=== PATIENT | male | born 1960 | race Two or more races ===

== ENCOUNTER 2021-03-20 09:44 | Outpatient (REF) | payer OTHER, SELFPAY ==
--- NOTE | ~2021-03-20 | PE_ITS ---
EXAMINATION: Fluorine-18 FDG PET/CT Scan CLINICAL INDICATION: Subsequent treatment management. Follicular lymphoma, restaging status post chemotherapy [id number], radiation therapy 2019. PROCEDURE: 69 minutes following the intravenous administration of 15.8 mCi of fluorine 18 FDG, images from the base of the skull to the mid thighs were obtained using a combined PET/CT scanner with CT scan based attenuation correction. No oral contrast was administered. No intravenous contrast was administered. Transverse, coronal, sagittal, and volume reconstruction projections were obtained. The patient's blood glucose as determined by a finger stick, was 114 mg/dl immediately prior to injection. Total CT exam dose-length product 623.10 mGy-cm * These CT images were obtained using dose optimization techniques as appropriate, variously including the following: Automated exposure control * Adjustment of mA and/or kV according to patient size (this includes techniques or standardized protocols for targeted exams where dose is matched to indication/reason for exam; i.e. extremities or head) * Use of iterative reconstruction technique COMPARISON: Prior PET/CT scans dated 08/21/2016 and 04/24/2016 are available for comparison. CT scan of the abdomen and pelvis dated 08/11/2018 is also available for comparison. FINDINGS: (Slice numbers described in this report are numbered superiorly to inferiorly with slice #1 in the head) NECK AND VISUALIZED HEAD: No foci of abnormal FDG activity are noted. The distribution of FDG activity is physiological. There is no cervical lymphadenopathy. THORAX: There is an FDG avid enlarged periaortic lymph node that abuts the left lateral margin of the aortic arch, SUVmax 5.0, slice 67/267 and measuring approximately 2.4 x 1.2 [address] the corresponding CT images. This lymph node did not show abnormal FDG activity and was subcentimeter in size on the most recent 08/12/[address] scan, but a prominent FDG avid lymph node at this site was present on the baseline 04/24/[address] scan. No additional foci of abnormal FDG activity are present in the chest. No pulmonary nodules are visualized. There is no pleural or pericardial fluid, or pneumothorax. There is no additional mediastinal, supraclavicular, or axillary lymphadenopathy. ABDOMEN AND PELVIS: There is diffusely increased FDG activity that likely originates in the right adrenal gland and extends into the adjacent medial aspect of the right lobe of the liver and also inseparably abuts the upper pole of the right kidney. This shows SUVmax 6.5, slice 128/267. This corresponds to the mass that was biopsied under CT guidance on 08/06/2019. There is FDG activity of markedly varying intensity diffusely in the gastrointestinal tract, with the most intense focus in the left midabdomen within a loop of small bowel showing SUVmax 7.5, slice 152/267. No definite corresponding CT abnormality is present. In the right colon, the most intense activity is diffusely along the omental surface anteriorly and anterolaterally, also with no definite corresponding CT abnormality. There is diverticulosis without evidence of diverticulitis. The hollow viscera are otherwise unremarkable. There is a chronic hypodense medullary cyst in the mid right kidney, markedly FDG photopenic. Additional hypodense FDG photopenic cysts present medially in the mid to lower pole region of the left kidney, also unchanged from prior studies. The kidneys are otherwise unremarkable. The left adrenal gland and pancreas are unremarkable. There is some minimal mesenteric stranding possibly with some weak FDG activity associated, such as in slice 161/267 in the left midabdomen. Subtle aortocaval FDG avid lymphadenopathy is also present showing SUVmax 3.7, slice 148/267 at the L2 level. No additional retroperitoneal, mesenteric, pelvic or inguinal lymphadenopathy is present. Mild diffuse bladder wall thickening is present, similar to prior studies. The pelvic organs are otherwise unremarkable. MUSCULOSKELETAL: No foci of abnormal FDG activity are present in the osseous structures. There are minimal degenerative changes in the midthoracic spine. No suspicious sclerotic or lytic lesions are visualized. VASCULAR: Diffuse vascular calcifications including coronary are noted. PET/PET CT fusion skull to thigh IMPRESSION: 1. An FDG avid mediastinal lymph node abutting the left lateral margin of the aortic arch is developed since 08/12/2019 and is strongly suspicious for a malignant lesion and most consistent with recurrent lymphoma at this site. Although not present on the most recent 08/21/[address] scan, the baseline 04/24/[address] scan showed an FDG avid lymph node at this site. 2. A large FDG avid right adrenal mass is now inseparable from the liver and upper pole of the right kidney. This was biopsied on 08/06/2019 and shown to be involvement by the patient's known follicular lymphoma. 3. FDG avid aortocaval lymphadenopathy is also suspicious for recurrent lymphoma. 4. Prominent FDG activity in the gastrointestinal tract as described above could be physiological, but the intense focal appearance in the left midabdomen within a loop of small bowel as well as the activity associated with the right colon may also represent recurrent malignancy. These may be better characterized with MRI of the abdomen performed without and with intravenous contrast. The latter may also be helpful in better characterizing the right adrenal mass and its relationship to the adjacent liver and right kidney. Using the 5 point Deauville scale, this patient would be classified as a Deauville score of 5.
== END 2021-03-20 09:45 | disposition home or self-care (01) ==
LOC: HO.PET 09:44
PROVIDERS: PCP Family Medicine; Visit Provider Internal Medicine
DX: Z13.89 Encounter for screening for other disorder (principal)

== ENCOUNTER → 2021-05-08 11:08 | Outpatient (REF) | payer OTHER, SELFPAY ==
--- NOTE | 2021-05-08 11:13 | CA_ITS ---
Transthoracic Echocardiogram Patient (Last, First, Middle): Jorje Crow, Gender: Male Date of : 1960 Age: 61 Procedure Date: 05/08/2021 Procedure Type: Transthoracic Echocardiogram Location: OP Height: 167.64 cm Weight: 81.19 kg BSA: 1.91 m2 Heart Rate: bpm BP: 139 / 88 mmHg Woodyard Crane Operator: DSAudelia Referring MD: Asuncion Dumont MD Arch Cushion Press Operator: Caleb Bautista MD Symptoms: pre chemo eval Study Quality: Good ECG Rhythm: Sinus Conclusions: - 1. Normal LV systolic function with grade 1 diastolic dysfunction 2. Normal cardiac valvular Doppler 3. Normal RV systolic pressure 4. No pericardial effusion Findings Left Ventricle Normal left ventricular size, thickness, and systolic function. The visually estimated ejection fraction is between 65-70%. Spectral Doppler is indicative of an impaired relaxation filling pattern. E/E prime ratio is <8, consistent with normal filling pressures. Evidence suggests grade I (mild) diastolic dysfunction. global longitudinal strain was performed, however it appears that the moderate tracking is inadequate and therefore the results are not accurate Right Ventricle Normal right ventricular cavity size and systolic function. Atria Both atria are normal in size. There is no evidence of interatrial shunt. Aortic Valve The aortic valve structure and function is likely normal. There is no aortic valve stenosis. There is no aortic valve regurgitation. Mitral Valve Likely normal mitral valve structure and function. There is trace mitral valve regurgitation. There is no mitral valve stenosis. Pulmonic Valve The pulmonic valve was not well visualized. Tricuspid Valve Likely normal tricuspid valve structure and function. There is trace tricuspid valve regurgitation. The right ventricular systolic pressure is normal. Normal right atrial pressure. There is no evidence of pulmonary hypertension. Great Vessels All visible segments of the aorta are normal in size. The pulmonary artery was not well visualized. Venous The inferior vena cava is normal in size and collapses greater than 50% with inspiration. Pericardium/Pleural There is no evidence of pericardial effusion. Prior Study Comparison No significant change compared to prior study dated: 09/01/2019. Measurements 2D Linear Measurements IVSd: 0.86 0.6-0.9/0.6-1.0 cm LVIDd: 5.03 3.9-5.3/4.2-5.9 cm LVIDd Index: 2.63 2.4-3.2/2.2-3.1 cm/m2 LVIDs: 3.48 2.0-3.6 cm LVPWd: 1.25 0.7-1.1 cm Ao Root: 2.90 2.1-3.5 cm LA Diam: 3.50 2.7-3.8/3.0-4.0 cm LAIDs Index: 1.83 1.5-2.3 cm/m2 LV Mass: 245.72 67-162/88-224 g LV Mass Index: 128.65 43-95/49-115 g/m2 LVOT Diam: 2.00 3.0+(-)1.3 cm 2D Systolic Function EF 4C: 61.20 >55% EF 2C: 76.50 >55% EF BiP: 70.50 >55% Mitral Valve MV Pk E: 0.65 MV PK A: 0.78 MV Decel Time: 161.00 E/A: 0.80 E'Lateral: 7.83 E'Medial: 7.51 E/E' Med: 8.60 E/E' Lat: 8.30 PHT: 47.00 MVA PHT: 4.68 Decel [place]: 4.02 Aortic Valve AoV Pk Jarrett: 1.15 AoV Pk Grad: 5.00 LVOT LVOT Pk Jarrett: 0.92 LVOT Mn Jarrett: 0.57 LVOT VTI: 0.21 LVOT Pk Grad: 3.00 LVOT Mn Grad: 2.00 LVOT Diam: 2.00 LVOT Area: 3.14 Diastolic Function MV Pk E: 0.65 MV Pk A: 0.78 E/A: 0.80 E'Medial: 7.51 E/E' Med: 8.60 E' Laterial: 7.83 E/E' Lat: 8.30 Tricuspid Valve TR Pk Jarrett: 2.24 TR Pk Grad: 20.00 RA Press: 3.00 RVSP: 23.00 Great Vessels Aorta Ao Root-2D: 2.90 2.0-3.7 cm Ao Asc: 3.30 2.1-3.4 cm Updated in Other Vendor System with Status of Final Caleb Bautista MD electronically signed on 05/09/2021 9:08:53 AM with status of Final
== END ==
LOC: HO.CARD 11:08
PROVIDERS: Visit Provider Internal Medicine
DX: C82.90 Follicular lymphoma, unspecified, unspecified site (principal); Z95.5 Presence of coronary angioplasty implant and graft
CPT/HCPCS: 93306; 93356

== ENCOUNTER 2021-05-28 09:50 | Outpatient (REF) | payer OTHER, SELFPAY ==
[2021-05-28 10:26] LABS: Total Volume 24 Hour Urine 1100 mL
[2021-05-28 11:16] LABS: Creatinine, 24Hr Urine 0.5 G/Day (1.0-2.0); Creatinine, mg/dL 49.35
[2021-05-29 19:28] LABS: Calcium, 24 Hr Urine 13 mg/24 h; Calcium/Creatinine Ratio 23 mg/g creat (30-210); Creatinine 24Hr Urine 0.57 g/24 h (0.50-2.15)
[2021-05-30 09:37] LABS: Creatinine, 24Hr Urine 0.58 g/24 h (0.50-2.15); PEU-PROT/CRE Ratio mg/mg NOTE (< OR = 0.114); PEU24-Albumin Urine 0 %; PEU24-Alpha 1 Globulin 0 %; PEU24-Alpha 2 Globulin 0 %; PEU24-Beta Globulin 0 %; PEU24-Gamma Globulin 0 %; Total Protein 24Hr Urine NOTE mg/24 h (<150); Total Protein/Creat Ratio 24h NOTE mg/g creat (< OR = 114)
== END 2021-05-28 09:51 | disposition home or self-care (01) ==
LOC: HO.LNP 09:50
PROVIDERS: Visit Provider Internal Medicine Endocrinology, Diabetes & Metabolism
DX: M81.0 Age-related osteoporosis without current pathological fracture (principal)
CPT/HCPCS: 82340; 82570; 84156; 84166

== ENCOUNTER 2021-06-02 08:50 | Outpatient (REF) | payer OTHER, SELFPAY ==
[2021-06-02 09:38] LABS: MANUAL DIFF FLAG NO
[2021-06-02 09:44] LABS: Basophils Percent Auto 0.5 % (0-2); Eosinophils Absolute Auto 0.1 X10*3/uL (0.0-0.4); Hemoglobin 15.1 g/dl (14.0-18.0); Imm Gran Abs Auto 0.05 X10*3/uL (0.00-0.03); Imm Gran Pct Auto 0.8 % (0.0-0.4); Lymphocytes Absolute Auto 0.8 X10*3/uL (1.2-4.9); Lymphocytes Percent Auto 14.1 % (20-40); Mean Corpuscular Hemoglobin 30.8 pg (27.0-33.0); Mean Corpuscular Volume 85.5 fL (80-98); Mean Platelet Volume 9.4 fL (9.4-12.4); Monocytes Absolute Auto 0.7 X10*3/uL (0.1-1.2); Monocytes Percent Auto 11.6 % (2-11); Neutrophils Absolute Auto 4.3 X10*3/uL (2.0-8.3); Platelet Count 255 X10*3/uL (160-400); Red Blood Count 4.91 X10*6/uL (4.60-5.80); Red Cell Distribution Width 12.3 % (11.0-16.0)
[2021-06-02 09:51] LABS: Estimated Average Glucose 260 mg/dL; Hemoglobin A1c % 10.7 %
[2021-06-02 10:06] LABS: Alanine Aminotransferase 41 U/L (0-40); Alkaline Phosphatase 104 U/L (39-117); Anion Gap 17 (12-20); Aspartate Amino Transferase 25 U/L (5-37); Bilirubin Total 0.9 mg/dL (0.0-1.0); Blood Urea Nitrogen 22 mg/dL (9-16); Calcium 9.6 mg/dL (8.4-10.2); Carbon Dioxide 24 mmol/L (22-29); Chloride 101 mmol/L (96-108); Cholesterol 152 mg/dL; Estimated Glomerular Filt Rate 56; Glucose Random 293 mg/dL (60-115); HDL Cholesterol 40 mg/dL; LDL Cholesterol Calculated 90 mg/dl; Potassium 4.8 mmol/L (3.3-5.1); Sodium 137 mmol/L (135-145); Total Protein 6.7 g/dL (6.5-8.0); Triglycerides 111 mg/dL
[2021-06-02 10:29] LABS: TSH reflex Free T4 0.43 uIU/mL (0.32-4.0); Vitamin D 25-OH Total 36.7 ng/mL (>30)
[2021-06-04 08:18] LABS: Vitamin B12 929 pg/mL (200-900)
== END 2021-06-02 08:51 | disposition home or self-care (01) ==
LOC: HO.LAB 08:50
PROVIDERS: PCP Family Medicine; Visit Provider Family Medicine
DX: C82.08 Follicular lymphoma grade I, lymph nodes of multiple sites (principal); E11.9 Type 2 diabetes mellitus without complications
CPT/HCPCS: 36415; 80053; 80061; 82306; 82607; 83036; 84443; 85025

== ENCOUNTER 2021-07-16 09:12 | Outpatient (REF) | payer OTHER, SELFPAY ==
--- NOTE | ~2021-07-16 | US_ITS ---
EXAMINATION: US VENOUS WITH DOPPLER UPPER EXTREMITY, LEFT CLINICAL INFORMATION: Left arm pain. Evaluate for a deep vein thrombosis. COMPARISON: None TECHNIQUE: Ultrasound of the upper extremity is performed using compression sonography and color and pulse Doppler flow with assessment of augmentation of flow. There is also imaging and Doppler assessment of the jugular and subclavian veins. Spectral analysis with color-flow imaging is performed. FINDINGS: Respiratory variation, normal compression, and augmented flow are noted throughout the upper extremity including the axillary, brachial, cubital, and radial and ulnar veins. There is normal flow in the internal jugular and subclavian veins. Heterogeneous echogenicity within the median cubital vein with noncompressibility and no Doppler detectable vascular flow. Findings likely represent superficial thrombophlebitis. If the patient's symptoms progress, a follow-up ultrasound in 5-7 days might be of value to exclude proximal propagation from a nonvisualized distal arm vein. US/US venous duplex UE LT IMPRESSION: No left upper extremity deep vein thrombosis. Findings consistent with superficial thrombophlebitis in the median cubital vein.
== END 2021-07-16 09:13 | disposition home or self-care (01) ==
LOC: HO.US 09:12
PROVIDERS: PCP Family Medicine; Visit Provider Internal Medicine
DX: C82.90 Follicular lymphoma, unspecified, unspecified site (principal); R60.9 Edema, unspecified
CPT/HCPCS: 93971

== ENCOUNTER 2021-07-24 12:57 | Outpatient (REF) | payer OTHER, SELFPAY ==
--- NOTE | ~2021-07-24 | PE_ITS ---
EXAMINATION: PET/CT FUSION SKULL TO THIGH CLINICAL INFORMATION: Follicular lymphoma restaging. COMPARISON: PET/CT 03/20/2021 TECHNIQUE: Following intravenous administration of 16 mCi of F-18 FDG in the left hand, whole-body PET emission scan was obtained [address] 3.75 mm thin axial imaging was obtained without oral or IV contrast. Baseline serum glucose measured 133 mg/dL. Radiation dose measured 862 Gy-cm. FINDINGS: HEAD AND NECK: On PET imaging, there is no abnormal activity seen in the visualized brain parenchyma or the skull base. No abnormal metabolic activity is seen in the neck. Normal metabolic activity is seen in the thyroid lobes. On CT imaging, the visualized brain parenchyma is homogeneous. No lytic or sclerotic process is seen in the skull base. The bilateral maxillary sinuses are well aerated. The airway is widely patent. Visualized bilateral parotid, submandibular and thyroid glands are symmetrical. No abnormal neck mass or lymph nodes seen. CHEST: Previously visualized solitary lymph node in the left para-aortic region has resolved. No additional areas of abnormal metabolic activity are seen. On CT imaging, the lungs are expanded and clear. No pulmonary nodules, mass or consolidation seen. No abnormal mediastinal or hilar lymph nodes are seen. Previously visualized left para-aortic lymph node is not seen at this time. Central trachea and the bronchi are widely patent. There are coronary artery calcifications present. ABDOMEN AND PELVIS: There is mild metabolic activity seen in the colon but less in intensity compared to previous exam 03/20/2021. Previously visualized metabolic activity in the right adrenal gland extending cephalad to the upper pole right kidney and the pancreatic head shows no abnormal activity. Normal metabolic activity seen in both kidneys and bladder. On CT imaging, there is a solitary 2.5 cm cyst midpole left kidney. There is mild fullness of the right adrenal gland but decreased in size compared to previous study. There is no abnormal metabolic activity seen in the para-aortic lymph nodes or any abnormal sized para-aortic lymph nodes on CT. The bowel gas pattern is nonspecific with scattered stool in the right colon. There is no free fluid. There is diffuse urinary bladder wall thickening, slightly more progressive from the previous study. PET/PET CT fusion skull to thigh IMPRESSION: Interval complete resolution of left para-aortic lymph node activity in the chest as well as small retroperitoneal lymph nodes in the abdomen. On the present exam, there is no abnormal metabolic activity seen in the skull base, neck, chest, or the abdomen. Diffuse activity in the colon has significantly decreased in intensity without any mural thickening. There is mild urinary bladder wall thickening, slightly more pronounced than the previous 03/20/2021 exam.
== END 2021-07-24 12:58 | disposition home or self-care (01) ==
LOC: HO.PET 12:57
PROVIDERS: PCP Family Medicine; Visit Provider Internal Medicine
DX: Z13.89 Encounter for screening for other disorder (principal)

== ENCOUNTER 2022-06-14 18:44 | Inpatient (IN) | payer OTHER, SELFPAY ==
--- NOTE | ~2022-06-14 | XR_ITS ---
EXAMINATION: XR CHEST CLINICAL INFORMATION: Pneumonia. COMPARISON: Most recent CT chest dated 06/14/2022. TECHNIQUE: Frontal view of the chest was obtained. FINDINGS: There appears to be slight interval decrease in patchy bilateral airspace opacities when compared to the most recent chest CT. No new airspace consolidation. No pleural effusion or pneumothorax. Stable cardiomediastinal silhouette. XR/XR chest 1V IMPRESSION: Slight interval decrease in patchy bilateral airspace opacities when compared to the most recent chest CT.
--- NOTE | ~2022-06-14 | CT_ITS ---
EXAMINATION: CT CHEST WITHOUT CONTRAST CLINICAL INFORMATION: Question pneumonia COMPARISON: Previous chest x-ray from earlier the same day and PET/CT March 2020 TECHNIQUE: Multidetector volumetric CT imaging of the chest was done. Axial MIP volume rendering provided. Sagittal and coronal reformatted images were obtained. This CT examination was performed using dose optimization techniques as appropriate, variously including the following: *Automated exposure control *Adjustment of mA and/or kV according to patient size (this includes techniques or standardized protocols for targeted exams where dose is matched to indication/reason for exam; i.e. extremities or head) *Use of iterative reconstruction technique DLP: 296 mGy-cm FINDINGS: LUNGS: There are bilateral groundglass attenuation infiltrates suggestive of pneumonia, left greater than right. MEDIASTINUM: The heart is upper normal in size. There is coronary artery calcification. There is a prominent AP window lymph node measuring 1 cm in short axis. Evaluation for hilar adenopathy is limited without contrast. There is no pericardial effusion. PLEURA: There is no pleural effusion. No pleural mass or thickening. AXILLA: No lymphadenopathy. UPPER ABDOMEN: There is abnormal soft tissue seen in the right retroperitoneum. The right adrenal gland is not identified separate from this. The spleen may be enlarged. OSSEOUS STRUCTURES: Unremarkable. CT/CT chest wo con IMPRESSION: Bilateral multilobar groundglass attenuation infiltrates suggestive of pneumonia, left greater than right.. Fleischner guidelines were followed.
--- NOTE | ~2022-06-14 | XR_ITS ---
EXAMINATION: XR CHEST CLINICAL INFORMATION: Fever COMPARISON: Previous chest x-ray January 2018 and PET/CT March 2020 TECHNIQUE: Frontal view of the chest was obtained. FINDINGS: The cardiac silhouette does not appear enlarged. There is abnormal contour to the aortic arch. Hilar and mediastinal contours are otherwise unremarkable. The lung volumes are low. There is atelectasis versus small infiltrate at the left lung base. There is atelectasis at the right lung base. There is no pleural effusion. XR/XR chest 1V IMPRESSION: Abnormal contour to the aortic arch. This may be related to mass or lymphadenopathy. Low lung volumes. Atelectasis or small infiltrate at the left lung base and atelectasis at the right lung base.
--- NOTE | 2022-06-14 19:00 | ED.WEAKNESS ---
HPI - Weakness General Chief complaint: Fever Stated complaint: FEVER,FEELS UNWELL Time Seen by Provider: 06/14/22 18:56 Source: patient Mode of arrival: EMS Limitations: no limitations History of Present Illness HPI Narrative: This is a 62 years old with history of recurrent follicular lymphoma, presented to the emergency department via ambulance complaining of weakness, fever, nausea, chills. He was evaluated away the weekend at [facility], symptoms persisted today: Ambulance MD Complaint: generalized weakness and lack of energy Onset (ago): day(s) (4) Duration: constant Location: generalized Migration: none Severity: moderate Relieving factors: none Exacerbating factors: none Related Data Home Medications Medication Instructions Recorded Confirmed atorvastatin 80 mg tablet 80 mg PO DAILY 11/14/20 06/14/22 hydrochlorothiazide 25 mg tablet 25 mg PO DAILY 11/14/20 06/14/22 losartan 50 mg tablet 50 mg PO DAILY 11/14/20 06/14/22 metformin 500 mg tablet 500 mg PO BIDWM 11/14/20 06/14/22 metoprolol succinate 100 mg 100 mg PO DAILY 11/14/20 06/14/22 tablet,extended release 24 hr blood sugar diagnostic (FreeStyle 06/25/21 06/12/22 Lite Strips) blood-glucose meter (FreeStyle 06/25/21 06/12/22 [place] Lite) albuterol sulfate 90 mcg/actuation 2 puff PO Q4-6H PRN dyspnea 06/14/22 06/14/22 aerosol inhaler (Ventolin HFA) aspirin 81 mg tablet,delayed 2 tab PO QPM 06/14/22 06/14/22 release benzonatate 200 mg capsule 1 cap PO TID PRN cough 06/14/22 06/14/22 fluticasone propionate 50 1 - 2 spray intranasal DAILY PRN 06/14/22 06/14/22 mcg/actuation nasal Allergy Symptoms spray,suspension loratadine 10 mg tablet 1 tab PO DAILY 06/14/22 06/14/22 oxycodone 10 mg tablet 1 tab PO BID PRN Pain (Scale Score 06/14/22 06/14/22 7-10) pantoprazole 40 mg tablet,delayed 1 tab PO DAILY 06/14/22 06/14/22 release Allergies Allergy/AdvReac Type Severity Reaction Status Date / Time amlodipine [AMLODIPINE] Allergy Unknown EDEMA-PER Verified 12/25/21 09:15 H&P Review of Systems Constitutional: Constitutional: Reports no additional constitutional complaints Cardiovascular: Cardiovascular: Reports no additional cardiovascular complaints Musculoskeletal: Musculoskeletal: Reports no additional musculoskeletal complaints [facility] Past Medical History Medical History Abnormal urine cytology CAD (coronary artery disease) Diabetes GERD (gastroesophageal reflux disease) HTN (hypertension) Hyperlipemia Lymphoma Surgical History History of heart artery stent Hx of cataract surgery Family History Family History Father Pancreas cancer Hypertension Sister Breast cancer Social History Social History Household Members: Children Housing: House Are you a primary child care provider to a significant other at home: No Do you presently have visiting nurse or other home services: No Alcohol intake: former Patient Tobacco Use Status: Never used Tobacco Use of substances other than those prescribed or required for medical reasons: No Advance Directives: No Advance Directives Information Provided: Yes service: No Current occupational status: unemployed Physical Exam Vital Signs: Vital Signs: Last Vital Signs Temp 104.1 F H 06/14/22 19:21 Pulse 100 06/14/22 21:48 Resp 28 H 06/14/22 21:48 BP 109/62 06/14/22 21:48 Pulse Ox 95 06/14/22 21:48 O2 Del Method 06/14/22 21:48 BMI result Body Mass Index 26.8 Const: General: cooperative and alert Nutritional Appearance: well nourished HEENT: Head: Yes normal to inspection Face and sinus: Yes normal facial exam Mouth: Normal oral and palatal mucosa present Neck: Neck: Yes normal visual inspection Chest: Chest palpation & inspection: normal inspection of the chest Resp: Effort & Inspection: normal respiratory effort Auscultation: clear to auscultation bilaterally Cardio: Jugular venous distension: no JVD Rate: regular rate Rhythm: regular rhythm GI: Inspection: Yes normal to inspection Palpation (GI): Soft to palpation Skin: General skin exam: no rashes or lesions noted, elasticity normal and turgor normal Rashes: no rashes Course Reevaluation(s) Reevaluation #1: Pt improving remain normotensive,lactic acid normal AB given,CT chest showed bilateral infiltrates is hard to say if could be related to covid VS bacterial pneumonia,regardless pt should be on AB because immunocompromized 2th to the lymphoma MDM - Weakness Lab Data Result diagrams: 06/14/22 19:42 06/14/22 19:42 Labs: Lab Results 06/14/22 06/14/22 06/14/22 Range/Units 19:42 19:42 19:42 WBC 4.1 L (4.8-10.8) X10*3/uL RBC 3.71 L (4.60-5.80) X10*6/uL Hgb 11.1 L (14.0-18.0) g/dl Hct 32.0 L (42.0-52.0) % MCV 86.3 (80.0-98.0) fL MCH 29.9 (27.0-33.0) pg MCHC 34.7 (31.0-36.0) g/dl RDW 12.7 (11.0-16.0) % Plt Count 155 L (160-400) X10*3/uL MPV 9.1 L (9.4-12.4) fL Immature Gran % (Auto) 0.7 H (0.0-0.4) % Neut % (Auto) 73.1 H (45-73) % Lymph % (Auto) 14.6 L (20-40) % [place] % (Auto) 9.9 (2-11) % Eos % (Auto) 1.7 (0-4) % Baso % (Auto) 0.0 (0-2) % Lymph # (Auto) 0.6 L (1.2-4.9) X10*3/uL [place] # (Auto) 0.4 (0.1-1.2) X10*3/uL Eos # (Auto) 0.1 (0.0-0.4) X10*3/uL Baso # (Auto) 0.0 (0.0-0.2) X10*3/uL Abs Immat Gran (auto) 0.03 (0.00-0.03) X10*3/uL Absolute Neuts (auto) 3.0 (2.0-8.3) x10*3/uL Absolute Nucleated RBC 0.000 (0.0-0.012) X10*3/uL Nucleated RBC % (auto) 0.0 (0.0-0.2) /100WBC PT 14.0 H (10.0-13.1) SEC INR 1.2 H (0.9-1.1) Sodium 137 (135-145) mmol/L Potassium 4.1 (3.3-5.1) mmol/L Chloride 101 (96-108) mmol/L Carbon Dioxide 26 (22-29) mmol/L Anion Gap 14 (12-20) BUN 19 H (9-16) mg/dL Creatinine 1.26 (0.5-1.4) mg/dL Estim Creat Clear Calc 56.2 Estimated GFR 58 Random Glucose 146 H D (60-115) mg/dL Lactic Acid (0.5-2.0) mmol/L Calcium 7.7 L D (8.4-10.2) mg/dL Total Bilirubin 0.6 (0.0-1.0) mg/dL AST 63 H (5-37) U/L ALT 62 H (0-40) U/L Alkaline Phosphatase 106 (39-117) U/L Total Protein 6.0 L (6.5-8.0) g/dL Albumin 3.4 L (3.5-5.0) g/dL COVID-19 (SAHIL) (Negative) COVID-19 Clin Com 06/14/22 06/14/22 Range/Units 19:42 19:42 WBC (4.8-10.8) X10*3/uL RBC (4.60-5.80) X10*6/uL Hgb (14.0-18.0) g/dl Hct (42.0-52.0) % MCV (80.0-98.0) fL MCH (27.0-33.0) pg MCHC (31.0-36.0) g/dl RDW (11.0-16.0) % Plt Count (160-400) X10*3/uL MPV (9.4-12.4) fL Immature Gran % (Auto) (0.0-0.4) % Neut % (Auto) (45-73) % Lymph % (Auto) (20-40) % [place] % (Auto) (2-11) % Eos % (Auto) (0-4) % Baso % (Auto) (0-2) % Lymph # (Auto) (1.2-4.9) X10*3/uL [place] # (Auto) (0.1-1.2) X10*3/uL Eos # (Auto) (0.0-0.4) X10*3/uL Baso # (Auto) (0.0-0.2) X10*3/uL Abs Immat Gran (auto) (0.00-0.03) X10*3/uL Absolute Neuts (auto) (2.0-8.3) x10*3/uL Absolute Nucleated RBC (0.0-0.012) X10*3/uL Nucleated RBC % (auto) (0.0-0.2) /100WBC PT (10.0-13.1) SEC INR (0.9-1.1) Sodium (135-145) mmol/L Potassium (3.3-5.1) mmol/L Chloride (96-108) mmol/L Carbon Dioxide (22-29) mmol/L Anion Gap (12-20) BUN (9-16) mg/dL Creatinine (0.5-1.4) mg/dL Estim Creat Clear Calc Estimated GFR Random Glucose (60-115) mg/dL Lactic Acid 1.1 (0.5-2.0) mmol/L Calcium (8.4-10.2) mg/dL Total Bilirubin (0.0-1.0) mg/dL AST (5-37) U/L ALT (0-40) U/L Alkaline Phosphatase (39-117) U/L Total Protein (6.5-8.0) g/dL Albumin (3.5-5.0) g/dL COVID-19 ([facility]HIL) Positive A (Negative) COVID-19 Clin Com See Note Imaging Data CT scan - chest: Radiologist's impression: uation infiltrates suggestive of pneumonia, left greater than right. MEDIASTINUM: The heart is upper normal in size. There is coronary artery calcification. There is a prominent AP window lymph node measuring 1 cm in short axis. Evaluation for hilar adenopathy is limited without contrast. There is no pericardial effusion.? PLEURA: There is no pleural effusion. No pleural mass or thickening.? AXILLA: No lymphadenopathy.? UPPER ABDOMEN: There is abnormal soft tissue seen in the right retroperitoneum. The right adrenal gland is not identified separate from this. The spleen may be enlarged.? OSSEOUS STRUCTURES: Unremarkable.? CT/CT chest wo con IMPRESSION: Bilateral multilobar groundglass attenuation infiltrates suggestive of pneumonia, left greater than right..? ? Fleischner guidelines were followed. Dictated By: Ira Leyva MD Signed By: <Electronically signed by Ira Leyva MD in [place]> 06/14/22 5527 Discharge Plan Discharge Clinical Impression: Fever, Lymphoma Patient Disposition: Admitted As Inpatient
[2022-06-14 19:06] VITALS: BP 115/72; PULSE 118; O2SAT 97
[2022-06-14 19:21] VITALS: BP 118/68; PULSE 122; RESP 16; TEMP 40.1; O2SAT 94; BMI 26.8
[2022-06-14 19:58] LABS: COVID-19 Test Positive (Negative); IDNOW Serial# 55D5AD1C; MANUAL DIFF FLAG NO
[2022-06-14] MEDS: Piperacillin Sodium/Tazobactam 4.5 GM in 0.9 % Sodium Chloride 100 ML IV (19:58)
[2022-06-14] MEDS: Acetaminophen 325 MG TABLET 975 MG PO (19:58)
[2022-06-14 20:01] LABS: Lactic Acid 1.1 mmol/L (0.5-2.0)
[2022-06-14 20:02] LABS: Eosinophils Absolute Auto 0.1 X10*3/uL (0.0-0.4); Eosinophils Percent Auto 1.7 % (0-4); Hemoglobin 11.1 g/dl (14.0-18.0); Imm Gran Abs Auto 0.03 X10*3/uL (0.00-0.03); Imm Gran Pct Auto 0.7 % (0.0-0.4); Lymphocytes Absolute Auto 0.6 X10*3/uL (1.2-4.9); Lymphocytes Percent Auto 14.6 % (20-40); Mean Corpuscular HGB Conc 34.7 g/dl (31.0-36.0); Mean Corpuscular Hemoglobin 29.9 pg (27.0-33.0); Mean Corpuscular Volume 86.3 fL (80.0-98.0); Mean Platelet Volume 9.1 fL (9.4-12.4); Monocytes Absolute Auto 0.4 X10*3/uL (0.1-1.2); Monocytes Percent Auto 9.9 % (2-11); Neutrophils Percent Auto 73.1 % (45-73); Platelet Count 155 X10*3/uL (160-400); Red Blood Count 3.71 X10*6/uL (4.60-5.80); Red Cell Distribution Width 12.7 % (11.0-16.0); White Blood Count 4.1 X10*3/uL (4.8-10.8)
[2022-06-14 20:08] LABS: INTERNATIONAL NORM RATIO 1.2 (0.9-1.1)
[2022-06-14 20:32] LABS: Alanine Aminotransferase 62 U/L (0-40); Albumin Level 3.4 g/dL (3.5-5.0); Alkaline Phosphatase 106 U/L (39-117); Anion Gap 14 (12-20); Aspartate Amino Transferase 63 U/L (5-37); Bilirubin Total 0.6 mg/dL (0.0-1.0); Blood Urea Nitrogen 19 mg/dL (9-16); Calcium 7.7 mg/dL (8.4-10.2); Carbon Dioxide 26 mmol/L (22-29); Chloride 101 mmol/L (96-108); Creatinine Clr Calc Pharmacy 56.2; Estimated Glomerular Filt Rate 58; Glucose Random 146 mg/dL (60-115); Potassium 4.1 mmol/L (3.3-5.1); Sodium 137 mmol/L (135-145)
--- NOTE | 2022-06-14 21:36 | PHA.MEDREC ---
Pharmacy Consult ? Medication Reconciliation Pharmacy has completed the medication reconciliation.
[2022-06-14] MEDS: vancomycin HCL 1,000 MG in 0.9 % Sodium Chloride 250 ML 270 MG IV (21:39)
[2022-06-14 21:48] VITALS: BP 109/62; PULSE 100; RESP 28; O2SAT 95
--- NOTE | 2022-06-14 23:29 | PM.IMHP ---
History of Present Illness Date of Service: 06/14/22 Chief Complaint: SOB This is a 62-year-old male with a past medical history of diabetes, hypertension, who presents to the hospital with increased shortness of breath, fever, cough. Patient is Mauritian-speaking and history is obtained with the help of an operating room technician and from his daughter at bedside. According to the daughter patient was tested positive for COVID-19 on the 22 of May, and once again on May 06. She reports ever since he was diagnosed he has been having increased cough and shortness of breath not responding to anti cough medications. He was given breathing treatments with no improvement. Patient denies any headache, no change in vision, no chest pain, no abdominal pain nausea or vomiting, no diarrhea constipation, no urinary symptoms and no lower extremity edema. On arrival to the ED patient hemodynamically stable with a fever of 104.1, respiratory rate of 16, heart rate of 122, blood pressure stable Labs are significant for WBC count of 4.1, hemoglobin of 11.1, BUN of 19, creatinine of 1.26 which is around his baseline, calcium 7.7, AST of 63, ALT of 62, UA negative, COVID-[address] shows bilateral multilobar ground-glass attenuation infiltrates suggestive of pneumonia left greater than right Patient has a procalcitonin of 0.52. Review of Systems Review of Systems: Yes all other systems are reviewed and are negative [facility] Medical History (Updated 06/15/22 @ 01:09 by Amy Carranza MD) Abnormal urine cytology CAD (coronary artery disease) Diabetes Follicular lymphoma GERD (gastroesophageal reflux disease) HTN (hypertension) Hyperlipemia Lymphoma Family History Father Pancreas cancer Hypertension Sister Breast cancer Surgical History History of heart artery stent Hx of cataract surgery Social History Household Members: Children Housing: House Are you a primary school child care attendant to a significant other at home: No Do you presently have visiting nurse or other home services: No Alcohol intake: former Patient Tobacco Use Status: Never used Tobacco Use of substances other than those prescribed or required for medical reasons: No Advance Directives: No Advance Directives Information Provided: Yes service: No Current occupational status: unemployed Meds Allergies Allergy/AdvReac Type Severity Reaction Status Date / Time amlodipine [AMLODIPINE] Allergy Unknown EDEMA-PER Verified 12/25/21 09:15 H&P Home Medications Medication Instructions Recorded Confirmed Last Taken Type atorvastatin 80 mg tablet 80 mg PO DAILY 11/14/20 06/14/22 Unknown History hydrochlorothiazide 25 mg tablet 25 mg PO DAILY 11/14/20 06/14/22 Unknown History losartan 50 mg tablet 50 mg PO DAILY 11/14/20 06/14/22 Unknown History metformin 500 mg tablet 500 mg PO BIDWM 11/14/20 06/14/22 Unknown History metoprolol succinate 100 mg 100 mg PO DAILY 11/14/20 06/14/22 Unknown History tablet,extended release 24 hr [facility] 06/12/22 Unknown History Lite Strips) [facility] 06/12/22 Unknown History [place] Lite) albuterol sulfate 90 mcg/actuation 2 puff PO Q4-6H PRN dyspnea 06/14/22 06/14/22 Unknown History aerosol inhaler (Ventolin HFA) aspirin 81 mg tablet,delayed 2 tab PO QPM 06/14/22 06/14/22 Unknown History release benzonatate 200 mg capsule 1 cap PO TID PRN cough 06/14/22 06/14/22 Unknown History fluticasone propionate 50 1 - 2 spray intranasal DAILY PRN 06/14/22 06/14/22 Unknown History mcg/actuation nasal Allergy Symptoms spray,suspension loratadine 10 mg tablet 1 tab PO DAILY 06/14/22 06/14/22 Unknown History oxycodone 10 mg tablet 1 tab PO BID PRN Pain (Scale Score 06/14/22 06/14/22 Unknown History 7-10) pantoprazole 40 mg tablet,delayed 1 tab PO DAILY 06/14/22 06/14/22 Unknown History release Physical Exam Vital Signs and Narrative: Vital Signs: Last Vital Signs Temp 104.1 F H 06/14/22 19:21 Pulse 100 06/14/22 21:48 Resp 28 H 06/14/22 21:48 BP 109/62 06/14/22 21:48 Pulse Ox 95 06/14/22 21:48 O2 Del Method 06/14/22 21:48 BMI result Body Mass Index 26.8 Const: General: cooperative and no acute distress Orientation/consciousness: patient oriented x3 Eyes: General: appearance normal, both eyes and all related structures Pupils: Equal, round and reactive pupils present Resp: Other: Crackles bilaterally Effort & Inspection: normal respiratory effort Cardio: Rate: regular rate Rhythm: regular rhythm GI: Palpation (GI): Soft to palpation Auscultation: normal bowel sounds Skin: General skin exam: no rashes or lesions noted Neuro: General: patient oriented x3 Cranial nerves: Yes Equal, round and reactive pupils present Cognition (Neuro): normal cognition Extrem: General: Yes normal to inspection and Yes no pedal edema Results Labs CBC and Chem 7: 06/14/22 19:42 06/14/22 19:42 Labs: Laboratory Results - last 24 hr 06/14/22 06/14/22 06/14/22 19:42 19:42 19:42 MCV 86.3 MCH 29.9 MCHC 34.7 RDW 12.7 Plt Count 155 L MPV 9.1 L Immature Gran % (Auto) 0.7 H Neut % (Auto) 73.1 H Lymph % (Auto) 14.6 L [place] % (Auto) 9.9 Eos % (Auto) 1.7 Baso % (Auto) 0.0 Lymph # (Auto) 0.6 L [place] # (Auto) 0.4 Eos # (Auto) 0.1 Baso # (Auto) 0.0 Abs Immat Gran (auto) 0.03 Absolute Neuts (auto) 3.0 Absolute Nucleated RBC 0.000 Nucleated RBC % (auto) 0.0 PT 14.0 H INR 1.2 H Anion Gap 14 Estim Creat Clear Calc 56.2 Estimated GFR 58 Random Glucose 146 H D Lactic Acid Calcium 7.7 L D Total Bilirubin 0.6 AST 63 H ALT 62 H Alkaline Phosphatase 106 Total Protein 6.0 L Albumin 3.4 L COVID-19 (SAHIL) COVID-19 Clin Com 06/14/22 06/14/22 19:42 19:42 MCV MCH MCHC RDW Plt Count MPV Immature Gran % (Auto) Neut % (Auto) Lymph % (Auto) [place] % (Auto) Eos % (Auto) Baso % (Auto) Lymph # (Auto) [place] # (Auto) Eos # (Auto) Baso # (Auto) Abs Immat Gran (auto) Absolute Neuts (auto) Absolute Nucleated RBC Nucleated RBC % (auto) PT INR Anion Gap Estim Creat Clear Calc Estimated GFR Random Glucose Lactic Acid 1.1 Calcium Total Bilirubin AST ALT Alkaline Phosphatase Total Protein Albumin COVID-19 (SAHIL) Positive A COVID-19 Clin Com See Note Imaging Radiologist's Impressions: Impressions Chest X-Ray 06/14/22 19:10 IMPRESSION: Abnormal contour to the aortic arch. This may be related to mass or lymphadenopathy. Low lung volumes. Atelectasis or small infiltrate at the left lung base and atelectasis at the right lung base. Chest CT 06/14/22 21:34 IMPRESSION: Bilateral multilobar groundglass attenuation infiltrates suggestive of pneumonia, left greater than right.. Fleischner guidelines were followed. Assessment and Plan (1) Pneumonia of both lower lobes: Status: Acute (2) COVID-19 virus infection: Status: Acute (3) Sepsis: Status: Acute Plan This is a 62-year-old male with past medical history of diabetes and hypertension who presents to the hospital after COVID 19 infection with shortness of breath and cough found to have pneumonia # sepsis - present on arrival - tachycardia, tachypnea, as well as febrile with leukopenia - likely secondary to pneumonia - will treat with IV antibiotics - follow cultures # pneumonia - likely primarily secondary to COVID with superimposed bacterial infection given the time frame - procalcitonin of 0.5 - will treat with IV antibiotics - follow cultures # COVID-19 infection - positive since the - has no hypoxia - pneumonia likely superimposed bacterial - supportive care - monitor respiratory status # diabetes - will start low-dose sliding scale insulin - diabetic diet # hypertension - stable - continue home antihypertensives Quality Stroke Does the patient have a stroke diagnosis?: No VTE Prior VTE?: No VTE Risk Level:: Medical - moderate - high VTE Device Contraindication: Treatment Not Indicated VTE Drug Contraindication: N/A - Med Ordered
[2022-06-15] VITALS (11 sets, daily range): BP systolic 117–140; BP diastolic 56–84; PULSE 83–104; RESP 17–34; TEMP 37.1–39.1; O2SAT 92–98
[2022-06-15 00:36] LABS: Appearance Urine CLEAR; Color Urine YELLOW; Glucose Urine UA NEG (NEG); Leukocyte Esterase Urine NEG (NEG); Nitrite Urine NEG (NEG); PH 6.5 (5.0-8.0); Specific Gravity - Urine <= 1.005 (1.005-1.025); Urine Blood NEG (NEG); Urine Ketones NEG (NEG); Urine Protein NEG (NEG-TRACE)
[2022-06-15 00:37] LABS: Procalcitonin 0.52 ng/mL
[2022-06-15 00:38] LABS: RBC Urine 0 /HPF (0); Squamous Epithelial Cell Urine TRACE /LPF; WBC Urine 0 /HPF (0-4)
[2022-06-15] MEDS: cefTRIAXone sodium 1 GM in 0.9 % Sodium Chloride 50 ML IV ×2 (00:51→22:46)
[2022-06-15] MEDS: Azithromycin 500 MG in 0.9 % Sodium Chloride 250 ML 125 MG IV (00:57)
[2022-06-15] MEDS: Enoxaparin Sodium 40 MG/0.4 ML SYRINGE SUBCUT ×2 (00:57→22:48)
--- NOTE | 2022-06-15 01:06 | PC.NURSE ---
Pt asleep on stretcher in between care, wakes when this RN to bedside. Pt aaox4, calm and cooperative. Pt denies pain/discomfort. Pt medicated per MAR, VS updated. Pt offers complaints. Pt RR even and unlabored on RA. Pt awaiting bed assigment. Stretcher in low locked position, rails raised, call sosa within reach.
[2022-06-15 05:01] LABS: MANUAL DIFF FLAG NO
[2022-06-15 05:02] LABS: Basophils Percent Auto 0.2 % (0-2); Eosinophils Absolute Auto 0.1 X10*3/uL (0.0-0.4); Eosinophils Percent Auto 1.5 % (0-4); Hematocrit 30.7 % (42.0-52.0); Hemoglobin 10.4 g/dl (14.0-18.0); Imm Gran Abs Auto 0.03 X10*3/uL (0.00-0.03); Imm Gran Pct Auto 0.7 % (0.0-0.4); Lymphocytes Absolute Auto 0.7 X10*3/uL (1.2-4.9); Lymphocytes Percent Auto 15.1 % (20-40); Mean Corpuscular HGB Conc 33.9 g/dl (31.0-36.0); Mean Corpuscular Hemoglobin 29.9 pg (27.0-33.0); Mean Corpuscular Volume 88.2 fL (80.0-98.0); Mean Platelet Volume 9.1 fL (9.4-12.4); Monocytes Absolute Auto 0.5 X10*3/uL (0.1-1.2); Monocytes Percent Auto 10.3 % (2-11); Neutrophils Absolute Auto 3.3 x10*3/uL (2.0-8.3); Neutrophils Percent Auto 72.2 % (45-73); Platelet Count 144 X10*3/uL (160-400); Red Blood Count 3.48 X10*6/uL (4.60-5.80); Red Cell Distribution Width 12.7 % (11.0-16.0); White Blood Count 4.6 X10*3/uL (4.8-10.8)
[2022-06-15 05:23] LABS: Anion Gap 10 (12-20); Blood Urea Nitrogen 13 mg/dL (9-16); Carbon Dioxide 26 mmol/L (22-29); Chloride 107 mmol/L (96-108); Creatinine Clr Calc Pharmacy 72.3; Estimated Glomerular Filt Rate > 60; Glucose Random 109 mg/dL (60-115); Potassium 4.7 mmol/L (3.3-5.1); Sodium 138 mmol/L (135-145)
[2022-06-15] MEDS: 0.9 % Sodium Chloride Flush 3 ML SYRINGE IVFLUSH ×3 (08:15→22:49)
[2022-06-15] MEDS: Loratadine 10 MG TABLET PO (09:29)
[2022-06-15] MEDS: Atorvastatin Calcium 80 MG TABLET PO (09:29)
[2022-06-15] MEDS: Losartan Potassium 50 MG TABLET PO (09:30)
[2022-06-15] MEDS: Metoprolol Succinate ER 100 MG TAB.ER.24H PO (09:31)
--- NOTE | 2022-06-15 10:01 | P.PNIM_ITS ---
Subjective Subjective Date of Service: 06/15/22 Interval History: the patient was seen and evaluated this morning Laying in bed, feels better but still overall weak and fatigued reporting subjective fever, chills or shortness of breath No reported other overnight events. Systemic review: subjective fever, chills or weakness No chest pain, palpitation reports dyspnea and coughing No abdominal pain, nausea or vomiting No urinary symptoms No any rash or wounds Physical Exam Vital Signs: Vital Signs: Last Vital Signs Temp 99.7 F 06/15/22 08:11 Pulse 104 H 06/15/22 09:27 Resp 31 H 06/15/22 09:27 BP 134/84 06/15/22 09:27 Pulse Ox 94 06/15/22 09:27 O2 Del Method 06/15/22 09:27 BMI result Body Mass Index 26.8 Const: Other: Constitutional : Alert, oriented, in mild respiratory distress Neck : Normal inspection, Supple Cardiovascular : RRR, no JVP, no lower extremity edema, tachycardic Respiratory : fair bilateral air entry, basal bilateral crackles, mild distress Gastrointestinal: soft, lax, Normal bowel sounds, Non tender Skin : Warm, Dry Neurological : Alert & oriented x3, No focal deficit , CN 2-12 within normal Objective Data Active Medications Acetaminophen (Acetaminophen 325 Mg Tablet) 650 mg PO Q6H PRN PRN Reason: Pain, Mild (Pain Scale 1-3) Albuterol Sulfate (Albuterol Sulfate 90 Mcg 8 Gm Inhaler) 2 puff INHALE Q4H PRN PRN Reason: dyspnea Aspirin (Aspirin Enteric Coated 81 Mg Tablet.Dr) 162 mg PO DAILY@1700 [facility] Atorvastatin Calcium (Atorvastatin Calcium 80 Mg Tablet) 80 mg PO DAILY [facility] Last Admin: 06/15/22 09:29 Dose: 80 mg Documented By: WILLIE Benzonatate (Benzonatate 100 Mg Capsule) 200 mg PO TID PRN PRN Reason: cough Docusate Sodium (Docusate Sodium 100 Mg Capsule) 100 mg PO DAILY PRN PRN Reason: Constipation Enoxaparin Sodium (Enoxaparin Sodium 40 Mg/0.4 Ml Syringe) 40 mg SUBCUT Q24H [facility] Last Admin: 06/15/22 00:57 Dose: 40 mg Documented By: NAVEEN Ceftriaxone Sodium 1 gm/ (Sodium Chloride) 50 mls @ 100 mls/hr IV Q24H [facility] Last Infusion: 06/15/22 01:19 Dose: 0 mls/hr Documented By: NAVEEN Azithromycin 500 mg/ Sodium (Chloride) 250 mls @ 125 mls/hr IV Q24H [facility] Last Infusion: 06/15/22 03:00 Dose: 0 mls/hr Documented By: NAVEEN Insulin Human Lispro (Insulin Lispro 100 Unit/Ml 3 Ml Vial) 0 unit SUBCUT QIDACHS [facility]; Protocol Loratadine (Loratadine 10 Mg Tablet) 10 mg PO DAILY [facility] Last Admin: 06/15/22 09:29 Dose: 10 mg Documented By: WILLIE Losartan Potassium (Losartan Potassium 50 Mg Tablet) 50 mg PO DAILY [facility]; Protocol Last Admin: 06/15/22 09:30 Dose: 50 mg Documented By: WILLIE Metoprolol Succinate (Metoprolol Succinate Er 100 Mg Tab.Er.24h) 100 mg PO DAILY [facility]; Protocol Last Admin: 06/15/22 09:31 Dose: 100 mg Documented By: WILLIE Omeprazole (Omeprazole 40 Mg Capsule.Dr) 40 mg PO DAILY@0630 [facility] Ondansetron HCl (Ondansetron Hcl 4 Mg/2 Ml Vial) 4 mg IVPUSH Q8H PRN PRN Reason: Nausea and Vomiting Oxycodone HCl (Oxycodone Hcl Immed Release 5 Mg Tablet) 10 mg PO BID PRN PRN Reason: Pain (Scale Score 7-10) Sodium Chloride (0.9 % Sodium Chloride Flush 3 Ml Syringe) 3 ml IVFLUSH QSHIFT [facility] Last Admin: 06/15/22 08:15 Dose: 3 ml Documented By: WILLIE Labs CBC & Chem 7: 06/15/22 04:28 06/15/22 04:28 Labs: Laboratory Results - last 24 hr 06/14/22 06/14/22 06/14/22 19:42 19:42 19:42 MCV 86.3 MCH 29.9 MCHC 34.7 RDW 12.7 Plt Count 155 L MPV 9.1 L Immature Gran % (Auto) 0.7 H Neut % (Auto) 73.1 H Lymph % (Auto) 14.6 L [place] % (Auto) 9.9 Eos % (Auto) 1.7 Baso % (Auto) 0.0 Lymph # (Auto) 0.6 L [place] # (Auto) 0.4 Eos # (Auto) 0.1 Baso # (Auto) 0.0 Abs Immat Gran (auto) 0.03 Absolute Neuts (auto) 3.0 Absolute Nucleated RBC 0.000 Nucleated RBC % (auto) 0.0 PT 14.0 H INR 1.2 H Anion Gap 14 Estim Creat Clear Calc 56.2 Estimated GFR 58 Random Glucose 146 H D Lactic Acid Calcium 7.7 L D Total Bilirubin 0.6 AST 63 H ALT 62 H Alkaline Phosphatase 106 Total Protein 6.0 L Albumin 3.4 L Procalcitonin Urine Color Urine Appearance Urine pH Ur Specific [place] Urine Protein Urine Glucose (UA) Urine Ketones Urine Blood Urine Nitrite Ur Leukocyte Esterase Urine RBC Urine WBC Ur Squamous Epith Cells Urine Bacteria COVID-19 (SAHIL) COVID-19 WeDidIt 06/14/22 06/14/22 06/14/22 19:42 19:42 23:51 MCV MCH MCHC RDW Plt Count MPV Immature Gran % (Auto) Neut % (Auto) Lymph % (Auto) [place] % (Auto) Eos % (Auto) Baso % (Auto) Lymph # (Auto) [place] # (Auto) Eos # (Auto) Baso # (Auto) Abs Immat Gran (auto) Absolute Neuts (auto) Absolute Nucleated RBC Nucleated RBC % (auto) PT INR Anion Gap Estim Creat Clear Calc Estimated GFR Random Glucose Lactic Acid 1.1 Calcium Total Bilirubin AST ALT Alkaline Phosphatase Total Protein Albumin Procalcitonin 0.52 Urine Color Urine Appearance Urine pH Ur Specific [place] Urine Protein Urine Glucose (UA) Urine Ketones Urine Blood Urine Nitrite Ur Leukocyte Esterase Urine RBC Urine WBC Ur Squamous Epith Cells Urine Bacteria COVID-19 (SAHIL) Positive A COVID-19 [facility]DidIt See Note 06/15/22 06/15/22 06/15/22 00:30 04:28 04:28 MCV 88.2 MCH 29.9 MCHC 33.9 RDW 12.7 Plt Count 144 L MPV 9.1 L Immature Gran % (Auto) 0.7 H Neut % (Auto) 72.2 Lymph % (Auto) 15.1 L [place] % (Auto) 10.3 Eos % (Auto) 1.5 Baso % (Auto) 0.2 Lymph # (Auto) 0.7 L [place] # (Auto) 0.5 Eos # (Auto) 0.1 Baso # (Auto) 0.0 Abs Immat Gran (auto) 0.03 Absolute Neuts (auto) 3.3 Absolute Nucleated RBC 0.000 Nucleated RBC % (auto) 0.0 PT INR Anion Gap 10 L Estim Creat Clear Calc 72.3 Estimated GFR > 60 Random Glucose 109 Lactic Acid Calcium 7.0 L D Total Bilirubin AST ALT Alkaline Phosphatase Total Protein Albumin Procalcitonin Urine Color YELLOW Urine Appearance CLEAR Urine pH 6.5 Ur Specific [place] <= 1.005 Urine Protein NEG Urine Glucose (UA) NEG Urine Ketones NEG Urine Blood NEG Urine Nitrite NEG Ur Leukocyte Esterase NEG Urine RBC 0 Urine WBC 0 Ur Squamous Epith Cells TRACE Urine Bacteria NONE COVID-19 (SAHIL) COVID-19 Clin Com Assessment and Plan (1) Sepsis: Status: Acute (2) COVID-19 virus infection: Status: Acute (3) Pneumonia of both lower lobes: Status: Acute Plan This is a 62-year-old male with past medical history of diabetes and hypertension who presents to the hospital after COVID 19 infection with shortness of breath and cough found to have pneumonia # sepsis # 2/2 post Covid Pneumonia on room air pending final cultures continue IV antibiotics Mucenix # COVID-19 infection positive since the no hypoxia supportive care monitor respiratory status # diabetes low-dose sliding scale insulin diabetic diet DVT PPX Lovenox The patient will need overnight hospital stay pending final blood cultures to prevent possible decompensation into severe sepsis Quality Stroke Does the patient have a stroke diagnosis?: No VTE Prior VTE?: No VTE Risk Level:: Medical - moderate - high VTE Device Contraindication: Treatment Not Indicated VTE Drug Contraindication: N/A - Med Ordered
[2022-06-15] MEDS: guaiFENesin LA 600 MG TAB.ER.12H PO ×2 (10:52→22:30)
--- NOTE | 2022-06-15 11:56 | MHC.CM.PN ---
Patient is covid (+); CM spoke with Girlfriend/first Contact/Reema @ [phone]. Patient lives in a house with his Daughter/Amy and he required no DME [employer]. Amy is Patient's [employer] DIRECT[employer] and home/resume said services is the goal. CM has initiated and will follow for dc planning. Patient has not received any Covid vax and his PCP is DR. Jo-Ann Rayo.
[2022-06-15 12:17] LABS: Glucose, Whole Blood 105 mg/dL (60-115)
[2022-06-15] MEDS: Acetaminophen 325 MG TABLET 650 MG PO ×2 (15:16→22:30)
[2022-06-15 16:36] LABS: Glucose, Whole Blood 115 mg/dL (60-115)
[2022-06-15] MEDS: Aspirin Enteric Coated 81 MG TABLET.DR 162 MG PO (16:46)
--- NOTE | 2022-06-15 20:34 | PC.NURSE ---
report given to ANTONINO White
[2022-06-15 22:33] LABS: Glucose, Whole Blood 158 mg/dL (60-115)
[2022-06-15] MEDS: Azithromycin 500 MG in 0.9 % Sodium Chloride 250 ML 250 MG IV (23:26)
[2022-06-16] VITALS (7 sets, daily range): BP systolic 99–145; BP diastolic 64–91; PULSE 85–101; RESP 16–20; TEMP 36.7–39.6; O2SAT 92–97
[2022-06-16] MEDS: Acetaminophen 325 MG TABLET 650 MG PO ×2 (00:20→20:28)
[2022-06-16 00:39] LABS: Lactic Acid 0.8 mmol/L (0.5-2.0)
--- NOTE | 2022-06-16 04:25 | MHC.PIE ---
late entry p; on arrival from ed, temp 102.3. i; prn tylenol given p; one hour re assess - temp cont to be high at 102 i; dr orta notified - tylenol extra dose now e; temp now at 98.7 [place] cont to monitor
[2022-06-16] MEDS: Omeprazole 40 MG CAPSULE.DR PO (06:10)
[2022-06-16 07:51] LABS: Glucose, Whole Blood 98 mg/dL (60-115)
[2022-06-16] MEDS: 0.9 % Sodium Chloride Flush 3 ML SYRINGE IVFLUSH ×3 (08:16→23:08)
[2022-06-16] MEDS: oxyCODONE HCl Immed Release 5 MG TABLET 10 MG PO (08:19)
[2022-06-16] MEDS: Atorvastatin Calcium 80 MG TABLET PO (08:21)
[2022-06-16] MEDS: guaiFENesin LA 600 MG TAB.ER.12H PO ×2 (08:21→20:28)
[2022-06-16] MEDS: Losartan Potassium 50 MG TABLET PO (08:21)
[2022-06-16] MEDS: Metoprolol Succinate ER 100 MG TAB.ER.24H PO (08:21)
[2022-06-16] MEDS: Loratadine 10 MG TABLET PO (08:21)
--- NOTE | 2022-06-16 11:09 | HO.PM.IMPN ---
Subjective Subjective Date of Service: 06/16/22 Interval History: f/u on PNA c/o CRUZ, low grade fever 100.3 no sob, no hypoxia Review of Systems some headcahe fever, +cough Physical Exam Vital Signs: Vital Signs: Last Vital Signs Temp 100.3 F 06/16/22 08:00 Pulse 101 H 06/16/22 08:00 Resp 20 06/16/22 08:00 BP 145/78 H 06/16/22 08:00 Pulse Ox 95 06/16/22 08:00 O2 Del Method 06/16/22 08:00 BMI result Body Mass Index 26.8 Const: Other: Constitutional : Alert, oriented, in mild respiratory distress Neck : Normal inspection, Supple Cardiovascular : RRR, no JVP, no lower extremity edema, tachycardic Respiratory : fair bilateral air entry, basal bilateral crackles, mild distress Gastrointestinal: soft, lax, Normal bowel sounds, Non tender Skin : Warm, Dry Neurological : Alert & oriented x3, No focal deficit , CN 2-12 within normal Objective Data Active Medications Acetaminophen (Acetaminophen 325 Mg Tablet) 650 mg PO Q6H PRN PRN Reason: Pain, Mild (Pain Scale 1-3) Last Admin: 06/15/22 22:30 Dose: 650 mg Documented By: ROSENDO Albuterol Sulfate (Albuterol Sulfate 90 Mcg 8 Gm Inhaler) 2 puff INHALE Q4H PRN PRN Reason: dyspnea Aspirin (Aspirin Enteric Coated 81 Mg Tablet.) 162 mg PO DAILY@1700 [facility] Last Admin: 06/15/22 16:46 Dose: 162 mg Documented By: WILLIE Atorvastatin Calcium (Atorvastatin Calcium 80 Mg Tablet) 80 mg PO DAILY [facility] Last Admin: 06/16/22 08:21 Dose: 80 mg Documented By: BIBIANA Benzonatate (Benzonatate 100 Mg Capsule) 200 mg PO TID PRN PRN Reason: cough Docusate Sodium (Docusate Sodium 100 Mg Capsule) 100 mg PO DAILY PRN PRN Reason: Constipation Enoxaparin Sodium (Enoxaparin Sodium 40 Mg/0.4 Ml Syringe) 40 mg SUBCUT Q24H [facility] Last Admin: 06/15/22 22:48 Dose: 40 mg Documented By: ROSENDO Guaifenesin (Guaifenesin La 600 Mg Tab.Er.12h) 600 mg PO BID [facility] Last Admin: 06/16/22 08:21 Dose: 600 mg Documented By: BIBIANA Ceftriaxone Sodium 1 gm/ (Sodium Chloride) 50 mls @ 100 mls/hr IV Q24H [facility] Last Infusion: 06/15/22 23:27 Dose: 0 mls/hr Documented By: ROSENDO Azithromycin 500 mg/ Sodium (Chloride) 250 mls @ 125 mls/hr IV Q24H [facility] Last Infusion: 06/16/22 01:35 Dose: 0 mls/hr Documented By: ROSENDO Insulin Human Lispro (Insulin Lispro 100 Unit/Ml 3 Ml Vial) 0 unit SUBCUT QIDACHS [facility]; Protocol Last Admin: 06/16/22 07:48 Dose: Not Given Documented By: BIBIANA Non-Admin Reason: No Insulin Coverage Loratadine (Loratadine 10 Mg Tablet) 10 mg PO DAILY [facility] Last Admin: 06/16/22 08:21 Dose: 10 mg Documented By: BIBIANA Losartan Potassium (Losartan Potassium 50 Mg Tablet) 50 mg PO DAILY [facility]; Protocol Last Admin: 06/16/22 08:21 Dose: 50 mg Documented By: BIBIANA Metoprolol Succinate (Metoprolol Succinate Er 100 Mg Tab.Er.24h) 100 mg PO DAILY [facility]; Protocol Last Admin: 06/16/22 08:21 Dose: 100 mg Documented By: BIBIANA Omeprazole (Omeprazole 40 Mg Capsule.Dr) 40 mg PO DAILY@0630 [facility] Last Admin: 06/16/22 06:10 Dose: 40 mg Documented By: ROSENDO Ondansetron HCl (Ondansetron Hcl 4 Mg/2 Ml Vial) 4 mg IVPUSH Q8H PRN PRN Reason: Nausea and Vomiting Oxycodone HCl (Oxycodone Hcl Immed Release 5 Mg Tablet) 10 mg PO BID PRN PRN Reason: Pain (Scale Score 7-10) Last Admin: 06/16/22 08:19 Dose: 10 mg Documented By: BIBIANA Sodium Chloride (0.9 % Sodium Chloride Flush 3 Ml Syringe) 3 ml IVFLUSH QSHIFT [facility] Last Admin: 06/16/22 08:16 Dose: 3 ml Documented By: BIBIANA Labs CBC & Chem 7: 06/15/22 04:28 06/15/22 04:28 Labs: Laboratory Results - last 24 hr 06/15/22 06/15/22 06/15/22 12:13 16:27 22:28 POC Glucose 105 115 158 H Lactic Acid 06/16/22 06/16/22 00:05 07:45 POC Glucose 98 Lactic Acid 0.8 Microbiology Microbiology Results: Microbiology 06/14/22 19:42 Blood Culture - Preliminary Blood - Venous No growth after 24 hours. 06/14/22 19:43 Blood Culture - Preliminary Blood - Venous No growth after 24 hours. Assessment and Plan (1) Sepsis: Status: Acute (2) COVID-19 virus infection: Status: Acute (3) Pneumonia of both lower lobes: Status: Acute Plan This is a 62-year-old male with past medical history of diabetes and hypertension who presents to the hospital after COVID 19 infection with shortness of breath and cough found to have pneumonia # sepsis --covid is old since May 22 # 2/2 post Covid Pneumonia on room air pending final cultures continue IV antibiotics Mucenix # COVID-19 infection positive since the 22 May no hypoxia supportive care monitor respiratory status # diabetes low-dose sliding scale insulin diabetic diet DVT PPX Lovenox Need for hospitalization: PNA on IV Abx, persistent fever Quality Stroke Does the patient have a stroke diagnosis?: No VTE Prior VTE?: No VTE Risk Level:: Medical - moderate - high VTE Device Contraindication: Treatment Not Indicated VTE Drug Contraindication: N/A - Med Ordered
[2022-06-16 11:33] LABS: Glucose, Whole Blood 159 mg/dL (60-115)
[2022-06-16] MEDS: Insulin Lispro 100 UNIT/ML 3 ML VIAL SUBCUT (11:42)
[2022-06-16 16:23] LABS: Glucose, Whole Blood 147 mg/dL (60-115)
[2022-06-16] MEDS: Aspirin Enteric Coated 81 MG TABLET.DR 162 MG PO (17:18)
[2022-06-16 20:08] LABS: Glucose, Whole Blood 126 mg/dL (60-115)
[2022-06-16] MEDS: Enoxaparin Sodium 40 MG/0.4 ML SYRINGE SUBCUT (23:05)
[2022-06-16] MEDS: cefTRIAXone sodium 1 GM in 0.9 % Sodium Chloride 50 ML IV (23:05)
[2022-06-16] MEDS: Azithromycin 500 MG in 0.9 % Sodium Chloride 250 ML 125 MG IV (23:37)
[2022-06-17] VITALS (9 sets, daily range): BP systolic 126–139; BP diastolic 67–80; PULSE 16–104; RESP 16–20; TEMP 37.1–39.6; O2SAT 92–98
[2022-06-17 00:57] LABS: Lactic Acid 0.7 mmol/L (0.5-2.0)
[2022-06-17] MEDS: Acetaminophen 325 MG TABLET 650 MG PO ×2 (03:39→15:59)
[2022-06-17] MEDS: Omeprazole 40 MG CAPSULE.DR PO (05:52)
[2022-06-17 07:12] LABS: Glucose, Whole Blood 123 mg/dL (60-115)
[2022-06-17] MEDS: Atorvastatin Calcium 80 MG TABLET PO (09:54)
[2022-06-17] MEDS: Metoprolol Succinate ER 100 MG TAB.ER.24H PO (09:54)
[2022-06-17] MEDS: guaiFENesin LA 600 MG TAB.ER.12H PO ×2 (09:54→21:58)
[2022-06-17] MEDS: Loratadine 10 MG TABLET PO (09:54)
[2022-06-17] MEDS: Losartan Potassium 50 MG TABLET PO (09:54)
[2022-06-17] MEDS: 0.9 % Sodium Chloride Flush 3 ML SYRINGE IVFLUSH ×3 (09:54→21:58)
--- NOTE | 2022-06-17 10:38 | P.PNIM_ITS ---
Subjective Subjective Date of Service: 06/17/22 Interval History: f/u on PNA c/o CRUZ, low grade fever 103 this morning, no sob, no hypoxia Review of Systems some headcahe +fever, +cough Physical Exam Vital Signs: Vital Signs: Last Vital Signs Temp 98.7 F 06/17/22 07:59 Pulse 88 06/17/22 07:59 Resp 16 06/17/22 07:59 BP 132/78 06/17/22 07:59 Pulse Ox 98 06/17/22 07:59 O2 Del Method 06/17/22 07:59 BMI result Body Mass Index 26.8 Const: Other: Constitutional : Alert, oriented, in no respiratory distress Neck : Normal inspection, Supple Cardiovascular : RRR, no JVP, no lower extremity edema, tachycardic Respiratory : fair bilateral air entry, basal bilateral crackles, mild distress Gastrointestinal: soft, lax, Normal bowel sounds, Non tender Skin : Warm, Dry Neurological : Alert & oriented x3, No focal deficit , CN 2-12 within normal Objective Data Active Medications Acetaminophen (Acetaminophen 325 Mg Tablet) 650 mg PO Q6H PRN PRN Reason: Pain, Mild (Pain Scale 1-3) Last Admin: 06/17/22 03:39 Dose: 650 mg Documented By: DOUG Albuterol Sulfate (Albuterol Sulfate 90 Mcg 8 Gm Inhaler) 2 puff INHALE Q4H PRN PRN Reason: dyspnea Aspirin (Aspirin Enteric Coated 81 Mg Tablet.) 162 mg PO DAILY@1700 [facility] Last Admin: 06/16/22 17:18 Dose: 162 mg Documented By: BIBIANA Atorvastatin Calcium (Atorvastatin Calcium 80 Mg Tablet) 80 mg PO DAILY [facility] Last Admin: 06/17/22 09:54 Dose: 80 mg Documented By: TRENTON Benzonatate (Benzonatate 100 Mg Capsule) 200 mg PO TID PRN PRN Reason: cough Docusate Sodium (Docusate Sodium 100 Mg Capsule) 100 mg PO DAILY PRN PRN Reason: Constipation Enoxaparin Sodium (Enoxaparin Sodium 40 Mg/0.4 Ml Syringe) 40 mg SUBCUT Q24H [facility] Last Admin: 06/16/22 23:05 Dose: 40 mg Documented By: IAM Guaifenesin (Guaifenesin La 600 Mg Tab.Er.12h) 600 mg PO BID [facility] Last Admin: 06/17/22 09:54 Dose: 600 mg Documented By: TRENTON Ceftriaxone Sodium 1 gm/ (Sodium Chloride) 50 mls @ 100 mls/hr IV Q24H [facility] Last Infusion: 06/16/22 23:42 Dose: 0 mls/hr Documented By: IAM Azithromycin 500 mg/ Sodium (Chloride) 250 mls @ 125 mls/hr IV Q24H [facility] Last Infusion: 06/17/22 01:58 Dose: 250 mls/hr Documented By: IAM Insulin Human Lispro (Insulin Lispro 100 Unit/Ml 3 Ml Vial) 0 unit SUBCUT QIDA [facility]; Protocol Last Admin: 06/17/22 08:03 Dose: Not Given Documented By: TRENTON Non-Admin Reason: No Insulin Coverage Loratadine (Loratadine 10 Mg Tablet) 10 mg PO DAILY [facility] Last Admin: 06/17/22 09:54 Dose: 10 mg Documented By: TRENTON Losartan Potassium (Losartan Potassium 50 Mg Tablet) 50 mg PO DAILY [facility]; Protocol Last Admin: 06/17/22 09:54 Dose: 50 mg Documented By: TRENTON Metoprolol Succinate (Metoprolol Succinate Er 100 Mg Tab.Er.24h) 100 mg PO DAILY [facility]; Protocol Last Admin: 06/17/22 09:54 Dose: 100 mg Documented By: TRENTON Omeprazole (Omeprazole 40 Mg Capsule.Dr) 40 mg PO DAILY@0630 [facility] Last Admin: 06/17/22 05:52 Dose: 40 mg Documented By: IAM Ondansetron HCl (Ondansetron Hcl 4 Mg/2 Ml Vial) 4 mg IVPUSH Q8H PRN PRN Reason: Nausea and Vomiting Oxycodone HCl (Oxycodone Hcl Immed Release 5 Mg Tablet) 10 mg PO BID PRN PRN Reason: Pain (Scale Score 7-10) Last Admin: 06/16/22 08:19 Dose: 10 mg Documented By: BIBIANA Sodium Chloride (0.9 % Sodium Chloride Flush 3 Ml Syringe) 3 ml IVFLUSH QSHIFT ON [facility] Last Admin: 06/17/22 09:54 Dose: 3 ml Documented By: HO.SHTYBAI Labs CBC & Chem 7: 06/15/22 04:28 06/15/22 04:28 Labs: Laboratory Results - last 24 hr 06/16/22 06/16/22 06/16/22 11:30 16:03 20:04 POC Glucose 159 H 147 H 126 H Lactic Acid 06/17/22 06/17/22 00:36 07:07 POC Glucose 123 H Lactic Acid 0.7 Microbiology Microbiology Results: Microbiology 06/16/22 00:05 Blood Culture - Preliminary Blood - Venous No growth after 24 hours. 06/16/22 00:05 Blood Culture - Preliminary Blood - Venous No growth after 24 hours. 06/14/22 19:42 Blood Culture - Preliminary Blood - Venous No growth after 48 hours. 06/14/22 19:43 Blood Culture - Preliminary Blood - Venous No growth after 48 hours. Assessment and Plan (1) Sepsis: Status: Acute (2) COVID-19 virus infection: Status: Acute (3) Pneumonia of both lower lobes: Status: Acute Plan This is a 62-year-old male with past medical history of diabetes and hypertensio n who presents to the hospital after COVID 19 infection with shortness of breath and cough found to have pneumonia # sepsis --covid is old since May 22 # 2/2 post Covid Pneumonia -no hypoxia culture negative at 24 continue IV antibiotics (Ceftriaxone and Azithr0 -ID consult d/t persistent fever 103 this moring [place]ucenix # COVID-19 infection positive since the 22 May no hypoxia supportive care monitor respiratory status # diabetes low-dose sliding scale insulin diabetic diet DVT PPX Lovenox Need for hospitalization: PNA on IV Abx, persistent high grade fever Quality Stroke Does the patient have a stroke diagnosis?: No VTE Prior VTE?: No VTE Risk Level:: Medical - moderate - high VTE Device Contraindication: Treatment Not Indicated VTE Drug Contraindication: N/A - Med Ordered
[2022-06-17 11:37] LABS: Glucose, Whole Blood 260 mg/dL (60-115)
[2022-06-17] MEDS: Insulin Lispro 100 UNIT/ML 3 ML VIAL SUBCUT (12:34)
--- NOTE | 2022-06-17 13:20 | MHC.CLN ---
RE: CONSULT CURRENT WT 75KG PREVIOUS WT HX REVEALS 80KG (05/2021) PT DOES NOT TRIGGER FOR SIGNIFICANT WT LOSS AT THIS TIME CONTINUE CURRENT CARE PLAN
--- NOTE | 2022-06-17 13:21 | W.PM.IDCN ---
History of Present Illness Data of Consult Service Date: 06/17/22 Requesting physician: Joao Toth Primary Care Provider: MD COLEEN Kennedy Reason for consult: shortness of breath He presents with shortness of breath ,fever and chills for four days. He comes to ER and has multifocal infiltrates on CXR. He has saturation in 90s on RA. Review of Systems Review of Systems: Yes Unobtainable due to mental condition PMFSH Past Medical History Medical History (Updated 06/15/22 @ 01:09 by Amy Carranza MD) Abnormal urine cytology CAD (coronary artery disease) Diabetes Follicular lymphoma GERD (gastroesophageal reflux disease) HTN (hypertension) Hyperlipemia Lymphoma Family History Family History Father Pancreas cancer Hypertension Sister Breast cancer Surgical History Surgical History History of heart artery stent Hx of cataract surgery Social History Social History Household Members: Family Housing: Apartment Are you a primary manager critical care to a significant other at home: No Do you presently have visiting nurse or other home services: No Alcohol intake: former Patient Tobacco Use Status: Never used Tobacco service: No Current occupational status: disabled Meds Allergies Allergy/AdvReac Type Severity Reaction Status Date / Time amlodipine [AMLODIPINE] Allergy Unknown EDEMA-PER Verified 12/25/21 09:15 H&P Active Medications: Current Medications Acetaminophen (Acetaminophen 325 Mg Tablet) 650 mg PO Q6H PRN PRN Reason: Pain, Mild (Pain Scale 1-3) Last Admin: 06/17/22 03:39 Dose: 650 mg Albuterol Sulfate (Albuterol Sulfate 90 Mcg 8 Gm Inhaler) 2 puff INHALE Q4H PRN PRN Reason: dyspnea Aspirin (Aspirin Enteric Coated 81 Mg Tablet.) 162 mg PO DAILY@1700 [facility] Last Admin: 06/16/22 17:18 Dose: 162 mg Atorvastatin Calcium (Atorvastatin Calcium 80 Mg Tablet) 80 mg PO DAILY [facility] Last Admin: 06/17/22 09:54 Dose: 80 mg Benzonatate (Benzonatate 100 Mg Capsule) 200 mg PO TID PRN PRN Reason: cough Docusate Sodium (Docusate Sodium 100 Mg Capsule) 100 mg PO DAILY PRN PRN Reason: Constipation Enoxaparin Sodium (Enoxaparin Sodium 40 Mg/0.4 Ml Syringe) 40 mg SUBCUT Q24H [facility] Last Admin: 06/16/22 23:05 Dose: 40 mg Guaifenesin (Guaifenesin La 600 Mg Tab.Er.12h) 600 mg PO BID [facility] Last Admin: 06/17/22 09:54 Dose: 600 mg Ceftriaxone Sodium 1 gm/ (Sodium Chloride) 50 mls @ 100 mls/hr IV Q24H [facility] Last Infusion: 06/16/22 23:42 Dose: Infused Azithromycin 500 mg/ Sodium (Chloride) 250 mls @ 125 mls/hr IV Q24H [facility] Last Infusion: 06/17/22 01:58 Dose: Infused Insulin Human Lispro (Insulin Lispro 100 Unit/Ml 3 Ml Vial) 0 unit SUBCUT QIDACHS [facility]; Protocol Last Admin: 06/17/22 12:34 Dose: 6 unit Loratadine (Loratadine 10 Mg Tablet) 10 mg PO DAILY [facility] Last Admin: 06/17/22 09:54 Dose: 10 mg Losartan Potassium (Losartan Potassium 50 Mg Tablet) 50 mg PO DAILY [facility]; Protocol Last Admin: 06/17/22 09:54 Dose: 50 mg Metoprolol Succinate (Metoprolol Succinate Er 100 Mg Tab.Er.24h) 100 mg PO DAILY [facility]; Protocol Last Admin: 06/17/22 09:54 Dose: 100 mg Omeprazole (Omeprazole 40 Mg Capsule.Dr) 40 mg PO DAILY@0630 [facility] Last Admin: 06/17/22 05:52 Dose: 40 mg Ondansetron HCl (Ondansetron Hcl 4 Mg/2 Ml Vial) 4 mg IVPUSH Q8H PRN PRN Reason: Nausea and Vomiting Oxycodone HCl (Oxycodone Hcl Immed Release 5 Mg Tablet) 10 mg PO BID PRN PRN Reason: Pain (Scale Score 7-10) Last Admin: 06/16/22 08:19 Dose: 10 mg Sodium Chloride (0.9 % Sodium Chloride Flush 3 Ml Syringe) 3 ml IVFLUSH QSHIFT [facility] Last Admin: 06/17/22 09:54 Dose: 3 ml Home Medications Medication Instructions Recorded Confirmed Last Taken Type atorvastatin 80 mg tablet 80 mg PO DAILY 11/14/20 06/14/22 Unknown History hydrochlorothiazide 25 mg tablet 25 mg PO DAILY 11/14/20 06/14/22 Unknown History losartan 50 mg tablet 50 mg PO DAILY 11/14/20 06/14/22 Unknown History metformin 500 mg tablet 500 mg PO BIDWM 11/14/20 06/14/22 Unknown History metoprolol succinate 100 mg 100 mg PO DAILY 11/14/20 06/14/22 Unknown History tablet,extended release 24 hr blood sugar diagnostic (FreeStyle 06/25/21 06/12/22 Unknown History Lite Strips) blood-glucose meter (FreeStyle 06/25/21 06/12/22 Unknown History [place] Lite) albuterol sulfate 90 mcg/actuation 2 puff PO Q4-6H PRN dyspnea 06/14/22 06/14/22 Unknown History aerosol inhaler (Ventolin HFA) aspirin 81 mg tablet,delayed 2 tab PO QPM 06/14/22 06/14/22 Unknown History release benzonatate 200 mg capsule 1 cap PO TID PRN cough 06/14/22 06/14/22 Unknown History fluticasone propionate 50 1 - 2 spray intranasal DAILY PRN 06/14/22 06/14/22 Unknown History mcg/actuation nasal Allergy Symptoms spray,suspension loratadine 10 mg tablet 1 tab PO DAILY 06/14/22 06/14/22 Unknown History oxycodone 10 mg tablet 1 tab PO BID PRN Pain (Scale Score 06/14/22 06/14/22 Unknown History 7-10) pantoprazole 40 mg tablet,delayed 1 tab PO DAILY 06/14/22 06/14/22 Unknown History release Physical Exam Vital Signs: Vital Signs: Last Vital Signs Temp 99.2 F 06/17/22 11:29 Pulse 92 06/17/22 11:29 Resp 16 06/17/22 11:29 BP 139/80 06/17/22 11:29 Pulse Ox 96 06/17/22 11:29 O2 Del Method 06/17/22 11:29 BMI result Body Mass Index 26.8 HEENT: Head: Yes normal to inspection Resp: Effort & Inspection: normal respiratory effort Cardio: Rate: regular rate Rhythm: regular rhythm GI: Palpation (GI): nontender Results Labs CBC & Chem 7: 06/15/22 04:28 06/15/22 04:28 Microbiology Microbiology Results: Microbiology 06/16/22 00:05 Blood - Venous Blood Culture - Preliminary No growth after 24 hours. 06/16/22 00:05 Blood - Venous Blood Culture - Preliminary No growth after 24 hours. 06/14/22 19:42 Blood - Venous Blood Culture - Preliminary No growth after 48 hours. 06/14/22 19:43 Blood - Venous Blood Culture - Preliminary No growth after 48 hours. Assessment and Plan (1) Pneumonia of both lower lobes: Status: Acute with lymphoma atypical such as mycoplasma also possible typical strep pneumonia Less likely all COVID with elevation procalcitonin slightly (2) Lymphoma: Status: Acute (3) Fever: Status: Acute (4) COVID-19 virus infection: Status: Acute (5) Sepsis: Status: Acute Plan Would continue Ceftriaxone and Zmax for total 5 days probably then po Ceftin and Zmax total 10d Check sputum sample or bronchoscopy if not improving check fungus. No Remdesivir or steroids since not on oxygen at this time. Would probably be eligible for Paxlovid as outpatient.
[2022-06-17 15:57] LABS: Glucose, Whole Blood 73 mg/dL (60-115)
[2022-06-17] MEDS: Aspirin Enteric Coated 81 MG TABLET.DR 162 MG PO (17:54)
[2022-06-17 21:13] LABS: Glucose, Whole Blood 100 mg/dL (60-115)
[2022-06-17] MEDS: cefTRIAXone sodium 1 GM in 0.9 % Sodium Chloride 50 ML IV (22:57)
[2022-06-17] MEDS: Azithromycin 500 MG in 0.9 % Sodium Chloride 250 ML 250 MG IV (23:40)
[2022-06-17] MEDS: Enoxaparin Sodium 40 MG/0.4 ML SYRINGE SUBCUT (23:40)
[2022-06-18] VITALS (10 sets, daily range): BP systolic 104–143; BP diastolic 62–73; PULSE 52–104; RESP 15–20; TEMP 36.4–39.5; O2SAT 92–99
[2022-06-18] MEDS: Acetaminophen 325 MG TABLET 650 MG PO ×2 (03:49→17:36)
[2022-06-18] MEDS: Omeprazole 40 MG CAPSULE.DR PO (05:08)
[2022-06-18 07:24] LABS: Glucose, Whole Blood 87 mg/dL (60-115)
[2022-06-18] MEDS: Loratadine 10 MG TABLET PO (09:15)
[2022-06-18] MEDS: Metoprolol Succinate ER 100 MG TAB.ER.24H PO (09:15)
[2022-06-18] MEDS: Losartan Potassium 50 MG TABLET PO (09:16)
[2022-06-18] MEDS: 0.9 % Sodium Chloride Flush 3 ML SYRINGE IVFLUSH ×3 (09:16→22:35)
[2022-06-18] MEDS: guaiFENesin LA 600 MG TAB.ER.12H PO ×2 (09:16→22:34)
[2022-06-18] MEDS: Atorvastatin Calcium 80 MG TABLET PO (09:16)
--- NOTE | 2022-06-18 10:25 | P.PNIM_ITS ---
Subjective Subjective Date of Service: 06/18/22 Interval History: f/u on PNA overall feels better, fever of 102 this morning Review of Systems some headcahe +fever, +cough Physical Exam Vital Signs: Vital Signs: Last Vital Signs Temp 97.6 F 06/18/22 07:33 Pulse 89 06/18/22 07:33 Resp 20 06/18/22 07:33 BP 118/70 06/18/22 07:33 Pulse Ox 94 06/18/22 07:33 O2 Del Method 06/18/22 07:33 BMI result Body Mass Index 26.8 Const: Other: Constitutional : Alert, oriented, in no respiratory distress Neck : Normal inspection, Supple Cardiovascular : RRR, no JVP, no lower extremity edema, tachycardic Respiratory : fair bilateral air entry, basal bilateral crackles, mild distress Gastrointestinal: soft, lax, Normal bowel sounds, Non tender Skin : Warm, Dry Neurological : Alert & oriented x3, No focal deficit , CN 2-12 within normal Objective Data Active Medications Acetaminophen (Acetaminophen 325 Mg Tablet) 650 mg PO Q6H PRN PRN Reason: Pain, Mild (Pain Scale 1-3) Last Admin: 06/18/22 03:49 Dose: 650 mg Documented By: DOUG Albuterol Sulfate (Albuterol Sulfate 90 Mcg 8 Gm Inhaler) 2 puff INHALE Q4H PRN PRN Reason: dyspnea Aspirin (Aspirin Enteric Coated 81 Mg Tablet.) 162 mg PO DAILY@1700 [facility] Last Admin: 06/17/22 17:54 Dose: 162 mg Documented By: TRENTON Atorvastatin Calcium (Atorvastatin Calcium 80 Mg Tablet) 80 mg PO DAILY [facility] Last Admin: 06/18/22 09:16 Dose: 80 mg Documented By: TRENTON Benzonatate (Benzonatate 100 Mg Capsule) 200 mg PO TID PRN PRN Reason: cough Docusate Sodium (Docusate Sodium 100 Mg Capsule) 100 mg PO DAILY PRN PRN Reason: Constipation Enoxaparin Sodium (Enoxaparin Sodium 40 Mg/0.4 Ml Syringe) 40 mg SUBCUT Q24H [facility] Last Admin: 06/17/22 23:40 Dose: 40 mg Documented By: DOUG Guaifenesin (Guaifenesin La 600 Mg Tab.Er.12h) 600 mg PO BID [facility] Last Admin: 06/18/22 09:16 Dose: 600 mg Documented By: TRENTON Ceftriaxone Sodium 1 gm/ (Sodium Chloride) 50 mls @ 100 mls/hr IV Q24H [facility] Last Infusion: 06/17/22 23:30 Dose: 0 mls/hr Documented By: DOUG Azithromycin 500 mg/ Sodium (Chloride) 250 mls @ 125 mls/hr IV Q24H [facility] Last Infusion: 06/18/22 02:03 Dose: 0 mls/hr Documented By: DOUG Insulin Human Lispro (Insulin Lispro 100 Unit/Ml 3 Ml Vial) 0 unit SUBCUT QIDACHS [facility]; Protocol Last Admin: 06/18/22 08:08 Dose: Not Given Documented By: TRENTON Non-Admin Reason: No Insulin Coverage Loratadine (Loratadine 10 Mg Tablet) 10 mg PO DAILY [facility] Last Admin: 06/18/22 09:15 Dose: 10 mg Documented By: TRENTON Losartan Potassium (Losartan Potassium 50 Mg Tablet) 50 mg PO DAILY [facility]; Protocol Last Admin: 06/18/22 09:16 Dose: 50 mg Documented By: TRENTON Metoprolol Succinate (Metoprolol Succinate Er 100 Mg Tab.Er.24h) 100 mg PO DAILY [facility]; Protocol Last Admin: 06/18/22 09:15 Dose: 100 mg Documented By: TRENTON Omeprazole (Omeprazole 40 Mg Capsule.Dr) 40 mg PO DAILY@0630 [facility] Last Admin: 06/18/22 05:08 Dose: 40 mg Documented By: DOUG Ondansetron HCl (Ondansetron Hcl 4 Mg/2 Ml Vial) 4 mg IVPUSH Q8H PRN PRN Reason: Nausea and Vomiting Oxycodone HCl (Oxycodone Hcl Immed Release 5 Mg Tablet) 10 mg PO BID PRN PRN Reason: Pain (Scale Score 7-10) Last Admin: 06/16/22 08:19 Dose: 10 mg Documented By: BIBIANA Sodium Chloride (0.9 % Sodium Chloride Flush 3 Ml Syringe) 3 ml IVFLUSH QSHIFT [facility] Last Admin: 06/18/22 09:16 Dose: 3 ml Documented By: TRENTON Labs CBC & Chem 7: 06/15/22 04:28 06/15/22 04:28 Labs: Laboratory Results - last 24 hr 06/17/22 06/17/22 06/17/22 11:28 15:52 21:09 POC Glucose 260 H 73 100 06/18/22 07:20 POC Glucose 87 Microbiology Microbiology Results: Microbiology 06/16/22 00:05 Blood Culture - Preliminary Blood - Venous No growth after 48 hours. 06/16/22 00:05 Blood Culture - Preliminary Blood - Venous No growth after 48 hours. Assessment and Plan (1) Sepsis: Status: Acute (2) COVID-19 virus infection: Status: Acute (3) Pneumonia of both lower lobes: Status: Acute Plan 62-year-old male with past medical history of diabetes and hypertension who presents to the hospital after COVID 19 infection with shortness of breath and cough found to have pneumonia # sepsis --covid is old since May 22 # 2/2 post Covid Pneumonia -no hypoxia culture negative at 48 continue IV antibiotics (Ceftriaxone and Azithr x 5 days per ID recommendation [place] # COVID-19 infection positive since the 22 May no hypoxia supportive care monitor respiratory status # diabetes low-dose sliding scale insulin diabetic diet DVT PPX Lovenox Need for hospitalization: PNA on IV Abx, persistent high grade fever Quality Stroke Does the patient have a stroke diagnosis?: No VTE Prior VTE?: No VTE Risk Level:: Medical - moderate - high VTE Device Contraindication: Treatment Not Indicated VTE Drug Contraindication: N/A - Med Ordered
[2022-06-18 11:16] LABS: Glucose, Whole Blood 126 mg/dL (60-115)
--- NOTE | 2022-06-18 13:55 | MHC.CM.PN ---
Addendum entered by Kennedi Huber RN 06/18/22 13:57: CLARIFICATION FEVER 102.9 Original Note: EMR REVIEWED, PT WITH HIGH GRADE FEVER 104.9 EARLY THIS MORNING, PER HOSPITALIST IF PT REMAINS AFEBRILE X24 HRS MAY BE ABLE TO D/C HOME TOMORROW 06/19, CM TO FOLLOW D/C NEEDS.
[2022-06-18] MEDS: Aspirin Enteric Coated 81 MG TABLET.DR 162 MG PO (17:36)
[2022-06-18 17:43] LABS: Glucose, Whole Blood 109 mg/dL (60-115)
[2022-06-18 20:56] LABS: Glucose, Whole Blood 133 mg/dL (60-115)
[2022-06-18] MEDS: cefTRIAXone sodium 1 GM in 0.9 % Sodium Chloride 50 ML IV (22:34)
[2022-06-18] MEDS: Enoxaparin Sodium 40 MG/0.4 ML SYRINGE SUBCUT (23:22)
[2022-06-18] MEDS: Azithromycin 500 MG in 0.9 % Sodium Chloride 250 ML 125 MG IV (23:22)
[2022-06-19 04:00] VITALS: BP 122/71; PULSE 95; RESP 20; TEMP 37.3; O2SAT 92
[2022-06-19] MEDS: Omeprazole 40 MG CAPSULE.DR PO (06:50)
[2022-06-19 07:22] LABS: Glucose, Whole Blood 95 mg/dL (60-115)
[2022-06-19 07:30] VITALS: BP 114/65; PULSE 97; RESP 20; TEMP 37.6; O2SAT 93
[2022-06-19] MEDS: Losartan Potassium 50 MG TABLET PO (10:03)
[2022-06-19] MEDS: Loratadine 10 MG TABLET PO (10:03)
[2022-06-19] MEDS: guaiFENesin LA 600 MG TAB.ER.12H PO ×2 (10:03→21:00)
[2022-06-19] MEDS: Atorvastatin Calcium 80 MG TABLET PO (10:04)
[2022-06-19] MEDS: 0.9 % Sodium Chloride Flush 3 ML SYRINGE IVFLUSH ×3 (10:06→23:29)
[2022-06-19] MEDS: Metoprolol Succinate ER 100 MG TAB.ER.24H PO (10:06)
--- NOTE | 2022-06-19 10:23 | HO.PM.IMPN ---
Subjective Subjective Date of Service: 06/19/22 Interval History: f/u on PNA overall feels better, last fever 103 @1700 06/18 Review of Systems some headcahe +fever, -cough Physical Exam Vital Signs: Vital Signs: Last Vital Signs Temp 99.6 F 06/19/22 07:30 Pulse 97 06/19/22 07:30 Resp 20 06/19/22 07:30 BP 114/65 06/19/22 07:30 Pulse Ox 93 06/19/22 07:30 O2 Del Method 06/19/22 07:30 BMI result Body Mass Index 26.8 Const: Other: Constitutional : Alert, oriented, in no respiratory distress Neck : Normal inspection, Supple Cardiovascular : RRR, no JVP, no lower extremity edema, tachycardic Respiratory : fair bilateral air entry, basal bilateral crackles, mild distress Gastrointestinal: soft, lax, Normal bowel sounds, Non tender Skin : Warm, Dry Neurological : Alert & oriented x3, No focal deficit , CN 2-12 within normal Objective Data Active Medications Acetaminophen (Acetaminophen 325 Mg Tablet) 650 mg PO Q6H PRN PRN Reason: Pain, Mild (Pain Scale 1-3) Last Admin: 06/18/22 17:36 Dose: 650 mg Documented By: TRENTON Albuterol Sulfate (Albuterol Sulfate 90 Mcg 8 Gm Inhaler) 2 puff INHALE Q4H PRN PRN Reason: dyspnea Aspirin (Aspirin Enteric Coated 81 Mg Tablet.) 162 mg PO DAILY@1700 [facility] Last Admin: 06/18/22 17:36 Dose: 162 mg Documented By: TRENTON Atorvastatin Calcium (Atorvastatin Calcium 80 Mg Tablet) 80 mg PO DAILY [facility] Last Admin: 06/19/22 10:04 Dose: 80 mg Documented By: MELIA Benzonatate (Benzonatate 100 Mg Capsule) 200 mg PO TID PRN PRN Reason: cough Docusate Sodium (Docusate Sodium 100 Mg Capsule) 100 mg PO DAILY PRN PRN Reason: Constipation Enoxaparin Sodium (Enoxaparin Sodium 40 Mg/0.4 Ml Syringe) 40 mg SUBCUT Q24H [facility] Last Admin: 06/18/22 23:22 Dose: 40 mg Documented By: DEEPAK Guaifenesin (Guaifenesin La 600 Mg Tab.Er.12h) 600 mg PO BID [facility] Last Admin: 06/19/22 10:03 Dose: 600 mg Documented By: MELIA Ceftriaxone Sodium 1 gm/ (Sodium Chloride) 50 mls @ 100 mls/hr IV Q24H [facility] Last Infusion: 06/18/22 23:14 Dose: 0 mls/hr Documented By: DEEPAK Azithromycin 500 mg/ Sodium (Chloride) 250 mls @ 125 mls/hr IV Q24H [facility] Last Infusion: 06/19/22 01:49 Dose: 0 mls/hr Documented By: DEEPAK Insulin Human Lispro (Insulin Lispro 100 Unit/Ml 3 Ml Vial) 0 unit SUBCUT QIDACHS [facility]; Protocol Last Admin: 06/19/22 10:05 Dose: Not Given Documented By: MELIA Non-Admin Reason: No Insulin Coverage Loratadine (Loratadine 10 Mg Tablet) 10 mg PO DAILY [facility] Last Admin: 06/19/22 10:03 Dose: 10 mg Documented By: MELIA Losartan Potassium (Losartan Potassium 50 Mg Tablet) 50 mg PO DAILY [facility]; Protocol Last Admin: 06/19/22 10:03 Dose: 50 mg Documented By: MELIA Metoprolol Succinate (Metoprolol Succinate Er 100 Mg Tab.Er.24h) 100 mg PO DAILY [facility]; Protocol Last Admin: 06/19/22 10:06 Dose: 100 mg Documented By: MELIA Omeprazole (Omeprazole 40 Mg Capsule.Dr) 40 mg PO DAILY@0630 [facility] Last Admin: 06/19/22 06:50 Dose: 40 mg Documented By: DEEPAK Ondansetron HCl (Ondansetron Hcl 4 Mg/2 Ml Vial) 4 mg IVPUSH Q8H PRN PRN Reason: Nausea and Vomiting Oxycodone HCl (Oxycodone Hcl Immed Release 5 Mg Tablet) 10 mg PO BID PRN PRN Reason: Pain (Scale Score 7-10) Last Admin: 06/16/22 08:19 Dose: 10 mg Documented By: BIBIANA Sodium Chloride (0.9 % Sodium Chloride Flush 3 Ml Syringe) 3 ml IVFLUSH QSHIFT [facility] Last Admin: 06/19/22 10:06 Dose: 3 ml Documented By: MELIA Labs CBC & Chem 7: 06/15/22 04:28 06/15/22 04:28 Labs: Laboratory Results - last 24 hr 06/18/22 06/18/22 06/18/22 11:09 17:35 20:06 POC Glucose 126 H 109 133 H 06/19/22 07:18 POC Glucose 95 Assessment and Plan (1) Fever: Status: Acute (2) COVID-19 virus infection: Status: Acute (3) Sepsis: Status: Acute Plan 62-year-old male with past medical history of diabetes and hypertension who presents to the hospital after COVID 19 infection with shortness of breath and cough found to have pneumonia # sepsis --covid is old since May 22 # 2/2 post Covid Pneumonia #High grade fevers presumed d/t PNA -last fever of 103 less 24 hrs ago culture negative at 48 continue IV antibiotics (Ceftriaxone and Azithr x 5 days per ID recommendation--then to oral Mucenix # COVID-19 infection positive since the 22 May no hypoxia supportive care monitor respiratory status # diabetes low-dose sliding scale insulin diabetic diet DVT PPX Lovenox Need for hospitalization: PNA on IV Abx, persistent high grade fever Quality Stroke Does the patient have a stroke diagnosis?: No VTE Prior VTE?: No VTE Risk Level:: Medical - moderate - high VTE Device Contraindication: Treatment Not Indicated VTE Drug Contraindication: N/A - Med Ordered
[2022-06-19 11:29] LABS: Glucose, Whole Blood 127 mg/dL (60-115)
[2022-06-19 12:00] VITALS: BP 117/59; PULSE 98; RESP 20; TEMP 37.2; O2SAT 92
[2022-06-19 15:31] VITALS: BP 124/73; PULSE 96; RESP 18; TEMP 38.8; O2SAT 93
[2022-06-19 16:01] LABS: Glucose, Whole Blood 121 mg/dL (60-115)
[2022-06-19] MEDS: Acetaminophen 325 MG TABLET 650 MG PO (17:15)
[2022-06-19] MEDS: Aspirin Enteric Coated 81 MG TABLET.DR 162 MG PO (17:15)
[2022-06-19 18:53] VITALS: BP 103/58; PULSE 90; RESP 18; TEMP 37.3; O2SAT 94
[2022-06-19 19:54] VITALS: TEMP 37.3
[2022-06-19 19:56] LABS: Glucose, Whole Blood 165 mg/dL (60-115)
[2022-06-19] MEDS: Insulin Lispro 100 UNIT/ML 3 ML VIAL SUBCUT (20:59)
[2022-06-19] MEDS: Enoxaparin Sodium 40 MG/0.4 ML SYRINGE SUBCUT (23:28)
[2022-06-19] MEDS: cefTRIAXone sodium 1 GM in 0.9 % Sodium Chloride 50 ML IV (23:29)
[2022-06-20] VITALS (7 sets, daily range): BP systolic 92–124; BP diastolic 66–70; PULSE 71–110; RESP 16–20; TEMP 36.3–39.4; O2SAT 93–98
[2022-06-20] MEDS: Azithromycin 500 MG in 0.9 % Sodium Chloride 250 ML 125 MG IV (00:15)
[2022-06-20] MEDS: Omeprazole 40 MG CAPSULE.DR PO (05:54)
[2022-06-20] MEDS: Acetaminophen 325 MG TABLET 650 MG PO ×2 (05:54→15:35)
[2022-06-20 07:20] LABS: Glucose, Whole Blood 103 mg/dL (60-115)
[2022-06-20] MEDS: Benzonatate 100 MG CAPSULE 200 MG PO (08:46)
[2022-06-20] MEDS: Metoprolol Succinate ER 100 MG TAB.ER.24H PO (08:46)
[2022-06-20] MEDS: guaiFENesin LA 600 MG TAB.ER.12H PO ×2 (08:47→21:32)
[2022-06-20] MEDS: 0.9 % Sodium Chloride Flush 3 ML SYRINGE IVFLUSH ×3 (08:47→23:54)
[2022-06-20] MEDS: Atorvastatin Calcium 80 MG TABLET PO (08:47)
[2022-06-20] MEDS: Loratadine 10 MG TABLET PO (08:47)
[2022-06-20] MEDS: Losartan Potassium 50 MG TABLET PO (08:47)
[2022-06-20 11:10] LABS: Glucose, Whole Blood 158 mg/dL (60-115)
[2022-06-20] MEDS: Insulin Lispro 100 UNIT/ML 3 ML VIAL SUBCUT ×2 (12:39→21:33)
--- NOTE | 2022-06-20 13:03 | HO.PM.IMPN ---
Subjective Subjective Date of Service: 06/20/22 Interval History: f/u on PNA feels good, but still with fever of 102 Review of Systems some headcahe +fever, -cough Physical Exam Vital Signs: Vital Signs: Last Vital Signs Temp 98.6 F 06/20/22 11:36 Pulse 93 06/20/22 11:36 Resp 20 06/20/22 11:36 BP 92/67 06/20/22 11:36 Pulse Ox 95 06/20/22 11:36 O2 Del Method 06/20/22 11:36 BMI result Body Mass Index 26.8 Const: Other: Constitutional : Alert, oriented, in no respiratory distress Neck : Normal inspection, Supple Cardiovascular : RRR, no JVP, no lower extremity edema, tachycardic Respiratory : fair bilateral air entry, basal bilateral crackles, mild distress Gastrointestinal: soft, lax, Normal bowel sounds, Non tender Skin : Warm, Dry Neurological : Alert & oriented x3, No focal deficit , CN 2-12 within normal Objective Data Active Medications Acetaminophen (Acetaminophen 325 Mg Tablet) 650 mg PO Q6H PRN PRN Reason: Pain, Mild (Pain Scale 1-3) Last Admin: 06/20/22 05:54 Dose: 650 mg Documented By: DEEPAK Albuterol Sulfate (Albuterol Sulfate 90 Mcg 8 Gm Inhaler) 2 puff INHALE Q4H PRN PRN Reason: dyspnea Aspirin (Aspirin Enteric Coated 81 Mg Tablet.) 162 mg PO DAILY@1700 [facility] Last Admin: 06/19/22 17:15 Dose: 162 mg Documented By: MELIA Atorvastatin Calcium (Atorvastatin Calcium 80 Mg Tablet) 80 mg PO DAILY [facility] Last Admin: 06/20/22 08:47 Dose: 80 mg Documented By: COTEMA Benzonatate (Benzonatate 100 Mg Capsule) 200 mg PO TID PRN PRN Reason: cough Last Admin: 06/20/22 08:46 Dose: 200 mg Documented By: NEHAEMA Docusate Sodium (Docusate Sodium 100 Mg Capsule) 100 mg PO DAILY PRN PRN Reason: Constipation Enoxaparin Sodium (Enoxaparin Sodium 40 Mg/0.4 Ml Syringe) 40 mg SUBCUT Q24H [facility] Last Admin: 06/19/22 23:28 Dose: 40 mg Documented By: DEEPAK Guaifenesin (Guaifenesin La 600 Mg Tab.Er.12h) 600 mg PO BID [facility] Last Admin: 06/20/22 08:47 Dose: 600 mg Documented By: GEOVANNY Ceftriaxone Sodium 1 gm/ (Sodium Chloride) 50 mls @ 100 mls/hr IV Q24H [facility] Last Infusion: 06/20/22 00:15 Dose: 0 mls/hr Documented By: DEEPAK Azithromycin 500 mg/ Sodium (Chloride) 250 mls @ 125 mls/hr IV Q24H [facility] Last Infusion: 06/20/22 02:21 Dose: 0 mls/hr Documented By: DEEPAK Insulin Human Lispro (Insulin Lispro 100 Unit/Ml 3 Ml Vial) 0 unit SUBCUT QIDACHS [facility]; Protocol Last Admin: 06/20/22 12:39 Dose: 2 unit Documented By: GEOVANNY Loratadine (Loratadine 10 Mg Tablet) 10 mg PO DAILY [facility] Last Admin: 06/20/22 08:47 Dose: 10 mg Documented By: GEOVANNY Losartan Potassium (Losartan Potassium 50 Mg Tablet) 50 mg PO DAILY [facility]; Protocol Last Admin: 06/20/22 08:47 Dose: 50 mg Documented By: GEOVANNY Metoprolol Succinate (Metoprolol Succinate Er 100 Mg Tab.Er.24h) 100 mg PO DAILY [facility]; Protocol Last Admin: 06/20/22 08:46 Dose: 100 mg Documented By: GEOVANNY Omeprazole (Omeprazole 40 Mg Capsule.Dr) 40 mg PO DAILY@0630 [facility] Last Admin: 06/20/22 05:54 Dose: 40 mg Documented By: DEEPAK Ondansetron HCl (Ondansetron Hcl 4 Mg/2 Ml Vial) 4 mg IVPUSH Q8H PRN PRN Reason: Nausea and Vomiting Sodium Chloride (0.9 % Sodium Chloride Flush 3 Ml Syringe) 3 ml IVFLUSH QSHIFT [facility] Last Admin: 06/20/22 08:47 Dose: 3 ml Documented By: GEOVANNY Labs CBC & Chem 7: 06/15/22 04:28 06/15/22 04:28 Labs: Laboratory Results - last 24 hr 06/19/22 06/19/22 06/20/22 15:57 19:52 07:12 POC Glucose 121 H 165 H 103 06/20/22 11:04 POC Glucose 158 H Microbiology Microbiology Results: Microbiology 06/14/22 19:42 Blood Culture - Final Blood - Venous No growth after 5 days. 06/14/22 19:43 Blood Culture - Final Blood - Venous No growth after 5 days. Assessment and Plan (1) Sepsis: Status: Acute Plan 62-year-old male with past medical history of diabetes and hypertension who presents to the hospital after COVID 19 infection with shortness of breath and cough found to have pneumonia # sepsis --covid is old since May 22 # 2/2 post Covid Pneumonia #High grade fevers presumed d/t PNA -last fever of 102 this morning culture negative at 48 continue IV antibiotics (Ceftriaxone and Azithr x 5 days per ID recommendation--then to oral Mucenix # COVID-19 infection positive since the 22 May no hypoxia supportive care monitor respiratory status # diabetes low-dose sliding scale insulin diabetic diet DVT PPX Lovenox Need for hospitalization: PNA on IV Abx, persistent high grade fever Quality Stroke Does the patient have a stroke diagnosis?: No VTE Prior VTE?: No VTE Risk Level:: Medical - moderate - high VTE Device Contraindication: Treatment Not Indicated VTE Drug Contraindication: N/A - Med Ordered
[2022-06-20] MEDS: Doxycycline Hyclate 100 MG in 0.9 % Sodium Chloride 250 ML 166.67 MG IV (15:36)
[2022-06-20] MEDS: dexAMETHasone sod phosphate 4 MG/ML VIAL 6 MG IVPUSH (15:36)
[2022-06-20 16:19] LABS: Glucose, Whole Blood 134 mg/dL (60-115)
[2022-06-20] MEDS: Aspirin Enteric Coated 81 MG TABLET.DR 162 MG PO (16:44)
--- NOTE | 2022-06-20 20:58 | PM.CNPUL ---
History of Present Illness History of Present Illness Consult date: 06/20/22 Chief complaint: PNA, COVID Narrative: This is an inpatient pulmonary consultation. This is a 62-year-old male with a past medical history of diabetes, hypertension, who presents to the hospital with increased shortness of breath, fever, cough.? The patient was tested positive for COVID-19 on the 22 of May, and once again on June 05.? She reports ever since he was diagnosed he has been having increased cough and shortness of breath not responding to anti cough medications.? He was given breathing treatments with no improvement.? Patient denies any headache, no change in vision, no chest pain, no abdominal pain nausea or vomiting, no diarrhea constipation, no urinary symptoms and no lower extremity edema. On arrival to the ED patient hemodynamically stable with a fever of 104.1, respiratory rate of 16, heart rate of 122, blood pressure stable. COVID-[address] Personally reviewed by me shows bilateral multilobar ground-glass attenuation infiltrates suggestive of pneumonia left greater than right. Review of Systems Constitutional: Constitutional: Reports fatigue and Reports fever(s) Eyes: Eyes: Denies change in vision ENT: Denies sore throat Cardiovascular: Cardiovascular: Denies chest pain and Reports dyspnea Respiratory: Respiratory: Reports as per HPI, Reports cough, Denies hemoptysis and Reports dyspnea Gastrointestinal: Gastrointestinal: Reports no additional gastrointestinal complaints Musculoskeletal: Musculoskeletal: Reports no additional musculoskeletal complaints Neurologic: Reports system reviewed and no additional complaints, except as documented Endocrine: Endocrine: Reports fatigue PMFSH Past Medical History Medical History (Updated 06/15/22 @ 01:09 by Amy Carranza MD) Abnormal urine cytology CAD (coronary artery disease) Diabetes Follicular lymphoma GERD (gastroesophageal reflux disease) HTN (hypertension) Hyperlipemia Lymphoma Family History Family History Father Pancreas cancer Hypertension Sister Breast cancer Surgical History Surgical History History of heart artery stent Hx of cataract surgery Social History Social History Household Members: Family Housing: Apartment Are you a primary manager career to a significant other at home: No Do you presently have visiting nurse or other home services: No Alcohol intake: former Patient Tobacco Use Status: Never used Tobacco service: No Current occupational status: disabled Meds Allergies Allergy/AdvReac Type Severity Reaction Status Date / Time amlodipine [AMLODIPINE] Allergy Unknown EDEMA-PER Verified 12/25/21 09:15 H&P Active Medications: Current Medications Acetaminophen (Acetaminophen 325 Mg Tablet) 650 mg PO Q6H PRN PRN Reason: Pain, Mild (Pain Scale 1-3) Last Admin: 06/20/22 15:35 Dose: 650 mg Albuterol Sulfate (Albuterol Sulfate 90 Mcg 8 Gm Inhaler) 2 puff INHALE Q4H PRN PRN Reason: dyspnea Aspirin (Aspirin Enteric Coated 81 Mg Tablet.Dr) 162 mg PO DAILY@1700 [facility] Last Admin: 06/20/22 16:44 Dose: 162 mg Atorvastatin Calcium (Atorvastatin Calcium 80 Mg Tablet) 80 mg PO DAILY [facility] Last Admin: 06/20/22 08:47 Dose: 80 mg Benzonatate (Benzonatate 100 Mg Capsule) 200 mg PO TID PRN PRN Reason: cough Last Admin: 06/20/22 08:46 Dose: 200 mg Dexamethasone Sodium Phosphate (Dexamethasone Sod Phosphate 4 Mg/Ml Vial) 6 mg IVPUSH DAILY [facility] Last Admin: 06/20/22 15:36 Dose: 6 mg Docusate Sodium (Docusate Sodium 100 Mg Capsule) 100 mg PO DAILY PRN PRN Reason: Constipation Enoxaparin Sodium (Enoxaparin Sodium 40 Mg/0.4 Ml Syringe) 40 mg SUBCUT Q24H [facility] Last Admin: 06/19/22 23:28 Dose: 40 mg Guaifenesin (Guaifenesin La 600 Mg Tab.Er.12h) 600 mg PO BID [facility] Last Admin: 06/20/22 08:47 Dose: 600 mg Ceftriaxone Sodium 1 gm/ (Sodium Chloride) 50 mls @ 100 mls/hr IV Q24H [facility] Last Infusion: 06/20/22 00:15 Dose: Infused Doxycycline Hyclate 100 mg/ (Sodium Chloride) 250 mls @ 166.67 mls/hr IV Q12H [facility] Last Infusion: 06/20/22 17:23 Dose: Infused Insulin Human Lispro (Insulin Lispro 100 Unit/Ml 3 Ml Vial) 0 unit SUBCUT QIDACHS [facility]; Protocol Last Admin: 06/20/22 16:24 Dose: Not Given Loratadine (Loratadine 10 Mg Tablet) 10 mg PO DAILY [facility] Last Admin: 06/20/22 08:47 Dose: 10 mg Losartan Potassium (Losartan Potassium 50 Mg Tablet) 50 mg PO DAILY [facility]; Protocol Last Admin: 06/20/22 08:47 Dose: 50 mg Metoprolol Succinate (Metoprolol Succinate Er 100 Mg Tab.Er.24h) 100 mg PO DAILY [facility]; Protocol Last Admin: 06/20/22 08:46 Dose: 100 mg Omeprazole (Omeprazole 40 Mg Capsule.Dr) 40 mg PO DAILY@0630 [facility] Last Admin: 06/20/22 05:54 Dose: 40 mg Ondansetron HCl (Ondansetron Hcl 4 Mg/2 Ml Vial) 4 mg IVPUSH Q8H PRN PRN Reason: Nausea and Vomiting Sodium Chloride (0.9 % Sodium Chloride Flush 3 Ml Syringe) 3 ml IVFLUSH QSHIFT [facility] Last Admin: 06/20/22 15:36 Dose: 3 ml Home Medications Medication Instructions Recorded Confirmed Last Taken Type atorvastatin 80 mg tablet 80 mg PO DAILY 11/14/20 06/14/22 Unknown History hydrochlorothiazide 25 mg tablet 25 mg PO DAILY 11/14/20 06/14/22 Unknown History losartan 50 mg tablet 50 mg PO DAILY 11/14/20 06/14/22 Unknown History metformin 500 mg tablet 500 mg PO BIDWM 11/14/20 06/14/22 Unknown History metoprolol succinate 100 mg 100 mg PO DAILY 11/14/20 06/14/22 Unknown History tablet,extended release 24 hr blood sugar diagnostic ([facility] 06/25/21 06/12/22 Unknown History Lite Strips) [facility] 06/12/22 Unknown History [place] Lite kit) albuterol sulfate 90 mcg/actuation 2 puff PO Q4-6H PRN dyspnea 06/14/22 06/14/22 Unknown History aerosol inhaler (Ventolin HFA) aspirin 81 mg tablet,delayed 2 tab PO QPM 06/14/22 06/14/22 Unknown History release benzonatate 200 mg capsule 1 cap PO TID PRN cough 06/14/22 06/14/22 Unknown History fluticasone propionate 50 1 - 2 spray intranasal DAILY PRN 06/14/22 06/14/22 Unknown History mcg/actuation nasal Allergy Symptoms spray,suspension loratadine 10 mg tablet 1 tab PO DAILY 06/14/22 06/14/22 Unknown History oxycodone 10 mg tablet 1 tab PO BID PRN Pain (Scale Score 06/14/22 06/14/22 Unknown History 7-10) pantoprazole 40 mg tablet,delayed 1 tab PO DAILY 06/14/22 06/14/22 Unknown History release Physical Exam Vital Signs: Vital Signs: Last Vital Signs Temp 101.5 F H 06/20/22 16:39 Pulse 101 H 06/20/22 16:00 Resp 16 06/20/22 16:00 BP 124/68 06/20/22 16:00 Pulse Ox 93 06/20/22 16:00 O2 Del Method 06/20/22 16:00 BMI result Body Mass Index 26.8 Const: General: comfortable and no acute distress HEENT: Head: Yes normal to inspection Eyes: General: appearance normal, both eyes and all related structures Neck: Neck: Yes normal visual inspection and Yes supple Chest: Chest palpation & inspection: normal inspection of the chest Resp: Auscultation: rhonchi and diminished lung sounds Cardio: Rate: regular rate Rhythm: regular rhythm Heart sounds: S1 normal heart sound present and S2 normal heart sound present GI: Inspection: Yes normal to inspection : General: Yes no CVA tenderness Back/Spine/Pelvis: Back: no CVA tenderness Results Laboratory Findings CBC and BMP: 06/15/22 04:28 06/15/22 04:28 ABG, PT/INR, D-dimer: PT/INR, D-dimer PT 14.0 SEC (10.0-13.1) H 06/14/22 19:42 INR 1.2 (0.9-1.1) H 06/14/22 19:42 Abnormal lab findings: Abnormal Labs 06/14/22 06/14/22 06/14/22 19:42 19:42 19:42 WBC 4.1 L RBC 3.71 L Hgb 11.1 L Hct 32.0 L Plt Count 155 L MPV 9.1 L Immature Gran % (Auto) 0.7 H Neut % (Auto) 73.1 H Lymph % (Auto) 14.6 L Lymph # (Auto) 0.6 L PT 14.0 H INR 1.2 H Anion Gap BUN 19 H POC Glucose Random Glucose 146 H D Calcium 7.7 L D AST 63 H ALT 62 H Total Protein 6.0 L Albumin 3.4 L COVID-19 (SAHIL) 06/14/22 06/15/22 06/15/22 19:42 04:28 04:28 WBC 4.6 L RBC 3.48 L Hgb 10.4 L Hct 30.7 L Plt Count 144 L MPV 9.1 L Immature Gran % (Auto) 0.7 H Neut % (Auto) Lymph % (Auto) 15.1 L Lymph # (Auto) 0.7 L PT INR Anion Gap 10 L BUN POC Glucose Random Glucose Calcium 7.0 L D AST ALT Total Protein Albumin COVID-19 (SAHIL) Positive A 06/15/22 06/16/22 06/16/22 22:28 11:30 16:03 WBC RBC Hgb Hct Plt Count MPV Immature Gran % (Auto) Neut % (Auto) Lymph % (Auto) Lymph # (Auto) PT INR Anion Gap BUN POC Glucose 158 H 159 H 147 H Random Glucose Calcium AST ALT Total Protein Albumin COVID-19 (SAHIL) 06/16/22 06/17/22 06/17/22 20:04 07:07 11:28 WBC RBC Hgb Hct Plt Count MPV Immature Gran % (Auto) Neut % (Auto) Lymph % (Auto) Lymph # (Auto) PT INR Anion Gap BUN POC Glucose 126 H 123 H 260 H Random Glucose Calcium AST ALT Total Protein Albumin COVID-19 (SAHIL) 06/18/22 06/18/22 06/19/22 11:09 20:06 11:24 WBC RBC Hgb Hct Plt Count MPV Immature Gran % (Auto) Neut % (Auto) Lymph % (Auto) Lymph # (Auto) PT INR Anion Gap BUN POC Glucose 126 H 133 H 127 H Random Glucose Calcium AST ALT Total Protein Albumin COVID-19 (SAHIL) 06/19/22 06/19/22 06/20/22 15:57 19:52 11:04 WBC RBC Hgb Hct Plt Count MPV Immature Gran % (Auto) Neut % (Auto) Lymph % (Auto) Lymph # (Auto) PT INR Anion Gap BUN POC Glucose 121 H 165 H 158 H Random Glucose Calcium AST ALT Total Protein Albumin COVID-19 (SAHIL) 06/20/22 16:14 WBC RBC Hgb Hct Plt Count MPV Immature Gran % (Auto) Neut % (Auto) Lymph % (Auto) Lymph # (Auto) PT INR Anion Gap BUN POC Glucose 134 H Random Glucose Calcium AST ALT Total Protein Albumin COVID-19 (SAHIL) Microbiology: Microbiology 06/14/22 19:42 Blood - Venous Blood Culture - Final No growth after 5 days. 06/14/22 19:43 Blood - Venous Blood Culture - Final No growth after 5 days. 06/16/22 00:05 Blood - Venous Blood Culture - Preliminary No growth after 48 hours. 06/16/22 00:05 Blood - Venous Blood Culture - Preliminary No growth after 48 hours. Assessment and Plan (1) Pneumonia of both lower lobes: Status: Acute (2) Sepsis: Status: Acute (3) COVID-19 virus infection: Status: Acute Plan Change azithromycin to Doxy to cover staph Continue ceftriaxone Start decadron IV due to his rhonchi and GGO repeat CXR check SARS Cov2 antibodies, may not be promting an immune response with the h/o Lymphoma Will follow Procedures Date of Service Date of Service: 06/20/22
[2022-06-20 21:26] LABS: Glucose, Whole Blood 236 mg/dL (60-115)
[2022-06-20] MEDS: cefTRIAXone sodium 1 GM in 0.9 % Sodium Chloride 50 ML IV (23:54)
[2022-06-20] MEDS: Enoxaparin Sodium 40 MG/0.4 ML SYRINGE SUBCUT (23:58)
[2022-06-21] VITALS: BP 124/78; PULSE 66; RESP 18; TEMP 35.6; O2SAT 95
[2022-06-21] MEDS: Doxycycline Hyclate 100 MG in 0.9 % Sodium Chloride 250 ML 166.67 MG IV ×2 (03:02→13:47)
[2022-06-21 03:04] VITALS: BP 129/80; PULSE 68; RESP 20; TEMP 36; O2SAT 96
[2022-06-21] MEDS: Omeprazole 40 MG CAPSULE.DR PO (05:38)
[2022-06-21 07:25] LABS: Glucose, Whole Blood 168 mg/dL (60-115)
[2022-06-21 07:35] VITALS: BP 113/78; PULSE 78; RESP 18; TEMP 36.3; O2SAT 94
[2022-06-21] MEDS: Losartan Potassium 50 MG TABLET PO (08:43)
[2022-06-21] MEDS: Atorvastatin Calcium 80 MG TABLET PO (08:43)
[2022-06-21] MEDS: 0.9 % Sodium Chloride Flush 3 ML SYRINGE IVFLUSH ×2 (08:43→16:29)
[2022-06-21] MEDS: Loratadine 10 MG TABLET PO (08:43)
[2022-06-21] MEDS: Metoprolol Succinate ER 100 MG TAB.ER.24H PO (08:43)
[2022-06-21] MEDS: dexAMETHasone sod phosphate 4 MG/ML VIAL 6 MG IVPUSH (08:43)
[2022-06-21] MEDS: guaiFENesin LA 600 MG TAB.ER.12H PO ×2 (08:43→21:13)
[2022-06-21] MEDS: Insulin Lispro 100 UNIT/ML 3 ML VIAL SUBCUT ×4 (08:43→21:13)
--- NOTE | 2022-06-21 11:16 | P.PNIM_ITS ---
Subjective Subjective Date of Service: 06/22/22 Interval History: f/u on PNA feels good, but still with fever of 102 within < 24 hrs ago Review of Systems some headcahe +fever, -cough Physical Exam Vital Signs: Vital Signs: Last Vital Signs Temp 97.3 F 06/21/22 07:35 Pulse 78 06/21/22 07:35 Resp 18 06/21/22 07:35 BP 113/78 06/21/22 07:35 Pulse Ox 94 06/21/22 07:35 O2 Del Method 06/21/22 07:35 BMI result Body Mass Index 26.8 Const: Other: Constitutional : Alert, oriented, in no respiratory distress Neck : Normal inspection, Supple Cardiovascular : RRR, no JVP, no lower extremity edema, tachycardic Respiratory : fair bilateral air entry, basal bilateral crackles, mild distress Gastrointestinal: soft, lax, Normal bowel sounds, Non tender Skin : Warm, Dry Neurological : Alert & oriented x3, No focal deficit , CN 2-12 within normal Objective Data Active Medications Acetaminophen (Acetaminophen 325 Mg Tablet) 650 mg PO Q6H PRN PRN Reason: Pain, Mild (Pain Scale 1-3) Last Admin: 06/20/22 15:35 Dose: 650 mg Documented By: COTEMA Albuterol Sulfate (Albuterol Sulfate 90 Mcg 8 Gm Inhaler) 2 puff INHALE Q4H PRN PRN Reason: dyspnea Aspirin (Aspirin Enteric Coated 81 Mg Tablet.) 162 mg PO DAILY@1700 [facility] Last Admin: 06/20/22 16:44 Dose: 162 mg Documented By: COTEMA Atorvastatin Calcium (Atorvastatin Calcium 80 Mg Tablet) 80 mg PO DAILY [facility] Last Admin: 06/21/22 08:43 Dose: 80 mg Documented By: JEANNIE Benzonatate (Benzonatate 100 Mg Capsule) 200 mg PO TID PRN PRN Reason: cough Last Admin: 06/20/22 08:46 Dose: 200 mg Documented By: COTEMA Dexamethasone Sodium Phosphate (Dexamethasone Sod Phosphate 4 Mg/Ml Vial) 6 mg IVPUSH DAILY [facility] Last Admin: 06/21/22 08:43 Dose: 6 mg Documented By: JEANNIE Docusate Sodium (Docusate Sodium 100 Mg Capsule) 100 mg PO DAILY PRN PRN Reason: Constipation Enoxaparin Sodium (Enoxaparin Sodium 40 Mg/0.4 Ml Syringe) 40 mg SUBCUT Q24H [facility] Last Admin: 06/20/22 23:58 Dose: 40 mg Documented By: NANETTE Guaifenesin (Guaifenesin La 600 Mg Tab.Er.12h) 600 mg PO BID [facility] Last Admin: 06/21/22 08:43 Dose: 600 mg Documented By: JEANNIE Ceftriaxone Sodium 1 gm/ (Sodium Chloride) 50 mls @ 100 mls/hr IV Q24H [facility] Last Infusion: 06/21/22 00:46 Dose: 0 mls/hr Documented By: NANETTE Doxycycline Hyclate 100 mg/ (Sodium Chloride) 250 mls @ 166.67 mls/hr IV Q12H [facility] Last Infusion: 06/21/22 05:08 Dose: 0 mls/hr Documented By: NANETTE Insulin Human Lispro (Insulin Lispro 100 Unit/Ml 3 Ml Vial) 0 unit SUBCUT QIDACHS [facility]; Protocol Last Admin: 06/21/22 08:43 Dose: 2 unit Documented By: JEANNIE Loratadine (Loratadine 10 Mg Tablet) 10 mg PO DAILY [facility] Last Admin: 06/21/22 08:43 Dose: 10 mg Documented By: JEANNIE Losartan Potassium (Losartan Potassium 50 Mg Tablet) 50 mg PO DAILY [facility]; Protocol Last Admin: 06/21/22 08:43 Dose: 50 mg Documented By: JEANNIE Metoprolol Succinate (Metoprolol Succinate Er 100 Mg Tab.Er.24h) 100 mg PO DAILY [facility]; Protocol Last Admin: 06/21/22 08:43 Dose: 100 mg Documented By: JEANNIE Omeprazole (Omeprazole 40 Mg Capsule.Dr) 40 mg PO DAILY@0630 [facility] Last Admin: 06/21/22 05:38 Dose: 40 mg Documented By: NANETTE Ondansetron HCl (Ondansetron Hcl 4 Mg/2 Ml Vial) 4 mg IVPUSH Q8H PRN PRN Reason: Nausea and Vomiting Sodium Chloride (0.9 % Sodium Chloride Flush 3 Ml Syringe) 3 ml IVFLUSH QSHIFT [facility] Last Admin: 06/21/22 08:43 Dose: 3 ml Documented By: HO.N-CHARG Labs CBC & Chem 7: 06/15/22 04:28 06/15/22 04:28 Labs: Laboratory Results - last 24 hr 06/20/22 06/20/22 06/21/22 16:14 21:22 07:16 POC Glucose 134 H 236 H 168 H Microbiology Microbiology Results: Microbiology 06/16/22 00:05 Blood Culture - Final Blood - Venous No growth after 5 days. 06/16/22 00:05 Blood Culture - Final Blood - Venous No growth after 5 days. Assessment and Plan (1) Sepsis: Status: Acute (2) COVID-19 virus infection: Status: Acute Plan 62-year-old male with past medical history of diabetes and hypertension who presents to the hospital after COVID 19 infection with shortness of breath and cough found to have pneumonia # sepsis --covid is old since May 22 # 2/2 post Covid Pneumonia #High grade fevers presumed d/t PNA -last fever of 102 this morning culture negative at 48 continue IV antibiotics (Ceftriaxone and Azithr x 5 days per ID recommendation--then to oral Ceftin) # COVID-19 infection positive since the 22 May no hypoxia supportive care monitor respiratory status # diabetes low-dose sliding scale insulin diabetic diet DVT PPX Lovenox #Fever--not sure if still related to PNA, seems cyclical, will check with ID what else to do, check LDH Need for hospitalization: PNA on IV Abx, persistent high grade fever Quality Stroke Does the patient have a stroke diagnosis?: No VTE Prior VTE?: No VTE Risk Level:: Medical - moderate - high VTE Device Contraindication: Treatment Not Indicated VTE Drug Contraindication: N/A - Med Ordered
[2022-06-21 11:27] LABS: Glucose, Whole Blood 281 mg/dL (60-115)
[2022-06-21 12:00] VITALS: BP 103/61; PULSE 93; RESP 20; TEMP 35.9; O2SAT 98
[2022-06-21 12:11] LABS: Lactate Dehydrogenase 434 U/L (118-273)
[2022-06-21 15:32] LABS: Glucose, Whole Blood 232 mg/dL (60-115)
--- NOTE | 2022-06-21 15:56 | MHC.CM.PN ---
EMR REVIEWED, PT W/SEPSIS AND PNA S/P COVID +, INITIALLY POSITIVE 05/22, PT CONT'S TO C/O SOB, PER HOSPITALIST PT MAY NEED BRONCHOSCOPY, NO PLAN FOR D/C TODAY, CM WILL CONT TO FOLLOW D/C NEEDS.
[2022-06-21 15:59] VITALS: BP 110/60; PULSE 90; RESP 18; TEMP 36.3; O2SAT 98
[2022-06-21] MEDS: Aspirin Enteric Coated 81 MG TABLET.DR 162 MG PO (16:27)
[2022-06-21 19:23] VITALS: BP 103/64; PULSE 83; RESP 18; TEMP 35.7; O2SAT 97
[2022-06-21 19:54] LABS: Glucose, Whole Blood 190 mg/dL (60-115)
[2022-06-21] MEDS: cefTRIAXone sodium 1 GM in 0.9 % Sodium Chloride 50 ML IV (22:59)
[2022-06-21] MEDS: Enoxaparin Sodium 40 MG/0.4 ML SYRINGE SUBCUT (22:59)
[2022-06-22] VITALS: BP 140/79; PULSE 63; RESP 18; TEMP 37; O2SAT 96
[2022-06-22] MEDS: 0.9 % Sodium Chloride Flush 3 ML SYRINGE IVFLUSH ×2 (00:05→08:51)
[2022-06-22] MEDS: Doxycycline Hyclate 100 MG in 0.9 % Sodium Chloride 250 ML 166.67 MG IV (02:36)
[2022-06-22 04:00] VITALS: BP 100/62; PULSE 81; RESP 20; TEMP 36.7; O2SAT 96
[2022-06-22] MEDS: Omeprazole 40 MG CAPSULE.DR PO (06:16)
[2022-06-22 07:23] LABS: Glucose, Whole Blood 159 mg/dL (60-115)
[2022-06-22 07:51] VITALS: BP 146/86; PULSE 72; RESP 18; TEMP 36.6; O2SAT 97
[2022-06-22] MEDS: Insulin Lispro 100 UNIT/ML 3 ML VIAL SUBCUT ×2 (08:50→12:48)
[2022-06-22] MEDS: Losartan Potassium 50 MG TABLET PO (08:50)
[2022-06-22] MEDS: Atorvastatin Calcium 80 MG TABLET PO (08:50)
[2022-06-22] MEDS: guaiFENesin LA 600 MG TAB.ER.12H PO (08:50)
[2022-06-22] MEDS: dexAMETHasone sod phosphate 4 MG/ML VIAL 6 MG IVPUSH (08:50)
[2022-06-22] MEDS: Metoprolol Succinate ER 100 MG TAB.ER.24H PO (08:50)
[2022-06-22] MEDS: Loratadine 10 MG TABLET PO (08:51)
--- NOTE | 2022-06-22 09:49 | MHC.CM.PN ---
PT EXPECTED TO DC HOME TODAY WITH RESUMPTION OF [employer] DAUGHTER, ELENI, TO TRANSPORT
--- NOTE | 2022-06-22 11:19 | P.DS_ITS ---
DS: Providers Provider Date of Service: 06/22/22 Date of admission: 06/14/22 23:27 Primary care physician: Jo-Ann Rayo MD Consults: 06/17/22 10:37 Consult to Infectious Diseases Routine Consulting Provider: Cindy Dimas Reason for consultation: fever, unknown source Has provider been notified: No 06/20/22 07:47 Consult to Pulmonology Routine Consulting Provider: Leon Billy Reason for consultation: pneumonia with persistent fevers Has provider been notified: No DS: Diagnosis Discharge Diagnosis (1) Sepsis: Status: Acute (2) COVID-19 virus infection: Status: Acute DS: Summary Hospital Course Hospital Course: Chief Complaint: SOB This is a 62-year-old male with a past medical history of diabetes, hypertension, who presents to the hospital with increased shortness of breath, fever, cough.? Patient is Argentine-speaking and history is obtained with the help of an japanese interpreter and from his daughter at bedside.? According to the daughter patient was tested positive for COVID-19 on the 22 of May, and once again on May 06.? She reports ever since he was diagnosed he has been having increased cough and shortness of breath not responding to anti cough medications.? He was given breathing treatments with no improvement.? Patient denies any headache, no change in vision, no chest pain, no abdominal pain nausea or vomiting, no diarrhea constipation, no urinary symptoms and no lower extremity edema. On arrival to the ED patient hemodynamically stable with a fever of 104.1, respiratory rate of 16, heart rate of 122, blood pressure stable Labs are significant for WBC count of 4.1, hemoglobin of 11.1,? BUN of 19, creatinine of 1.26 which is around his baseline, calcium 7.7, AST of 63, ALT of 62, UA negative, COVID-[address] shows bilateral multilobar ground-glass attenuation infiltrates suggestive of pneumonia left greater than right Patient has a procalcitonin of 0.52. Hospital course: He presented with fever long after fever and was found to have high grade fever, infiltrate on CXR and met criteria for sepsis. He tested positive again for covid, but he was not hypoxic, in the ED was treated with Vancomycin and Zosyn and was subsequently admitted for pneumonia, he did not meet criteria for treatment for covid with remdesevir or Paxlovid. He was treated for Pnuemonia with IV ceftriaxone and Azithromycin and clinically felt good. However, he continued to have fevers 101 to 103, so he was evaluated by Dr. Judie LENTZ and recommended 5 days of Ceftriaxone and Zithro and ceftin at ca for total of 10 days. Patient continued to have high grade fevers wo pulmonology consultation was obatined and he was evaluated by Dr. Billy who then Dexamethasone and he is now fever free over 24 hours and feels better. Antibiotics has also been swithced to Doxycyline after 7 days of Ceftriaxone and Azithro. Will discharge with Dexamethasone for few more days and he should follow up with your his oncologist for follow up on history of Lymphoma which can cause fever and espicially in light of LDH 434 which is up from 139 in December # COVID-19 infection--no respiratory distress or hypoxia. # diabetes--resume metformin. Time Spent with Patient Time attestation: Total time spent providing and/or coordinating discharge services: Discharge coordination time: Greater than 30 minutes Quality: Safe Use of Opioids Does Pt have an Active Cancer Diagnosis on the Problem List?: No Quality: Stroke Does the patient have a stroke diagnosis?: No Physical Exam Vital Signs: Vital Signs: Last Vital Signs Temp 97.8 F 06/22/22 07:51 Pulse 72 06/22/22 07:51 Resp 18 06/22/22 07:51 BP 146/86 H 06/22/22 07:51 Pulse Ox 97 06/22/22 07:51 O2 Del Method 06/22/22 07:51 BMI result Body Mass Index 26.8 DS: Data Data Completed and Pending Labs on day of discharge: Laboratory Results - last 24 hr 06/21/22 06/21/22 06/21/22 11:21 11:32 15:23 POC Glucose 281 H 232 H Lactate Dehydrogenase 434 H 06/21/22 06/22/22 19:51 07:16 POC Glucose 190 H 159 H Lactate Dehydrogenase Discharge Plan Discharge Anticipated Discharge Date/Time: 06/22/22 11:11 Patient Disposition: Home, Self-Care Discharge Diagnosis: Pneumonia, FEVVER Referrals: Jo-Ann Rayo MD [Primary Care Provider] - 1 Week Asuncion Dumont MD [Physician] - 1 Week (History of Lymphoma, admitted with Pneumonia and was having cyclical fevers, LDH is 434 up from 138 in December) Discharge Medications: New dexamethasone [Decadron] 4 mg tablet 4 mg PO DAILY Qty: 3 0RF doxycycline hyclate 100 mg tablet 100 mg PO BID 5 Days Qty: 10 0RF Continued losartan 50 mg Tablet 50 mg PO DAILY metformin 500 mg Tablet 500 mg PO BIDWM atorvastatin 80 mg Tablet 80 mg PO DAILY metoprolol succinate 100 mg Tablet Extended Release 24 Hr 100 mg PO DAILY hydrochlorothiazide 25 mg Tablet 25 mg PO DAILY (DME) FreeStyle Lite Strips Strip MISCELLANEOUS BID (DME) blood-glucose meter [FreeStyle [place] Lite] Kit MISCELLANEOUS BID benzonatate 200 mg capsule 1 cap PO TID PRN (Reason: cough) aspirin 81 mg tablet,delayed release (DR/EC) 2 tab PO QPM pantoprazole 40 mg tablet,delayed release (DR/EC) 1 tab PO DAILY albuterol sulfate [Ventolin HFA] 90 mcg/actuation HFA aerosol inhaler 2 puff PO Q4-6H PRN (Reason: dyspnea) fluticasone propionate 50 mcg/actuation spray,suspension 1 - 2 spray intranasal DAILY PRN (Reason: Allergy Symptoms) loratadine 10 mg tablet 1 tab PO DAILY oxycodone 10 mg tablet 1 tab PO BID PRN (Reason: Pain (Scale Score 7-10)) Discharge Orders: Discharge Order (Routine); Ordered 06/22/22 Ordered By: Joao Toth Diet: Diabetic diet Activity on Discharge: As tolerated Stand Alone Forms: Patient Portal Discharge page Care Plan Goals: Full recovery from pneumonia and fever Health Concerns: history of Lymphoma, fevers Plan of Treatment: Take Doxycyline as recommended and follow up with your Doctor in a week Take Decadron as recommended Follow up with Dr. Dumont for lymphoma Assessment: as above
[2022-06-22 11:57] LABS: Glucose, Whole Blood 219 mg/dL (60-115)
[2022-06-22 12:00] VITALS: BP 105/65; PULSE 90; RESP 19; TEMP 36.7; O2SAT 97
[2022-06-26 11:52] LABS: SARS COV2 IgG NEGATIVE
== END 2022-06-22 13:30 | disposition home or self-care (01) | DRG 871 ==
LOC: HO.ED 20:49 → HO.EDOVER 23:32 → HO.S3 06-15 17:32 → HO.IMC 06-15 18:46
PROVIDERS: Hospitalist; Student in an Organized Health Care Education/Training Program; Admitting Provider Internal Medicine; Emergency Provider Emergency Medicine; PCP Family Medicine; Visit Provider Internal Medicine
DX: A41.9 Sepsis, unspecified organism (principal); J12.82 Pneumonia due to coronavirus disease 2019; U07.1 COVID-19; J15.9 Unspecified bacterial pneumonia; C82.90 Follicular lymphoma, unspecified, unspecified site; E11.9 Type 2 diabetes mellitus without complications; I10 Essential (primary) hypertension; I25.10 Atherosclerotic heart disease of native coronary artery without angina pectoris; Z95.5 Presence of coronary angioplasty implant and graft; K21.9 Gastro-esophageal reflux disease without esophagitis; E78.5 Hyperlipidemia, unspecified; U09.9 Post COVID-19 condition, unspecified; Z88.8 Allergy status to other drugs, medicaments and biological substances; Z79.84 Long term (current) use of oral hypoglycemic drugs; Z79.51 Long term (current) use of inhaled steroids; Z79.899 Other long term (current) drug therapy
CPT/HCPCS: 36415; 71045; 71250; 80048; 80053; 81001; 82947; 83605; 83615; 84145; 85025; 85610; 86769; 87040; 87635; 96361; 96365; 96375; 99285; J0456; J0696; J1100; J1650; J2543; J3370

== ENCOUNTER 2022-10-30 12:33 | Outpatient (REF) | payer OTHER, SELFPAY ==
--- NOTE | ~2022-10-30 | XR_ITS ---
EXAMINATION: XR HIP, RIGHT CLINICAL INFORMATION: Right hip pain. COMPARISON: None TECHNIQUE: Two views of the right hip. FINDINGS: Bones and soft tissues appear unremarkable. No fracture appreciated. Alignment is anatomic. Hip joint space is maintained. XR/XR hip RT min 2V IMPRESSION: Normal plain film examination of the right hip.
== END 2022-10-30 12:34 | disposition home or self-care (01) ==
LOC: HO.XRAY 12:33
PROVIDERS: PCP Family Medicine; Visit Provider Family Medicine
DX: M25.551 Pain in right hip (principal); M53.3 Sacrococcygeal disorders, not elsewhere classified
CPT/HCPCS: 73502

== ENCOUNTER 2022-11-26 13:13 | Outpatient (REF) | payer OTHER, SELFPAY ==
--- NOTE | ~2022-11-26 | XR_ITS ---
EXAMINATION: XR CHEST CLINICAL INFORMATION: Cough COMPARISON: Previous chest x-ray May 2022 TECHNIQUE: 2 views of the chest were obtained. FINDINGS: No significant abnormality is noted involving the heart, lungs, mediastinum, bony thorax or soft tissues. XR/XR chest 2V IMPRESSION: Unremarkable examination.
== END 2022-11-26 13:14 | disposition home or self-care (01) ==
LOC: HO.XRAY 13:13
PROVIDERS: PCP Family Medicine; Visit Provider Emergency Medicine
DX: R05.9 Cough, unspecified (principal)
CPT/HCPCS: 71046

== ENCOUNTER 2022-11-29 10:57 | Emergency (ER) | payer OTHER, SELFPAY ==
--- NOTE | ~2022-11-29 | CT_ITS ---
EXAMINATION: CT ABDOMEN AND PELVIS WITH CONTRAST CLINICAL INFORMATION: Right greater than left flank pain and abdominal pain. History of lymphoma COMPARISON: PET/CT the 2019 TECHNIQUE: Multidetector volumetric images were obtained from the superior aspect of the liver through the pubic symphysis following administration 85 mL of Omnipaque 350 intravenous contrast. Sagittal and coronal reformatted images were obtained on the technologist's workstation. Oral contrast: No This CT examination was performed using dose optimization techniques as appropriate, variously including the following: *Automated exposure control *Adjustment of mA and/or kV according to patient size (this includes techniques or standardized protocols for targeted exams where dose is matched to indication/reason for exam; i.e. extremities or head) *Use of iterative reconstruction technique DLP: 491 mGy-cm FINDINGS: LUNG BASES: Mild hazy bibasilar atelectasis. LIVER, GALLBLADDER, AND BILIARY TREE: The liver is normal in size, shape, and attenuation. No focal hepatic lesion or biliary ductal dilatation is present. The gallbladder is unremarkable with no evidence of radiopaque gallstones, gallbladder wall thickening, or obvious pericholecystic inflammatory changes. PANCREAS: Unremarkable. SPLEEN: Borderline enlarged measuring 13.1 cm in craniocaudal length. No splenic lesion. ADRENAL GLANDS: Normal left adrenal gland. Right adrenal gland is not discretely visualized. Abnormal infiltrative soft tissue in the right suprarenal retroperitoneum. KIDNEYS AND URETERS: Abnormal infiltrative soft tissue mass in the right retroperitoneum involving/extending into the right kidney in the mid and upper pole as well as in the pararenal and perirenal space. This abnormal tissue surrounds and attenuates the upper abdominal IVC , right renal vein, distal left renal vein, and right renal artery. There is a 3.8 x 2.8 x 4.7 cm area of low attenuation just posterior and extending inferior to the third portion the duodenum, which may represent necrotic tissue. 3 x 1.4 cm low-density cyst in the posterior left midpole. No appreciable hydronephrosis. Normal left nephrogram. Small 3 mm nonobstructing left upper pole renal calculus and 2.7 cm simple cyst in the left kidney. BLADDER: Slightly diffusely thick-walled prominently distended. No bladder calculi. GASTROINTESTINAL TRACT: No dilated bowel loops. No bowel wall thickening. Normal appendix. Moderate amount of formed stool in the right colon. No free air. ABDOMINAL WALL: No significant hernia is appreciated. LYMPH NODES: Extensive confluent upper abdominal retroperitoneal lymphadenopathy particularly on the right side the pericaval and right periaortic regions extending into the portal caval, periceliac purvi chains as well as involving the right retrocrural purvi chain there is a 1.4 cm short axis dimension lymph node. Conchis appearance of the mesentery with small nonpathologically enlarged mesenteric lymph nodes. No pelvic or inguinal lymphadenopathy. VASCULAR: Normal caliber abdominal aorta. Mild vascular calcifications. PELVIC VISCERA: Unremarkable. OSSEOUS STRUCTURES: No acute fracture or suspicious osseous lesion. CT/CT abdomen pelvis w IV con IMPRESSION: 1. Abnormal infiltrative soft tissue mass in the right retroperitoneum involving/extending into the right kidney, pararenal, pericarinal, and suprarenal space, as well as encasing the upper abdominal IVC, right renal artery/vein, and distal left renal vein. Findings highly suspicious for recurrent lymphoma. 2. Extensive confluent upper abdominal retroperitoneal lymphadenopathy. 3. Borderline splenomegaly. 4. No other acute intra-abdominal process identified. 5. Conchis appearance of the mesentery with small nonpathologically enlarged mesenteric lymph nodes, nonspecific and possibly related to lymphoma. 6. Prominently distended urinary bladder with mild diffuse wall thickening. Correlate clinically with signs or symptoms of cystitis, chronic bladder outlet obstruction or chronic bladder dysfunction.
--- NOTE | ~2022-11-29 | XR_ITS ---
EXAMINATION: XR CHEST CLINICAL INFORMATION: Fever. COMPARISON: None TECHNIQUE: Frontal view of the chest was obtained. FINDINGS: The lungs are hypoexpanded but clear of acute process. Heart size and pulmonary vascularity is normal. No gross bony abnormality seen. XR/XR chest 1V IMPRESSION: Hypoexpanded lungs without acute process.
[2022-11-29 11:10] VITALS: BP 130/79; PULSE 129; RESP 16; TEMP 37.1; O2SAT 98; BMI 27.2
[2022-11-29 11:21] LABS: MANUAL DIFF FLAG NO
[2022-11-29 11:26] LABS: Basophils Percent Auto 0.2 % (0-2); Eosinophils Absolute Auto 0.1 X10*3/uL (0.0-0.4); Eosinophils Percent Auto 1.2 % (0-4); Hematocrit 34.9 % (42.0-52.0); Hemoglobin 11.5 g/dl (14.0-18.0); Imm Gran Abs Auto 0.06 X10*3/uL (0.00-0.03); Imm Gran Pct Auto 0.6 % (0.0-0.4); Lymphocytes Absolute Auto 1.7 X10*3/uL (1.2-4.9); Lymphocytes Percent Auto 15.6 % (20-40); Mean Corpuscular Hemoglobin 27.8 pg (27.0-33.0); Mean Corpuscular Volume 84.5 fL (80.0-98.0); Mean Platelet Volume 8.2 fL (9.4-12.4); Monocytes Percent Auto 9.2 % (2-11); Neutrophils Absolute Auto 7.8 x10*3/uL (2.0-8.3); Neutrophils Percent Auto 73.2 % (45-73); Platelet Count 248 X10*3/uL (160-400); Red Blood Count 4.13 X10*6/uL (4.60-5.80); Red Cell Distribution Width 14.3 % (11.0-16.0); White Blood Count 10.6 X10*3/uL (4.8-10.8)
[2022-11-29 12:01] LABS: Alanine Aminotransferase 19 U/L (0-40); Albumin Level 3.9 g/dL (3.5-5.0); Alkaline Phosphatase 116 U/L (39-117); Anion Gap 12 (12-20); Aspartate Amino Transferase 19 U/L (5-37); Bilirubin Direct 0.3 mg/dL (0.0-0.5); Bilirubin Total 0.9 mg/dL (0.0-1.0); Blood Urea Nitrogen 19 mg/dL (9-16); Calcium 9.2 mg/dL (8.4-10.2); Carbon Dioxide 28 mmol/L (22-29); Chloride 99 mmol/L (96-108); Creatinine Clr Calc Pharmacy 53.1; Estimated Glomerular Filt Rate 50; Glucose Random 230 mg/dL (60-115); Lipase 9 U/L (8-78); Potassium 4.9 mmol/L (3.3-5.1); Sodium 134 mmol/L (135-145); Total Protein 6.5 g/dL (6.5-8.0)
--- NOTE | 2022-11-29 13:53 | ED.ABDPAIN ---
HPI - Abdominal Pain General Chief Complaint: Abdominal Pain Stated Complaint: Stomach Pain Sent by Julia Time Seen by Provider: 11/29/22 13:53 Source: patient and old records reviewed Mode of arrival: ambulatory Limitations: no limitations History of Present Illness HPI narrative: 62 y/o history of recurrent follicular lymphoma s/p chemotherapy and radiation (last received chemo 7-8 months ago), DM, HTN, GERD, CAD s/p stent, HLD who is presenting to the ER c/o severe bilateral flank pain and abdominal pain that acutely worsened yesterday. He states he went to [facility] yesterday but ended up leaving without being seen. He states he ususally has some right flank, hip, groin pain but is not 8-9/10 and doubling him over in pain. He states he also has left flank/kidney pain and abdominal pain associated with nausea. He states his abdomen feels hard. He denies urinary symptoms including hematuria, decreased or increased UOP, frequency or urgency. No fevers. MD elicited complaint: abdominal pain and flank pain Pertinent past history: other (lymphoma) Pain Consistency: constant Location: L flank and R flank Severity: severe Pain scale (0-10): 9 Quality: stabbing and sharp Radiation: RLQ and other (right groin) Migration to: no migration Exacerbating factors: nothing Relieving factors: nothing Context: history of similar episodes Associated symptoms: denies other symptoms Related Data Home Medications Medication Instructions Recorded Confirmed atorvastatin 80 mg tablet 80 mg PO DAILY 11/14/20 11/05/22 hydrochlorothiazide 25 mg tablet 25 mg PO DAILY 11/14/20 11/05/22 losartan 50 mg tablet 50 mg PO DAILY 11/14/20 11/05/22 metformin 500 mg tablet 500 mg PO BIDWM 11/14/20 11/05/22 metoprolol succinate 100 mg 100 mg PO DAILY 11/14/20 11/05/22 tablet,extended release 24 hr blood sugar diagnostic (FreeStyle 06/25/21 11/05/22 Lite Strips) blood-glucose meter (FreeStyle 06/25/21 11/05/22 [place] Lite kit) albuterol sulfate 90 mcg/actuation 2 puff PO Q4-6H PRN dyspnea 06/14/22 11/05/22 aerosol inhaler (Ventolin HFA) aspirin 81 mg tablet,delayed 2 tab PO QPM 06/14/22 11/05/22 release benzonatate 200 mg capsule 1 cap PO TID PRN cough 06/14/22 11/05/22 fluticasone propionate 50 1 - 2 spray intranasal DAILY PRN 06/14/22 11/05/22 mcg/actuation nasal Allergy Symptoms spray,suspension loratadine 10 mg tablet 1 tab PO DAILY 06/14/22 11/05/22 oxycodone 10 mg tablet 1 tab PO BID PRN Pain (Scale Score 06/14/22 11/05/22 7-10) pantoprazole 40 mg tablet,delayed 1 tab PO DAILY 06/14/22 11/05/22 release Previous Rx's Medication Instructions Recorded dexamethasone 4 mg tablet 4 mg PO DAILY #3 tabs 06/22/22 (Decadron) doxycycline hyclate 100 mg tablet 100 mg PO BID 5 days #10 tabs 06/22/22 morphine 15 mg immediate release 15 mg PO Q4H PRN severe pain 11/29/22 tablet (scale score 7-10) #14 tabs Allergies Allergy/AdvReac Type Severity Reaction Status Date / Time amlodipine [AMLODIPINE] Allergy Unknown EDEMA-PER Verified 07/10/22 10:07 H&P Review of Systems Review of Systems Constitutional: No Fever, No Chills ENT/Mouth: No sore throat, No Rhinorrhea, No Swallowing Difficulty Cardiovascular: No Chest Pain, No SOB Respiratory: No Cough, No Sputum Gastrointestinal: + Nausea, No Vomiting, No Diarrhea, + abdominal Pain, No Hematochezia, No Melena Genitourinary: No Dysuria, No Urinary Frequency, No Hematuria Musculoskeletal: +joint pain, + Myalgias Skin: No Skin Lesions, No rash Neuro: No Weakness, No Numbness, No Dizziness, No Headache Psych: No Anxiety/Panic, No Depression Heme/Lymph: No Bruising, No Lymphadenopathy Endocrine: No Polyuria, No Polydipsia PMFSH Past Medical History Medical History (Updated 11/29/22 @ 17:01 by TERRANCE Gotti) Abnormal urine cytology CAD (coronary artery disease) COVID (~06/09/22) Diabetes Follicular lymphoma GERD (gastroesophageal reflux disease) HTN (hypertension) Hyperlipemia Lymphoma Lymphoma Surgical History History of heart artery stent Hx of cataract surgery Family History Family History Father Pancreas cancer Hypertension Sister Breast cancer Social History Social History (Updated 07/10/22 @ 10:07 by GWENDOLYN Coates) Household Members: None Housing: Apartment Are you a primary acute care nurse practitioner to a significant other at home: No Do you presently have visiting nurse or other home services: No Alcohol intake: former Patient Tobacco Use Status: Never used Tobacco Use of substances other than those prescribed or required for medical reasons: No Advance Directives: Yes Advance Directives on File: Yes Advance Directives Date on File: 06/19/22 service: No Current occupational status: disabled Physical Exam ED Vital Signs: Vital Signs - 24 hr 11/29/22 14:36 11/29/22 15:27 11/29/22 11:10 Temperature 100.6 F H 98.7 F 98.7 F Pulse Rate 106 H 108 H 129 H Respiratory Rate 18 16 16 Blood Pressure 127/65 109/69 130/79 Pulse Oximetry 97 97 98 Oxygen Delivery Method Room Air Room Air Room Air BMI result Body Mass Index 27.2 Appearance: Alert. Oriented X3. No acute distress. Eyes: Pupils equal, round and reactive to light. ENT: Pharynx normal. Neck: Normal inspection. Neck supple. CVS: Normal heart rate and rhythm. Pulses normal. Respiratory: No respiratory distress. Breath sounds normal. Abdomen: Somewhat firm, tender right RLQ. +CVA tenderness on the right. normal +BS x4 Skin: Skin warm and dry. Normal skin color. Normal skin turgor. No rashes. Extremities: No lower extremity edema. Neuro: Oriented X 3. No motor deficit. No sensory deficit. Course Course Course Narrative: Sixty 3 male with history of recurrence follicular lymphoma, initially diagnosed in March of 2016, completed chemotherapy and had a complete metabolic response. He had recurrence of disease in 2019 and underwent chemo and radiation. He had MRI showing a 7 m right adrenal mass with FNA biopsy confirming follicular lymphoma. He had multiple lymph nodes in area of disease on PET scans. He reportedly did have a PET scan on July 2021 with showed complete resolution of disease. Was last seen in the Oncology office by Dr. Dumont on November 05. He had chronic right hip pain at that time, worse at night when he laid down. He is advised to take Tylenol. Patient is here today with acutely worsening right flank pain that radiates down into the hip and groin. He also has left-sided flank pain and abdominal pain associated with nausea. Pain is 9/10 at this time. Will medicate, get CT scan for further evaluation. Reevaluation(s) Reevaluation #1: 1.? Abnormal infiltrative soft tissue mass in the right retroperitoneum involving/extending into the right kidney, pararenal, pericarinal, and suprarenal space, as well as encasing the upper abdominal IVC, right renal artery/vein, and distal left renal vein. Findings highly suspicious for recurrent lymphoma. 2.? Extensive confluent upper abdominal retroperitoneal lymphadenopathy. 3.? Borderline splenomegaly. 4.? No other acute intra-abdominal process identified. 5.? Conchis appearance of the mesentery with small nonpathologically enlarged mesenteric lymph nodes, nonspecific and possibly related to lymphoma. 6.? Prominently distended urinary bladder with mild diffuse wall thickening. Correlate clinically with signs or symptoms of cystitis, chronic bladder outlet obstruction or chronic bladder dysfunction. ? Results discussed with Dr. Dumont. Results discussed with the patient within staff development nurse. All questions were answered. Patient's pain is down to 0/10 after 1 mg of IV Dilaudid. He would like to go home and have a biopsy done as an outpatient. We discussed strict return precautions if anything were to get worse he will come back. Breakthrough pain control with oral morphine has been sent to his pharmacy. Comfortable discharge home with close outpatient follow-up. Medical Decision Making Lab Data Result Diagrams: 11/29/22 11:18 11/29/22 11:18 Labs: Lab Results 11/29/22 11/29/22 11/29/22 Range/Units 11:18 11:18 15:39 WBC 10.6 (4.8-10.8) X10*3/uL RBC 4.13 L (4.60-5.80) X10*6/uL Hgb 11.5 L (14.0-18.0) g/dl Hct 34.9 L (42.0-52.0) % MCV 84.5 (80.0-98.0) fL MCH 27.8 (27.0-33.0) pg MCHC 33.0 (31.0-36.0) g/dl RDW 14.3 (11.0-16.0) % Plt Count 248 (160-400) X10*3/uL MPV 8.2 L (9.4-12.4) fL Immature Gran % (Auto) 0.6 H (0.0-0.4) % Neut % (Auto) 73.2 H (45-73) % Lymph % (Auto) 15.6 L (20-40) % [place] % (Auto) 9.2 (2-11) % Eos % (Auto) 1.2 (0-4) % Baso % (Auto) 0.2 (0-2) % Lymph # (Auto) 1.7 (1.2-4.9) X10*3/uL [place] # (Auto) 1.0 (0.1-1.2) X10*3/uL Eos # (Auto) 0.1 (0.0-0.4) X10*3/uL Baso # (Auto) 0.0 (0.0-0.2) X10*3/uL Abs Immat Gran (auto) 0.06 H (0.00-0.03) X10*3/uL Absolute Neuts (auto) 7.8 (2.0-8.3) x10*3/uL Absolute Nucleated RBC 0.000 (0.0-0.012) X10*3/uL Nucleated RBC % (auto) 0.0 (0.0-0.2) /100WBC Sodium 134 L (135-145) mmol/L Potassium 4.9 (3.3-5.1) mmol/L Chloride 99 (96-108) mmol/L Carbon Dioxide 28 (22-29) mmol/L Anion Gap 12 (12-20) BUN 19 H (9-16) mg/dL Creatinine 1.44 H (0.5-1.4) mg/dL Estim Creat Clear Calc 53.1 Estimated GFR 50 Random Glucose 230 H (60-115) mg/dL Lactic Acid 0.9 (0.5-2.0) mmol/L Calcium 9.2 (8.4-10.2) mg/dL Total Bilirubin 0.9 (0.0-1.0) mg/dL Direct Bilirubin 0.3 (0.0-0.5) mg/dL AST 19 (5-37) U/L ALT 19 (0-40) U/L Alkaline Phosphatase 116 (39-117) U/L Total Protein 6.5 (6.5-8.0) g/dL Albumin 3.9 (3.5-5.0) g/dL Lipase 9 (8-78) U/L Urine Color Urine Appearance Urine pH (5.0-9.0) Ur Specific [place] (1.005-1.025) Urine Protein (Neg-Trace) mg/dL Urine Glucose (UA) (Negative) mg/dL Urine Ketones (Negative) mg/dL Urine Blood (Negative) Urine Nitrite (Negative) Ur Leukocyte Esterase (Negative) 11/29/22 Range/Units 16:23 WBC (4.8-10.8) X10*3/uL RBC (4.60-5.80) X10*6/uL Hgb (14.0-18.0) g/dl Hct (42.0-52.0) % MCV (80.0-98.0) fL MCH (27.0-33.0) pg MCHC (31.0-36.0) g/dl RDW (11.0-16.0) % Plt Count (160-400) X10*3/uL MPV (9.4-12.4) fL Immature Gran % (Auto) (0.0-0.4) % Neut % (Auto) (45-73) % Lymph % (Auto) (20-40) % [place] % (Auto) (2-11) % Eos % (Auto) (0-4) % Baso % (Auto) (0-2) % Lymph # (Auto) (1.2-4.9) X10*3/uL [place] # (Auto) (0.1-1.2) X10*3/uL Eos # (Auto) (0.0-0.4) X10*3/uL Baso # (Auto) (0.0-0.2) X10*3/uL Abs Immat Gran (auto) (0.00-0.03) X10*3/uL Absolute Neuts (auto) (2.0-8.3) x10*3/uL Absolute Nucleated RBC (0.0-0.012) X10*3/uL Nucleated RBC % (auto) (0.0-0.2) /100WBC Sodium (135-145) mmol/L Potassium (3.3-5.1) mmol/L Chloride (96-108) mmol/L Carbon Dioxide (22-29) mmol/L Anion Gap (12-20) BUN (9-16) mg/dL Creatinine (0.5-1.4) mg/dL Estim Creat Clear Calc Estimated GFR Random Glucose (60-115) mg/dL Lactic Acid (0.5-2.0) mmol/L Calcium (8.4-10.2) mg/dL Total Bilirubin (0.0-1.0) mg/dL Direct Bilirubin (0.0-0.5) mg/dL AST (5-37) U/L ALT (0-40) U/L Alkaline Phosphatase (39-117) U/L Total Protein (6.5-8.0) g/dL Albumin (3.5-5.0) g/dL Lipase (8-78) U/L Urine Color Yellow Urine Appearance Clear Urine pH 6.5 (5.0-9.0) Ur Specific [place] >= 1.030 H (1.005-1.025) Urine Protein Negative (Neg-Trace) mg/dL Urine Glucose (UA) Negative (Negative) mg/dL Urine Ketones Negative (Negative) mg/dL Urine Blood Negative (Negative) Urine Nitrite Negative (Negative) Ur Leukocyte Esterase Negative (Negative) Medications Administered Discontinued Medications Generic Name Dose Route Start Last Admin Trade Name Freq PRN Reason Stop Dose Admin Acetaminophen 975 mg 11/29/22 15:03 11/29/22 15:23 Acetaminophen 325 Mg Tablet PO 11/29/22 15:04 975 mg ONCE ONE Administration Hydromorphone HCl 1 mg 11/29/22 13:55 11/29/22 14:25 Hydromorphone Hcl 1 Mg/Ml Syringe IVPUSH 11/29/22 13:56 1 mg ONCE ONE Administration Protocol Sodium Chloride 1,000 mls @ 999 mls/hr 11/29/22 14:00 11/29/22 15:25 Ns IV 11/29/22 15:00 Infused .Q1H1M CARLOS Infusion Iohexol 100 ml 11/29/22 14:53 11/29/22 14:53 Iohexol 350 Mg/Ml 100 Ml Infus..Btl IV 11/29/22 14:54 85 ml ONCE ONE Administration Discharge Plan Discharge Clinical Impression: Recurrent lymphoma Patient Disposition: Home, Self-Care Instructions: Non-Hodgkin Lymphoma (ED) Additional Instructions: Follow up with Dr. Dumont for biopsy. Take the prescribed medication as needed for pain. Take Tylenol 650 mg every 6 hours around the clock. Recommend colace and senna to help prevent constipation while on narcotics. If you develop new or worsening symptoms call 911 or come back to the ER for further evaluation. Your CT scan showed: 1.? Abnormal infiltrative soft tissue mass in the right retroperitoneum involving/extending into the right kidney, pararenal, pericarinal, and suprarenal space, as well as encasing the upper abdominal IVC, right renal artery/vein, and distal left renal vein. Findings highly suspicious for recurrent lymphoma. 2.? Extensive confluent upper abdominal retroperitoneal lymphadenopathy. 3.? Borderline splenomegaly. 4.? No other acute intra-abdominal process identified. 5.? Conchis appearance of the mesentery with small nonpathologically enlarged mesenteric lymph nodes, nonspecific and possibly related to lymphoma. 6.? Prominently distended urinary bladder with mild diffuse wall thickening. Correlate clinically with signs or symptoms of cystitis, chronic bladder outlet obstruction or chronic bladder dysfunction. ? Prescriptions: New morphine 15 mg tablet 15 mg PO Q4H PRN (Reason: severe pain (scale score 7-10)) Qty: 14 0RF Rx Instructions: Partial Fill upon patient request. No Action losartan 50 mg Tablet 50 mg PO DAILY metformin 500 mg Tablet 500 mg PO BIDWM atorvastatin 80 mg Tablet 80 mg PO DAILY metoprolol succinate 100 mg Tablet Extended Release 24 Hr 100 mg PO DAILY hydrochlorothiazide 25 mg Tablet 25 mg PO DAILY (DME) FreeStyle Lite Strips Strip MISCELLANEOUS BID (DME) blood-glucose meter [FreeStyle [place] Lite] Kit MISCELLANEOUS BID benzonatate 200 mg capsule 1 cap PO TID PRN (Reason: cough) aspirin 81 mg tablet,delayed release (DR/EC) 2 tab PO QPM pantoprazole 40 mg tablet,delayed release (DR/EC) 1 tab PO DAILY albuterol sulfate [Ventolin HFA] 90 mcg/actuation HFA aerosol inhaler 2 puff PO Q4-6H PRN (Reason: dyspnea) fluticasone propionate 50 mcg/actuation spray,suspension 1 - 2 spray intranasal DAILY PRN (Reason: Allergy Symptoms) loratadine 10 mg tablet 1 tab PO DAILY oxycodone 10 mg tablet 1 tab PO BID PRN (Reason: Pain (Scale Score 7-10)) doxycycline hyclate 100 mg tablet 100 mg PO BID 5 Days Qty: 10 0RF dexamethasone [Decadron] 4 mg tablet 4 mg PO DAILY Qty: 3 0RF Print Language: Nauruan
--- NOTE | 2022-11-29 14:13 | PC.NURSE ---
Family at bedside patient primarily lebanese speaking family member interprets for patient. AOx 4 neuros intact no facial droop of deviation of tongue JOSHI with purpose no drift noted. ABD soft non tender some diffuse tenderness with auscultation palpation BS quad x 4 denies hematuria or blood in stool. Patient has history of lymphoma took oxycontin at home with little effect. Patient has has kidney stone in the past. IV access obtained. Patient denies chest pain or SOB no distress noted will CTM
[2022-11-29] MEDS: HYDROmorphone HCl 1 MG/ML SYRINGE IVPUSH (14:25)
[2022-11-29] MEDS: 0.9 % Sodium Chloride 1,000 ML 999 ML IV (14:26)
[2022-11-29 14:36] VITALS: BP 127/65; PULSE 106; RESP 18; TEMP 38.1; O2SAT 97
[2022-11-29] MEDS: iohexoL 350 MG/ML 100 ML INFUS..BTL IV (14:53)
[2022-11-29] MEDS: Acetaminophen 325 MG TABLET 975 MG PO (15:23)
[2022-11-29 15:27] VITALS: BP 109/69; PULSE 108; RESP 16; TEMP 37.1; O2SAT 97
[2022-11-29 15:57] LABS: Lactic Acid 0.9 mmol/L (0.5-2.0)
[2022-11-29 16:34] LABS: Appearance Urine Clear; Color Urine Yellow; Glucose Urine UA Negative (Negative); Leukocyte Esterase Urine Negative (Negative); Nitrite Urine Negative (Negative); PH 6.5 (5.0-9.0); Specific Gravity - Urine >= 1.030 (1.005-1.025); Urine Blood Negative (Negative); Urine Ketones Negative (Negative); Urine Protein Negative (Neg-Trace)
--- NOTE | 2022-11-29 16:57 | PC.NURSE ---
Verified with MD patient is going to go home will hold on covid swab
[2022-11-29 17:19] VITALS: BP 107/74; PULSE 95; RESP 18; TEMP 36.6; O2SAT 95
== END 2022-11-29 17:33 | disposition home or self-care (01) ==
PROVIDERS: Physician Assistant; Emergency Provider Student in an Organized Health Care Education/Training Program; PCP Family Medicine
DX: C85.90 Non-Hodgkin lymphoma, unspecified, unspecified site (principal); R06.02 Shortness of breath; R10.9 Unspecified abdominal pain; Z79.899 Other long term (current) drug therapy
CPT/HCPCS: 36415; 71045; 74177; 80048; 80076; 81003; 83605; 83690; 85025; 87040; 96361; 96374; 99284; 99285; J1170; Q9967

== ENCOUNTER 2022-12-09 09:36 | Outpatient (REF) | payer OTHER, SELFPAY ==
--- NOTE | ~2022-12-09 | XR_ITS ---
EXAMINATION: XR ABDOMEN COMPLETE CLINICAL INDICATION: Lymphoma; question bowel obstruction. COMPARISON: CT abdomen and pelvis dated 11/29/2022. TECHNIQUE: 2 AP views of the abdomen and pelvis are submitted. FINDINGS: The bowel gas pattern is normal, with no evidence of ileus or obstruction. No free intraperitoneal air is seen on these supine views. No unusual soft tissue calcifications are noted. There are multiple pelvic phleboliths. The bones are unremarkable. XR/XR abdomen min 2V IMPRESSION: Unremarkable examination.
== END 2022-12-09 09:37 | disposition home or self-care (01) ==
LOC: HO.XRAY 09:36
PROVIDERS: PCP Family Medicine; Visit Provider Internal Medicine
DX: R10.9 Unspecified abdominal pain (principal)
CPT/HCPCS: 74019

== ENCOUNTER 2022-12-11 11:34 | Day surgery (SDC) | payer OTHER, SELFPAY ==
--- NOTE | ~2022-12-11 | CT_ITS ---
PROCEDURE: CT-GUIDED BIOPSY, ABDOMINAL MASS CLINICAL INFORMATION: Previous history of follicular lymphoma treated. Now presents with enlarged left kidney and a suprarenal mass. COMPARISON: CT abdomen 11/29/2022 TECHNIQUE: Following explaining CT fluoroscopy-guided right suprarenal mass biopsy procedure, benefits and risk, a written consent was obtained. Patient was placed semi-prone on a fluoroscopy table with preliminary CT imaging obtained. Lead markers were placed along the right posterior abdomen and repeat CT imaging was obtained. An optimal lead marker was selected and marked on the skin. The marked area was cleaned and draped in the usual sterile manner. 1% lidocaine was administered at puncture site. Through a small skin incision, a 20-gauge guide needle was advanced from the skin along the paravertebral space adjacent to the right suprarenal mass. Coaxially, a 20-gauge gun was advanced and a 5 pass core biopsy was obtained. Post procedure, the guide needle and the guidewire was removed and complete hemostasis achieved. Repeat CT imaging was obtained. Simple dressing applied postprocedure. Patient tolerated procedure extremely well. Conscious sedation was administered during the exam and patient monitored by IR radiologist and IR nurse for [address] examination was performed using dose optimization techniques as appropriate, variously including the following: *Automated exposure control *Adjustment of mA and/or kV according to patient size (this includes techniques or standardized protocols for targeted exams where dose is matched to indication/reason for exam; i.e. extremities or head) *Use of iterative reconstruction technique DLP: 249 mGy-cm FINDING: On preliminary CT imaging, there is a significantly enlarged right kidney with a large mass in the suprarenal fossa. CT fluoroscopy-guided right suprarenal mass biopsy was performed and specimen collected was sent in formalin solution. CT/CT biopsy abdomen percutaneous IMPRESSION: Successful CT fluoroscopy-guided right suprarenal mass core biopsy performed.
[2022-12-11 13:05] VITALS: BMI 27.2
[2022-12-11 13:11] LABS: Glucose, Whole Blood 99 mg/dL (60-115)
[2022-12-11 15:00] VITALS: BP 106/73; PULSE 90; RESP 18; TEMP 36.9; O2SAT 97
[2022-12-11 15:15] VITALS: BP 116/77; PULSE 81; RESP 16; O2SAT 97
[2022-12-11 15:30] VITALS: BP 107/75; PULSE 78; RESP 16; O2SAT 99
[2022-12-11 15:52] VITALS: BP 109/68; PULSE 79; RESP 16; O2SAT 99
[2022-12-11 16:11] VITALS: BP 121/76; PULSE 83; RESP 16; TEMP 36.8; O2SAT 98
[2022-12-11 16:26] VITALS: BP 121/78; PULSE 82; RESP 16; TEMP 36.8; O2SAT 98
[2022-12-12 07:47] LABS: Glucose, Whole Blood 95 mg/dL (60-115)
== END 2022-12-11 16:45 | disposition home or self-care (01) ==
PROVIDERS: Radiology Diagnostic Radiology; PCP Family Medicine; Visit Provider Internal Medicine
DX: C85.90 Non-Hodgkin lymphoma, unspecified, unspecified site (principal); E11.9 Type 2 diabetes mellitus without complications; I10 Essential (primary) hypertension; I25.10 Atherosclerotic heart disease of native coronary artery without angina pectoris; Z79.84 Long term (current) use of oral hypoglycemic drugs; Z79.899 Other long term (current) drug therapy; Z79.82 Long term (current) use of aspirin
CPT/HCPCS: 49180; 77012; 82947; 88305; 88341; 88342; 88360; 99152; 99153; J2250; J3010

== ENCOUNTER 2022-12-19 11:20 | Day surgery (SDC) | payer OTHER, SELFPAY ==
--- NOTE | 2022-12-16 13:52 | HO.ANESPROP2 ---
Documented by User: Claudine Lester NP 12/18/22 13:56 HPI - Anesthesia Eval Consult details Narrative: 62yo M for Fine Needle Biopsy CT Guided of abdomen Recurrent lymphoma (dx'd 2015) s/p Right retroperitoneal bx 12/11/2022 with Conscious Sedation CAD with stent 2012, only prn f/u with Cardiology per 2019 note PMFSH Past Medical History Medical History Abnormal urine cytology CAD (coronary artery disease) COVID (~06/09/22) Diabetes Follicular lymphoma GERD (gastroesophageal reflux disease) HTN (hypertension) Hyperlipemia Lymphoma Lymphoma Family History Family History Father Pancreas cancer Hypertension Sister Breast cancer Surgical History Surgical History History of heart artery stent Hx of cataract surgery Social History Social History Household Members: None Housing: Apartment Are you a primary career orientation teacher to a significant other at home: No Do you presently have visiting nurse or other home services: No Alcohol intake: former Patient Tobacco Use Status: Never used Tobacco Are you DNR?: No Advance Directives: No Advance Directives Information Provided: Yes Advance Directives Date on File: 06/19/22 service: No Current occupational status: disabled Meds Allergies Allergy/AdvReac Type Severity Reaction Status Date / Time amlodipine [AMLODIPINE] Allergy Unknown EDEMA-PER Verified 12/19/22 12:54 H&P Home Medications Medication Instructions Recorded Confirmed Last Taken Type atorvastatin 80 mg tablet 80 mg PO DAILY 11/14/20 12/19/22 Unknown History hydrochlorothiazide 25 mg tablet 25 mg PO DAILY 11/14/20 12/19/22 Unknown History losartan 50 mg tablet 50 mg PO DAILY 11/14/20 12/19/22 12/19/22 History metformin 500 mg tablet 500 mg PO BIDWM 11/14/20 12/19/22 12/19/22 History metoprolol succinate 100 mg 100 mg PO DAILY 11/14/20 12/19/22 12/19/22 History tablet,extended release 24 hr blood sugar diagnostic ([facility] 06/25/21 12/09/22 Unknown History Lite Strips) blood-glucose meter ([facility] 06/25/21 12/09/22 Unknown History [place] Lite kit) albuterol sulfate 90 mcg/actuation 2 puff PO Q4-6H PRN dyspnea 06/14/22 12/19/22 Unknown History aerosol inhaler (Ventolin HFA) aspirin 81 mg tablet,delayed 2 tab PO QPM 06/14/22 12/19/22 12/15/22 History release benzonatate 200 mg capsule 1 cap PO TID PRN cough 06/14/22 12/19/22 Unknown History fluticasone propionate 50 1 - 2 spray intranasal DAILY PRN 06/14/22 12/19/22 Unknown History mcg/actuation nasal Allergy Symptoms spray,suspension loratadine 10 mg tablet 1 tab PO DAILY 06/14/22 12/19/22 Unknown History pantoprazole 40 mg tablet,delayed 1 tab PO DAILY 06/14/22 12/19/22 12/19/22 History release morphine 15 mg tablet,extended 1 tab PO BID 12/09/22 12/19/22 Unknown History release naloxone 4 mg/actuation nasal spray intranasal 12/19/22 Unknown History oxycodone 10 mg tablet 1 tab PO TID PRN severe pain 12/19/22 12/19/22 Unknown History Exam Exam Date and Time: December 16, 2022 1352 Pertinent Lab Results Pertinent Lab Results: Labs from outside facility 12/12/2022 Lytes WNL BUN/Creat elevated 24/1.5 WBC 9.6 Hgb 10.3 Hct 33.7 Plt 339 Documented by User: Kennedy Hurley MD 12/19/22 15:06 [facility] Past Medical History Medical History Abnormal urine cytology CAD (coronary artery disease) COVID (~06/09/22) Diabetes Follicular lymphoma GERD (gastroesophageal reflux disease) HTN (hypertension) Hyperlipemia Lymphoma Lymphoma Family History Family History Father Pancreas cancer Hypertension Sister Breast cancer Family history of problems with anesthesia: No Surgical History Surgical History History of heart artery stent Hx of cataract surgery History of Problems with Anesthesia: No Social History Social History Household Members: None Housing: Apartment Are you a primary career orientation teacher to a significant other at home: No Do you presently have visiting nurse or other home services: No Alcohol intake: former Patient Tobacco Use Status: Never used Tobacco Are you DNR?: No Advance Directives: No Advance Directives Information Provided: Yes Advance Directives Date on File: 06/19/22 service: No Current occupational status: disabled Meds Allergies Allergy/AdvReac Type Severity Reaction Status Date / Time amlodipine [AMLODIPINE] Allergy Unknown EDEMA-PER Verified 12/19/22 12:54 H&P Home Medications Medication Instructions Recorded Confirmed Last Taken Type atorvastatin 80 mg tablet 80 mg PO DAILY 11/14/20 12/19/22 Unknown History hydrochlorothiazide 25 mg tablet 25 mg PO DAILY 11/14/20 12/19/22 Unknown History losartan 50 mg tablet 50 mg PO DAILY 11/14/20 12/19/22 12/19/22 History metformin 500 mg tablet 500 mg PO BIDWM 11/14/20 12/19/22 12/19/22 History metoprolol succinate 100 mg 100 mg PO DAILY 11/14/20 12/19/22 12/19/22 History tablet,extended release 24 hr blood sugar diagnostic ([facility] 06/25/21 12/09/22 Unknown History Lite Strips) blood-glucose meter ([facility] 06/25/21 12/09/22 Unknown History [place] Lite kit) albuterol sulfate 90 mcg/actuation 2 puff PO Q4-6H PRN dyspnea 06/14/22 12/19/22 Unknown History aerosol inhaler (Ventolin HFA) aspirin 81 mg tablet,delayed 2 tab PO QPM 06/14/22 12/19/22 12/15/22 History release benzonatate 200 mg capsule 1 cap PO TID PRN cough 06/14/22 12/19/22 Unknown History fluticasone propionate 50 1 - 2 spray intranasal DAILY PRN 06/14/22 12/19/22 Unknown History mcg/actuation nasal Allergy Symptoms spray,suspension loratadine 10 mg tablet 1 tab PO DAILY 06/14/22 12/19/22 Unknown History pantoprazole 40 mg tablet,delayed 1 tab PO DAILY 06/14/22 12/19/22 12/19/22 History release morphine 15 mg tablet,extended 1 tab PO BID 12/09/22 12/19/22 Unknown History release naloxone 4 mg/actuation nasal spray intranasal 12/19/22 Unknown History oxycodone 10 mg tablet 1 tab PO TID PRN severe pain 12/19/22 12/19/22 Unknown History Exam Airway Mallampati Class: II TM Dist: >3cm Neck ROM: Full Loose/Missing/Broken Teeth: Yes Assessment and Plan Assessment Anesthesia Assessment: Anesthesia Plan Discussed and Chart Reviewed Final Anesthetic Review Family History of Problems with Anesthesia: No History of Problems with Anesthesia: No NPO: Yes ASA Class: III Final Preanesthetic Review: No Changes in Pt Med Stat, Meds/Allgs Chart Reviewed, Consent Obtained/Reviewed and Anes Risks/Benef Reviewed Patient Risk: Intermediate Procedure Risk: Low Anesthetic Plan Anesthetic Plan: MAC: Disposition: Standard PACU
[2022-12-19] VITALS (9 sets, daily range): BP systolic 101–134; BP diastolic 62–78; PULSE 74–92; RESP 10–18; TEMP 36.1–37.1; O2SAT 97–100; BMI 24.8
--- NOTE | ~2022-12-19 | CT_ITS ---
PROCEDURE: CT GUIDED BIOPSY, KIDNEY CLINICAL INFORMATION: Recurrent lymphoma right side. COMPARISON: None TECHNIQUE: Following explaining CT fluoroscopy-guided right suprarenal mass biopsy procedure, benefits and risk, a written consent was obtained. Patient was placed in the right semilateral decubitus position and imaging was obtained. Markers were placed along the right posterior back and repeat CT imaging was performed. An optimal marker was selected and marked on the skin. The area was then cleaned and draped in usual sterile manner with 2% chlorhexidine solution. 1% lidocaine was administered at the puncture site. [id number] long guide needle was advanced from the skin incision to the edge of the right suprarenal mass. Coaxially 18-gauge core biopsies were obtained and submitted in a flow cytometry, formalin solution and for instant review by the pathologist on slide evaluation. After confirming lymphoid tissue, the guide needle was withdrawn and complete hemostasis was achieved at the puncture site. Simple dressing applied post procedure. Patient tolerated the procedure extremely well. Aseptic precautions such as sterile mask, catheter, gown, gloves and boots were utilized during the exam. Patient was sedated by the anesthesia department. This CT examination was performed using dose optimization techniques as appropriate, variously including the following: *Automated exposure control *Adjustment of mA and/or kV according to patient size (this includes techniques or standardized protocols for targeted exams where dose is matched to indication/reason for exam; i.e. extremities or head) *Use of iterative reconstruction technique DLP: 315 mGy-cm FINDINGS: On preliminary CT imaging there is a large suprarenal mass. A core biopsy of the right suprarenal mass was performed. There was adequate tissue collected for instant slide evaluation, formalin solution and flow cytometry tube. Patient has known follicular lymphoma. Question conversion to aggressive form. CT/CT biopsy renal RT IMPRESSION: Successful CT fluoroscopy-guided right suprarenal mass biopsy performed.
[2022-12-19] MEDS: Lactated Ringers 1,000 ML 100 ML IVCONT (12:14)
[2022-12-19 12:18] LABS: MANUAL DIFF FLAG NO
[2022-12-19 12:22] LABS: Glucose, Whole Blood 117 mg/dL (60-115)
[2022-12-19 12:40] LABS: Basophils Absolute Auto 0.1 X10*3/uL (0.0-0.2); Basophils Percent Auto 0.7 % (0-2); Eosinophils Absolute Auto 0.2 X10*3/uL (0.0-0.4); Eosinophils Percent Auto 2.5 % (0-4); Hematocrit 33.7 % (42.0-52.0); Hemoglobin 10.9 g/dl (14.0-18.0); Imm Gran Abs Auto 0.02 X10*3/uL (0.00-0.03); Imm Gran Pct Auto 0.2 % (0.0-0.4); Lymphocytes Absolute Auto 1.7 X10*3/uL (1.2-4.9); Lymphocytes Percent Auto 19.4 % (20-40); Mean Corpuscular HGB Conc 32.3 g/dl (31.0-36.0); Mean Corpuscular Hemoglobin 27.1 pg (27.0-33.0); Mean Corpuscular Volume 83.8 fL (80.0-98.0); Mean Platelet Volume 8.7 fL (9.4-12.4); Monocytes Absolute Auto 0.9 X10*3/uL (0.1-1.2); Monocytes Percent Auto 10.4 % (2-11); Neutrophils Absolute Auto 5.8 x10*3/uL (2.0-8.3); Neutrophils Percent Auto 66.8 % (45-73); Platelet Count 289 X10*3/uL (160-400); Red Blood Count 4.02 X10*6/uL (4.60-5.80); Red Cell Distribution Width 15.7 % (11.0-16.0); White Blood Count 8.6 X10*3/uL (4.8-10.8)
[2022-12-19 12:51] LABS: INTERNATIONAL NORM RATIO 1.1 (0.9-1.1); Prothrombin Time 12.3 SEC (10.0-13.1)
[2022-12-19 13:34] LABS: Anion Gap 17 (12-20); Blood Urea Nitrogen 26 mg/dL (9-16); Carbon Dioxide 25 mmol/L (22-29); Chloride 100 mmol/L (96-108); Creatinine Clr Calc Pharmacy 49.5; Estimated Glomerular Filt Rate 50; Potassium 4.1 mmol/L (3.3-5.1); Sodium 138 mmol/L (135-145)
== END 2022-12-19 17:00 | disposition home or self-care (01) ==
PROVIDERS: Pathology Cytopathology; PCP Family Medicine; Visit Provider Radiology Diagnostic Radiology
DX: C85.90 Non-Hodgkin lymphoma, unspecified, unspecified site (principal); R82.89 Other abnormal findings on cytological and histological examination of urine; E11.9 Type 2 diabetes mellitus without complications; I25.10 Atherosclerotic heart disease of native coronary artery without angina pectoris; Z98.61 Coronary angioplasty status; I10 Essential (primary) hypertension; E78.5 Hyperlipidemia, unspecified; K21.9 Gastro-esophageal reflux disease without esophagitis; Z79.84 Long term (current) use of oral hypoglycemic drugs; Z79.899 Other long term (current) drug therapy; Z80.3 Family history of malignant neoplasm of breast; Z80.42 Family history of malignant neoplasm of prostate; Z86.16 Personal history of COVID-19
CPT/HCPCS: 36415; 50200; 77012; 80051; 82565; 82947; 84520; 85025; 85610; 85730; 88184; 88185; 88305; 88333; 88341; 88342; 88360; 88365; 88374; J2250; J2370; J3010

== ENCOUNTER 2022-12-24 13:03 | Outpatient (REF) | payer OTHER, SELFPAY ==
--- NOTE | ~2022-12-24 | PE_ITS ---
EXAMINATION: Fluorine-18 FDG PET/CT Scan CLINICAL INDICATION: Subsequent treatment management. Recurrent follicular lymphoma. PROCEDURE: 55 minutes following the intravenous administration of 17.2 mCi of fluorine 18 FDG, images from base of the skull to the mid thigh were obtained using a combined PET/CT scanner with CT scan based attenuation correction. No intravenous contrast was administered. Transverse, coronal, sagittal, and volume reconstruction projections were obtained. The patient's blood glucose as determined by a finger stick, was 65 mg/dl immediately prior to injection. The radiotracer was injected through the left antecubital superficial vein, without any complication. Total CT exam dose-length product 422.26 mGy-cm * These CT images were obtained using dose optimization techniques as appropriate, variously including the following: Automated exposure control * Adjustment of mA and/or kV according to patient size (this includes techniques or standardized protocols for targeted exams where dose is matched to indication/reason for exam; i.e. extremities or head) * Use of iterative reconstruction technique COMPARISON: Most recent prior PET CT study done on 07/24/2021 and baseline PET/CT study done on 04/24/2016. FINDINGS: HEAD AND NECK: Interval development of extensive FDG avid left supraclavicular lymph nodes is seen with SUV max of 8.1 (54/267). THORAX: Interval development of extensive FDG avid left posterior mediastinal, prevascular, right-sided paratracheal, and left-sided para-aortic/middle mediastinal lymph nodes are present. The dominant lymph node at the left superior mediastinum measures approximately 1.9 cm at its maximum short axis dimension with SUV max of 13.9 (60/267). The dominant prevascular lymph node measures 1.8 cm at its maximum short axis dimension with SUV max of 8.1 (69/267). Right paratracheal subcentimeter lymph node shows SUV max of 6.5 (74/267). The left para-aortic middle mediastinal lymph node measures 2 cm at its maximum short axis dimension with SUV max of 9.4 (81/267). Additional subcentimeter mildly FDG avid left axillary and few shotty right axillary lymph nodes are also present. In addition, FDG avid disease is present within the right anterior costophrenic angle associated with pleural-based soft tissue mass measuring approximately 0.8 cm at its maximum short axis dimension with SUV max of 9.6 (108/267). No evidence of any suspicious FDG avid lung disease or pleural or pericardial effusion. ABDOMEN AND PELVIS: Abnormal. Extensive FDG avid disease is noted starting from the level of the hemidiaphragm extending inferiorly to just above the level of the pelvic inlet. Specific note is made of intense FDG avid new soft tissue mass at the midline and extending to the right hemiabdomen, inseparable from the right kidney, shows heterogeneous FDG avidity, measures approximately 11.2 x 6.9 cm with SUV max of 16.4 (139/267). Given the history of lymphoma, this may represent lymphomatous involvement of the right kidney. Specific note is made of perinephric soft tissue thickening associated with FDG avidity, likely represent local disease extension. Intense FDG avid multiple nodular masses seen within the upper retroperitoneum extending superiorly to the level of the paracaval region and inferiorly around the aorta and cava to the level just below the left renal vessels along the para-aortic region with intense FDG avidity and SUV max of 16.7 (150/267), most consistent with extensive retroperitoneal lymphadenopathy. Although no definite intrahepatic focal liver disease is identified however, there are peridiaphragmatic increased FDG avidity present, possibility of subcapsular disease involvement is not excluded. Note is made of FDG avid disease around the splenic bed without evidence of splenomegaly or intrinsic splenic involvement. The left kidney appears unremarkable, except for subtle 5 mm hypodensity likely represent nonobstructing left renal calculus.. Physiologic radiotracer activity is present within the large bowel and the bladder. No evidence of any pelvic or inguinal lymphadenopathy. MUSCULOSKELETAL: No definite evidence of any osseous involvement, unchanged. VASCULAR: Atherosclerotic disease of the aorta and is branches including coronary artery calcifications. No evidence of aneurysm. Deauville Score: 5 SUV max of mediastinal blood pool: 1.9 SUV max of liver: 1.9 PET/PET CT fusion skull to thigh IMPRESSION: Extensive FDG avid disease involving the neck, chest, and abdomen, new since prior study dated 07/24/2021, consistent with disease recurrence. Specific note is made of heterogeneous FDG avid soft tissue mass involving the right kidney, new since prior study, most consistent with lymphomatous involvement. Deauville score of 5. Reference: Deauville Score: Score 1: No uptake above the background Score 2: Uptake ? mediastinum Score 3: Uptake > mediastinum but ? liver Score 4: Uptake moderately increased compared to the liver at any site Score 5: Uptake markedly increased compared to the liver at any site or any new lesion Score X: New areas of uptake unlikely to be related to lymphoma
== END 2022-12-24 13:04 | disposition home or self-care (01) ==
LOC: HO.PET 13:03
PROVIDERS: Visit Provider Internal Medicine
DX: Z13.89 Encounter for screening for other disorder (principal)

== ENCOUNTER 2023-01-14 15:18 | Emergency (ER) | payer OTHER, SELFPAY ==
--- NOTE | 2023-01-14 15:45 | ED.GENADULT ---
HPI - General Adult General Chief complaint: Abdominal Pain <Jackie Armendariz CNP - Last Filed: 01/14/23 15:51> Stated complaint: cancer /pain <Jackie Armendariz CNP - Last Filed: 01/14/23 15:51> Time Seen by Provider: 01/14/23 16:02 <Jackie Armendariz CNP - Last Filed: 01/14/23 15:51> Related Data Home medications: Home Medications Medication Instructions Recorded Confirmed atorvastatin 80 mg tablet 80 mg PO DAILY 11/14/20 12/19/22 hydrochlorothiazide 25 mg tablet 25 mg PO DAILY 11/14/20 12/19/22 losartan 50 mg tablet 50 mg PO DAILY 11/14/20 12/19/22 metformin 500 mg tablet 500 mg PO BIDWM 11/14/20 12/19/22 metoprolol succinate 100 mg 100 mg PO DAILY 11/14/20 12/19/22 tablet,extended release 24 hr blood sugar diagnostic (FreeStyle 06/25/21 12/09/22 Lite Strips) blood-glucose meter (FreeStyle 06/25/21 12/09/22 Chest[place]ridge Lite kit) albuterol sulfate 90 mcg/actuation 2 puff PO Q4-6H PRN dyspnea 06/14/22 12/19/22 aerosol inhaler (Ventolin HFA) aspirin 81 mg tablet,delayed 2 tab PO QPM 06/14/22 12/19/22 release benzonatate 200 mg capsule 1 cap PO TID PRN cough 06/14/22 12/19/22 fluticasone propionate 50 1 - 2 spray intranasal DAILY PRN 06/14/22 12/19/22 mcg/actuation nasal Allergy Symptoms spray,suspension loratadine 10 mg tablet 1 tab PO DAILY 06/14/22 12/19/22 pantoprazole 40 mg tablet,delayed 1 tab PO DAILY 06/14/22 12/19/22 release morphine 15 mg tablet,extended 1 tab PO BID 12/09/22 12/19/22 release naloxone 4 mg/actuation nasal spray intranasal 12/19/22 oxycodone 10 mg tablet 1 tab PO TID PRN severe pain 12/19/22 12/19/22 Previous Rx's Medication Instructions Recorded morphine 15 mg immediate release 15 mg PO Q4H PRN severe pain 11/29/22 tablet (scale score 7-10) #14 tabs polyethylene glycol 3350 17 gram 17 g PO BID #60 ea 12/09/22 oral powder packet (Miralax) sennosides 8.6 mg-docusate sodium 1 tab-cap PO BEDTIME #30 tabs 12/09/22 50 mg tablet (Senna with Docusate Sodium) hydromorphone 2 mg tablet 2 mg PO Q6H PRN pain #5 tabs 01/14/23 (Dilaudid) ondansetron 4 mg disintegrating 4 mg PO Q6H PRN nausea and 01/14/23 tablet vomiting #20 tabs polyethylene glycol 3350 17 17 g PO BID #510 grams 01/14/23 gram/dose oral powder (Miralax) <Jackie Armendariz CNP - Last Filed: 01/14/23 15:51> Allergies/adverse reactions: Allergies Allergy/AdvReac Type Severity Reaction Status Date / Time amlodipine [AMLODIPINE] Allergy Unknown EDEMA-PER Verified 01/14/23 15:49 H&P <Jackie Armendariz CNP - Last Filed: 01/14/23 15:51> [facility] Past Medical History Medical History: Medical History Abnormal urine cytology CAD (coronary artery disease) COVID (~06/09/22) Diabetes Follicular lymphoma GERD (gastroesophageal reflux disease) HTN (hypertension) Hyperlipemia Lymphoma Lymphoma <Jackie Armendariz CNP - Last Filed: 01/14/23 15:51> Surgical History: Surgical History History of heart artery stent Hx of cataract surgery <Jackie Armendariz CNP - Last Filed: 01/14/23 15:51> Family History Family History: Family History Father Pancreas cancer Hypertension Sister Breast cancer <Jackie Armendariz CNP - Last Filed: 01/14/23 15:51> Social History Social History: Social History Household Members: None Housing: Apartment Are you a primary critical care physician to a significant other at home: No Do you presently have visiting nurse or other home services: No Alcohol intake: former Patient Tobacco Use Status: Never used Tobacco Smoked in Last 30 Days: No Use of substances other than those prescribed or required for medical reasons: No Advance Directives: No Advance Directives Information Provided: No Advance Directives Date on File: 06/19/22 service: No Current occupational status: disabled <Jackie Armendariz CNP - Last Filed: 01/14/23 15:51> Physical Exam ED Vital Signs: Vital Signs - 24 hr 01/14/23 15:46 01/14/23 20:47 Temperature 97.9 F 98.2 F Pulse Rate 111 H 100 Respiratory Rate 20 17 Blood Pressure 126/77 114/68 Pulse Oximetry 95 95 Oxygen Delivery Method Room Air Room Air BMI result Body Mass Index 22.6 <Jackie Armendariz CNP - Last Filed: 01/14/23 15:51> Vital Signs - 24 hr 01/14/23 15:46 01/14/23 20:47 Temperature 97.9 F 98.2 F Pulse Rate 111 H 100 Respiratory Rate 20 17 Blood Pressure 126/77 114/68 Pulse Oximetry 95 95 Oxygen Delivery Method Room Air Room Air BMI result Body Mass Index 22.6 <Dina Obando MD - Last Filed: 01/14/23 22:49> Course Course Course Narrative: This is an RME: Additional HPI, ROS, PE not included below will be deferred to primary provider. Patient is a 62-year-old male with history of recurrent follicular Lymphoma since 2016, had radiation treatment today, first one, followed by Dr Dumont. Went home and patient expressing diffuse back/abdominal pain, that has been ongoing for a couple of months reportedly due to lymphoma, but was more severe today and associated nausea and vomiting which prompted him to want to come to the emergency department. Reports some constipation, no diarrhea. Denies fevers or chills. He is currently prescribed morphine and oxycodone by family reports, which has not been helping pain. PET scan 12/24/2022 Plan: Labs, urinalysis <Jackie Armendariz CNP - Last Filed: 01/14/23 15:51> Medications Administered Discontinued Medications Generic Name Dose Route Start Last Admin Trade Name Freq PRN Reason Stop Dose Admin Hydromorphone HCl 1 mg 01/14/23 16:16 01/14/23 16:35 Hydromorphone Hcl 1 Mg/Ml Syringe IVPUSH 01/14/23 16:17 1 mg ONCE ONE Administration Protocol Hydromorphone HCl 1 mg 01/14/23 18:20 01/14/23 18:25 Hydromorphone Hcl 1 Mg/Ml Syringe IVPUSH 01/14/23 18:21 1 mg ONCE ONE Administration Protocol Lactated Ringer's 1,000 mls @ 999 mls/hr 01/14/23 16:30 01/14/23 19:33 Lr IV 01/14/23 17:30 Infused .Q1H1M CARLOS Infusion Ondansetron HCl 4 mg 01/14/23 16:16 01/14/23 16:35 Ondansetron Hcl 4 Mg/2 Ml Vial IVPUSH 01/14/23 16:17 4 mg ONCE ONE Administration <Jackie Armendariz CNP - Last Filed: 01/14/23 15:51> Medications Administered Discontinued Medications Generic Name Dose Route Start Last Admin Trade Name Freq PRN Reason Stop Dose Admin Hydromorphone HCl 1 mg 01/14/23 16:16 01/14/23 16:35 Hydromorphone Hcl 1 Mg/Ml Syringe IVPUSH 01/14/23 16:17 1 mg ONCE ONE Administration Protocol Hydromorphone HCl 1 mg 01/14/23 18:20 01/14/23 18:25 Hydromorphone Hcl 1 Mg/Ml Syringe IVPUSH 01/14/23 18:21 1 mg ONCE ONE Administration Protocol Lactated Ringer's 1,000 mls @ 999 mls/hr 01/14/23 16:30 01/14/23 19:33 Lr IV 01/14/23 17:30 Infused .Q1H1M CARLOS Infusion Ondansetron HCl 4 mg 01/14/23 16:16 01/14/23 16:35 Ondansetron Hcl 4 Mg/2 Ml Vial IVPUSH 01/14/23 16:17 4 mg ONCE ONE Administration <Dina Obando MD - Last Filed: 01/14/23 22:49> Medical Decision Making Medical Decision Making MDM Narrative: -patient felt much better after 2 doses of Dilaudid. Patient was also given Zofran, patient had not had any vomiting or nausea in the ED. Patient states that he feels much better. Patient's family brought him food and he has been eating and tolerating p.o. well. -I discussed with the patient that his creatinine function is elevated. Patient was given IV fluids, repeat labs, however creatinine is still not back to baseline. -I discussed with the patient that I am considering admitting him to the hospital for pain control and for ZULEIKA. Patient respectfully declined, states that if we can give him the same medication p.o., he will be fine at home. Patient has an appointment tomorrow for radiation and does not want to miss it <Dina Obando MD - Last Filed: 01/14/23 22:49> Differential Diagnosis Differential Diagnoses: The differential diagnosis associated with the presentation includes (Viral syndrome, gastritis, radiation side effect) <Dina Obando MD - Last Filed: 01/14/23 22:49> Admission/Observation Consideration of admission/observation: Escalation of care including admission/observation considered <Dina Obando MD - Last Filed: 01/14/23 22:49> Lab Data [facility] Lab Attestation statement: I reviewed the patient's lab results. <Dina Obando MD - Last Filed: 01/14/23 22:49> Result Diagrams: 01/14/23 16:00 01/14/23 21:48 <Jackie Armendariz CNP - Last Filed: 01/14/23 15:51> Labs: Lab Results 01/14/23 01/14/23 01/14/23 Range/Units 15:59 15:59 16:00 WBC 12.5 H (4.8-10.8) X10*3/uL RBC 4.31 L (4.60-5.80) X10*6/uL Hgb 11.6 L (14.0-18.0) g/dl Hct 35.2 L (42.0-52.0) % MCV 81.7 (80.0-98.0) fL MCH 26.9 L (27.0-33.0) pg MCHC 33.0 (31.0-36.0) g/dl RDW 14.9 (11.0-16.0) % Plt Count 393 D (160-400) X10*3/uL MPV 8.6 L (9.4-12.4) fL Immature Gran % (Auto) 0.3 (0.0-0.4) % Neut % (Auto) 75.3 H (45-73) % Lymph % (Auto) 11.6 L (20-40) % Garza % (Auto) 10.3 (2-11) % Eos % (Auto) 2.1 (0-4) % Baso % (Auto) 0.4 (0-2) % Lymph # (Auto) 1.5 (1.2-4.9) X10*3/uL Garza # (Auto) 1.3 H (0.1-1.2) X10*3/uL Eos # (Auto) 0.3 (0.0-0.4) X10*3/uL Baso # (Auto) 0.1 (0.0-0.2) X10*3/uL Abs Immat Gran (auto) 0.04 H (0.00-0.03) X10*3/uL Absolute Neuts (auto) 9.4 H (2.0-8.3) x10*3/uL Absolute Nucleated RBC 0.000 (0.0-0.012) X10*3/uL Nucleated RBC % (auto) 0.0 (0.0-0.2) /100WBC Sodium (135-145) mmol/L Potassium (3.3-5.1) mmol/L Chloride (96-108) mmol/L Carbon Dioxide (22-29) mmol/L Anion Gap (12-20) BUN (9-16) mg/dL Creatinine (0.5-1.4) mg/dL Estim Creat Clear Calc Estimated GFR Random Glucose (60-115) mg/dL Calcium (8.4-10.2) mg/dL Total Bilirubin (0.0-1.0) mg/dL AST (5-37) U/L ALT (0-40) U/L Alkaline Phosphatase (39-117) U/L Total Protein (6.5-8.0) g/dL Albumin (3.5-5.0) g/dL Lipase (8-78) U/L Urine Color Urine Appearance Urine pH (5.0-9.0) Ur Specific [place] (1.005-1.025) Urine Protein (Neg-Trace) mg/dL Urine Glucose (UA) (Negative) mg/dL Urine Ketones (Negative) mg/dL Urine Blood (Negative) Urine Nitrite (Negative) Ur Leukocyte Esterase (Negative) Urine RBC (0-2) /HPF Urine WBC (0-5) /HPF Ur Squamous Epith Cells (0-2) /HPF Urine Bacteria (None Seen) Hyaline Casts (0-2) /LPF COVID-19 (SAHIL) Negative (Negative) COVID-19 Clin Com See Note Influenza Type A (BRAXTON) Negative (Negative) Influenza Type B (BRAXTON) Negative (Negative) Influenza A & B Note See Note 01/14/23 01/14/23 01/14/23 Range/Units 16:00 19:44 21:48 WBC (4.8-10.8) X10*3/uL RBC (4.60-5.80) X10*6/uL Hgb (14.0-18.0) g/dl Hct (42.0-52.0) % MCV (80.0-98.0) fL MCH (27.0-33.0) pg MCHC (31.0-36.0) g/dl RDW (11.0-16.0) % Plt Count (160-400) X10*3/uL MPV (9.4-12.4) fL Immature Gran % (Auto) (0.0-0.4) % Neut % (Auto) (45-73) % Lymph % (Auto) (20-40) % Garza % (Auto) (2-11) % Eos % (Auto) (0-4) % Baso % (Auto) (0-2) % Lymph # (Auto) (1.2-4.9) X10*3/uL Garza # (Auto) (0.1-1.2) X10*3/uL Eos # (Auto) (0.0-0.4) X10*3/uL Baso # (Auto) (0.0-0.2) X10*3/uL Abs Immat Gran (auto) (0.00-0.03) X10*3/uL Absolute Neuts (auto) (2.0-8.3) x10*3/uL Absolute Nucleated RBC (0.0-0.012) X10*3/uL Nucleated RBC % (auto) (0.0-0.2) /100WBC Sodium 141 140 (135-145) mmol/L Potassium 4.2 4.5 (3.3-5.1) mmol/L Chloride 100 102 (96-108) mmol/L Carbon Dioxide 25 23 (22-29) mmol/L Anion Gap 20 20 (12-20) BUN 40 H 36 H (9-16) mg/dL Creatinine 2.36 H 2.21 H (0.5-1.4) mg/dL Estim Creat Clear Calc 29.8 31.9 Estimated GFR 28 31 Random Glucose 147 H 104 (60-115) mg/dL Calcium 9.4 9.0 (8.4-10.2) mg/dL Total Bilirubin 0.5 (0.0-1.0) mg/dL AST 26 (5-37) U/L ALT 24 (0-40) U/L Alkaline Phosphatase 182 H (39-117) U/L Total Protein 6.1 L (6.5-8.0) g/dL Albumin 3.6 (3.5-5.0) g/dL Lipase 36 (8-78) U/L Urine Color Yellow Urine Appearance Clear Urine pH 5.5 (5.0-9.0) Ur Specific [place] 1.020 (1.005-1.025) Urine Protein 30 (1+) H (Neg-Trace) mg/dL Urine Glucose (UA) Negative (Negative) mg/dL Urine Ketones Trace (Negative) mg/dL Urine Blood Negative (Negative) Urine Nitrite Negative (Negative) Ur Leukocyte Esterase Negative (Negative) Urine RBC 0-2 (0-2) /HPF Urine WBC 0-5 (0-5) /HPF Ur Squamous Epith Cells 0-2 (0-2) /HPF Urine Bacteria None Seen (None Seen) Hyaline Casts 3-5 (0-2) /LPF COVID-19 (SAHIL) (Negative) COVID-19 Clin Com Influenza Type A (BRAXTON) (Negative) Influenza Type B (BRAXTON) (Negative) Influenza A & B Note <Jackie Armendariz CNP - Last Filed: 01/14/23 15:51> Lab Results 01/14/23 01/14/23 01/14/23 Range/Units 15:59 15:59 16:00 WBC 12.5 H (4.8-10.8) X10*3/uL RBC 4.31 L (4.60-5.80) X10*6/uL Hgb 11.6 L (14.0-18.0) g/dl Hct 35.2 L (42.0-52.0) % MCV 81.7 (80.0-98.0) fL MCH 26.9 L (27.0-33.0) pg MCHC 33.0 (31.0-36.0) g/dl RDW 14.9 (11.0-16.0) % Plt Count 393 D (160-400) X10*3/uL MPV 8.6 L (9.4-12.4) fL Immature Gran % (Auto) 0.3 (0.0-0.4) % Neut % (Auto) 75.3 H (45-73) % Lymph % (Auto) 11.6 L (20-40) % Garza % (Auto) 10.3 (2-11) % Eos % (Auto) 2.1 (0-4) % Baso % (Auto) 0.4 (0-2) % Lymph # (Auto) 1.5 (1.2-4.9) X10*3/uL Garza # (Auto) 1.3 H (0.1-1.2) X10*3/uL Eos # (Auto) 0.3 (0.0-0.4) X10*3/uL Baso # (Auto) 0.1 (0.0-0.2) X10*3/uL Abs Immat Gran (auto) 0.04 H (0.00-0.03) X10*3/uL Absolute Neuts (auto) 9.4 H (2.0-8.3) x10*3/uL Absolute Nucleated RBC 0.000 (0.0-0.012) X10*3/uL Nucleated RBC % (auto) 0.0 (0.0-0.2) /100WBC Sodium (135-145) mmol/L Potassium (3.3-5.1) mmol/L Chloride (96-108) mmol/L Carbon Dioxide (22-29) mmol/L Anion Gap (12-20) BUN (9-16) mg/dL Creatinine (0.5-1.4) mg/dL Estim Creat Clear Calc Estimated GFR Random Glucose (60-115) mg/dL Calcium (8.4-10.2) mg/dL Total Bilirubin (0.0-1.0) mg/dL AST (5-37) U/L ALT (0-40) U/L Alkaline Phosphatase (39-117) U/L Total Protein (6.5-8.0) g/dL Albumin (3.5-5.0) g/dL Lipase (8-78) U/L Urine Color Urine Appearance Urine pH (5.0-9.0) Ur Specific [place] (1.005-1.025) Urine Protein (Neg-Trace) mg/dL Urine Glucose (UA) (Negative) mg/dL Urine Ketones (Negative) mg/dL Urine Blood (Negative) Urine Nitrite (Negative) Ur Leukocyte Esterase (Negative) Urine RBC (0-2) /HPF Urine WBC (0-5) /HPF Ur Squamous Epith Cells (0-2) /HPF Urine Bacteria (None Seen) Hyaline Casts (0-2) /LPF COVID-19 (SAHIL) Negative (Negative) COVID-19 Clin Com See Note Influenza Type A (BRAXTON) Negative (Negative) Influenza Type B (BRAXTON) Negative (Negative) Influenza A & B Note See Note 01/14/23 01/14/23 01/14/23 Range/Units 16:00 19:44 21:48 WBC (4.8-10.8) X10*3/uL RBC (4.60-5.80) X10*6/uL Hgb (14.0-18.0) g/dl Hct (42.0-52.0) % MCV (80.0-98.0) fL MCH (27.0-33.0) pg MCHC (31.0-36.0) g/dl RDW (11.0-16.0) % Plt Count (160-400) X10*3/uL MPV (9.4-12.4) fL Immature Gran % (Auto) (0.0-0.4) % Neut % (Auto) (45-73) % Lymph % (Auto) (20-40) % Garza % (Auto) (2-11) % Eos % (Auto) (0-4) % Baso % (Auto) (0-2) % Lymph # (Auto) (1.2-4.9) X10*3/uL Garza # (Auto) (0.1-1.2) X10*3/uL Eos # (Auto) (0.0-0.4) X10*3/uL Baso # (Auto) (0.0-0.2) X10*3/uL Abs Immat Gran (auto) (0.00-0.03) X10*3/uL Absolute Neuts (auto) (2.0-8.3) x10*3/uL Absolute Nucleated RBC (0.0-0.012) X10*3/uL Nucleated RBC % (auto) (0.0-0.2) /100WBC Sodium 141 140 (135-145) mmol/L Potassium 4.2 4.5 (3.3-5.1) mmol/L Chloride 100 102 (96-108) mmol/L Carbon Dioxide 25 23 (22-29) mmol/L Anion Gap 20 20 (12-20) BUN 40 H 36 H (9-16) mg/dL Creatinine 2.36 H 2.21 H (0.5-1.4) mg/dL Estim Creat Clear Calc 29.8 31.9 Estimated GFR 28 31 Random Glucose 147 H 104 (60-115) mg/dL Calcium 9.4 9.0 (8.4-10.2) mg/dL Total Bilirubin 0.5 (0.0-1.0) mg/dL AST 26 (5-37) U/L ALT 24 (0-40) U/L Alkaline Phosphatase 182 H (39-117) U/L Total Protein 6.1 L (6.5-8.0) g/dL Albumin 3.6 (3.5-5.0) g/dL Lipase 36 (8-78) U/L Urine Color Yellow Urine Appearance Clear Urine pH 5.5 (5.0-9.0) Ur Specific [place] 1.020 (1.005-1.025) Urine Protein 30 (1+) H (Neg-Trace) mg/dL Urine Glucose (UA) Negative (Negative) mg/dL Urine Ketones Trace (Negative) mg/dL Urine Blood Negative (Negative) Urine Nitrite Negative (Negative) Ur Leukocyte Esterase Negative (Negative) Urine RBC 0-2 (0-2) /HPF Urine WBC 0-5 (0-5) /HPF Ur Squamous Epith Cells 0-2 (0-2) /HPF Urine Bacteria None Seen (None Seen) Hyaline Casts 3-5 (0-2) /LPF COVID-19 (SAHIL) (Negative) COVID-19 Clin Com Influenza Type A (BRAXTON) (Negative) Influenza Type B (BRAXTON) (Negative) Influenza A & B Note <Dina Obando MD - Last Filed: 01/14/23 22:49> Discharge Plan Discharge Clinical Impression: Radiation adverse effect <Jackie Armendariz CNP - Last Filed: 01/14/23 15:51> Patient Disposition: Home, Self-Care <Jackie Armendariz CNP - Last Filed: 01/14/23 15:51> Instructions: Acute Nausea and Vomiting (ED) <Jackie Armendariz CNP - Last Filed: 01/14/23 15:51> Additional Instructions: Please drink plenty of fluids with electrolytes such as Gatorade, Powerade or Pedialyte. Please follow-up with your primary care physician tomorrow. If you have any worsening or new symptoms, please return to the emergency room or call 911 <Jackie Armendariz CNP - Last Filed: 01/14/23 15:51> Prescriptions: New ondansetron 4 mg tablet,disintegrating 4 mg PO Q6H PRN (Reason: nausea and vomiting) Qty: 20 0RF polyethylene glycol 3350 [Miralax] 17 gram/dose powder 17 g PO BID Qty: 510 0RF hydromorphone [Dilaudid] 2 mg tablet 2 mg PO Q6H PRN (Reason: pain) Qty: 5 0RF Rx Instructions: P.r.n. severe pain. Partial Fill upon patient request. No Action losartan 50 mg Tablet 50 mg PO DAILY metformin 500 mg Tablet 500 mg PO BIDWM atorvastatin 80 mg Tablet 80 mg PO DAILY metoprolol succinate 100 mg Tablet Extended Release 24 Hr 100 mg PO DAILY hydrochlorothiazide 25 mg Tablet 25 mg PO DAILY (DME) FreeStyle Lite Strips Strip MISCELLANEOUS BID (DME) blood-glucose meter [FreeStyle [place] Lite] Kit MISCELLANEOUS BID morphine 15 mg tablet extended release 1 tab PO BID polyethylene glycol 3350 [Miralax] 17 gram Powder In Packet 17 g PO BID Qty: 60 1RF sennosides-docusate sodium [Senna with Docusate Sodium] 8.6-50 mg Tablet 1 tab-cap PO BEDTIME Qty: 30 3RF benzonatate 200 mg capsule 1 cap PO TID PRN (Reason: cough) aspirin 81 mg tablet,delayed release (DR/EC) 2 tab PO QPM pantoprazole 40 mg tablet,delayed release (DR/EC) 1 tab PO DAILY albuterol sulfate [Ventolin HFA] 90 mcg/actuation HFA aerosol inhaler 2 puff PO Q4-6H PRN (Reason: dyspnea) fluticasone propionate 50 mcg/actuation spray,suspension 1 - 2 spray intranasal DAILY PRN (Reason: Allergy Symptoms) loratadine 10 mg tablet 1 tab PO DAILY morphine 15 mg tablet 15 mg PO Q4H PRN (Reason: severe pain (scale score 7-10)) Qty: 14 0RF Rx Instructions: Partial Fill upon patient request. oxycodone 10 mg tablet 1 tab PO TID PRN (Reason: severe pain) naloxone 4 mg/actuation spray,non-aerosol intranasal <Jackie Armendariz CNP - Last Filed: 01/14/23 15:51>
[2023-01-14 15:46] VITALS: BP 126/77; PULSE 111; RESP 20; TEMP 36.6; O2SAT 95; BMI 22.6
[2023-01-14 16:08] LABS: MANUAL DIFF FLAG NO
[2023-01-14 16:10] LABS: Basophils Absolute Auto 0.1 X10*3/uL (0.0-0.2); Basophils Percent Auto 0.4 % (0-2); Eosinophils Absolute Auto 0.3 X10*3/uL (0.0-0.4); Eosinophils Percent Auto 2.1 % (0-4); Hematocrit 35.2 % (42.0-52.0); Hemoglobin 11.6 g/dl (14.0-18.0); Imm Gran Abs Auto 0.04 X10*3/uL (0.00-0.03); Imm Gran Pct Auto 0.3 % (0.0-0.4); Lymphocytes Absolute Auto 1.5 X10*3/uL (1.2-4.9); Lymphocytes Percent Auto 11.6 % (20-40); Mean Corpuscular Hemoglobin 26.9 pg (27.0-33.0); Mean Corpuscular Volume 81.7 fL (80.0-98.0); Mean Platelet Volume 8.6 fL (9.4-12.4); Monocytes Absolute Auto 1.3 X10*3/uL (0.1-1.2); Monocytes Percent Auto 10.3 % (2-11); Neutrophils Absolute Auto 9.4 x10*3/uL (2.0-8.3); Neutrophils Percent Auto 75.3 % (45-73); Platelet Count 393 X10*3/uL (160-400); Red Blood Count 4.31 X10*6/uL (4.60-5.80); Red Cell Distribution Width 14.9 % (11.0-16.0); White Blood Count 12.5 X10*3/uL (4.8-10.8)
--- NOTE | 2023-01-14 16:19 | ED_ITS ---
HPI - General Adult General Chief complaint: Abdominal Pain Stated complaint: cancer /pain Time Seen by Provider: 01/14/23 16:02 Source: patient Mode of arrival: ambulatory Limitations: no limitations Related Data Home Medications Medication Instructions Recorded Confirmed atorvastatin 80 mg tablet 80 mg PO DAILY 11/14/20 12/19/22 hydrochlorothiazide 25 mg tablet 25 mg PO DAILY 11/14/20 12/19/22 losartan 50 mg tablet 50 mg PO DAILY 11/14/20 12/19/22 metformin 500 mg tablet 500 mg PO BIDWM 11/14/20 12/19/22 metoprolol succinate 100 mg 100 mg PO DAILY 11/14/20 12/19/22 tablet,extended release 24 hr blood sugar diagnostic (FreeStyle 06/25/21 12/09/22 Lite Strips) blood-glucose meter (FreeStyle 06/25/21 12/09/22 [place]urn Lite kit) albuterol sulfate 90 mcg/actuation 2 puff PO Q4-6H PRN dyspnea 06/14/22 12/19/22 aerosol inhaler (Ventolin HFA) aspirin 81 mg tablet,delayed 2 tab PO QPM 06/14/22 12/19/22 release benzonatate 200 mg capsule 1 cap PO TID PRN cough 06/14/22 12/19/22 fluticasone propionate 50 1 - 2 spray intranasal DAILY PRN 06/14/22 12/19/22 mcg/actuation nasal Allergy Symptoms spray,suspension loratadine 10 mg tablet 1 tab PO DAILY 06/14/22 12/19/22 pantoprazole 40 mg tablet,delayed 1 tab PO DAILY 06/14/22 12/19/22 release morphine 15 mg tablet,extended 1 tab PO BID 12/09/22 12/19/22 release naloxone 4 mg/actuation nasal spray intranasal 12/19/22 oxycodone 10 mg tablet 1 tab PO TID PRN severe pain 12/19/22 12/19/22 Previous Rx's Medication Instructions Recorded morphine 15 mg immediate release 15 mg PO Q4H PRN severe pain 11/29/22 tablet (scale score 7-10) #14 tabs polyethylene glycol 3350 17 gram 17 g PO BID #60 ea 12/09/22 oral powder packet (Miralax) sennosides 8.6 mg-docusate sodium 1 tab-cap PO BEDTIME #30 tabs 12/09/22 50 mg tablet (Senna with Docusate Sodium) Allergies Allergy/AdvReac Type Severity Reaction Status Date / Time amlodipine [AMLODIPINE] Allergy Unknown EDEMA-PER Verified 01/14/23 15:49 H&P PMFSH Past Medical History Medical History Abnormal urine cytology CAD (coronary artery disease) COVID (~06/09/22) Diabetes Follicular lymphoma GERD (gastroesophageal reflux disease) HTN (hypertension) Hyperlipemia Lymphoma Lymphoma Surgical History History of heart artery stent Hx of cataract surgery Family History Family History Father Pancreas cancer Hypertension Sister Breast cancer Social History Social History Household Members: None Housing: Apartment Are you a primary home care coordinator to a significant other at home: No Do you presently have visiting nurse or other home services: No Alcohol intake: former Patient Tobacco Use Status: Never used Tobacco Advance Directives: No Advance Directives Information Provided: No Advance Directives Date on File: 06/19/22 service: No Current occupational status: disabled Physical Exam ED Vital Signs: Vital Signs - 24 hr 01/14/23 15:46 Temperature 97.9 F Pulse Rate 111 H Respiratory Rate 20 Blood Pressure 126/77 Pulse Oximetry 95 Oxygen Delivery Method Room Air BMI result Body Mass Index 22.6 Medical Decision Making Lab Data 01/14/23 16:00 01/14/23 16:00 Labs: Lab Results 01/14/23 Range/Units 16:00 WBC 12.5 H (4.8-10.8) X10*3/uL RBC 4.31 L (4.60-5.80) X10*6/uL Hgb 11.6 L (14.0-18.0) g/dl Hct 35.2 L (42.0-52.0) % MCV 81.7 (80.0-98.0) fL MCH 26.9 L (27.0-33.0) pg MCHC 33.0 (31.0-36.0) g/dl RDW 14.9 (11.0-16.0) % Plt Count 393 D (160-400) X10*3/uL MPV 8.6 L (9.4-12.4) fL Immature Gran % (Auto) 0.3 (0.0-0.4) % Neut % (Auto) 75.3 H (45-73) % Lymph % (Auto) 11.6 L (20-40) % [place] % (Auto) 10.3 (2-11) % Eos % (Auto) 2.1 (0-4) % Baso % (Auto) 0.4 (0-2) % Lymph # (Auto) 1.5 (1.2-4.9) X10*3/uL [place] # (Auto) 1.3 H (0.1-1.2) X10*3/uL Eos # (Auto) 0.3 (0.0-0.4) X10*3/uL Baso # (Auto) 0.1 (0.0-0.2) X10*3/uL Abs Immat Gran (auto) 0.04 H (0.00-0.03) X10*3/uL Absolute Neuts (auto) 9.4 H (2.0-8.3) x10*3/uL Absolute Nucleated RBC 0.000 (0.0-0.012) X10*3/uL Nucleated RBC % (auto) 0.0 (0.0-0.2) /100WBC Discharge Plan Discharge Prescriptions: No Action losartan 50 mg Tablet 50 mg PO DAILY metformin 500 mg Tablet 500 mg PO BIDWM atorvastatin 80 mg Tablet 80 mg PO DAILY metoprolol succinate 100 mg Tablet Extended Release 24 Hr 100 mg PO DAILY hydrochlorothiazide 25 mg Tablet 25 mg PO DAILY (DME) FreeStyle Lite Strips Strip MISCELLANEOUS BID (DME) blood-glucose meter [FreeStyle [place]urn Lite] Kit MISCELLANEOUS BID morphine 15 mg tablet extended release 1 tab PO BID polyethylene glycol 3350 [Miralax] 17 gram Powder In Packet 17 g PO BID Qty: 60 1RF sennosides-docusate sodium [Senna with Docusate Sodium] 8.6-50 mg Tablet 1 tab-cap PO BEDTIME Qty: 30 3RF benzonatate 200 mg capsule 1 cap PO TID PRN (Reason: cough) aspirin 81 mg tablet,delayed release (DR/EC) 2 tab PO QPM pantoprazole 40 mg tablet,delayed release (DR/EC) 1 tab PO DAILY albuterol sulfate [Ventolin HFA] 90 mcg/actuation HFA aerosol inhaler 2 puff PO Q4-6H PRN (Reason: dyspnea) fluticasone propionate 50 mcg/actuation spray,suspension 1 - 2 spray intranasal DAILY PRN (Reason: Allergy Symptoms) loratadine 10 mg tablet 1 tab PO DAILY morphine 15 mg tablet 15 mg PO Q4H PRN (Reason: severe pain (scale score 7-10)) Qty: 14 0RF Rx Instructions: Partial Fill upon patient request. oxycodone 10 mg tablet 1 tab PO TID PRN (Reason: severe pain) naloxone 4 mg/actuation spray,non-aerosol intranasal
[2023-01-14 16:23] LABS: COVID-19 Test Negative (Negative); IDNOW Serial# 16C4AD1C
[2023-01-14 16:25] LABS: IDNOW Serial# BCCEAD1C; Influenza A Negative (Negative); Influenza B2 Negative (Negative)
[2023-01-14 16:31] LABS: Alanine Aminotransferase 24 U/L (0-40); Albumin Level 3.6 g/dL (3.5-5.0); Alkaline Phosphatase 182 U/L (39-117); Anion Gap 20 (12-20); Aspartate Amino Transferase 26 U/L (5-37); Bilirubin Total 0.5 mg/dL (0.0-1.0); Blood Urea Nitrogen 40 mg/dL (9-16); Calcium 9.4 mg/dL (8.4-10.2); Carbon Dioxide 25 mmol/L (22-29); Chloride 100 mmol/L (96-108); Creatinine Clr Calc Pharmacy 29.8; Estimated Glomerular Filt Rate 28; Glucose Random 147 mg/dL (60-115); Lipase 36 U/L (8-78); Potassium 4.2 mmol/L (3.3-5.1); Sodium 141 mmol/L (135-145); Total Protein 6.1 g/dL (6.5-8.0)
[2023-01-14] MEDS: Lactated Ringers 1,000 ML 999 ML IV (16:35)
[2023-01-14] MEDS: HYDROmorphone HCl 1 MG/ML SYRINGE IVPUSH ×2 (16:35→18:25)
[2023-01-14] MEDS: ondansetron HCL 4 MG/2 ML VIAL IVPUSH (16:35)
--- NOTE | 2023-01-14 19:32 | PC.NURSE ---
late entry- pt medicated according to mar. pt daughter and present at bedside. pt states he will try t provide a urine sample at this time
[2023-01-14 20:00] LABS: Appearance Urine Clear; Color Urine Yellow; Glucose Urine UA Negative (Negative); Leukocyte Esterase Urine Negative (Negative); Nitrite Urine Negative (Negative); PH 5.5 (5.0-9.0); UMIC TRIGGER UACC YES; Urine Blood Negative (Negative); Urine Ketones Trace mg/dL (Negative); Urine Protein 30 (1+) mg/dL (Neg-Trace)
[2023-01-14 20:05] LABS: Bacteria Urine None Seen (None Seen); RBC Urine 0-2 /HPF (0-2); Squamous Epithelial Cell Urine 0-2 /HPF (0-2); WBC Urine 0-5 /HPF (0-5)
[2023-01-14 20:47] VITALS: BP 114/68; PULSE 100; RESP 17; TEMP 36.8; O2SAT 95
[2023-01-14 22:16] LABS: Anion Gap 20 (12-20); Blood Urea Nitrogen 36 mg/dL (9-16); Carbon Dioxide 23 mmol/L (22-29); Chloride 102 mmol/L (96-108); Creatinine Clr Calc Pharmacy 31.9; Estimated Glomerular Filt Rate 31; Glucose Random 104 mg/dL (60-115); Potassium 4.5 mmol/L (3.3-5.1); Sodium 140 mmol/L (135-145)
[2023-01-14 22:39] VITALS: BP 126/74; PULSE 116; RESP 14; TEMP 36.5; O2SAT 95
[2023-01-14] MEDS: Ondansetron ODT 4 MG TAB.RAPDIS TRANSLINGU (23:05)
--- NOTE | 2023-01-14 23:16 | PC.NURSE ---
pt daughter and at beside at discharge. pt reports nausea at discharge pt medicated according to mar. pt ambulatory at discharge. iv removed pt provided with discharge packet. pt verbalized understanding of discharge plan
== END 2023-01-14 23:18 | disposition home or self-care (01) ==
PROVIDERS: Nurse Practitioner Family; Emergency Provider Emergency Medicine; PCP Family Medicine
DX: R10.9 Unspecified abdominal pain (principal); G89.3 Neoplasm related pain (acute) (chronic); D49.89 Neoplasm of unspecified behavior of other specified sites; Z79.899 Other long term (current) drug therapy; Z20.822 Contact with and (suspected) exposure to COVID-19; Z20.828 Contact with and (suspected) exposure to other viral communicable diseases
CPT/HCPCS: 36415; 80048; 80053; 81001; 81003; 83690; 85025; 87502; 87635; 96361; 96374; 96375; 96376; 99284; J1170; J2405

== ENCOUNTER 2023-02-24 12:28 | Emergency (ER) | payer OTHER, SELFPAY ==
--- NOTE | ~2023-02-24 | CT_ITS ---
EXAMINATION: CT CHEST, ABDOMEN AND PELVIS WITHOUT CONTRAST CLINICAL INFORMATION: Abdominal swelling. History of follicular lymphoma. COMPARISON: PET/CT study 12/24/2022 TECHNIQUE: Multidetector volumetric CT imaging of the chest, abdomen and pelvis was obtained without oral or intravenous contrast. Coronal and sagittal reformatted images are performed at CT scanner. [This CT examination was performed using dose optimization techniques as appropriate, variously including the following: *Automated exposure control *Adjustment of mA and/or kV according to patient size (this includes techniques or standardized protocols for targeted exams where dose is matched to indication/reason for exam; i.e. extremities or head) *Use of iterative reconstruction technique] DLP: 751 mGy-cm. FINDINGS: CT CHEST: Lungs: Compressive atelectasis of the right lower lobe. Partial aeration of the right upper lobe and right middle lobe. There is also small volume of compressive atelectasis at the left lung base Mediastinum: Mediastinal lymphadenopathy. Enlarged lymph nodes in the prevascular space, the AP window, subcarinal and pretracheal retrovascular space. Also developing adenopathy along the internal mammary artery chain bilaterally Largest lymph node measuring about 1.5 cm. Overall volume of mediastinal lymphadenopathy is slightly less than the prior CAT scan of 12/24/2022. Central port catheter tip in right atrium. Heart size is normal. Trace pericardial effusion. Heavy coronary artery calcification. Thyroid is unremarkable. Pleura: Bilateral pleural effusions. The effusion on the right is large and the pleural effusion of the left is small to medium. The pleural effusions are new since PET/CT study of 12/24/2022. Axilla: No significant axillary lymphadenopathy. CT ABDOMEN AND PELVIS: Liver, Gallbladder and Biliary Tree: The liver is normal in size, shape, and attenuation. No focal hepatic lesion or biliary ductal dilatation is present. The gallbladder is unremarkable with no evidence of radiopaque gallstones, gallbladder wall thickening, or obvious pericholecystic inflammatory changes. Pancreas: No acute change of the pancreas. No mass. No pancreatic duct dilatation. Spleen: Spleen mildly prominent size measuring 12 cm in length. No focal splenic lesion. Adrenal Glands: Large soft tissue mass around the right kidney and the suprarenal region obscures the area of the right adrenal gland. The left adrenal gland is normal. Kidneys and Ureters: Right kidney is partially engulfed by a retroperitoneal mass along the anterior and superior margin of the kidney. Left kidney appears normal. There is a cyst in the midpole left kidney measuring 2.5 cm. No follow-up imaging is recommended for simple renal cyst. Fullness of the right renal pelvis similar to the prior PET/CT study. No hydroureter. Nonobstructive 3 x 2 mm stone in the midpole left kidney similar prior PET/CT study. Bladder: Unremarkable. Gastrointestinal Tract: No acute abnormality of the bowel. There is no bowel wall thickening /edema. There is no bowel obstruction. There is a moderate to large volume of stool in the colon. The appendix is nonvisualized . The small bowel loops are unremarkable. The stomach is normal. There is no hiatal hernia. Mesentery: Abdominal ascites is present which is moderate in volume overall. This is new since PET/CT study of 12/24/2022. Lack of IV and oral contrast limits evaluation. There is suggestion of nodularity though within the mid mesentery suspicious for enlarged lymph nodes or mesenteric implant. The large soft tissue mass engulfing the right kidney in the right adrenal region extending into the mesentery is slightly less bulky on the exam today than the prior PET/CT study of the margins are ill-defined and difficult to measure. The mass roughly measures about 7 cm in maximum dimension. Previously measuring about 11 cm on prior study. Abdominal Wall: No significant hernia is appreciated. Lymph Nodes: Retroperitoneal nodularity consistent with lymph nodes but the nodes are indistinct. Presence of abdominal ascites and lack of IV contrast limits assessment. Overall though the bulk of retroperitoneal lymphadenopathy appears improved since the PET/CT study 12/24/2022. For example the retrocrural lymph nodes present on the PET/CT has significantly reduced. Lymphadenopathy in the retrocrural region of the aortic hiatus previously measured about 2 cm. These lymph nodes are no longer evident on today's exam. Vascular: Unremarkable. Pelvic Viscera: Unremarkable. Osseous Structures: Unremarkable. CT/CT abdomen pelvis wo IV con IMPRESSION: CT CHEST: 1. Mediastinal lymphadenopathy. 2. Bilateral pleural effusions. 3. Bilateral atelectasis right worse than left CT ABDOMEN AND PELVIS: 1. The large soft tissue mass engulfing the right kidney in the right adrenal region and extending into the mesentery is slightly less bulky on today's exam than the prior PET/CT study of 12/24/2022. 2. Overall though the bulk of retroperitoneal lymphadenopathy appears improved since prior PET/CT study of 12/24/2022. 3. Abdominal ascites new since prior PET/CT study of 12/24/2022. There is suggestion of nodularity within the mid mesentery suspicious for enlarged lymph nodes or mesenteric implant. 4. Mild fullness of the right renal pelvis similar to prior PET/CT study.
[2023-02-24 13:00] VITALS: BP 139/85; PULSE 94; RESP 16; TEMP 36.4; O2SAT 94; BMI 22.7
--- NOTE | 2023-02-24 13:06 | ECG_ITS ---
Test Reason : CHEST PAIN Blood Pressure : / mmHG Vent. Rate : 093 BPM Atrial Rate : 093 BPM P-R Int : 126 ms QRS Dur : 080 ms QT Int : 336 ms P-R-T Axes : 044 025 000 degrees QTc Int : 417 ms Artifact in tracing Normal sinus rhythm Normal ECG When compared with ECG of 04-JUN-2016 13:35, T wave amplitude has decreased in Anterior leads Referred By: René Hernandez Electronically Signed By:MADDIE ROJO
--- NOTE | 2023-02-24 13:09 | ED.GENADULT ---
HPI - General Adult General Chief complaint: General Medical <TERRANCE Echols - Last Filed: 03/09/23 12:47> Stated complaint: abd pain extended ca pt <TERRANCE Echols - Last Filed: 03/09/23 12:47> Time Seen by Provider: 02/24/23 15:01 <TERRANCE Echols - Last Filed: 03/09/23 12:47> Source: patient, family and old records reviewed <TERRANCE Gotti - Last Filed: 02/24/23 17:15> Mode of arrival: ambulatory <TERRANCE Gotti - Last Filed: 02/24/23 17:15> Limitations: no limitations <TERRANCE Gotti - Last Filed: 02/24/23 17:15> History of Present Illness HPI narrative: 63 yo Nepali-speaking male with history of DM, HTN, history of follicular lymphoma diagnosed in March 2016 with recurrence in 2019 s/p radiation & chemotherapy (completed 01/2023) with chronic abdominal pain on chronic opiates, HLD, GERD, CAD who presents to the ER today from home for evaluation of worsening acute on chronic abdominal pain and abdominal distension. Patients family stated that he has a visiting nurse who was concerned the abdominal distention has worsened. Patient endorses bilateral flank and lower quadrant pain. He endorsed shortness of breath and chest pressure. Denies difficulty urinating, blood in urine, headaches, nausea, vomiting, or diarrhea. <TERRANCE Gotti - Last Filed: 02/24/23 17:15> MD complaint: Acute on chronic abdominal pain <TERRANCE Gotti - Last Filed: 02/24/23 17:15> Location: back and abdomen <TERRANCE Gotti - Last Filed: 02/24/23 17:15> Severity: severe <TERRANCE Gotti Last Filed: 02/24/23 17:15> Severity scale (1-10): >10 <TERRANCE Gotti - Last Filed: 02/24/23 17:15> Quality: aching <TERRANCE Gotti - Last Filed: 02/24/23 17:15> Pain Consistency: constant <TERRANCE Gotti Last Filed: 02/24/23 17:15> Relieving factors: none <TERRANCE Gotti - Last Filed: 02/24/23 17:15> Exacerbating factors: none <TERRANCE Gotti - Last Filed: 02/24/23 17:15> Associated symptoms: chest pain and shortness of breath <TERRANCE Gotti - Last Filed: 02/24/23 17:15> Related Data Home medications: Home Medications Medication Instructions Recorded Confirmed atorvastatin 80 mg tablet 80 mg PO DAILY 11/14/20 12/19/22 hydrochlorothiazide 25 mg tablet 25 mg PO DAILY 11/14/20 12/19/22 losartan 50 mg tablet 50 mg PO DAILY 11/14/20 12/19/22 metformin 500 mg tablet 500 mg PO BIDWM 11/14/20 12/19/22 metoprolol succinate 100 mg 100 mg PO DAILY 11/14/20 12/19/22 tablet,extended release 24 hr blood sugar diagnostic (WellbeStyle 06/25/21 12/09/22 Lite Strips) blood-glucose meter (WellbeStyle 06/25/21 12/09/22 Collins Lite kit) albuterol sulfate 90 mcg/actuation 2 puff PO Q4-6H PRN dyspnea 06/14/22 12/19/22 aerosol inhaler (Ventolin HFA) aspirin 81 mg tablet,delayed 2 tab PO QPM 06/14/22 12/19/22 release benzonatate 200 mg capsule 1 cap PO TID PRN cough 06/14/22 12/19/22 fluticasone propionate 50 1 - 2 spray intranasal DAILY PRN 06/14/22 12/19/22 mcg/actuation nasal Allergy Symptoms spray,suspension loratadine 10 mg tablet 1 tab PO DAILY 06/14/22 12/19/22 pantoprazole 40 mg tablet,delayed 1 tab PO DAILY 06/14/22 12/19/22 release morphine 15 mg tablet,extended 1 tab PO BID 12/09/22 12/19/22 release naloxone 4 mg/actuation nasal spray intranasal 12/19/22 oxycodone 10 mg tablet 1 tab PO TID PRN severe pain 12/19/22 12/19/22 Previous Rx's Medication Instructions Recorded morphine 15 mg immediate release 15 mg PO Q4H PRN severe pain 11/29/22 tablet (scale score 7-10) #14 tabs polyethylene glycol 3350 17 gram 17 g PO BID #60 ea 12/09/22 oral powder packet (Miralax) sennosides 8.6 mg-docusate sodium 1 tab-cap PO BEDTIME #30 tabs 12/09/22 50 mg tablet (Senna with Docusate Sodium) hydromorphone 2 mg tablet 2 mg PO Q6H PRN pain #5 tabs 01/14/23 (Dilaudid) ondansetron 4 mg disintegrating 4 mg PO Q6H PRN nausea and 01/14/23 tablet vomiting #20 tabs polyethylene glycol 3350 17 17 g PO BID #510 grams 01/14/23 gram/dose oral powder (Miralax) furosemide 20 mg tablet (Lasix) 20 mg PO QAM #7 tabs 02/24/23 hydromorphone 4 mg tablet 4 mg PO Q6H PRN severe pain (scale 02/24/23 score 7-10) #8 tabs <TERRANCE Echols - Last Filed: 03/09/23 12:47> Allergies/adverse reactions: Allergies Allergy/AdvReac Type Severity Reaction Status Date / Time amlodipine [AMLODIPINE] Allergy Unknown EDEMA-PER Verified 01/14/23 15:49 H&P <TERRANCE Echols - Last Filed: 03/09/23 12:47> Review of Systems Review of Systems: Yes all other systems are reviewed and are negative <TERRANCE Gotti - Last Filed: 02/24/23 17:15> [facility] Past Medical History Medical History: Medical History Abnormal urine cytology CAD (coronary artery disease) COVID (~06/09/22) Diabetes Follicular lymphoma GERD (gastroesophageal reflux disease) HTN (hypertension) Hyperlipemia Lymphoma Lymphoma <TERRANCE Echols - Last Filed: 03/09/23 12:47> Surgical History: Surgical History History of heart artery stent Hx of cataract surgery <TERRANCE Echols - Last Filed: 03/09/23 12:47> Family History Family History: Family History Father Pancreas cancer Hypertension Sister Breast cancer <TERRANCE Echols - Last Filed: 03/09/23 12:47> Social History Social History: Social History Household Members: None Housing: Apartment Are you a primary child care assistant to a significant other at home: No Do you presently have visiting nurse or other home services: No Alcohol intake: former Patient Tobacco Use Status: Never used Tobacco Advance Directives: No Advance Directives Information Provided: No Advance Directives Date on File: 06/19/22 service: No Current occupational status: disabled <TERRANCE Echols - Last Filed: 03/09/23 12:47> Physical Exam ED Vital Signs: Vital Signs - 24 hr 02/24/23 13:00 02/24/23 15:15 Temperature 97.6 F 98.7 F Pulse Rate 94 96 Respiratory Rate 16 15 Blood Pressure 139/85 128/79 Pulse Oximetry 94 95 Oxygen Delivery Method Room Air Room Air BMI result Body Mass Index 22.7 <TERRANCE Echols - Last Filed: 03/09/23 12:47> Vital Signs - 24 hr 02/24/23 13:00 02/24/23 15:15 Temperature 97.6 F 98.7 F Pulse Rate 94 96 Respiratory Rate 16 15 Blood Pressure 139/85 128/79 Pulse Oximetry 94 95 Oxygen Delivery Method Room Air Room Air BMI result Body Mass Index 22.7 <TERRANCE Gotti - Last Filed: 02/24/23 17:15> Appearance: Alert. Oriented X3. No acute distress. CVS: Normal heart rate and rhythm. Pulses normal. Respiratory: No respiratory distress. Breath sounds diminished at the bases bilaterally, no rales or wheezes Abdomen: Softly distended with tenderness to palpation in all 4 quadrants Skin: Skin warm and dry. Normal skin color. Normal skin turgor. No rashes. Extremities: No lower extremity edema. <TERRANCE Gotti - Last Filed: 02/24/23 17:15> Course Course Course Narrative: RME: 63 yold male presents to the ED for increased size of abdomen with shortness of breath. patient also states leg swelling. patient denies calf pain or pleurisy. Abdomen distended on exam. legs no longer swollen. states leg swollen yesterday. labs, EKG, and imagin ordered. Patient has pmh of anisarcia. Patient has CKD. patient has Lymphoma <TERRANCE Echols - Last Filed: 03/09/23 12:47> Medical Decision Making Medical Decision Making [facility] Narrative: 63-year-old male with history of follicular lymphoma, recently received chemotherapy who presents to the ER for evaluation of acute on chronic abdominal pain and distension. His records were reviewed, he has complained of this pain for the last several months to years. He has intermittently prescribe narcotics. He is due to see a new oncologist in [facility] tomorrow. Currently following with oncologist at [facility]. His IT INSTRUCTOR was reviewed. He recently was prescribed low-dose Dilaudid, limited supply of 12 tablets. He reports minimal relief with this. Labs showing stable anemia, renal function is improving. CT scan showing bilateral pleural effusions, ascites, large soft tissue mass engulfing the right kidney, slightly less bulky than at prior scan in December. The ascites is new. There is concern that his ascites and effusion may be malignant in nature. They also may be a adverse side effects from his chemotherapy. His BNP is normal. His albumin is normal. Patient is hemodynamically stable, breathing well on room air. His abdomen is softly distended, not firm. Discussed results with patient and family members at the bedside. They are going to [place] tomorrow and Friday to see a new oncology team. They will take the results of today's imaging and presented to their new providers in [place] to discuss possible drainage of the fluid and fluid studies. In the meantime the patient is stable for discharge home with pain control. All questions were answered. Stable for DC <TERRANCE Gotti - Last Filed: 02/24/23 17:15> Differential Diagnosis Differential Diagnoses: The differential diagnosis associated with the presentation includes <TERRANCE Gotti - Last Filed: 02/24/23 17:15> Malignant ascites, malignant pleural effusion, hypoalbuminemia, CHF, decompensated cirrhosis, adverse side effect of chemotherapy <TERRANCE Gotti - Last Filed: 02/24/23 17:15> Lab Data [facility] Lab Attestation statement: I reviewed the patient's lab results. <TERRANCE Gotti - Last Filed: 02/24/23 17:15> Stable anemia, improving renal function, mild hyperkalemia <TERRANCE Gotti - Last Filed: 02/24/23 17:15> Result Diagrams: 02/24/23 13:25 02/24/23 13:25 <TERRANCE Echols - Last Filed: 03/09/23 12:47> Labs: Lab Results 02/24/23 02/24/23 02/24/23 Range/Units 13:25 13:25 13:25 WBC 10.2 (4.8-10.8) X10*3/uL RBC 4.05 L (4.60-5.80) X10*6/uL Hgb 11.3 L (14.0-18.0) g/dl Hct 35.4 L (42.0-52.0) % MCV 87.4 (80.0-98.0) fL MCH 27.9 (27.0-33.0) pg MCHC 31.9 (31.0-36.0) g/dl RDW 20.1 H (11.0-16.0) % Plt Count 402 H (160-400) X10*3/uL MPV 8.7 L (9.4-12.4) fL Immature Gran % (Auto) 0.5 H (0.0-0.4) % Neut % (Auto) 70.3 (45-73) % Lymph % (Auto) 10.1 L (20-40) % Millard % (Auto) 15.7 H (2-11) % Eos % (Auto) 2.4 (0-4) % Baso % (Auto) 1.0 (0-2) % Lymph # (Auto) 1.0 L (1.2-4.9) X10*3/uL Millard # (Auto) 1.6 H (0.1-1.2) X10*3/uL Eos # (Auto) 0.2 (0.0-0.4) X10*3/uL Baso # (Auto) 0.1 (0.0-0.2) X10*3/uL Abs Immat Gran (auto) 0.05 H (0.00-0.03) X10*3/uL Absolute Neuts (auto) 7.1 (2.0-8.3) x10*3/uL Absolute Nucleated RBC 0.000 (0.0-0.012) X10*3/uL Nucleated RBC % (auto) 0.0 (0.0-0.2) /100WBC Smear Tech's Comments VERIFIED PT (10.0-13.1) SEC INR (0.9-1.1) APTT (26.0-36.4) SEC Sodium 140 (135-145) mmol/L Potassium 5.2 H (3.3-5.1) mmol/L Chloride 102 (96-108) mmol/L Carbon Dioxide 26 (22-29) mmol/L Anion Gap 17 (12-20) BUN 22 H (9-16) mg/dL Creatinine 1.37 (0.5-1.4) mg/dL Estim Creat Clear Calc 51.0 Estimated GFR 53 Random Glucose 86 (60-115) mg/dL Calcium 9.4 (8.4-10.2) mg/dL Total Bilirubin 0.7 (0.0-1.0) mg/dL AST 28 (5-37) U/L ALT 28 (0-40) U/L Alkaline Phosphatase 302 H (39-117) U/L Troponin I High Sens < 3.5 (<3.5-35.0) ng/L B-Natriuretic Peptide (<100) pg/mL Total Protein 5.9 L (6.5-8.0) g/dL Albumin 3.6 (3.5-5.0) g/dL 02/24/23 02/24/23 Range/Units 13:25 13:25 WBC (4.8-10.8) X10*3/uL RBC (4.60-5.80) X10*6/uL Hgb (14.0-18.0) g/dl Hct (42.0-52.0) % MCV (80.0-98.0) fL MCH (27.0-33.0) pg MCHC (31.0-36.0) g/dl RDW (11.0-16.0) % Plt Count (160-400) X10*3/uL MPV (9.4-12.4) fL Immature Gran % (Auto) (0.0-0.4) % Neut % (Auto) (45-73) % Lymph % (Auto) (20-40) % Millard % (Auto) (2-11) % Eos % (Auto) (0-4) % Baso % (Auto) (0-2) % Lymph # (Auto) (1.2-4.9) X10*3/uL Millard # (Auto) (0.1-1.2) X10*3/uL Eos # (Auto) (0.0-0.4) X10*3/uL Baso # (Auto) (0.0-0.2) X10*3/uL Abs Immat Gran (auto) (0.00-0.03) X10*3/uL Absolute Neuts (auto) (2.0-8.3) x10*3/uL Absolute Nucleated RBC (0.0-0.012) X10*3/uL Nucleated RBC % (auto) (0.0-0.2) /100WBC Smear Tech's Comments PT 11.0 (10.0-13.1) SEC INR 1.0 (0.9-1.1) APTT 28.8 (26.0-36.4) SEC Sodium (135-145) mmol/L Potassium (3.3-5.1) mmol/L Chloride (96-108) mmol/L Carbon Dioxide (22-29) mmol/L Anion Gap (12-20) BUN (9-16) mg/dL Creatinine (0.5-1.4) mg/dL Estim Creat Clear Calc Estimated GFR Random Glucose (60-115) mg/dL Calcium (8.4-10.2) mg/dL Total Bilirubin (0.0-1.0) mg/dL AST (5-37) U/L ALT (0-40) U/L Alkaline Phosphatase (39-117) U/L Troponin I High Sens (<3.5-35.0) ng/L B-Natriuretic Peptide 19 (<100) pg/mL Total Protein (6.5-8.0) g/dL Albumin (3.5-5.0) g/dL <TERRANCE Echols - Last Filed: 03/09/23 12:47> Lab Results 02/24/23 02/24/23 02/24/23 Range/Units 13:25 13:25 13:25 WBC 10.2 (4.8-10.8) X10*3/uL RBC 4.05 L (4.60-5.80) X10*6/uL Hgb 11.3 L (14.0-18.0) g/dl Hct 35.4 L (42.0-52.0) % MCV 87.4 (80.0-98.0) fL MCH 27.9 (27.0-33.0) pg MCHC 31.9 (31.0-36.0) g/dl RDW 20.1 H (11.0-16.0) % Plt Count 402 H (160-400) X10*3/uL MPV 8.7 L (9.4-12.4) fL Immature Gran % (Auto) 0.5 H (0.0-0.4) % Neut % (Auto) 70.3 (45-73) % Lymph % (Auto) 10.1 L (20-40) % Millard % (Auto) 15.7 H (2-11) % Eos % (Auto) 2.4 (0-4) % Baso % (Auto) 1.0 (0-2) % Lymph # (Auto) 1.0 L (1.2-4.9) X10*3/uL Millard # (Auto) 1.6 H (0.1-1.2) X10*3/uL Eos # (Auto) 0.2 (0.0-0.4) X10*3/uL Baso # (Auto) 0.1 (0.0-0.2) X10*3/uL Abs Immat Gran (auto) 0.05 H (0.00-0.03) X10*3/uL Absolute Neuts (auto) 7.1 (2.0-8.3) x10*3/uL Absolute Nucleated RBC 0.000 (0.0-0.012) X10*3/uL Nucleated RBC % (auto) 0.0 (0.0-0.2) /100WBC Smear Tech's Comments VERIFIED PT (10.0-13.1) SEC INR (0.9-1.1) APTT (26.0-36.4) SEC Sodium 140 (135-145) mmol/L Potassium 5.2 H (3.3-5.1) mmol/L Chloride 102 (96-108) mmol/L Carbon Dioxide 26 (22-29) mmol/L Anion Gap 17 (12-20) BUN 22 H (9-16) mg/dL Creatinine 1.37 (0.5-1.4) mg/dL Estim Creat Clear Calc 51.0 Estimated GFR 53 Random Glucose 86 (60-115) mg/dL Calcium 9.4 (8.4-10.2) mg/dL Total Bilirubin 0.7 (0.0-1.0) mg/dL AST 28 (5-37) U/L ALT 28 (0-40) U/L Alkaline Phosphatase 302 H (39-117) U/L Troponin I High Sens < 3.5 (<3.5-35.0) ng/L B-Natriuretic Peptide (<100) pg/mL Total Protein 5.9 L (6.5-8.0) g/dL Albumin 3.6 (3.5-5.0) g/dL 02/24/23 02/24/23 Range/Units 13:25 13:25 WBC (4.8-10.8) X10*3/uL RBC (4.60-5.80) X10*6/uL Hgb (14.0-18.0) g/dl Hct (42.0-52.0) % MCV (80.0-98.0) fL MCH (27.0-33.0) pg MCHC (31.0-36.0) g/dl RDW (11.0-16.0) % Plt Count (160-400) X10*3/uL MPV (9.4-12.4) fL Immature Gran % (Auto) (0.0-0.4) % Neut % (Auto) (45-73) % Lymph % (Auto) (20-40) % Millard % (Auto) (2-11) % Eos % (Auto) (0-4) % Baso % (Auto) (0-2) % Lymph # (Auto) (1.2-4.9) X10*3/uL Millard # (Auto) (0.1-1.2) X10*3/uL Eos # (Auto) (0.0-0.4) X10*3/uL Baso # (Auto) (0.0-0.2) X10*3/uL Abs Immat Gran (auto) (0.00-0.03) X10*3/uL Absolute Neuts (auto) (2.0-8.3) x10*3/uL Absolute Nucleated RBC (0.0-0.012) X10*3/uL Nucleated RBC % (auto) (0.0-0.2) /100WBC Smear Tech's Comments PT 11.0 (10.0-13.1) SEC INR 1.0 (0.9-1.1) APTT 28.8 (26.0-36.4) SEC Sodium (135-145) mmol/L Potassium (3.3-5.1) mmol/L Chloride (96-108) mmol/L Carbon Dioxide (22-29) mmol/L Anion Gap (12-20) BUN (9-16) mg/dL Creatinine (0.5-1.4) mg/dL Estim Creat Clear Calc Estimated GFR Random Glucose (60-115) mg/dL Calcium (8.4-10.2) mg/dL Total Bilirubin (0.0-1.0) mg/dL AST (5-37) U/L ALT (0-40) U/L Alkaline Phosphatase (39-117) U/L Troponin I High Sens (<3.5-35.0) ng/L B-Natriuretic Peptide 19 (<100) pg/mL Total Protein (6.5-8.0) g/dL Albumin (3.5-5.0) g/dL <TERRANCE Gotti - Last Filed: 02/24/23 17:15> Independent Interpretation I performed an independent interpretation of an: EKG and CT Scan <TERRANCE Gotti - Last Filed: 02/24/23 17:15> Interpretation: EKG with normal sinus rhythm, ventricular rate 93 beats per minute, normal VA interval, normal QTC, no ST segment elevations or depressions. CT scans reviewed, bilateral pleural effusions noted, ascites noted, no evidence of bowel obstruction, soft tissue mass in the right side of the abdomen appreciated. Agree with radiology's read <TERRANCE Gotti - Last Filed: 02/24/23 17:15> Radiology Impression Discussion of test interpretation with radiology: I have reviewed the radiologist's reading. <TERRANCE Gotti - Last Filed: 02/24/23 17:15> Radiologist Impression: [id number] US/US pelvic and transvaginal IMPRESSION: *? 4 cm cyst of the right ovary is present. It has decreased in size since 01/29/2023. No suspicious features. No evidence of a hemorrhagic cyst or ovarian torsion this patient with pelvic pain. *? Trace amount of simple appearing free fluid is seen within the pelvis, predominantly adjacent to the right ovary. *? Left ovary is unremarkable. *? Contraceptive device is well centered within the endometrium. <TERRANCE Gotti - Last Filed: 02/24/23 17:15> Independent Historian Clinical information obtained from an independent historian. History obtained from or confirmed by: Spouse and Other <TERRANCE Gotti - Last Filed: 02/24/23 17:15> External Record Review External record reviewed: Outpatient record, Prior outpatient labs and Prior outpatient radiology <TERRANCE Gotti - Last Filed: 02/24/23 17:15> Prescription Management I considered prescription management with: Pain Medication <TERRANCE Gotti - Last Filed: 02/24/23 17:15> Chronic Conditions Patient?s care impacted by: Other (follicular lymphoma ) <TERRANCE Gotti - Last Filed: 02/24/23 17:15> Critical Care Time Critical Care Time Critical Care Time: No <TERRANCE Gotti - Last Filed: 02/24/23 17:15> Discharge Plan Discharge Clinical Impression: Pleural effusion, bilateral, Abdominal ascites <TERRANCE Echols - Last Filed: 03/09/23 12:47> Patient Disposition: Home, Self-Care <TERRANCE Echols - Last Filed: 03/09/23 12:47> Instructions: Pleural Effusion (ED), Ascites (ED) <TERRANCE Echols - Last Filed: 03/09/23 12:47> Additional Instructions: Your CT scan results are below. Your kidney function improved to a creatinine of 1.37. Your last recorded level we have here was from January 14 and was 2.21. Take the prescribed narcotic pain medication as needed for severe pain only. Follow-up with [facility] tomorrow. Ask about the role of draining the fluid lungs & in the abdomen. IMPRESSION: CT CHEST: 1.? Mediastinal lymphadenopathy. 2.? Bilateral pleural effusions. 3.? Bilateral atelectasis right worse than left ? CT ABDOMEN AND PELVIS: 1.? The large soft tissue mass engulfing the right kidney in the right adrenal region and extending into the mesentery is slightly less bulky on today's exam than the prior PET/CT study of 12/24/2022. 2.? Overall though the bulk of retroperitoneal lymphadenopathy appears improved since prior PET/CT study of 12/24/2022. 3.? Abdominal ascites new since prior PET/CT study of 12/24/2022. There is suggestion of nodularity within the mid mesentery suspicious for enlarged lymph nodes or mesenteric implant. 4.? Mild fullness of the right renal pelvis similar to prior PET/CT study. <TERRANCE Echols - Last Filed: 03/09/23 12:47> Prescriptions: New hydromorphone 4 mg tablet 4 mg PO Q6H PRN (Reason: severe pain (scale score 7-10)) Qty: 8 0RF Rx Instructions: Partial Fill upon patient request. furosemide [Lasix] 20 mg tablet 20 mg PO QAM Qty: 7 0RF No Action losartan 50 mg Tablet 50 mg PO DAILY metformin 500 mg Tablet 500 mg PO BIDWM atorvastatin 80 mg Tablet 80 mg PO DAILY metoprolol succinate 100 mg Tablet Extended Release 24 Hr 100 mg PO DAILY hydrochlorothiazide 25 mg Tablet 25 mg PO DAILY (DME) FreeStyle Lite Strips Strip MISCELLANEOUS BID (DME) blood-glucose meter [FreeStyle Collins Lite] Kit MISCELLANEOUS BID morphine 15 mg tablet extended release 1 tab PO BID polyethylene glycol 3350 [Miralax] 17 gram Powder In Packet 17 g PO BID Qty: 60 1RF sennosides-docusate sodium [Senna with Docusate Sodium] 8.6-50 mg Tablet 1 tab-cap PO BEDTIME Qty: 30 3RF benzonatate 200 mg capsule 1 cap PO TID PRN (Reason: cough) aspirin 81 mg tablet,delayed release (DR/EC) 2 tab PO QPM pantoprazole 40 mg tablet,delayed release (DR/EC) 1 tab PO DAILY albuterol sulfate [Ventolin HFA] 90 mcg/actuation HFA aerosol inhaler 2 puff PO Q4-6H PRN (Reason: dyspnea) fluticasone propionate 50 mcg/actuation spray,suspension 1 - 2 spray intranasal DAILY PRN (Reason: Allergy Symptoms) loratadine 10 mg tablet 1 tab PO DAILY morphine 15 mg tablet 15 mg PO Q4H PRN (Reason: severe pain (scale score 7-10)) Qty: 14 0RF Rx Instructions: Partial Fill upon patient request. oxycodone 10 mg tablet 1 tab PO TID PRN (Reason: severe pain) naloxone 4 mg/actuation spray,non-aerosol intranasal ondansetron 4 mg tablet,disintegrating 4 mg PO Q6H PRN (Reason: nausea and vomiting) Qty: 20 0RF polyethylene glycol 3350 [Miralax] 17 gram/dose powder 17 g PO BID Qty: 510 0RF hydromorphone [Dilaudid] 2 mg tablet 2 mg PO Q6H PRN (Reason: pain) Qty: 5 0RF Rx Instructions: P.r.n. severe pain. Partial Fill upon patient request. <TERRANCE Echols - Last Filed: 03/09/23 12:47> Interventions: ED Discharge Assessment Last Done: 02/24/23 16:59 <TERRANCE Echols - Last Filed: 03/09/23 12:47> Discharge Date/Time: 02/24/23 17:01 <TERRANCE Echols - Last Filed: 03/09/23 12:47>
[2023-02-24 13:33] LABS: Basophils Absolute Auto 0.1 X10*3/uL (0.0-0.2); Eosinophils Absolute Auto 0.2 X10*3/uL (0.0-0.4); Eosinophils Percent Auto 2.4 % (0-4); Hematocrit 35.4 % (42.0-52.0); Hemoglobin 11.3 g/dl (14.0-18.0); Imm Gran Abs Auto 0.05 X10*3/uL (0.00-0.03); Imm Gran Pct Auto 0.5 % (0.0-0.4); Lymphocytes Percent Auto 10.1 % (20-40); MANUAL DIFF FLAG SCAN; Mean Corpuscular HGB Conc 31.9 g/dl (31.0-36.0); Mean Corpuscular Hemoglobin 27.9 pg (27.0-33.0); Mean Corpuscular Volume 87.4 fL (80.0-98.0); Mean Platelet Volume 8.7 fL (9.4-12.4); Monocytes Absolute Auto 1.6 X10*3/uL (0.1-1.2); Monocytes Percent Auto 15.7 % (2-11); Neutrophils Absolute Auto 7.1 x10*3/uL (2.0-8.3); Neutrophils Percent Auto 70.3 % (45-73); Platelet Count 402 X10*3/uL (160-400); Red Blood Count 4.05 X10*6/uL (4.60-5.80); Red Cell Distribution Width 20.1 % (11.0-16.0); SCAN SMEAR FLAG 1; White Blood Count 10.2 X10*3/uL (4.8-10.8)
[2023-02-24 13:44] LABS: Partial Thromboplastin Time 28.8 SEC (26.0-36.4)
[2023-02-24 13:48] LABS: Alanine Aminotransferase 28 U/L (0-40); Albumin Level 3.6 g/dL (3.5-5.0); Alkaline Phosphatase 302 U/L (39-117); Anion Gap 17 (12-20); Aspartate Amino Transferase 28 U/L (5-37); Bilirubin Total 0.7 mg/dL (0.0-1.0); Blood Urea Nitrogen 22 mg/dL (9-16); Calcium 9.4 mg/dL (8.4-10.2); Carbon Dioxide 26 mmol/L (22-29); Chloride 102 mmol/L (96-108); Estimated Glomerular Filt Rate 53; Glucose Random 86 mg/dL (60-115); Potassium 5.2 mmol/L (3.3-5.1); Sodium 140 mmol/L (135-145); Total Protein 5.9 g/dL (6.5-8.0)
[2023-02-24 13:53] LABS: B Type Natriuretic Peptide 19 pg/mL (<100)
[2023-02-24 13:57] LABS: Troponin-I High Sensitivity < 3.5 ng/L (<3.5-35.0)
[2023-02-24 14:05] LABS: SLIDE REVIEW VERIFIED
[2023-02-24 15:15] VITALS: BP 128/79; PULSE 96; RESP 15; TEMP 37.1; O2SAT 95
== END 2023-02-24 17:01 | disposition home or self-care (01) ==
PROVIDERS: Physician Assistant; Emergency Provider Student in an Organized Health Care Education/Training Program; PCP Family Medicine
DX: J90 Pleural effusion, not elsewhere classified (principal); R18.8 Other ascites; R07.89 Other chest pain; M54.6 Pain in thoracic spine; I10 Essential (primary) hypertension; R06.02 Shortness of breath; I25.10 Atherosclerotic heart disease of native coronary artery without angina pectoris; Z79.899 Other long term (current) drug therapy
CPT/HCPCS: 36415; 71250; 74176; 80053; 83880; 84484; 85025; 85610; 85730; 93005; 99284

== ENCOUNTER 2023-09-22 14:06 | Emergency (ER) | payer OTHER, SELFPAY ==
[2023-09-22 14:22] VITALS: BP 122/82; PULSE 83; RESP 16; O2SAT 99; BMI 23.1
--- NOTE | 2023-09-22 14:24 | ED.GENADULT ---
HPI - General Adult General Chief complaint: Recheck/Abnormal Lab/Rx Stated complaint: abnormal labs potasium 6.1 Source: patient Mode of arrival: ambulatory Limitations: no limitations History of Present Illness HPI narrative: Patient is a 63 year old assigned male at with a history of cancer for which he gets treatment in [place] presenting to the emergency department today with an elevated potassium. Patient states that he was told that his potassium was 6.1. Patient denies any dizziness, lightheadedness, abdominal pain, nausea, vomiting, fever, chills, blurry vision, double vision, loss of vision, chest pain, difficulty breathing, shortness of breath, back pain, night sweats, pain with urination, increased urinary frequency, increased urinary urgency, blood in his urine or stool, syncope or a near syncopal episode, recent trauma or falls, bowel incontinence, bladder incontinence, bowel retention, bladder retention, or any other complaints at this time. Relieving factors: none Exacerbating factors: none Associated symptoms: denies other symptoms Treatments prior to arrival: none Related Data Home Medications Medication Instructions Recorded Confirmed metoprolol succinate 100 mg 100 mg PO DAILY 11/14/20 03/19/23 tablet,extended release 24 hr blood sugar diagnostic (FreeStyle 06/25/21 03/19/23 Lite Strips) blood-glucose meter (FreeStyle 06/25/21 03/19/23 [place] Lite kit) aspirin 81 mg tablet,delayed 2 tab PO QPM 06/14/22 03/19/23 release fluticasone propionate 50 1 - 2 spray intranasal DAILY PRN 06/14/22 03/19/23 mcg/actuation nasal Allergy Symptoms spray,suspension loratadine 10 mg tablet 1 tab PO DIRECTED 06/14/22 03/19/23 morphine 15 mg tablet,extended 1 tab PO BID 12/09/22 03/19/23 release Previous Rx's Medication Instructions Recorded polyethylene glycol 3350 17 gram 17 g PO BID #60 ea 12/09/22 oral powder packet (Miralax) ondansetron 4 mg disintegrating 4 mg PO Q6H PRN nausea and 01/14/23 tablet vomiting #20 tabs hydromorphone 4 mg tablet 4 mg PO Q6H PRN severe pain (scale 02/24/23 score 7-10) #8 tabs Allergies Allergy/AdvReac Type Severity Reaction Status Date / Time amlodipine [AMLODIPINE] Allergy Unknown EDEMA-PER Verified 01/14/23 15:49 H&P Review of Systems Constitutional: Constitutional: Reports no additional constitutional complaints, Denies chills, Denies fever(s) and Denies night sweats Eyes: Eyes: Reports no additional eye complaints, Denies blurry vision, Denies change in vision, Denies diplopia, Denies eye discharge, Denies loss of vision and Denies eye pain ENT: Denies dizziness Cardiovascular: Cardiovascular: Reports no additional cardiovascular complaints, Denies chest pain, Denies lightheadedness, Denies Loss of Consciousness and Denies dyspnea Respiratory: Respiratory: Reports no additional respiratory complaints and Denies dyspnea Gastrointestinal: Gastrointestinal: Reports no additional gastrointestinal complaints, Denies abdominal pain, Denies melena, Denies hematochezia, Denies change in bowel habits and Denies change in stool character Genitourinary: Genitourinary: Reports no additional male genitourinary complaints, Denies hematuria, Denies oliguria, Denies difficulty urinating, Denies dysuria, Denies urinary frequency, Denies urinary hesitancy, Denies urinary incontinence and Denies urinary urgency Musculoskeletal: Musculoskeletal: Reports no additional musculoskeletal complaints, Denies numbness and Denies tingling Neurologic: Denies dizziness, Denies loss of vision, Denies numbness and Denies tingling Psychiatric: Psychiatric: Reports no additional psychiatric complaints Endocrine: Endocrine: Reports no additional endocrine complaints Hematologic/Lymphatic: Hematologic/Lymphatic: Reports no additional hematologic/lymphatic complaints Allergic/Immunologic: Allergic/Immunologic: Reports no additional allergic/immunologic complaints [facility] Past Medical History Attestation statement: The following information was validated with the patient. Source: old records reviewed and nursing notes reviewed Medical History COVID (~06/09/22) Lymphoma GERD (gastroesophageal reflux disease) Abnormal urine cytology CAD (coronary artery disease) Hyperlipemia HTN (hypertension) Diabetes Lymphoma Follicular lymphoma Surgical History Hx of cataract surgery History of heart artery stent Family History Family History Father Pancreas cancer Hypertension Sister Breast cancer Social History Social History Household Members: None Housing: Apartment Are you a primary progressive care unit registered nurse to a significant other at home: No Do you presently have visiting nurse or other home services: No Alcohol intake: former Patient Tobacco Use Status: Never used Tobacco Advance Directives: No Advance Directives Information Provided: Yes Advance Directives Date on File: 06/19/22 service: No Current occupational status: disabled Physical Exam ED Vital Signs: BMI result Body Mass Index 23.1 Const General: cooperative, no acute distress, alert and awake Nutritional Appearance: well nourished Orientation/consciousness: patient oriented x3 Limitations: no limitations HENMT Head: Yes normal to inspection and Yes atraumatic Ears: hearing grossly normal bilaterally and external ears normal General nose exam: Normal external nose present, no nasal discharge noted and no epistaxis Face and sinus: Yes normal facial exam, No abrasion and No laceration Mouth: Normal oral and palatal mucosa present, no drooling and no muffled voice Eyes General: appearance normal, both eyes and all related structures Periorbital: periorbital findings normal Eyelids: Yes eyelids normal Conjunctivae: conjunctivae normal Pupils: Equal, round and reactive pupils present EOM: EOMs intact bilaterally Neck Neck: Yes normal visual inspection, Yes full ROM and Yes no lymphadenopathy Chest Chest palpation & inspection: normal inspection of the chest Resp Effort & Inspection: normal respiratory effort and able to speak in complete sentences GI Inspection: Yes normal to inspection Neuro General: patient oriented x3 and moves all extremities Cranial nerves: Yes Equal, round and reactive pupils present Cognition (Neuro): normal cognition Motor exam (neuro): 5/5 motor strength present throughout Sensory Exam: Normal double simultaneous stimulation for sensation Coordination: [id number] test normal Extrem General: Yes normal to inspection, Yes full ROM and Yes capillary refill normal Psych Appearance: grossly normal Mental Status: mental status grossly normal Affect: normal affect Attitude: cooperative Thought process: Normal thought process present Thought content: Normal thought content present Insight: Good insight present (Psych) Course Course Course Narrative: RME performed by Kaela Rodriguez PA-C. Patient is a 63 year old assigned male at presenting to the emergency department with abnormal labs. Patient states that he gets cancer treatment in [place] and was told that his potassium is 6.1. Labs ordered. Patient placed back in the waiting room pending room availability and results. Medical Decision Making Medical Decision Making [facility] Narrative: Patient is a 63 year old assigned male at with a history of cancer presenting to the emergency department today with an elevated potassium. Patient's limited physical exam performed in triage was unremarkable. Patient's blood work was unremarkable]. Patient's EKG was unremarkable. Patient left the department before myself or any of the other emergency department clinicians could explain physical exam findings, review test results, explain need or lack there of for further testing, or provide treatment / treat plans. Differential Diagnosis Differential Diagnoses: The differential diagnosis associated with the presentation includes Hyperkalemia Abnormal labs Admission/Observation Consideration of admission/observation: Escalation of care including admission/observation considered Patient would have been admitted to the hospital had his work up had any findings where hospital admission was appropriate, his clinical presentation warranted hospital admission, and he hadn't left without completing treatment. Lab Data [facility] Lab Attestation statement: I reviewed the patient's lab results. My interpretation of these studies and their corresponding values is that they are grossly normal. 09/22/23 16:08 09/22/23 16:08 Labs: Lab Results 09/22/23 Range/Units 16:08 WBC 6.2 (4.8-10.8) X10*3/uL RBC 3.05 L D (4.60-5.80) X10*6/uL Hgb 10.5 L (14.0-18.0) g/dl Hct 31.0 L (42.0-52.0) % MCV 101.6 H (80.0-98.0) fL MCH 34.4 H (27.0-33.0) pg MCHC 33.9 (31.0-36.0) g/dl RDW 13.4 (11.0-16.0) % Plt Count 38 L D (160-400) X10*3/uL MPV 13.2 H (9.4-12.4) fL Immature Gran % (Auto) Cancelled Neut % (Auto) Cancelled Lymph % (Auto) Cancelled [place] % (Auto) Cancelled Eos % (Auto) Cancelled Baso % (Auto) Cancelled Lymph # (Auto) Cancelled [place] # (Auto) Cancelled Eos # (Auto) Cancelled Baso # (Auto) Cancelled Abs Immat Gran (auto) Cancelled Absolute Neuts (auto) Cancelled Absolute Nucleated RBC 0.000 (0.0-0.012) X10*3/uL Nucleated RBC % (auto) 0.0 (0.0-0.2) /100WBC Neutrophils % (Manual) 46 (45-73) % Band Neutrophils % 9 H (3-5) % Lymphocytes % (Manual) 9 L (20-40) % Monocytes % (Manual) 4 (2-11) % Eosinophils % (Manual) 1 (0-4) % Metamyelocytes % 7 % Myelocytes % 24 % Abs Neuts (Manual) 3.4 (2.0-8.3) X10*3/uL Lymphocytes # (Manual) 0.6 L (1.2-4.9) X10*3/uL Monocytes # (Manual) 0.2 (0.1-1.2) X10*3/uL Eosinophils # (Manual) 0.1 (0.0-0.4) X10*3/uL Metamyelocytes # 0.4 X10*3/uL Myelocytes # 1.5 X10*/uL Platelet Estimate DECREASED (NORMAL) Plt Morphology Comment NORMAL RBC Morphology NOTED Polychromasia 1+ (0-2) /OIF Tear Drop Cells 1+ (0-2) /OIF Ovalocytes 1+ (5-14) /OIF Sodium 139 (135-145) mmol/L Potassium 4.6 (3.3-5.1) mmol/L Chloride 103 (96-108) mmol/L Carbon Dioxide 25 (22-29) mmol/L Anion Gap 16 (12-20) BUN 35 H (9-16) mg/dL Creatinine 1.60 H (0.5-1.4) mg/dL Estim Creat Clear Calc 43.7 Estimated GFR 44 Random Glucose 328 H (60-115) mg/dL Calcium 9.2 (8.4-10.2) mg/dL Magnesium 2.1 (1.6-2.6) mg/dL Total Bilirubin 0.6 (0.0-1.0) mg/dL AST 11 (5-37) U/L ALT 22 (0-40) U/L Alkaline Phosphatase 145 H (39-117) U/L Troponin I High Sens < 2.7 (<3.5-35.0) ng/L Total Protein 6.7 (6.5-8.0) g/dL Albumin 3.6 (3.5-5.0) g/dL Independent Interpretation I performed an independent interpretation of an: EKG Interpretation: Vent. Rate: 078 BPM Atrial Rate: 078 BPM P-R Int: 130 ms QRS Dur: 092 ms QT Int: 356 ms P-R-T Axes: 025 027 008 degrees QTc Int: 405 ms Normal sinus rhythm Minimal voltage criteria for LVH, may be normal variant (R in aVL) Borderline ECG When compared with ECG of 24-FEB-2023 13:17, Left ventricular hypertrophy is new Electronically Signed By:ALEX DOLL MD Dictated By: Joaquín Doll MD Signed By: Electronically signed by Joaquín Doll MD 09/22/23 [id number] Discharge Plan Discharge Clinical Impression: Abnormal laboratory test result Patient Disposition: Left W/O Completing Treatment Prescriptions: No Action metoprolol succinate 100 mg Tablet Extended Release 24 Hr 100 mg PO DAILY (DME) FreeStyle Lite Strips Strip MISCELLANEOUS BID (DME) blood-glucose meter [FreeStyle [place] Lite] Kit MISCELLANEOUS BID morphine 15 mg tablet extended release 1 tab PO BID polyethylene glycol 3350 [Miralax] 17 gram Powder In Packet 17 g PO BID Qty: 60 1RF aspirin 81 mg tablet,delayed release (DR/EC) 2 tab PO QPM fluticasone propionate 50 mcg/actuation spray,suspension 1 - 2 spray intranasal DAILY PRN (Reason: Allergy Symptoms) loratadine 10 mg tablet 1 tab PO DIRECTED ondansetron 4 mg tablet,disintegrating 4 mg PO Q6H PRN (Reason: nausea and vomiting) Qty: 20 0RF hydromorphone 4 mg tablet 4 mg PO Q6H PRN (Reason: severe pain (scale score 7-10)) Qty: 8 0RF Rx Instructions: Partial Fill upon patient request. Discharge Date/Time: 09/22/23 21:04
--- NOTE | 2023-09-22 14:25 | ECG_ITS ---
Test Reason : elevated potassium Blood Pressure : / mmHG Vent. Rate : 078 BPM Atrial Rate : 078 BPM P-R Int : 130 ms QRS Dur : 092 ms QT Int : 356 ms P-R-T Axes : 025 027 008 degrees QTc Int : 405 ms Normal sinus rhythm Minimal voltage criteria for LVH, may be normal variant ( R in aVL ) Borderline ECG When compared with ECG of 24-FEB-2023 13:17, Left ventricular hypertrophy is new Referred By: Kaela Rodriguez Electronically Signed By:ALEX DOLL MD
[2023-09-22 16:27] LABS: Hemoglobin 10.5 g/dl (14.0-18.0)
[2023-09-22 16:29] LABS: Mean Corpuscular HGB Conc 33.9 g/dl (31.0-36.0); Mean Corpuscular Hemoglobin 34.4 pg (27.0-33.0); Mean Corpuscular Volume 101.6 fL (80.0-98.0); Mean Platelet Volume 13.2 fL (9.4-12.4); Red Blood Count 3.05 X10*6/uL (4.60-5.80); Red Cell Distribution Width 13.4 % (11.0-16.0); White Blood Count 6.2 X10*3/uL (4.8-10.8)
[2023-09-22 16:33] LABS: Alanine Aminotransferase 22 U/L (0-40); Albumin Level 3.6 g/dL (3.5-5.0); Alkaline Phosphatase 145 U/L (39-117); Anion Gap 16 (12-20); Aspartate Amino Transferase 11 U/L (5-37); Bilirubin Total 0.6 mg/dL (0.0-1.0); Blood Urea Nitrogen 35 mg/dL (9-16); Calcium 9.2 mg/dL (8.4-10.2); Carbon Dioxide 25 mmol/L (22-29); Chloride 103 mmol/L (96-108); Creatinine Clr Calc Pharmacy 43.7; Estimated Glomerular Filt Rate 44; Glucose Random 328 mg/dL (60-115); Magnesium 2.1 mg/dL (1.6-2.6); Potassium 4.6 mmol/L (3.3-5.1); Sodium 139 mmol/L (135-145); Total Protein 6.7 g/dL (6.5-8.0)
[2023-09-22 16:41] LABS: Troponin-I High Sensitivity < 2.7 ng/L (<3.5-35.0)
[2023-09-22 16:57] LABS: PLT ABN DIST 1
[2023-09-22 17:24] LABS: Band Neutrophils Percent 9 % (3-5); Eosinophils Absolute Manual 0.1 X10*3/uL (0.0-0.4); Eosinophils Percent Manual 1 % (0-4); Lymphocytes Absolute Manual 0.6 X10*3/uL (1.2-4.9); Lymphocytes Percent Manual 9 % (20-40); Metamyelocytes Absolute 0.4 X10*3/uL; Metamyelocytes Percent 7 %; Monocytes Absolute Manual 0.2 X10*3/uL (0.1-1.2); Monocytes Percent Manual 4 % (2-11); Myelocytes Absolute 1.5 X10*/uL; Myelocytes Percent 24 %; Neutrophils Absolute Manual 3.4 X10*3/uL (2.0-8.3); Neutrophils Percent Manual 46 % (45-73); RBC Morphology NOTED
[2023-09-22 17:30] LABS: Tear Drop Cells 1+ (0-2) /OIF
[2023-09-22 17:31] LABS: Ovalocytes 1+ (5-14) /OIF; Polychromasia 1+ (0-2) /OIF
[2023-09-22 17:33] LABS: Platelet Estimate DECREASED (NORMAL)
[2023-09-22 17:34] LABS: Platelet Morphology Comment NORMAL
[2023-09-22 17:35] LABS: Platelet Count 38 X10*3/uL (160-400)
== END 2023-09-22 21:04 | disposition left against medical advice (07) ==
PROVIDERS: Physician Assistant Medical; Emergency Provider Emergency Medicine; PCP Family Medicine
DX: R79.89 Other specified abnormal findings of blood chemistry (principal); E87.5 Hyperkalemia; R94.31 Abnormal electrocardiogram [ECG] [EKG]; Z79.899 Other long term (current) drug therapy
CPT/HCPCS: 36415; 80053; 83735; 84484; 85007; 85027; 93005; 99283

== ENCOUNTER 2024-05-14 10:39 | Outpatient (REF) | payer OTHER, SELFPAY ==
[2024-05-14 11:28] LABS: Hematocrit 26.8 % (42.0-52.0); Mean Corpuscular HGB Conc 33.6 g/dl (31.0-36.0); Mean Corpuscular Hemoglobin 34.2 pg (27.0-33.0); Mean Corpuscular Volume 101.9 fL (80.0-98.0); Mean Platelet Volume 10.8 fL (9.4-12.4); Platelet Count 40 X10*3/uL (160-400); Red Blood Count 2.63 X10*6/uL (4.60-5.80); Red Cell Distribution Width 23.8 % (11.0-16.0); White Blood Count 6.1 X10*3/uL (4.8-10.8)
[2024-05-14 12:03] LABS: Band Neutrophils Percent 6 % (3-5); Eosinophils Absolute Manual 0.4 X10*3/uL (0.0-0.4); Eosinophils Percent Manual 6 % (0-4); Lymphocytes Absolute Manual 0.8 X10*3/uL (1.2-4.9); Lymphocytes Percent Manual 13 % (20-40); Metamyelocytes Absolute 0.2 X10*3/uL; Metamyelocytes Percent 4 %; Monocytes Percent Manual 16 % (2-11); Neutrophils Absolute Manual 3.7 X10*3/uL (2.0-8.3); Neutrophils Percent Manual 55 % (45-73)
[2024-05-14 12:05] LABS: Hypochromasia 1+ (5-14) /OIF; Macrocytosis 1+ (5-14) /OIF; Ovalocytes 1+ (5-14) /OIF; Platelet Estimate DECREASED (NORMAL); Platelet Morphology Comment NORMAL; Polychromasia 1+ (0-2) /OIF; RBC Morphology NOTED; Tear Drop Cells 1+ (0-2) /OIF
== END 2024-05-14 10:40 | disposition home or self-care (01) ==
LOC: HO.HHCL 10:39
PROVIDERS: Visit Provider Nurse Practitioner
DX: D69.6 Thrombocytopenia, unspecified (principal)
CPT/HCPCS: 36415; 85007; 85027

== ENCOUNTER → 2024-07-19 15:17 | Outpatient (RCR) | payer OTHER, SELFPAY ==
[2020-11-14 13:05] LABS: MANUAL DIFF FLAG NO
--- NOTE | 2020-11-14 13:05 | P.PNHO_ITS ---
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 B symptoms of drenching night sweats and weight loss, imaging with the CT chest, abdomen, and pelvis on April 16, 2016, which demonstrated diffuse mediastinal and hilar adenopathy. Patient underwent core biopsy of right axillary node, which demonstrated grade 1 follicular lymphoma. Flow cytometry demonstrated involvement by CD10 positive B-cells lymphoma. Bone marrow biopsy April 26, 2016 confirmed involvement of the bone marrow by follicular lymphoma. PET scan demonstrated increased uptake in all the LN areas. Started first cycle chemotherapy with Rituxan bendamustine on 05/07/16. Received chemotherapy with Rituxan/ bendamustine from 05/07/16 to 07/31/16. PET scan 08/21/16, complete metabolic response. MRI abdomen performed 07/15/2019 showed right adrenal mass measuring 7.1 cm, inseparable from adjacent liver parenchyma raising concern for invasion. Right retrocrural lymphadenopathy and prominent gastrohepatic lymph nodes suspicious for metastatic involvement. FNA of right adrenal mass performed 08/06/2019 demonstrated follicular lymphoma, positive CD10, kappa light chain restricted B-cell lymphoma. KI 67 proliferation index is low. PET-CT performed 08/12/2019 showed abnormal FDG activity in right adrenal mass SUV 5.8 focus in the right retrocrural region SUV 5.1 corresponding to enlarged right retrocrural lymph node measuring 2 x 1 cm. No other uptake. He underwent radiation therapy 400 cGy in 2 fractions administered on 09/27/2019 and 09/28/19 at [facility]. Repeat PET scan performed at [facility] on 04/27/2020 shows new abnormal FDG activity in anterior mediastinal lymphadenopathy within prevascular space, SUV 6.1. Persistent activity within right suprarenal region with SUV 4.8, similar to prior study. New focal intense activity within left side of mesentry SUV 8.3 corresponding to mesenteric lymph node Family history of cancer. Prostate and breast cancer in his paternal side raising suspicion for inherited cancer syndrome. Genetic counseling was discussed with patient. Patient declined counseling/testing. Interval History Interval history: Patient is here in follow-up. He is doing quite well and has no new complaints today. He gets occasional aches and pains in his back area. He is not limited by this. Pain is very transient in fleeting. He denies any fever, chills, night sweats, loss of appetite, fatigue or unexplained weight los. No change in bowel habits. No swelling of any joints. No headache or dizziness. No palpable lumps in his neck, groin or axillary areas. Review of Systems - Constitutional Reports no additional constitutional complaints - Cardiovascular Reports no additional cardiovascular complaints - Respiratory Reports no additional respiratory complaints - Gastrointestinal Reports no additional gastrointestinal complaints - Musculoskeletal Reports no additional musculoskeletal complaints [facility] Medical History: Medical History (Last Updated 11/14/20 @ 13:16 by Sulma Coles RN) Abnormal urine cytology CAD (coronary artery disease) Diabetes GERD (gastroesophageal reflux disease) HTN (hypertension) Hyperlipemia Lymphoma Surgical History: Surgical History (Last Updated 11/14/20 @ 13:16 by Sulma Coles RN) History of heart artery stent Hx of cataract surgery Smoking status: Never smoker Alcohol intake: never Home Medications and Allergies Home Medications Medication Instructions Recorded Confirmed Type aspirin 81 mg PO DAILY 11/14/20 11/14/20 History atorvastatin 80 mg PO DAILY 11/14/20 11/14/20 History epinephrine mg 11/14/20 History hydrochlorothiazide 25 mg PO DAILY 11/14/20 11/14/20 History losartan 50 mg PO DAILY 11/14/20 11/14/20 History metformin 500 mg PO BID 11/14/20 11/14/20 History metoprolol succinate 100 mg PO DAILY 11/14/20 11/14/20 History oxycodone 5 mg PO Q8H PRN 11/14/20 11/14/20 History pantoprazole 40 mg PO DAILY 11/14/20 11/14/20 History Allergies Allergy/AdvReac Type Severity Reaction Status Date / Time amlodipine [AMLODIPINE] Allergy Unknown EDEMA-PER Verified 11/14/20 13:09 H&P Exam - Constitutional Present: no acute distress - Routine HEENT Exam Head: Present: normal inspection Eye: Present: EOMI - Routine Neck Exam Present: full ROM. Absent: lymphadenopathy - Routine Chest/Breast/Axilla Exam Chest wall: Absent: tenderness, mass Axillae: Absent: lymphadenopathy - Routine Respiratory Exam Present: CTAB - Routine Cardiovascular Exam Cardiovascular: Present: RRR, S1, S2 - Routine Abdominal Exam Present: soft. Absent: mass - Routine Exam Groin: Absent: inguinal lymphadenopathy - Routine Extremities Exam Absent: calf tenderness, joint swelling - Routine Skin Exam Present: intact. Absent: cyanosis, erythema Data - Labs CBC & Chem 7: 11/14/20 12:56 11/14/20 12:56 Progress Note: A/P (1) Follicular lymphoma Status: Chronic Assessment and plan: 1. This is a 60-year-old male with recurrent follicular lymphoma diagnosed in July 2019. Initial diagnosis of follicular lymphoma, low grade, but with extensive disease with multiple areas of lymph node involvement diagnosed initially in 2015. Received chemotherapy with Rituxan/ bendamustine from 05/07/16 to 07/31/16. PET scan 08/21/16, complete metabolic response. Recurrent follicular lymphoma diagnosed in August 2019. He underwent radiation therapy 400 cGy in 2 fractions administered on 09/27/2019 and 09/28/19 at [facility]. He did not have a response to this. He is being monitored for now since he remains asymptomatic and blood work and physical examination remains good. His last imaging was at [facility] in March 2020. Repeat imaging if necessary based on blood work today. Follow-up in 4 months. - Time Spent With Patient Total time spent is greater than 50% in coordination of care (as documented) at patient's floor/unit and/or counseling patient: 15 - 24 minutes
[2020-11-14 13:06] VITALS: BP 140/83; PULSE 82; RESP 16; TEMP 36.2; O2SAT 97; BMI 30.2
[2020-11-14 13:15] LABS: Basophils Percent Auto 0.6 % (0-2); Eosinophils Absolute Auto 0.1 X10*3/uL (0.0-0.4); Hematocrit 42.9 % (42-52); Imm Gran Abs Auto 0.02 X10*3/uL (0.00-0.03); Imm Gran Pct Auto 0.3 % (0.0-0.4); Lymphocytes Absolute Auto 1.5 X10*3/uL (1.2-4.9); Lymphocytes Percent Auto 21.7 % (20-40); Mean Corpuscular Hemoglobin 30.8 pg (27.0-33.0); Mean Corpuscular Volume 88.1 fL (80-98); Monocytes Absolute Auto 0.5 X10*3/uL (0.1-1.2); Monocytes Percent Auto 6.6 % (2-11); Neutrophils Absolute Auto 4.8 X10*3/uL (2.0-8.3); Neutrophils Percent Auto 68.8 % (45-73); Platelet Count 184 X10*3/uL (160-400); Red Blood Count 4.87 X10*6/uL (4.60-5.80); Red Cell Distribution Width 12.8 % (11.0-16.0)
--- NOTE | 2020-11-14 13:33 | MHC.HEMONC ---
Patient seen today for follow-up. Labs drawn. Clinical summary updated with nurse. Provider seen patient. Follow-up booked.
[2020-11-14 13:47] LABS: Alanine Aminotransferase 42 U/L (0-40); Albumin Level 4.4 g/dL (3.5-5.0); Alkaline Phosphatase 78 U/L (39-117); Anion Gap 13 (12-20); Aspartate Amino Transferase 23 U/L (5-37); Bilirubin Total 1.3 mg/dL (0.0-1.0); Blood Urea Nitrogen 16 mg/dL (9-16); Calcium 8.8 mg/dL (8.4-10.2); Carbon Dioxide 28 mmol/L (22-29); Chloride 103 mmol/L (96-108); Creatinine Clr Calc Pharmacy 65.7; Estimated Glomerular Filt Rate 59; Glucose Random 257 mg/dL (60-115); Lactate Dehydrogenase 182 U/L (118-273); Potassium 4.9 mmol/l (3.3-5.1); Sodium 139 mmol/L (135-145); Total Protein 7.1 g/dL (6.5-8.0)
[2021-02-28 09:31] VITALS: BMI 29.9
[2021-02-28 09:32] VITALS: BP 142/82; PULSE 77; RESP 18; TEMP 35.7; O2SAT 95
--- NOTE | 2021-02-28 09:36 | PM.HEMONCPN ---
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 B symptoms of drenching night sweats and weight loss, imaging with the CT chest, abdomen, and pelvis on April 16, 2016, which demonstrated diffuse mediastinal and hilar adenopathy. Patient underwent core biopsy of right axillary node, which demonstrated grade 1 follicular lymphoma. Flow cytometry demonstrated involvement by CD10 positive B-cells lymphoma. Bone marrow biopsy April 26, 2016 confirmed involvement of the bone marrow by follicular lymphoma. PET scan demonstrated increased uptake in all the LN areas. Started first cycle chemotherapy with Rituxan bendamustine on 05/07/16. Received chemotherapy with Rituxan/ bendamustine from 05/07/16 to 07/31/16. PET scan 08/21/16, complete metabolic response. MRI abdomen performed 07/15/2019 showed right adrenal mass measuring 7.1 cm, inseparable from adjacent liver parenchyma raising concern for invasion. Right retrocrural lymphadenopathy and prominent gastrohepatic lymph nodes suspicious for metastatic involvement. FNA of right adrenal mass performed 08/06/2019 demonstrated follicular lymphoma, positive CD10, kappa light chain restricted B-cell lymphoma. KI 67 proliferation index is low. PET-CT performed 08/12/2019 showed abnormal FDG activity in right adrenal mass SUV 5.8 focus in the right retrocrural region SUV 5.1 corresponding to enlarged right retrocrural lymph node measuring 2 x 1 cm. No other uptake. He underwent radiation therapy 400 cGy in 2 fractions administered on 09/27/2019 and 09/28/19 at [facility]. Repeat PET scan performed at [facility] on 04/27/2020 shows new abnormal FDG activity in anterior mediastinal lymphadenopathy within prevascular space, SUV 6.1. Persistent activity within right suprarenal region with SUV 4.8, similar to prior study. New focal intense activity within left side of mesentry SUV 8.3 corresponding to mesenteric lymph node Family history of cancer. Prostate and breast cancer in his paternal side raising suspicion for inherited cancer syndrome. Genetic counseling was discussed with patient. Patient declined counseling/testing. Interval History Interval history: Patient is here in follow-up. He is doing okay but is concerned as he continues to get right back pain on and off. He is not limited by this. Pain is very transient in fleeting. He denies any fever, chills, night sweats, loss of appetite, fatigue or unexplained weight los. No change in bowel habits. No swelling of any joints. No headache or dizziness. No palpable lumps in his neck, groin or axillary areas. Review of Systems - Constitutional Reports as per HPI, Reports no additional constitutional complaints - Cardiovascular Reports no additional cardiovascular complaints - Respiratory Reports no additional respiratory complaints - Gastrointestinal Reports no additional gastrointestinal complaints [facility] Medical History: Medical History (Last Updated 11/14/20 @ 13:16 by Sulma Coles RN) Abnormal urine cytology CAD (coronary artery disease) Diabetes GERD (gastroesophageal reflux disease) HTN (hypertension) Hyperlipemia Lymphoma Surgical History: Surgical History (Last Updated 11/14/20 @ 13:16 by Sulma Coles RN) History of heart artery stent Hx of cataract surgery Social History: Social History (Last Updated 02/28/21 @ 09:32 by Brianna Morgan) Alcohol History: Alcohol intake: former Alcohol History Details: Alcohol intake frequency: does not drink Tobacco History: Smoking Status: Never smoker Substance Use History: Use of substances other than those prescribed or required for medical reasons: No Smoking status: Never smoker Oncology Screenings - ECOG Performance Status ECOG Performance Status: 0 Home Medications and Allergies Home Medications Medication Instructions Recorded Confirmed Type aspirin 81 mg PO DAILY 11/14/20 11/14/20 History atorvastatin 80 mg PO DAILY 11/14/20 11/14/20 History epinephrine 0.1 mg IM DIRECTED 11/14/20 02/28/21 History hydrochlorothiazide 25 mg PO DAILY 11/14/20 11/14/20 History losartan 50 mg PO DAILY 11/14/20 11/14/20 History metformin 500 mg PO BID 11/14/20 11/14/20 History metoprolol succinate 100 mg PO DAILY 11/14/20 11/14/20 History oxycodone 5 mg PO Q8H PRN 11/14/20 11/14/20 History pantoprazole 40 mg PO DAILY 11/14/20 11/14/20 History Allergies Allergy/AdvReac Type Severity Reaction Status Date / Time amlodipine [AMLODIPINE] Allergy Unknown EDEMA-PER Verified 11/14/20 13:09 H&P Exam Vital signs: Vital Signs Temp 96.3 F L 02/28/21 09:32 Pulse 77 02/28/21 09:32 Resp 18 02/28/21 09:32 BP 142/82 H 02/28/21 09:32 Pulse Ox 95 02/28/21 09:32 Intake & Output 02/27/21 02/28/21 02/28/21 18:59 06:59 18:59 Other: Weight 84.1 kg [place] Weight in Grams 91341 Weight 84.1 kg Body Mass Index 29.9 - Constitutional Present: no acute distress - Routine HEENT Exam Head: Present: normal inspection - Routine Neck Exam Present: full ROM. Absent: lymphadenopathy - Routine Chest/Breast/Axilla Exam Chest wall: Absent: tenderness, mass - Routine Respiratory Exam Present: CTAB - Routine Cardiovascular Exam Cardiovascular: Present: RRR, S1, S2 - Routine Abdominal Exam Present: soft. Absent: mass - Routine Extremities Exam Absent: calf tenderness, joint swelling - Routine Skin Exam Present: intact. Absent: cyanosis, erythema Data - Labs CBC & Chem 7: 02/28/21 09:44 11/14/20 12:56 Labs: 11/14/20 12:56 Complete Blood Count Auto Diff Routine Comprehensive Met. Panel Routine LDH [Lactate Dehydrogenase] Routine Laboratory Last Values WBC 7.0 X10*3/uL (4.8-10.8) 11/14/20 12:56 RBC 4.87 X10*6/uL (4.60-5.80) 11/14/20 12:56 Hgb 15.0 g/dl (14.0-18.0) 11/14/20 12:56 Hct 42.9 % (42-52) 11/14/20 12:56 MCV 88.1 fL (80-98) 11/14/20 12:56 MCH 30.8 pg (27.0-33.0) 11/14/20 12:56 MCHC 35.0 g/dl (31.0-36.0) 11/14/20 12:56 RDW 12.8 % (11.0-16.0) 11/14/20 12:56 Plt Count 184 X10*3/uL (160-400) 11/14/20 12:56 MPV 9.0 fL (9.4-12.4) L 11/14/20 12:56 Immature Gran % (Auto) 0.3 % (0.0-0.4) 11/14/20 12:56 Neut % (Auto) 68.8 % (45-73) 11/14/20 12:56 Lymph % (Auto) 21.7 % (20-40) 11/14/20 12:56 [place] % (Auto) 6.6 % (2-11) 11/14/20 12:56 Eos % (Auto) 2.0 % (0-4) 11/14/20 12:56 Baso % (Auto) 0.6 % (0-2) 11/14/20 12:56 Lymph # (Auto) 1.5 X10*3/uL (1.2-4.9) 11/14/20 12:56 [place] # (Auto) 0.5 X10*3/uL (0.1-1.2) 11/14/20 12:56 Eos # (Auto) 0.1 X10*3/uL (0.0-0.4) 11/14/20 12:56 Baso # (Auto) 0.0 X10*3/uL (0.0-0.2) 11/14/20 12:56 Abs Immat Gran (auto) 0.02 X10*3/uL (0.00-0.03) 11/14/20 12:56 Absolute Neuts (auto) 4.8 X10*3/uL (2.0-8.3) 11/14/20 12:56 Absolute Nucleated RBC 0.000 X10*3/uL (0.0-0.012) 11/14/20 12:56 Nucleated RBC % (auto) 0.0 /100WBC (0.0-0.2) 11/14/20 12:56 Sodium 139 mmol/L (135-145) 11/14/20 12:56 Potassium 4.9 mmol/l (3.3-5.1) 11/14/20 12:56 Chloride 103 mmol/L (96-108) 11/14/20 12:56 Carbon Dioxide 28 mmol/L (22-29) 11/14/20 12:56 Anion Gap 13 (12-20) 11/14/20 12:56 BUN 16 mg/dL (9-16) 11/14/20 12:56 Creatinine 1.25 mg/dL (0.5-1.4) 11/14/20 12:56 Estim Creat Clear Calc 65.7 11/14/20 12:56 Estimated GFR 59 11/14/20 12:56 Random Glucose 257 mg/dL (60-115) H 11/14/20 12:56 Calcium 8.8 mg/dL (8.4-10.2) 11/14/20 12:56 Total Bilirubin 1.3 mg/dL (0.0-1.0) H 11/14/20 12:56 AST 23 U/L (5-37) 11/14/20 12:56 ALT 42 U/L (0-40) H 11/14/20 12:56 Alkaline Phosphatase 78 U/L (39-117) 11/14/20 12:56 Lactate Dehydrogenase 182 U/L (118-273) 11/14/20 12:56 Total Protein 7.1 g/dL (6.5-8.0) 11/14/20 12:56 Albumin 4.4 g/dL (3.5-5.0) 11/14/20 12:56 Progress Note: A/P (1) Follicular lymphoma Status: Chronic Assessment and plan: 1. This is a 61-year-old male with recurrent follicular lymphoma diagnosed in July 2019. Initial diagnosis of follicular lymphoma, low grade, but with extensive disease with multiple areas of lymph node involvement diagnosed initially in 2015. Received chemotherapy with Rituxan/ bendamustine from 05/07/16 to 07/31/16. PET scan 08/21/16, complete metabolic response. Recurrent follicular lymphoma diagnosed in August 2019. He underwent radiation therapy 400 cGy in 2 fractions administered on 09/27/2019 and 09/28/19 at [facility]. He did not have a response to this. His last imaging was at [facility] in March 2020 showed persistent disease in abdomen and chest. He appears to be bothered by intermittent right flank pain. I have ordered a PET scan for next month since he is having symptoms and he did not have response to treatment last year. Results of PET-CT will be discussed over the telephone. - Time Spent With Patient Total time spent is greater than 50% in coordination of care (as documented) at patient's floor/unit and/or counseling patient: 15 - 24 minutes
[2021-02-28 09:45] LABS: MANUAL DIFF FLAG NO
[2021-02-28 09:50] LABS: Basophils Percent Auto 0.5 % (0-2); Eosinophils Absolute Auto 0.1 X10*3/uL (0.0-0.4); Eosinophils Percent Auto 1.9 % (0-4); Hematocrit 43.8 % (42-52); Hemoglobin 15.2 g/dl (14.0-18.0); Imm Gran Abs Auto 0.02 X10*3/uL (0.00-0.03); Imm Gran Pct Auto 0.3 % (0.0-0.4); Lymphocytes Absolute Auto 1.3 X10*3/uL (1.2-4.9); Lymphocytes Percent Auto 21.9 % (20-40); Mean Corpuscular HGB Conc 34.7 g/dl (31.0-36.0); Mean Corpuscular Hemoglobin 30.1 pg (27.0-33.0); Mean Corpuscular Volume 86.7 fL (80-98); Mean Platelet Volume 9.1 fL (9.4-12.4); Monocytes Absolute Auto 0.5 X10*3/uL (0.1-1.2); Monocytes Percent Auto 8.5 % (2-11); Neutrophils Absolute Auto 3.9 X10*3/uL (2.0-8.3); Neutrophils Percent Auto 66.9 % (45-73); Platelet Count 164 X10*3/uL (160-400); Red Blood Count 5.05 X10*6/uL (4.60-5.80); Red Cell Distribution Width 12.4 % (11.0-16.0); White Blood Count 5.9 X10*3/uL (4.8-10.8)
[2021-02-28 10:22] LABS: Alanine Aminotransferase 42 U/L (0-40); Albumin Level 4.3 g/dL (3.5-5.0); Alkaline Phosphatase 75 U/L (39-117); Anion Gap 17 (12-20); Aspartate Amino Transferase 23 U/L (5-37); Bilirubin Total 1.3 mg/dL (0.0-1.0); Blood Urea Nitrogen 11 mg/dL (9-16); Calcium 8.8 mg/dL (8.4-10.2); Carbon Dioxide 28 mmol/L (22-29); Chloride 98 mmol/L (96-108); Creatinine Clr Calc Pharmacy 67.4; Estimated Glomerular Filt Rate > 60; Glucose Random 309 mg/dL (60-115); Lactate Dehydrogenase 143 U/L (118-273); Potassium 4.8 mmol/L (3.3-5.1); Sodium 138 mmol/L (135-145); Total Protein 6.7 g/dL (6.5-8.0)
--- NOTE | 2021-02-28 10:32 | MHC.HEMONCMA ---
Patient came in for a follow up today, states he is feeling good, he is eating, drinking and sleeping well. Clinical summary was reviewed and updated. Patient had labs but left before he could make a 6 month follow up. I will make him one and mail him the date. Dr Dumont also ordered a PET scan for the patient, order given to Tawny so she can get PA and then i will schedule it once the PA is obtained.
--- NOTE | 2021-02-28 11:14 | HO.HEMONCPA ---
Submitted PA request for PET Scan as an urgent request, awaiting decision.
--- NOTE | 2021-03-01 10:22 | HO.HEMONCPA ---
PA request for PET Scan was APPROVED, Auth#[id number]. Letting SLICK Reed know so scan can be scheduled. Scanned Auth to pt's chart.
--- NOTE | 2021-03-02 10:31 | MHC.HEMONCMA ---
TERRANCE for the PET scan obtained by Tawny, PET scan form filled out and faxed to [facility] along with the last office note from Dr Dumont and recent imaging. Will wait for them to let me know the time and date of scan.
--- NOTE | 2021-03-16 14:59 | MHC.HEMONCMA ---
Still have no heard from [facility] for the PET scan, so I asked Tawny to switch the authorization to a different facility like [facility] or [facility]. She will switch it on Friday.
--- NOTE | 2021-03-20 11:19 | HO.HEMONCPA ---
Unable to change facility for PET Scan as pt is at [facility] now getting PET scan done per Dior at [facility]. Let Brianna know
--- NOTE | 2021-04-06 10:45 | PM.HEMONCPN ---
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 B symptoms of drenching night sweats and weight loss, imaging with the CT chest, abdomen, and pelvis on April 16, 2016, which demonstrated diffuse mediastinal and hilar adenopathy. Patient underwent core biopsy of right axillary node, which demonstrated grade 1 follicular lymphoma. Flow cytometry demonstrated involvement by CD10 positive B-cells lymphoma. Bone marrow biopsy April 26, 2016 confirmed involvement of the bone marrow by follicular lymphoma. PET scan demonstrated increased uptake in all the LN areas. Started first cycle chemotherapy with Rituxan bendamustine on 05/07/16. Received chemotherapy with Rituxan/ bendamustine from 05/07/16 to 07/31/16. PET scan 08/21/16, complete metabolic response. MRI abdomen performed 07/15/2019 showed right adrenal mass measuring 7.1 cm, inseparable from adjacent liver parenchyma raising concern for invasion. Right retrocrural lymphadenopathy and prominent gastrohepatic lymph nodes suspicious for metastatic involvement. FNA of right adrenal mass performed 08/06/2019 demonstrated follicular lymphoma, positive CD10, kappa light chain restricted B-cell lymphoma. KI 67 proliferation index is low. PET-CT performed 08/12/2019 showed abnormal FDG activity in right adrenal mass SUV 5.8 focus in the right retrocrural region SUV 5.1 corresponding to enlarged right retrocrural lymph node measuring 2 x 1 cm. No other uptake. He underwent radiation therapy 400 cGy in 2 fractions administered on 09/27/2019 and 09/28/19 at [facility]. Repeat PET scan performed at [facility] on 04/27/2020 shows new abnormal FDG activity in anterior mediastinal lymphadenopathy within prevascular space, SUV 6.1. Persistent activity within right suprarenal region with SUV 4.8, similar to prior study. New focal intense activity within left side of mesentry SUV 8.3 corresponding to mesenteric lymph node Family history of cancer. Prostate and breast cancer in his paternal side raising suspicion for inherited cancer syndrome. Genetic counseling was discussed with patient. Patient declined counseling/testing. Interval History Interval history: Patient is here to discuss results of recent PET scan and further management. He continues to have mild discomfort in his right upper back posteriorly. He denies any fever, chills, night sweats or unexplained weight loss. He is planning to go to [place] for a couple of weeks this month. Review of Systems - Constitutional Reports as per HPI, Reports no additional constitutional complaints - Cardiovascular Reports no additional cardiovascular complaints - Respiratory Reports no additional respiratory complaints - Gastrointestinal Reports no additional gastrointestinal complaints [facility] Medical History: Medical History (Last Updated 11/14/20 @ 13:16 by Sulma Coles RN) Abnormal urine cytology CAD (coronary artery disease) Diabetes GERD (gastroesophageal reflux disease) HTN (hypertension) Hyperlipemia Lymphoma Surgical History: Surgical History (Last Updated 11/14/20 @ 13:16 by Sulma Coles RN) History of heart artery stent Hx of cataract surgery Social History: Social History (Last Updated 02/28/21 @ 09:32 by Brianna Morgan) Alcohol History: Alcohol intake: former Alcohol History Details: Alcohol intake frequency: does not drink Tobacco History: Smoking Status: Never smoker Substance Use History: Use of substances other than those prescribed or required for medical reasons: No Smoking status: Never smoker Oncology Screenings - ECOG Performance Status ECOG Performance Status: 0 Home Medications and Allergies Home Medications Medication Instructions Recorded Confirmed Type aspirin 81 mg PO DAILY 11/14/20 11/14/20 History atorvastatin 80 mg PO DAILY 11/14/20 11/14/20 History epinephrine 0.1 mg IM DIRECTED 11/14/20 02/28/21 History hydrochlorothiazide 25 mg PO DAILY 11/14/20 11/14/20 History losartan 50 mg PO DAILY 11/14/20 11/14/20 History metformin 500 mg PO BID 11/14/20 11/14/20 History metoprolol succinate 100 mg PO DAILY 11/14/20 11/14/20 History oxycodone 5 mg PO Q8H PRN 11/14/20 11/14/20 History pantoprazole 40 mg PO DAILY 11/14/20 11/14/20 History Allergies Allergy/AdvReac Type Severity Reaction Status Date / Time amlodipine [AMLODIPINE] Allergy Unknown EDEMA-PER Verified 11/14/20 13:09 H&P Exam Vital signs: Vital Signs Temp 96.3 F L 02/28/21 09:32 Pulse 77 02/28/21 09:32 Resp 18 02/28/21 09:32 BP 142/82 H 02/28/21 09:32 Pulse Ox 95 02/28/21 09:32 Weight 84.1 kg Body Mass Index 29.9 - Constitutional Present: no acute distress - Routine HEENT Exam Head: Present: normal inspection - Routine Neck Exam Present: full ROM. Absent: lymphadenopathy - Routine Chest/Breast/Axilla Exam Chest wall: Absent: tenderness, mass - Routine Respiratory Exam Present: CTAB - Routine Cardiovascular Exam Cardiovascular: Present: RRR, S1, S2 - Routine Abdominal Exam Present: soft. Absent: mass - Routine Extremities Exam Absent: calf tenderness, joint swelling - Routine Skin Exam Present: intact. Absent: cyanosis, erythema Data - Labs CBC & Chem 7: 02/28/21 09:44 02/28/21 09:44 Labs: 11/14/20 12:56 Complete Blood Count Auto Diff Routine Comprehensive Met. Panel Routine LDH [Lactate Dehydrogenase] Routine Laboratory Last Values WBC 7.0 X10*3/uL (4.8-10.8) 11/14/20 12:56 RBC 4.87 X10*6/uL (4.60-5.80) 11/14/20 12:56 Hgb 15.0 g/dl (14.0-18.0) 11/14/20 12:56 Hct 42.9 % (42-52) 11/14/20 12:56 MCV 88.1 fL (80-98) 11/14/20 12:56 MCH 30.8 pg (27.0-33.0) 11/14/20 12:56 MCHC 35.0 g/dl (31.0-36.0) 11/14/20 12:56 RDW 12.8 % (11.0-16.0) 11/14/20 12:56 Plt Count 184 X10*3/uL (160-400) 11/14/20 12:56 MPV 9.0 fL (9.4-12.4) L 11/14/20 12:56 Immature Gran % (Auto) 0.3 % (0.0-0.4) 11/14/20 12:56 Neut % (Auto) 68.8 % (45-73) 11/14/20 12:56 Lymph % (Auto) 21.7 % (20-40) 11/14/20 12:56 [place] % (Auto) 6.6 % (2-11) 11/14/20 12:56 Eos % (Auto) 2.0 % (0-4) 11/14/20 12:56 Baso % (Auto) 0.6 % (0-2) 11/14/20 12:56 Lymph # (Auto) 1.5 X10*3/uL (1.2-4.9) 11/14/20 12:56 [place] # (Auto) 0.5 X10*3/uL (0.1-1.2) 11/14/20 12:56 Eos # (Auto) 0.1 X10*3/uL (0.0-0.4) 11/14/20 12:56 Baso # (Auto) 0.0 X10*3/uL (0.0-0.2) 11/14/20 12:56 Abs Immat Gran (auto) 0.02 X10*3/uL (0.00-0.03) 11/14/20 12:56 Absolute Neuts (auto) 4.8 X10*3/uL (2.0-8.3) 11/14/20 12:56 Absolute Nucleated RBC 0.000 X10*3/uL (0.0-0.012) 11/14/20 12:56 Nucleated RBC % (auto) 0.0 /100WBC (0.0-0.2) 11/14/20 12:56 Sodium 139 mmol/L (135-145) 11/14/20 12:56 Potassium 4.9 mmol/l (3.3-5.1) 11/14/20 12:56 Chloride 103 mmol/L (96-108) 11/14/20 12:56 Carbon Dioxide 28 mmol/L (22-29) 11/14/20 12:56 Anion Gap 13 (12-20) 11/14/20 12:56 BUN 16 mg/dL (9-16) 11/14/20 12:56 Creatinine 1.25 mg/dL (0.5-1.4) 11/14/20 12:56 Estim Creat Clear Calc 65.7 11/14/20 12:56 Estimated GFR 59 11/14/20 12:56 Random Glucose 257 mg/dL (60-115) H 11/14/20 12:56 Calcium 8.8 mg/dL (8.4-10.2) 11/14/20 12:56 Total Bilirubin 1.3 mg/dL (0.0-1.0) H 11/14/20 12:56 AST 23 U/L (5-37) 11/14/20 12:56 ALT 42 U/L (0-40) H 11/14/20 12:56 Alkaline Phosphatase 78 U/L (39-117) 11/14/20 12:56 Lactate Dehydrogenase 182 U/L (118-273) 11/14/20 12:56 Total Protein 7.1 g/dL (6.5-8.0) 11/14/20 12:56 Albumin 4.4 g/dL (3.5-5.0) 11/14/20 12:56 Progress Note: A/P (1) Follicular lymphoma Status: Chronic Assessment and plan: 1. This is a 61-year-old male with recurrent follicular lymphoma diagnosed in July 2019. Initial diagnosis of follicular lymphoma, low grade, but with extensive disease with multiple areas of lymph node involvement diagnosed initially in 2015. Received chemotherapy with Rituxan/ bendamustine from 05/07/16 to 07/31/16. PET scan 08/21/16, complete metabolic response. Recurrent follicular lymphoma diagnosed in August 2019. He underwent radiation therapy 400 cGy in 2 fractions administered on 09/27/2019 and 09/28/19 at [facility]. He did not have a response to this. His last imaging was at [facility] in March 2021 shows further progression of disease, he has mediastinal adenopathy as well as abdominal adenopathy, increasing size and FDG avidity of right adrenal lesion. I discussed treatment with chemo immunotherapy for relapsed disease. He had a good response after initial therapy, he relapsed in 2019 after 3 years of remission. I discussed treating him with CVP plus rituximab or obinutuzumab. Adriamycin will be omitted because of his history of heart disease. Echocardiogram will be ordered, he did not have this in several years. Follow-up in 1 month. - Time Spent With Patient Total time spent is greater than 50% in coordination of care (as documented) at patient's floor/unit and/or counseling patient: 25 - 35 minutes
[2021-04-06 10:51] VITALS: BP 143/82; PULSE 78; RESP 12; TEMP 36.2; O2SAT 97
--- NOTE | 2021-04-06 13:39 | MHC.HEMONCMA ---
Patient came in for a follow up today, states he is doing well. Jason was in the visit for interpretation. Clinical summary was reviewed and updated. Patient had labs and will return in 6 months.
[2021-05-01 08:24] VITALS: BP 144/86; PULSE 77; RESP 12; TEMP 36.3; O2SAT 97; BMI 29.5
--- NOTE | 2021-05-01 08:24 | PM.HEMONCPN ---
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 B symptoms of drenching night sweats and weight loss, imaging with the CT chest, abdomen, and pelvis on April 16, 2016, which demonstrated diffuse mediastinal and hilar adenopathy. Patient underwent core biopsy of right axillary node, which demonstrated grade 1 follicular lymphoma. Flow cytometry demonstrated involvement by CD10 positive B-cells lymphoma. Bone marrow biopsy April 26, 2016 confirmed involvement of the bone marrow by follicular lymphoma. PET scan demonstrated increased uptake in all the LN areas. Started first cycle chemotherapy with Rituxan bendamustine on 05/07/16. Received chemotherapy with Rituxan/ bendamustine from 05/07/16 to 07/31/16. PET scan 08/21/16, complete metabolic response. MRI abdomen performed 07/15/2019 showed right adrenal mass measuring 7.1 cm, inseparable from adjacent liver parenchyma raising concern for invasion. Right retrocrural lymphadenopathy and prominent gastrohepatic lymph nodes suspicious for metastatic involvement. FNA of right adrenal mass performed 08/06/2019 demonstrated follicular lymphoma, positive CD10, kappa light chain restricted B-cell lymphoma. KI 67 proliferation index is low. PET-CT performed 08/12/2019 showed abnormal FDG activity in right adrenal mass SUV 5.8 focus in the right retrocrural region SUV 5.1 corresponding to enlarged right retrocrural lymph node measuring 2 x 1 cm. No other uptake. He underwent radiation therapy 400 cGy in 2 fractions administered on 09/27/2019 and 09/28/19 at [facility]. Repeat PET scan performed at [facility] on 04/27/2020 shows new abnormal FDG activity in anterior mediastinal lymphadenopathy within prevascular space, SUV 6.1. Persistent activity within right suprarenal region with SUV 4.8, similar to prior study. New focal intense activity within left side of mesentry SUV 8.3 corresponding to mesenteric lymph node Family history of cancer. Prostate and breast cancer in his paternal side raising suspicion for inherited cancer syndrome. Genetic counseling was discussed with patient. Patient declined counseling/testing. Interval History Interval history: Patient is here in follow-up. He is doing quite well and is ready to start treatment. He took some time off and went to [place] for about a month. He reports some left-sided low back pain, it is more noticeable when he goes from sitting to standing position. There is no swelling. He denies any fever or chills. No loss of appetite or weight loss. Review of Systems - Constitutional Reports as per HPI, Reports no additional constitutional complaints - Cardiovascular Reports no additional cardiovascular complaints - Respiratory Reports no additional respiratory complaints [facility] Medical History: Medical History (Last Reviewed 05/01/21 @ 08:25 by Nicole Tate) Abnormal urine cytology CAD (coronary artery disease) Diabetes GERD (gastroesophageal reflux disease) HTN (hypertension) Hyperlipemia Lymphoma Family History: Family History (Last Updated 05/01/21 @ 08:31 by Nicole Tate) Father Pancreas cancer Hypertension Sister Breast cancer Surgical History: Surgical History (Last Reviewed 05/01/21 @ 08:25 by Nicole Tate) History of heart artery stent Hx of cataract surgery Social History: Social History (Last Updated 05/01/21 @ 08:30 by Nicole Tate) Alcohol History: Alcohol intake: former Alcohol History Details: Alcohol intake frequency: holiday/special occasion Tobacco History: Patient Tobacco Use Status: Never used Tobacco Oncology Screenings - ECOG Performance Status ECOG Performance Status: 0 Home Medications and Allergies Home Medications Medication Instructions Recorded Confirmed Type aspirin 81 mg PO DAILY 11/14/20 11/14/20 History atorvastatin 80 mg PO DAILY 11/14/20 11/14/20 History epinephrine 0.1 mg IM DIRECTED 11/14/20 02/28/21 History hydrochlorothiazide 25 mg PO DAILY 11/14/20 11/14/20 History losartan 50 mg PO DAILY 11/14/20 11/14/20 History metformin 500 mg PO BID 11/14/20 11/14/20 History metoprolol succinate 100 mg PO DAILY 11/14/20 11/14/20 History oxycodone 5 mg PO Q8H PRN 11/14/20 11/14/20 History pantoprazole 40 mg PO DAILY 11/14/20 11/14/20 History Allergies Allergy/AdvReac Type Severity Reaction Status Date / Time amlodipine [AMLODIPINE] Allergy Unknown EDEMA-PER Verified 11/14/20 13:09 H&P Exam Vital signs: Vital Signs Temp 97.2 F 04/06/21 10:51 Pulse 78 04/06/21 10:51 Resp 12 04/06/21 10:51 BP 143/82 H 04/06/21 10:51 Pulse Ox 97 04/06/21 10:51 Weight 84.5 kg Body Mass Index 30.0 - Constitutional Present: no acute distress - Routine HEENT Exam Head: Present: normal inspection - Routine Neck Exam Present: full ROM. Absent: lymphadenopathy - Routine Chest/Breast/Axilla Exam Chest wall: Absent: tenderness, mass - Routine Respiratory Exam Present: CTAB - Routine Cardiovascular Exam Cardiovascular: Present: RRR, S1, S2 - Routine Abdominal Exam Present: soft. Absent: mass - Routine Extremities Exam Absent: calf tenderness, joint swelling - Routine Skin Exam Present: intact. Absent: cyanosis, erythema Data - Labs CBC & Chem 7: 02/28/21 09:44 02/28/21 09:44 Labs: 11/14/20 12:56 Complete Blood Count Auto Diff Routine Comprehensive Met. Panel Routine LDH [Lactate Dehydrogenase] Routine Laboratory Last Values WBC 7.0 X10*3/uL (4.8-10.8) 11/14/20 12:56 RBC 4.87 X10*6/uL (4.60-5.80) 11/14/20 12:56 Hgb 15.0 g/dl (14.0-18.0) 11/14/20 12:56 Hct 42.9 % (42-52) 11/14/20 12:56 MCV 88.1 fL (80-98) 11/14/20 12:56 MCH 30.8 pg (27.0-33.0) 11/14/20 12:56 MCHC 35.0 g/dl (31.0-36.0) 11/14/20 12:56 RDW 12.8 % (11.0-16.0) 11/14/20 12:56 Plt Count 184 X10*3/uL (160-400) 11/14/20 12:56 MPV 9.0 fL (9.4-12.4) L 11/14/20 12:56 Immature Gran % (Auto) 0.3 % (0.0-0.4) 11/14/20 12:56 Neut % (Auto) 68.8 % (45-73) 11/14/20 12:56 Lymph % (Auto) 21.7 % (20-40) 11/14/20 12:56 [place] % (Auto) 6.6 % (2-11) 11/14/20 12:56 Eos % (Auto) 2.0 % (0-4) 11/14/20 12:56 Baso % (Auto) 0.6 % (0-2) 11/14/20 12:56 Lymph # (Auto) 1.5 X10*3/uL (1.2-4.9) 11/14/20 12:56 [place] # (Auto) 0.5 X10*3/uL (0.1-1.2) 11/14/20 12:56 Eos # (Auto) 0.1 X10*3/uL (0.0-0.4) 11/14/20 12:56 Baso # (Auto) 0.0 X10*3/uL (0.0-0.2) 11/14/20 12:56 Abs Immat Gran (auto) 0.02 X10*3/uL (0.00-0.03) 11/14/20 12:56 Absolute Neuts (auto) 4.8 X10*3/uL (2.0-8.3) 11/14/20 12:56 Absolute Nucleated RBC 0.000 X10*3/uL (0.0-0.012) 11/14/20 12:56 Nucleated RBC % (auto) 0.0 /100WBC (0.0-0.2) 11/14/20 12:56 Sodium 139 mmol/L (135-145) 11/14/20 12:56 Potassium 4.9 mmol/l (3.3-5.1) 11/14/20 12:56 Chloride 103 mmol/L (96-108) 11/14/20 12:56 Carbon Dioxide 28 mmol/L (22-29) 11/14/20 12:56 Anion Gap 13 (12-20) 11/14/20 12:56 BUN 16 mg/dL (9-16) 11/14/20 12:56 Creatinine 1.25 mg/dL (0.5-1.4) 11/14/20 12:56 Estim Creat Clear Calc 65.7 11/14/20 12:56 Estimated GFR 59 11/14/20 12:56 Random Glucose 257 mg/dL (60-115) H 11/14/20 12:56 Calcium 8.8 mg/dL (8.4-10.2) 11/14/20 12:56 Total Bilirubin 1.3 mg/dL (0.0-1.0) H 11/14/20 12:56 AST 23 U/L (5-37) 11/14/20 12:56 ALT 42 U/L (0-40) H 11/14/20 12:56 Alkaline Phosphatase 78 U/L (39-117) 11/14/20 12:56 Lactate Dehydrogenase 182 U/L (118-273) 11/14/20 12:56 Total Protein 7.1 g/dL (6.5-8.0) 11/14/20 12:56 Albumin 4.4 g/dL (3.5-5.0) 11/14/20 12:56 Progress Note: A/P (1) Follicular lymphoma Status: Chronic Assessment and plan: 1. This is a 61-year-old male with recurrent follicular lymphoma diagnosed in July 2019. Initial diagnosis of follicular lymphoma, low grade, but with extensive disease with multiple areas of lymph node involvement diagnosed initially in 2015. Received chemotherapy with Rituxan/ bendamustine from 05/07/16 to 07/31/16. PET scan 08/21/16, complete metabolic response. Recurrent follicular lymphoma diagnosed in August 2019. He underwent radiation therapy 400 cGy in 2 fractions administered on 09/27/2019 and 09/28/19 at [facility]. He did not have a response to this. His last imaging was at [facility] in March 2021 shows further progression of disease, he has mediastinal adenopathy as well as abdominal adenopathy, increasing size and FDG avidity of right adrenal lesion. I discussed treatment with chemo immunotherapy for relapsed disease. He had a good response after initial therapy, he relapsed in 2019 after 3 years of remission. I discussed treating him with CVP plus obinutuzumab. Adriamycin will be omitted because of his history of heart disease. I briefly discussed with him side effects such as cytopenias, risk of infection and GI eyes side effects. Echocardiogram has been ordered. For now he does not want MediPort placement. Chemotherapy teach appointment to be scheduled this week. Follow-up in 1 week. - Time Spent With Patient Total time spent is greater than 50% in coordination of care (as documented) at patient's floor/unit and/or counseling patient: 15 - 24 minutes
--- NOTE | 2021-05-01 09:19 | MHC.HEMONCMA ---
Pt presents to f/u on lymphoma. History reviewed and no labs were drawn today.
--- NOTE | 2021-05-01 16:20 | MHC.HEMONCMA ---
Called patient to notify of appointment for teaching appointment on 05/08/21 @ @2pm.
--- NOTE | 2021-05-03 12:28 | HO.HEMONCPA ---
NO PA REQUIRED FOR CYCLOPHOSPHAMIDE ([id number]). DOCUMENT SCANNED IN CHART
--- NOTE | 2021-05-08 13:12 | HO.HEMONCPA ---
NO PA REQUIRED FOR EMEND,OBINITUZUMAB,&VINCRISTINE. DRUGS COVERED UNDER MEMBER'S BENEFIT PLAN. DOCUMENT SCANNED IN CHART
--- NOTE | 2021-05-08 15:04 | MHC.HEMONC ---
pt here for pre-chemo teach with Obinituzumab, Vincristine, Cytoxan and Prednisone. We were assisted by Mimi from [facility] [employer]. His dtr was also present. He had different chemo before so some of this was a review for him. We reviewed side effects of bone marrow suppresion, allergic reactions, nausea, peripheral neuropathy as well as side effects of prednisone. Chemo c1d1 on Friday and labs to be done this Friday.
[2021-05-11 14:41] LABS: MANUAL DIFF FLAG NO
[2021-05-11 14:48] LABS: Basophils Percent Auto 0.6 % (0-2); Eosinophils Absolute Auto 0.1 X10*3/uL (0.0-0.4); Eosinophils Percent Auto 1.5 % (0-4); Hematocrit 42.8 % (42-52); Imm Gran Abs Auto 0.01 X10*3/uL (0.00-0.03); Imm Gran Pct Auto 0.1 % (0.0-0.4); Lymphocytes Absolute Auto 1.3 X10*3/uL (1.2-4.9); Lymphocytes Percent Auto 19.4 % (20-40); Mean Corpuscular Hemoglobin 30.9 pg (27.0-33.0); Mean Corpuscular Volume 88.1 fL (80-98); Mean Platelet Volume 8.9 fL (9.4-12.4); Monocytes Absolute Auto 0.5 X10*3/uL (0.1-1.2); Monocytes Percent Auto 7.6 % (2-11); Neutrophils Absolute Auto 4.7 X10*3/uL (2.0-8.3); Neutrophils Percent Auto 70.8 % (45-73); Platelet Count 222 X10*3/uL (160-400); Red Blood Count 4.86 X10*6/uL (4.60-5.80); Red Cell Distribution Width 13.2 % (11.0-16.0); White Blood Count 6.7 X10*3/uL (4.8-10.8)
[2021-05-11 15:24] LABS: Alanine Aminotransferase 29 U/L (0-40); Albumin Level 4.4 g/dL (3.5-5.0); Alkaline Phosphatase 80 U/L (39-117); Anion Gap 13 (12-20); Aspartate Amino Transferase 22 U/L (5-37); Bilirubin Total 1.1 mg/dL (0.0-1.0); Blood Urea Nitrogen 13 mg/dL (9-16); Calcium 9.3 mg/dL (8.4-10.2); Carbon Dioxide 28 mmol/L (22-29); Chloride 106 mmol/L (96-108); Creatinine Clr Calc Pharmacy 68.7; Estimated Glomerular Filt Rate > 60; Glucose Random 107 mg/dL (60-115); Potassium 4.2 mmol/L (3.3-5.1); Sodium 143 mmol/L (135-145)
[2021-05-14 03:41] LABS: HBc Num1 0.21 S/CO (0.00-0.79); HBsAGNum1 0.19 S/CO (0.00-0.99); Hepatitis B Core Antibody Nonreactive (Nonreactive); Hepatitis B Surface Antigen Negative (Negative); ~HepC Num1 0.05 S/CO (0.00-0.79); ~Hepatitis C Antibody Nonreactive (Nonreactive)
[2021-05-14 03:52] LABS: HBS Num1 0.65 mIU/mL (0-7.99); ~Hepatitis B Surface Antibody NONREACTIVE (Nonreactive)
[2021-05-14 08:11] VITALS: BP 139/86; PULSE 77; RESP 18; TEMP 36.6; O2SAT 97; BMI 28.9
[2021-05-14] MEDS: Acetaminophen 325 MG TABLET 650 MG PO ×2 (08:24→14:33)
[2021-05-14] MEDS: diphenhydrAMINE HCL 25 MG TABLET 50 MG PO (08:24)
[2021-05-14] MEDS: Famotidine/PF 20 MG/2 ML VIAL IVPUSH (08:25)
[2021-05-14] MEDS: ondansetron HCL/NS 16 MG/50 ML PIGGYBACK 200 MG IV (08:25)
[2021-05-14] MEDS: 0.9 % Sodium Chloride 1,000 ML 500 ML IV (08:26)
[2021-05-14] MEDS: Fosaprepitant Dimeglumine 150 MG in 0.9 % Sodium Chloride 145 ML 300 MG IV (09:22)
[2021-05-14 10:14] VITALS: BP 127/73; PULSE 70; RESP 16; O2SAT 97
[2021-05-14 14:40] VITALS: BP 123/65; PULSE 86; RESP 16; TEMP 36.3; O2SAT 96
--- NOTE | 2021-05-14 15:35 | MHC.HEMONC ---
pt here for c1d1 Obinituzumab/CVP. He had labs done Friday and these were reviewed. VSS all day. I reinforced education around side effects of drugs and pre-meds needed. He tolerated them well and had no c/o during titration of Obinituzumab. He was re-medicated with Tylenol for slight CRUZ with good effect. Vincristine free flow in with positive blood return. Pt will start Prednisone for next 5 days. This was given on D/C instructions and reviewed with his dtr.
[2021-05-21 08:22] VITALS: BP 137/81; PULSE 82; RESP 14; TEMP 36.2; O2SAT 96; BMI 28.2
[2021-05-21 08:25] LABS: MANUAL DIFF FLAG NO
[2021-05-21 08:42] LABS: Basophils Absolute Auto 0.1 X10*3/uL (0.0-0.2); Basophils Percent Auto 0.5 % (0-2); Eosinophils Percent Auto 0.1 % (0-4); Hematocrit 40.4 % (42-52); Hemoglobin 14.5 g/dl (14.0-18.0); Imm Gran Abs Auto 0.29 X10*3/uL (0.00-0.03); Imm Gran Pct Auto 2.9 % (0.0-0.4); Lymphocytes Absolute Auto 0.5 X10*3/uL (1.2-4.9); Lymphocytes Percent Auto 5.2 % (20-40); Mean Corpuscular HGB Conc 35.9 g/dl (31.0-36.0); Mean Corpuscular Hemoglobin 30.7 pg (27.0-33.0); Mean Corpuscular Volume 85.6 fL (80-98); Mean Platelet Volume 9.9 fL (9.4-12.4); Monocytes Absolute Auto 0.4 X10*3/uL (0.1-1.2); Monocytes Percent Auto 3.5 % (2-11); Neutrophils Absolute Auto 8.7 X10*3/uL (2.0-8.3); Neutrophils Percent Auto 87.8 % (45-73); Platelet Count 213 X10*3/uL (160-400); Red Blood Count 4.72 X10*6/uL (4.60-5.80); Red Cell Distribution Width 12.3 % (11.0-16.0); White Blood Count 9.9 X10*3/uL (4.8-10.8)
[2021-05-21] MEDS: diphenhydrAMINE HCL 25 MG TABLET 50 MG PO (09:09)
[2021-05-21 09:13] LABS: Alanine Aminotransferase 24 U/L (0-40); Albumin Level 4.1 g/dL (3.5-5.0); Alkaline Phosphatase 83 U/L (39-117); Anion Gap 18 (12-20); Aspartate Amino Transferase 8 U/L (5-37); Blood Urea Nitrogen 31 mg/dL (9-16); Calcium 9.8 mg/dL (8.4-10.2); Carbon Dioxide 26 mmol/L (22-29); Chloride 98 mmol/L (96-108); Creatinine Clr Calc Pharmacy 51.8; Estimated Glomerular Filt Rate 47; Glucose Random 550 mg/dL (60-115); Sodium 137 mmol/L (135-145); Total Protein 6.9 g/dL (6.5-8.0)
[2021-05-21] MEDS: Famotidine 20 MG TABLET PO (09:18)
[2021-05-21] MEDS: Acetaminophen 325 MG TABLET 650 MG PO (09:19)
[2021-05-21] MEDS: ondansetron HCL/NS 16 MG/50 ML PIGGYBACK 200 MG IV (09:32)
[2021-05-21] MEDS: Insulin Lispro 100 UNIT/ML 3 ML VIAL 10 UNIT SUBCUT (11:00)
[2021-05-21 12:20] LABS: Glucose, Whole Blood 456 mg/dL (60-115)
[2021-05-21 14:23] LABS: Glucose, Whole Blood 494 mg/dL (60-115)
[2021-05-21] MEDS: Insulin Lispro 100 UNIT/ML 3 ML VIAL 8 UNIT SUBCUT (14:44)
--- NOTE | 2021-05-21 15:14 | MHC.HEMONC ---
Pt here for C1 D8 Obinituzumab. States felt good after last treatment. Labs done and reviewed. BS 550, reported to Dr Dumont. Insulin ordered. Pt given Lispro 10 units sc at 1100. POC BS 456 at [address] Dumont. Pt has not eaten. Phone call to [facility] to report BS to Dr Rayo, and to schedule appointment for pt to see PCP. Appointment scheduled for 05/31, and pt placed on list to be seen earlier if any cancellations. POC BS 494 at 1420. Reported [address] Dumont. Pt given another 8 units Lispro insulin. Pt also instructed to increase Metformin to 1000mg BID until follow up with PCP. Treatment done and pt tolerated well. Next treatment in 1 week.
[2021-05-28 08:12] VITALS: BP 120/80; PULSE 96; RESP 18; TEMP 36.4; O2SAT 97; BMI 26.9
[2021-05-28 08:12] LABS: MANUAL DIFF FLAG NO
[2021-05-28 08:15] LABS: Basophils Percent Auto 0.8 % (0-2); Eosinophils Absolute Auto 0.1 X10*3/uL (0.0-0.4); Eosinophils Percent Auto 1.6 % (0-4); Hematocrit 44.3 % (42-52); Hemoglobin 15.8 g/dl (14.0-18.0); Imm Gran Abs Auto 0.03 X10*3/uL (0.00-0.03); Imm Gran Pct Auto 0.8 % (0.0-0.4); Lymphocytes Absolute Auto 0.9 X10*3/uL (1.2-4.9); Lymphocytes Percent Auto 23.8 % (20-40); Mean Corpuscular HGB Conc 35.7 g/dl (31.0-36.0); Mean Corpuscular Hemoglobin 30.4 pg (27.0-33.0); Mean Corpuscular Volume 85.2 fL (80-98); Mean Platelet Volume 9.2 fL (9.4-12.4); Monocytes Absolute Auto 0.7 X10*3/uL (0.1-1.2); Monocytes Percent Auto 18.4 % (2-11); Neutrophils Percent Auto 54.6 % (45-73); Platelet Count 197 X10*3/uL (160-400); White Blood Count 3.7 X10*3/uL (4.8-10.8)
[2021-05-28 08:56] LABS: Alanine Aminotransferase 27 U/L (0-40); Albumin Level 4.8 g/dL (3.5-5.0); Alkaline Phosphatase 110 U/L (39-117); Anion Gap 16 (12-20); Aspartate Amino Transferase 15 U/L (5-37); Bilirubin Total 1.6 mg/dL (0.0-1.0); Blood Urea Nitrogen 32 mg/dL (9-16); Carbon Dioxide 31 mmol/L (22-29); Chloride 106 mmol/L (96-108); Creatinine Clr Calc Pharmacy 45.4; Estimated Glomerular Filt Rate 45; Sodium 147 mmol/L (135-145); Total Protein 7.6 g/dL (6.5-8.0)
--- NOTE | 2021-05-28 09:29 | PM.HEMONCPN ---
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 B symptoms of drenching night sweats and weight loss, imaging with the CT chest, abdomen, and pelvis on April 16, 2016, which demonstrated diffuse mediastinal and hilar adenopathy. Patient underwent core biopsy of right axillary node, which demonstrated grade 1 follicular lymphoma. Flow cytometry demonstrated involvement by CD10 positive B-cells lymphoma. Bone marrow biopsy April 26, 2016 confirmed involvement of the bone marrow by follicular lymphoma. PET scan demonstrated increased uptake in all the LN areas. Started first cycle chemotherapy with Rituxan bendamustine on 05/07/16. Received chemotherapy with Rituxan/ bendamustine from 05/07/16 to 07/31/16. PET scan 08/21/16, complete metabolic response. MRI abdomen performed 07/15/2019 showed right adrenal mass measuring 7.1 cm, inseparable from adjacent liver parenchyma raising concern for invasion. Right retrocrural lymphadenopathy and prominent gastrohepatic lymph nodes suspicious for metastatic involvement. FNA of right adrenal mass performed 08/06/2019 demonstrated follicular lymphoma, positive CD10, kappa light chain restricted B-cell lymphoma. KI 67 proliferation index is low. PET-CT performed 08/12/2019 showed abnormal FDG activity in right adrenal mass SUV 5.8 focus in the right retrocrural region SUV 5.1 corresponding to enlarged right retrocrural lymph node measuring 2 x 1 cm. No other uptake. He underwent radiation therapy 400 cGy in 2 fractions administered on 09/27/2019 and 09/28/19 at [facility]. Repeat PET scan performed at [facility] on 04/27/2020 shows new abnormal FDG activity in anterior mediastinal lymphadenopathy within prevascular space, SUV 6.1. Persistent activity within right suprarenal region with SUV 4.8, similar to prior study. New focal intense activity within left side of mesentry SUV 8.3 corresponding to mesenteric lymph node Family history of cancer. Prostate and breast cancer in his paternal side raising suspicion for inherited cancer syndrome. Genetic counseling was discussed with patient. Patient declined counseling/testing. Last imaging was at [facility] in March 2021 shows further progression of disease, he has mediastinal adenopathy as well as abdominal adenopathy, increasing size and FDG avidity of right adrenal lesion. For recurrent disease patient started obinutuzumab plus CVP on . Interval History Interval history: Patient is here for follow-up and scheduled treatment. He started chemotherapy 2 weeks ago. Unfortunately his sugars have been running very high. He has been on metformin. Previously he was on insulin but he was taken off insulin as his sugars were well controlled. He has been scheduled to see his PCP this . He is drinking a lot of water as he is thirsty. He has no difficulty urinating. He has no other complaints today such as chest pain, shortness of breath, weakness or dizziness. Review of Systems - Constitutional Reports as per HPI, Reports no additional constitutional complaints - Cardiovascular Reports no additional cardiovascular complaints - Respiratory Reports no additional respiratory complaints [facility] Medical History: Medical History (Last Reviewed 05/01/21 @ 08:25 by Nicole Tate) Abnormal urine cytology CAD (coronary artery disease) Diabetes GERD (gastroesophageal reflux disease) HTN (hypertension) Hyperlipemia Lymphoma Family History: Family History (Last Updated 05/01/21 @ 08:31 by Nicole Tate) Father Pancreas cancer Hypertension Sister Breast cancer Surgical History: Surgical History (Last Reviewed 05/01/21 @ 08:25 by Nicole Tate) History of heart artery stent Hx of cataract surgery Social History: Social History (Last Updated 05/01/21 @ 08:30 by Nicole Tate) Alcohol History: Alcohol intake: former Alcohol History Details: Alcohol intake frequency: holiday/special occasion Tobacco History: Patient Tobacco Use Status: Never used Tobacco Home Medications and Allergies Current Medications: Current Medications Generic Name Dose Route Start Last Admin Trade Name Bradfordq PRN Reason Stop Dose Admin Diphenhydramine HCl 50 mg 05/28/21 00:00 Diphenhydramine Hcl 25 Mg Tablet PO 05/28/21 23:59 ONCE ONE Dexamethasone Sodium Phosphate 52 mls @ 208 mls/hr 05/28/21 00:00 20 mg/ Sodium Chloride IV 05/28/21 23:59 ONCE ONE Home Medications Medication Instructions Recorded Confirmed Type aspirin 81 mg PO DAILY 11/14/20 05/28/21 History atorvastatin 80 mg PO DAILY 11/14/20 05/28/21 History epinephrine 0.1 mg IM DIRECTED 11/14/20 05/28/21 History hydrochlorothiazide 25 mg PO DAILY 11/14/20 05/28/21 History losartan 50 mg PO DAILY 11/14/20 05/28/21 History metformin 500 mg PO BID 11/14/20 05/28/21 History metoprolol succinate 100 mg PO DAILY 11/14/20 05/28/21 History oxycodone 5 mg PO Q8H PRN 11/14/20 05/28/21 History pantoprazole 40 mg PO DAILY 11/14/20 05/28/21 History Allergies Allergy/AdvReac Type Severity Reaction Status Date / Time amlodipine [AMLODIPINE] Allergy Unknown EDEMA-PER Verified 11/14/20 13:09 H&P Exam Vital signs: Vital Signs Temp 97.6 F 05/28/21 08:12 Pulse 96 05/28/21 08:12 Resp 18 05/28/21 08:12 BP 120/80 05/28/21 08:12 Pulse Ox 97 05/28/21 08:12 Intake & Output 05/27/21 05/28/21 05/28/21 18:59 06:59 18:59 Other: Weight 75.8 kg Weight in Grams 44889 Weight 75.8 kg Body Mass Index 26.9 - Constitutional Present: no acute distress - Routine HEENT Exam Head: Present: normal inspection - Routine Neck Exam Present: full ROM. Absent: lymphadenopathy - Routine Chest/Breast/Axilla Exam Chest wall: Absent: tenderness, mass - Routine Respiratory Exam Present: CTAB - Routine Cardiovascular Exam Cardiovascular: Present: RRR, S1, S2 - Routine Abdominal Exam Present: soft. Absent: mass - Routine Extremities Exam Absent: calf tenderness, joint swelling - Routine Skin Exam Present: intact. Absent: cyanosis, erythema Data - Labs CBC & Chem 7: 05/28/21 08:09 05/28/21 08:09 Labs: 11/14/20 12:56 Complete Blood Count Auto Diff Routine Comprehensive Met. Panel Routine LDH [Lactate Dehydrogenase] Routine Laboratory Last Values WBC 7.0 X10*3/uL (4.8-10.8) 11/14/20 12:56 RBC 4.87 X10*6/uL (4.60-5.80) 11/14/20 12:56 Hgb 15.0 g/dl (14.0-18.0) 11/14/20 12:56 Hct 42.9 % (42-52) 11/14/20 12:56 MCV 88.1 fL (80-98) 11/14/20 12:56 MCH 30.8 pg (27.0-33.0) 11/14/20 12:56 MCHC 35.0 g/dl (31.0-36.0) 11/14/20 12:56 RDW 12.8 % (11.0-16.0) 11/14/20 12:56 Plt Count 184 X10*3/uL (160-400) 11/14/20 12:56 MPV 9.0 fL (9.4-12.4) L 11/14/20 12:56 Immature Gran % (Auto) 0.3 % (0.0-0.4) 11/14/20 12:56 Neut % (Auto) 68.8 % (45-73) 11/14/20 12:56 Lymph % (Auto) 21.7 % (20-40) 11/14/20 12:56 [place] % (Auto) 6.6 % (2-11) 11/14/20 12:56 Eos % (Auto) 2.0 % (0-4) 11/14/20 12:56 Baso % (Auto) 0.6 % (0-2) 11/14/20 12:56 Lymph # (Auto) 1.5 X10*3/uL (1.2-4.9) 11/14/20 12:56 [place] # (Auto) 0.5 X10*3/uL (0.1-1.2) 11/14/20 12:56 Eos # (Auto) 0.1 X10*3/uL (0.0-0.4) 11/14/20 12:56 Baso # (Auto) 0.0 X10*3/uL (0.0-0.2) 11/14/20 12:56 Abs Immat Gran (auto) 0.02 X10*3/uL (0.00-0.03) 11/14/20 12:56 Absolute Neuts (auto) 4.8 X10*3/uL (2.0-8.3) 11/14/20 12:56 Absolute Nucleated RBC 0.000 X10*3/uL (0.0-0.012) 11/14/20 12:56 Nucleated RBC % (auto) 0.0 /100WBC (0.0-0.2) 11/14/20 12:56 Sodium 139 mmol/L (135-145) 11/14/20 12:56 Potassium 4.9 mmol/l (3.3-5.1) 11/14/20 12:56 Chloride 103 mmol/L (96-108) 11/14/20 12:56 Carbon Dioxide 28 mmol/L (22-29) 11/14/20 12:56 Anion Gap 13 (-) 11/14/20 12:56 BUN 16 mg/dL (9-16) 11/14/20 12:56 Creatinine 1.25 mg/dL (0.5-1.4) 11/14/20 12:56 Estim Creat Clear Calc 65.7 11/14/20 12:56 Estimated GFR 59 11/14/20 12:56 Random Glucose 257 mg/dL (60-115) H 11/14/20 12:56 Calcium 8.8 mg/dL (8.4-10.2) 11/14/20 12:56 Total Bilirubin 1.3 mg/dL (0.0-1.0) H 11/14/20 12:56 AST 23 U/L (5-37) 11/14/20 12:56 ALT 42 U/L (0-40) H 11/14/20 12:56 Alkaline Phosphatase 78 U/L (39-117) 11/14/20 12:56 Lactate Dehydrogenase 182 U/L (118-273) 11/14/20 12:56 Total Protein 7.1 g/dL (6.5-8.0) 11/14/20 12:56 Albumin 4.4 g/dL (3.5-5.0) 11/14/20 12:56 Progress Note: A/P (1) Follicular lymphoma Status: Chronic Assessment and plan: 1. This is a 61-year-old male with recurrent follicular lymphoma diagnosed in July 2019. Initial diagnosis of follicular lymphoma, low grade, but with extensive disease with multiple areas of lymph node involvement diagnosed initially in 2016. Received chemotherapy with Rituxan/ bendamustine from 05/07/16 to 07/31/16. PET scan 08/21/16, complete metabolic response. Recurrent follicular lymphoma diagnosed in August 2019. He underwent radiation therapy 400 cGy in 2 fractions administered on 09/27/2019 and 09/28/19 at [facility]. He did not have a response to this. His last imaging was at [facility] in March 2021 shows further progression of disease, he has mediastinal adenopathy as well as abdominal adenopathy, increasing size and FDG avidity of right adrenal lesion. He started treatment for recurrent disease with CVP plus obinutuzumab. Adriamycin has been omitted because of his history of heart disease. Today is cycle 1 day 15. 2. Treatment is being held today because of hyperglycemia and worsening of kidney functions. I spoke to his PCP Dr. Rayo. He is going to be started back on insulin today and asked to monitor his sugars closely. He was given IV fluids, 1 L normal saline today. Patient advised to call if he develops any new symptoms. Follow-up in 1 week. - Time Spent With Patient 15 - 24 minutes
--- NOTE | 2021-05-28 09:36 | MHC.HEMONC ---
chemo held today for increase renal and poc. pt received 1l IVF. dr rivera spoke to pt he has appointment on to see PCP. Per dr charles keep c2d1 as scheduled for 06/05- pending labs
[2021-05-28 09:39] LABS: Calcium 9.5 mg/dL (8.4-10.2); Potassium 5.5 mmol/L (3.3-5.1)
[2021-05-28 09:40] LABS: Glucose Random 454 mg/dL (60-115)
[2021-05-28] MEDS: 0.9 % Sodium Chloride 500 ML 250 ML IV (09:45)
[2021-05-28 10:34] LABS: Lactate Dehydrogenase 162 U/L (118-273)
[2021-05-28] MEDS: Insulin Lispro 100 UNIT/ML 3 ML VIAL 10 UNIT SUBCUT (10:42)
[2021-05-28 12:11] LABS: Uric Acid 6.7 mg/dL (3.4-7.0)
[2021-06-05 08:19] VITALS: BP 140/89; PULSE 88; RESP 18; TEMP 36.6; O2SAT 98; BMI 28.0
[2021-06-05] MEDS: 0.9 % Sodium Chloride 500 ML 250 ML IVCONT (09:12)
[2021-06-05 09:57] LABS: MANUAL DIFF FLAG NO
[2021-06-05] MEDS: Famotidine/PF 20 MG/2 ML VIAL IVPUSH (10:05)
[2021-06-05] MEDS: Acetaminophen 325 MG TABLET 650 MG PO (10:10)
[2021-06-05 10:17] LABS: Basophils Percent Auto 0.5 % (0-2); Eosinophils Absolute Auto 0.1 X10*3/uL (0.0-0.4); Eosinophils Percent Auto 1.1 % (0-4); Hemoglobin 12.9 g/dl (14.0-18.0); Imm Gran Abs Auto 0.05 X10*3/uL (0.00-0.03); Imm Gran Pct Auto 0.9 % (0.0-0.4); Lymphocytes Absolute Auto 0.6 X10*3/uL (1.2-4.9); Lymphocytes Percent Auto 9.9 % (20-40); Mean Corpuscular HGB Conc 34.9 g/dl (31.0-36.0); Mean Corpuscular Hemoglobin 30.4 pg (27.0-33.0); Mean Corpuscular Volume 87.3 fL (80-98); Mean Platelet Volume 9.3 fL (9.4-12.4); Monocytes Absolute Auto 0.6 X10*3/uL (0.1-1.2); Monocytes Percent Auto 10.5 % (2-11); Neutrophils Absolute Auto 4.3 X10*3/uL (2.0-8.3); Neutrophils Percent Auto 77.1 % (45-73); Platelet Count 200 X10*3/uL (160-400); Red Blood Count 4.24 X10*6/uL (4.60-5.80); Red Cell Distribution Width 12.6 % (11.0-16.0); White Blood Count 5.6 X10*3/uL (4.8-10.8)
[2021-06-05] MEDS: diphenhydrAMINE HCL 50 MG/ML VIAL 25 MG IVPUSH (10:25)
[2021-06-05 10:46] LABS: Alanine Aminotransferase 30 U/L (0-40); Albumin Level 3.6 g/dL (3.5-5.0); Alkaline Phosphatase 86 U/L (39-117); Anion Gap 9 (12-20); Aspartate Amino Transferase 17 U/L (5-37); Bilirubin Total 0.7 mg/dL (0.0-1.0); Blood Urea Nitrogen 15 mg/dL (9-16); Calcium 8.9 mg/dL (8.4-10.2); Carbon Dioxide 30 mmol/L (22-29); Chloride 102 mmol/L (96-108); Creatinine Clr Calc Pharmacy 61.9; Estimated Glomerular Filt Rate 58; Glucose Random 343 mg/dL (60-115); Potassium 4.4 mmol/L (3.3-5.1); Sodium 137 mmol/L (135-145); Total Protein 5.9 g/dL (6.5-8.0)
[2021-06-05] MEDS: Fosaprepitant Dimeglumine 150 MG in 0.9 % Sodium Chloride 145 ML 300 MG IV (10:46)
[2021-06-05] MEDS: CYCLOPHOSPHAMIDE IV (15:52)
[2021-06-05] MEDS: SODIUM CHLORIDE 0.9% IV (15:52)
--- NOTE | 2021-06-05 16:13 | MHC.HEMONC ---
Pt here for C2 D1 of treatment. States feeling good today. Does state after last treatment was very tired and also had CRUZ. Asked to speak to Dr Dumont prior to receiving treatment today. Dr Dumont in to see pt. Treatment now q21 days, so pt agreeable to have treatment. IV started right hand. Premeds given as ordered. Treatment done and pt tolerated well. Scheduled to return in 3 weeks for next treatment.
[2021-06-25 08:06] VITALS: BMI 34.2
[2021-06-25 08:07] VITALS: BP 127/77; PULSE 76; RESP 18; TEMP 35.6; O2SAT 98
[2021-06-25 09:05] LABS: Basophils Percent Auto 1.2 % (0-2); Eosinophils Absolute Auto 0.1 X10*3/uL (0.0-0.4); Eosinophils Percent Auto 2.2 % (0-4); Hematocrit 39.2 % (42-52); Hemoglobin 13.7 g/dl (14.0-18.0); Imm Gran Abs Auto 0.06 X10*3/uL (0.00-0.03); Imm Gran Pct Auto 1.9 % (0.0-0.4); Lymphocytes Absolute Auto 0.6 X10*3/uL (1.2-4.9); Lymphocytes Percent Auto 17.8 % (20-40); MANUAL DIFF FLAG SCAN; Mean Corpuscular HGB Conc 34.9 g/dl (31.0-36.0); Mean Corpuscular Hemoglobin 30.9 pg (27.0-33.0); Mean Corpuscular Volume 88.5 fL (80-98); Mean Platelet Volume 8.8 fL (9.4-12.4); Monocytes Absolute Auto 0.8 X10*3/uL (0.1-1.2); Neutrophils Absolute Auto 1.7 X10*3/uL (2.0-8.3); Neutrophils Percent Auto 52.9 % (45-73); Platelet Count 191 X10*3/uL (160-400); Red Blood Count 4.43 X10*6/uL (4.60-5.80); Red Cell Distribution Width 13.9 % (11.0-16.0); SCAN SMEAR FLAG 1; White Blood Count 3.2 X10*3/uL (4.8-10.8)
[2021-06-25 09:29] LABS: Alanine Aminotransferase 25 U/L (0-40); Alkaline Phosphatase 76 U/L (39-117); Anion Gap 11 (12-20); Aspartate Amino Transferase 16 U/L (5-37); Bilirubin Total 0.8 mg/dL (0.0-1.0); Blood Urea Nitrogen 16 mg/dL (9-16); Calcium 9.1 mg/dL (8.4-10.2); Carbon Dioxide 28 mmol/L (22-29); Chloride 105 mmol/L (96-108); Creatinine Clr Calc Pharmacy 80.6; Estimated Glomerular Filt Rate > 60; Glucose Random 158 mg/dL (60-115); Potassium 4.2 mmol/L (3.3-5.1); Sodium 140 mmol/L (135-145); Total Protein 6.2 g/dL (6.5-8.0)
[2021-06-25 09:48] VITALS: BMI 28.4
[2021-06-25] MEDS: Famotidine/PF 20 MG/2 ML VIAL IVPUSH (11:03)
[2021-06-25] MEDS: Acetaminophen 325 MG TABLET 650 MG PO (11:05)
[2021-06-25] MEDS: diphenhydrAMINE HCL 50 MG/ML VIAL 25 MG IVPUSH (11:39)
[2021-06-25] MEDS: Fosaprepitant Dimeglumine 150 MG in 0.9 % Sodium Chloride 145 ML 300 MG IV (12:08)
[2021-06-25 12:44] LABS: SLIDE REVIEW VERIFIED
[2021-06-25 13:19] LABS: Glucose, Whole Blood 357 mg/dL (60-115)
[2021-06-25] MEDS: 0.9 % Sodium Chloride 500 ML 250 ML IVCONT (13:33)
--- NOTE | 2021-06-25 13:46 | P.PNHO_ITS ---
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 B symptoms of drenching night sweats and weight loss, imaging with the CT chest, abdomen, and pelvis on April 16, 2016, which demonstrated diffuse mediastinal and hilar adenopathy. Patient underwent core biopsy of right axillary node, which demonstrated grade 1 follicular lymphoma. Flow cytometry demonstrated involvement by CD10 positive B-cells lymphoma. Bone marrow biopsy April 26, 2016 confirmed involvement of the bone marrow by follicular lymphoma. PET scan demonstrated increased uptake in all the LN areas. Started first cycle chemot herapy with Rituxan bendamustine on 05/07/16. Received chemotherapy with Rituxan/ bendamustine from 05/07/16 to 07/31/16. PET scan 08/21/16, complete metabolic response. MRI abdomen performed 07/15/2019 showed right adrenal mass measuring 7.1 cm, inseparable from adjacent liver parenchyma raising concern for invasion. Right retrocrural lymphadenopathy and prominent gastrohepatic lymph nodes suspicious for metastatic involvement. FNA of right adrenal mass performed 08/06/2019 demonstrated follicular lymphoma, positive CD10, kappa light chain restricted B-cell lymphoma. KI 67 proliferation index is low. PET-CT performed 08/12/2019 showed abnormal FDG activity in right adrenal mass SUV 5.8 focus in the right retrocrural region SUV 5.1 corresponding to enlarged right retrocrural lymph node measuring 2 x 1 cm. No other uptake. He underwent radiation therapy 400 cGy in 2 fractions administered on 09/27/2019 and 09/28/19 at [facility]. Repeat PET scan performed at [facility] on 04/27/2020 shows new abnormal FDG activity in anterior mediastinal lymphadenopathy within prevascular space, SUV 6.1. Persistent activity within right suprarenal region with SUV 4.8, similar to prior study. New focal intense activity within left side of mesentry SUV 8.3 corresponding to mesenteric lymph node Family history of cancer. Prostate and breast cancer in his paternal side raising suspicion for inherited cancer syndrome. Genetic counseling was discussed with patient. Patient declined counseling/testing. Last imaging was at [facility] in March 2021 shows further progression of disease, he has mediastinal adenopathy as well as abdominal adenopathy, increasing size and FDG avidity of right adrenal lesion. For recurrent disease patient started obinutuzumab plus CVP on . Interval History Interval history: Patient is here in follow-up and scheduled treatment. He is doing much better now. His sugars have been better controlled, he is now on insulin. He is checking his blood sugars regularly. He denies nausea, loss of appetite, polyuria or polydipsia. Pain in his right flank region has improved significantly. He is tolerating treatment well. Review of Systems - Constitutional Reports as per HPI, Reports no additional constitutional complaints - Cardiovascular Reports no additional cardiovascular complaints - Respiratory Reports no additional respiratory complaints - Gastrointestinal Reports no additional gastrointestinal complaints [facility] Medical History: Medical History (Last Reviewed 05/01/21 @ 08:25 by Nicole Tate) Abnormal urine cytology CAD (coronary artery disease) Diabetes GERD (gastroesophageal reflux disease) HTN (hypertension) Hyperlipemia Lymphoma Family History: Family History (Last Updated 05/01/21 @ 08:31 by Nicole Tate) Father Pancreas cancer Hypertension Sister Breast cancer Surgical History: Surgical History (Last Reviewed 05/01/21 @ 08:25 by Nicole Tate) History of heart artery stent Hx of cataract surgery Social History: Social History (Last Updated 05/01/21 @ 08:30 by Nicole Tate) Alcohol History: Alcohol intake: former Alcohol History Details: Alcohol intake frequency: holiday/special occasion Tobacco History: Patient Tobacco Use Status: Never used Tobacco Substance Use History: Use of substances other than those prescribed or required for medical reasons : No Oncology Screenings - ECOG Performance Status ECOG Performance Status: 1 Home Medications and Allergies Current Medications: Current Medications Generic Name Dose Route Start Last Admin Trade Name Miguelina PRN Reason Stop Dose Admin Acetaminophen 650 mg 06/25/21 00:00 06/25/21 11:05 Acetaminophen 325 Mg Tablet PO 06/25/21 23:59 650 mg ONCE CARLOS Administration Diphenhydramine HCl 25 mg 06/25/21 00:00 06/25/21 11:39 Diphenhydramine Hcl 50 Mg/Ml Vial IVPUSH 06/25/21 23:59 25 mg ONCE CARLOS Administration Famotidine 20 mg 06/25/21 00:00 06/25/21 11:03 Famotidine/Pf 20 Mg/2 Ml Vial IVPUSH 06/25/21 23:59 20 mg ONCE CARLOS Administration Heparin Sodium (Porcine) 500 unit 06/25/21 00:00 Heparin Sodium,Porcine Flush 500 Unit/5 Ml Syringe IVFLUSH 06/25/21 23:59 ONCE CARLOS Sodium Chloride 500 mls @ 250 mls/hr 06/25/21 00:00 06/25/21 13:33 Ns IVCONT 06/25/21 23:59 250 mls/hr .Q2H CARLOS Administration Ondansetron HCl 16 mg in 50 mls @ 200 mls/hr 06/25/21 00:00 06/25/21 11:20 Zofran IV 06/25/21 23:59 Infused ONCE CARLOS Infusion Fosaprepitant 150 mg/ Sodium 150 mls @ 300 mls/hr 06/25/21 00:00 06/25/21 12:40 Chloride IV 06/25/21 23:59 Infused ONCE CARLOS Infusion Cyclophosphamide 1,000 mg/ 257.25 mls @ 257.25 mls/hr 06/25/21 00:00 Cyclophosphamide 450 mg/ IV 06/25/21 23:59 Sodium Chloride ONCE CARLOS Obinutuzumab 1,000 mg/ Sodium 290 mls @ 0 mls/hr 06/25/21 00:00 06/25/21 13:31 Chloride IV 06/25/21 23:59 58 mls/hr ONCE CARLOS Infusion Protocol As Directed Vincristine Sulfate 2 mg/ 52 mls @ 312 mls/hr 06/25/21 00:00 Sodium Chloride IV 06/25/21 23:59 ONCE CARLOS Home Medications Medication Instructions Recorded Confirmed Type aspirin 81 mg PO DAILY 11/14/20 05/28/21 History atorvastatin 80 mg PO DAILY 11/14/20 05/28/21 History epinephrine 0.1 mg IM DIRECTED 11/14/20 05/28/21 History hydrochlorothiazide 25 mg PO DAILY 11/14/20 05/28/21 History losartan 50 mg PO DAILY 11/14/20 05/28/21 History metformin 500 mg PO BID 11/14/20 05/28/21 History metoprolol succinate 100 mg PO DAILY 11/14/20 05/28/21 History oxycodone 5 mg PO Q8H PRN 11/14/20 05/28/21 History pantoprazole 40 mg PO DAILY 11/14/20 05/28/21 History Allergies Allergy/AdvReac Type Severity Reaction Status Date / Time amlodipine [AMLODIPINE] Allergy Unknown EDEMA-PER Verified 11/14/20 13:09 H&P Exam Vital signs: Vital Signs Temp 96.1 F L 06/25/21 08:07 Pulse 76 06/25/21 08:07 Resp 18 06/25/21 08:07 BP 127/77 06/25/21 08:07 Pulse Ox 98 06/25/21 08:07 Intake & Output 06/24/21 06/25/21 06/25/21 18:59 06:59 18:59 Intake Total 267.467 / 267.467 Balance 267.467 / 267.467 Intake: Intake, IV Amount 267.467 / 267.467 Fosaprepitant Dimeglumine 150 150 / 150 mg In 0.9 % Sodium Chloride 145 ml @ 300 mls/hr IV ONCE CARLOS Rx #:[id number] Obinutuzumab 1,000 mg In 0.9 % 15.467 / 15.467 Sodium Chloride 250 ml @ As Directed IV ONCE CARLOS Rx#: [id number] Ondansetron HCL/NS 16 mg In 50 50 / 50 ml @ 200 mls/hr IV ONCE CARLOS Rx# :[id number] dexAMETHasone sod phosphate 20 52 / 52 mg In 0.9 % Sodium Chloride 50 ml @ 208 mls/hr IV ONCE ONE Rx# :[id number] Other: Weight 80 kg [place] Weight in Grams 41475 Weight 80 kg Body Mass Index 28.4 - Constitutional Present: no acute distress - Routine HEENT Exam Head: Present: normal inspection - Routine Neck Exam Present: full ROM. Absent: lymphadenopathy - Routine Chest/Breast/Axilla Exam Chest wall: Absent: tenderness, mass - Routine Respiratory Exam Present: CTAB - Routine Cardiovascular Exam Cardiovascular: Present: RRR, S1, S2 - Routine Abdominal Exam Present: soft. Absent: mass - Routine Extremities Exam Absent: calf tenderness, joint swelling - Routine Skin Exam Present: intact. Absent: cyanosis, erythema Data - Labs CBC & Chem 7: 06/25/21 08:50 06/25/21 08:50 Labs: 11/14/20 12:56 Complete Blood Count Auto Diff Routine Comprehensive Met. Panel Routine LDH [Lactate Dehydrogenase] Routine Laboratory Last Values WBC 7.0 X10*3/uL (4.8-10.8) 11/14/20 12:56 RBC 4.87 X10*6/uL (4.60-5.80) 11/14/20 12:56 Hgb 15.0 g/dl (14.0-18.0) 11/14/20 12:56 Hct 42.9 % (42-52) 11/14/20 12:56 MCV 88.1 fL (80-98) 11/14/20 12:56 MCH 30.8 pg (27.0-33.0) 11/14/20 12:56 MCHC 35.0 g/dl (31.0-36.0) 11/14/20 12:56 RDW 12.8 % (11.0-16.0) 11/14/20 12:56 Plt Count 184 X10*3/uL (160-400) 11/14/20 12:56 MPV 9.0 fL (9.4-12.4) L 11/14/20 12:56 Immature Gran % (Auto) 0.3 % (0.0-0.4) 11/14/20 12:56 Neut % (Auto) 68.8 % (45-73) 11/14/20 12:56 Lymph % (Auto) 21.7 % (20-40) 11/14/20 12:56 [place] % (Auto) 6.6 % (2-11) 11/14/20 12:56 Eos % (Auto) 2.0 % (0-4) 11/14/20 12:56 Baso % (Auto) 0.6 % (0-2) 11/14/20 12:56 Lymph # (Auto) 1.5 X10*3/uL (1.2-4.9) 11/14/20 12:56 [place] # (Auto) 0.5 X10*3/uL (0.1-1.2) 11/14/20 12:56 Eos # (Auto) 0.1 X10*3/uL (0.0-0.4) 11/14/20 12:56 Baso # (Auto) 0.0 X10*3/uL (0.0-0.2) 11/14/20 12:56 Abs Immat Gran (auto) 0.02 X10*3/uL (0.00-0.03) 11/14/20 12:56 Absolute Neuts (auto) 4.8 X10*3/uL (2.0-8.3) 11/14/20 12:56 Absolute Nucleated RBC 0.000 X10*3/uL (0.0-0.012) 11/14/20 12:56 Nucleated RBC % (auto) 0.0 /100WBC (0.0-0.2) 11/14/20 12:56 Sodium 139 mmol/L (135-145) 11/14/20 12:56 Potassium 4.9 mmol/l (3.3-5.1) 11/14/20 12:56 Chloride 103 mmol/L (96-108) 11/14/20 12:56 Carbon Dioxide 28 mmol/L (22-29) 11/14/20 12:56 Anion Gap 13 (-) 11/14/20 12:56 BUN 16 mg/dL (9-16) 11/14/20 12:56 Creatinine 1.25 mg/dL (0.5-1.4) 11/14/20 12:56 Estim Creat Clear Calc 65.7 11/14/20 12:56 Estimated GFR 59 11/14/20 12:56 Random Glucose 257 mg/dL (60-115) H 11/14/20 12:56 Calcium 8.8 mg/dL (8.4-10.2) 11/14/20 12:56 Total Bilirubin 1.3 mg/dL (0.0-1.0) H 11/14/20 12:56 AST 23 U/L (5-37) 11/14/20 12:56 ALT 42 U/L (0-40) H 11/14/20 12:56 Alkaline Phosphatase 78 U/L (39-117) 11/14/20 12:56 Lactate Dehydrogenase 182 U/L (118-273) 11/14/20 12:56 Total Protein 7.1 g/dL (6.5-8.0) 11/14/20 12:56 Albumin 4.4 g/dL (3.5-5.0) 11/14/20 12:56 Progress Note: A/P (1) Follicular lymphoma Status: Chronic Assessment and plan: 1. This is a 61-year-old male with recurrent follicular lymphoma diagnosed in July 2019. Initial diagnosis of follicular lymphoma, low grade, but with extensive disease with multiple areas of lymph node involvement diagnosed init iay in 2015. Received chemotherapy with Rituxan/ bendamustine from 05/07/16 to 07/31/16. PET scan 08/21/16, complete metabolic response. Recurrent follicular lymphoma diagnosed in August 2019. He underwent radiation therapy 400 cGy in 2 fractions administered on 09/27/2019 and 09/28/19 at [facility]. He did not have a response to this. His last imaging was at [facility] in March 2021 shows further progression of disease, he has mediastinal adenopathy as well as abdominal adenopathy, increasing size and FDG avidity of right adrenal lesion. He started treatment for recurrent disease with CVP plus obinutuzumab. Adriamycin has been omitted because of his history of heart disease. Today is cycle 3, day 1. 2. Diabetes mellitus/hyperglycemia. He is now on insulin and his blood sugars are much better controlled. His sugar after receiving dexamethasone went about 350, NovoLog will be administered. Follow-up in 3 weeks. - Time Spent With Patient Time Spent with Patient (in minutes): 15
[2021-06-25] MEDS: Insulin Lispro 100 UNIT/ML 3 ML VIAL 12 UNIT SUBCUT (14:47)
[2021-06-25] MEDS: CYCLOPHOSPHAMIDE IV (16:40)
[2021-06-25] MEDS: SODIUM CHLORIDE 0.9% IV (16:40)
--- NOTE | 2021-06-25 17:32 | MHC.HEMONC ---
Pt here for C3 D1 of treatment. Labs drawn and reviewed. States feels good after last treatment. Energy level much better. IV started left forearm. Premeds given as ordered. Treatment done and tolerated well. Scheduled for next treatment in 3 weeks.
[2021-07-16 08:13] VITALS: BP 165/90; PULSE 77; RESP 18; TEMP 36.3; O2SAT 99; BMI 28.3
[2021-07-16 08:41] LABS: MANUAL DIFF FLAG NO
[2021-07-16 08:44] LABS: Basophils Absolute Auto 0.1 X10*3/uL (0.0-0.2); Basophils Percent Auto 1.1 % (0-2); Eosinophils Absolute Auto 0.1 X10*3/uL (0.0-0.4); Eosinophils Percent Auto 2.8 % (0-4); Hematocrit 38.9 % (42-52); Hemoglobin 13.5 g/dl (14.0-18.0); Imm Gran Abs Auto 0.05 X10*3/uL (0.00-0.03); Imm Gran Pct Auto 1.1 % (0.0-0.4); Lymphocytes Absolute Auto 0.7 X10*3/uL (1.2-4.9); Lymphocytes Percent Auto 14.4 % (20-40); Mean Corpuscular HGB Conc 34.7 g/dl (31.0-36.0); Mean Corpuscular Hemoglobin 30.3 pg (27.0-33.0); Mean Corpuscular Volume 87.4 fL (80-98); Mean Platelet Volume 9.2 fL (9.4-12.4); Monocytes Absolute Auto 0.8 X10*3/uL (0.1-1.2); Monocytes Percent Auto 17.6 % (2-11); Neutrophils Absolute Auto 2.9 X10*3/uL (2.0-8.3); Platelet Count 205 X10*3/uL (160-400); Red Blood Count 4.45 X10*6/uL (4.60-5.80); Red Cell Distribution Width 13.3 % (11.0-16.0); White Blood Count 4.7 X10*3/uL (4.8-10.8)
[2021-07-16 09:13] LABS: Alanine Aminotransferase 33 U/L (0-40); Albumin Level 4.1 g/dL (3.5-5.0); Alkaline Phosphatase 91 U/L (39-117); Anion Gap 15 (12-20); Aspartate Amino Transferase 21 U/L (5-37); Blood Urea Nitrogen 19 mg/dL (9-16); Calcium 9.3 mg/dL (8.4-10.2); Carbon Dioxide 24 mmol/L (22-29); Chloride 104 mmol/L (96-108); Creatinine Clr Calc Pharmacy 68.6; Estimated Glomerular Filt Rate > 60; Glucose Random 255 mg/dL (60-115); Potassium 3.9 mmol/L (3.3-5.1); Sodium 139 mmol/L (135-145); Total Protein 6.3 g/dL (6.5-8.0)
--- NOTE | 2021-07-16 10:33 | MHC.HEMONC ---
Pt here for C4 D1 of treatment. Labs drawn. Pt states the IV site from last cycle was painful for several days. Pt has darkened outline of vein, with vein feeling hard. Dr Dumont made aware, and in to assess. Pt to have US of left arm, and will come back in AM for chemo. Pt agreeable. Pt to US
[2021-07-17 08:20] VITALS: BP 136/84; PULSE 84; RESP 18; TEMP 36.2; BMI 28.5
[2021-07-17] MEDS: Famotidine/PF 20 MG/2 ML VIAL IVPUSH (08:46)
[2021-07-17] MEDS: Acetaminophen 325 MG TABLET 650 MG PO (08:49)
[2021-07-17] MEDS: 0.9 % Sodium Chloride 500 ML 250 ML IVCONT (09:09)
[2021-07-17] MEDS: diphenhydrAMINE HCL 50 MG/ML VIAL 25 MG IVPUSH (09:27)
[2021-07-17] MEDS: Fosaprepitant Dimeglumine 150 MG in 0.9 % Sodium Chloride 145 ML 300 MG IV (09:48)
--- NOTE | 2021-07-17 13:04 | PM.HEMONCPN ---
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 B symptoms of drenching night sweats and weight loss, imaging with the CT chest, abdomen, and pelvis on April 16, 2016, which demonstrated diffuse mediastinal and hilar adenopathy. Patient underwent core biopsy of right axillary node, which demonstrated grade 1 follicular lymphoma. Flow cytometry demonstrated involvement by CD10 positive B-cells lymphoma. Bone marrow biopsy April 26, 2016 confirmed involvement of the bone marrow by follicular lymphoma. PET scan demonstrated increased uptake in all the LN areas. Started first cycle chemotherapy with Rituxan bendamustine on 05/07/16. Received chemotherapy with Rituxan/ bendamustine from 05/07/16 to 07/31/16. PET scan 08/21/16, complete metabolic response. MRI abdomen performed 07/15/2019 showed right adrenal mass measuring 7.1 cm, inseparable from adjacent liver parenchyma raising concern for invasion. Right retrocrural lymphadenopathy and prominent gastrohepatic lymph nodes suspicious for metastatic involvement. FNA of right adrenal mass performed 08/06/2019 demonstrated follicular lymphoma, positive CD10, kappa light chain restricted B-cell lymphoma. KI 67 proliferation index is low. PET-CT performed 08/12/2019 showed abnormal FDG activity in right adrenal mass SUV 5.8 focus in the right retrocrural region SUV 5.1 corresponding to enlarged right retrocrural lymph node measuring 2 x 1 cm. No other uptake. He underwent radiation therapy 400 cGy in 2 fractions administered on 09/27/2019 and 09/28/19 at [facility]. Repeat PET scan performed at [facility] on 04/27/2020 shows new abnormal FDG activity in anterior mediastinal lymphadenopathy within prevascular space, SUV 6.1. Persistent activity within right suprarenal region with SUV 4.8, similar to prior study. New focal intense activity within left side of mesentry SUV 8.3 corresponding to mesenteric lymph node Family history of cancer. Prostate and breast cancer in his paternal side raising suspicion for inherited cancer syndrome. Genetic counseling was discussed with patient. Patient declined counseling/testing. Last imaging was at [facility] in March 2021 shows further progression of disease, he has mediastinal adenopathy as well as abdominal adenopathy, increasing size and FDG avidity of right adrenal lesion. For recurrent disease patient started obinutuzumab plus CVP on . Interval History Interval history: Patient came in yesterday for treatment. However he complained of cord-like sensation in his left forearm and arm. He got chemotherapy through a vein in the left arm previously. He has slight swelling. No significant redness, no fever or chills. No pleuritic chest pain, shortness of breath or cough. He had an ultrasound of the left arm yesterday. He is here for chemotherapy today. Review of Systems - Constitutional Reports as per HPI, Reports no additional constitutional complaints - Cardiovascular Reports no additional cardiovascular complaints - Respiratory Reports no additional respiratory complaints [facility] Medical History: Medical History (Last Reviewed 05/01/21 @ 08:25 by Nicole Tate) Abnormal urine cytology CAD (coronary artery disease) Diabetes GERD (gastroesophageal reflux disease) HTN (hypertension) Hyperlipemia Lymphoma Family History: Family History (Last Updated 05/01/21 @ 08:31 by Nicole Tate) Father Pancreas cancer Hypertension Sister Breast cancer Surgical History: Surgical History (Last Reviewed 05/01/21 @ 08:25 by Nicole Tate) History of heart artery stent Hx of cataract surgery Social History: Social History (Last Updated 05/01/21 @ 08:30 by Nicole Tate) Alcohol History: Alcohol intake: former Alcohol History Details: Alcohol intake frequency: holiday/special occasion Tobacco History: Patient Tobacco Use Status: Never used Tobacco Substance Use History: Use of substances other than those prescribed or required for medical reasons: No Home Medications and Allergies Current Medications: Current Medications Generic Name Dose Route Start Last Admin Trade Name Miguelina PRN Reason Stop Dose Admin Acetaminophen 650 mg 07/17/21 00:00 07/17/21 08:49 Acetaminophen 325 Mg Tablet PO 07/17/21 23:59 650 mg ONCE CARLOS Administration Diphenhydramine HCl 25 mg 07/17/21 00:00 07/17/21 09:27 Diphenhydramine Hcl 50 Mg/Ml Vial IVPUSH 07/17/21 23:59 25 mg ONCE CARLOS Administration Famotidine 20 mg 07/17/21 00:00 07/17/21 08:46 Famotidine/Pf 20 Mg/2 Ml Vial IVPUSH 07/17/21 23:59 20 mg ONCE CARLOS Administration Heparin Sodium (Porcine) 500 unit 07/17/21 00:00 Heparin Sodium,Porcine Flush 500 Unit/5 Ml Syringe IVFLUSH 07/17/21 23:59 ONCE CARLOS Sodium Chloride 500 mls @ 250 mls/hr 07/17/21 00:00 07/17/21 12:04 Ns IVCONT 07/17/21 23:59 Infused .Q2H CARLOS Infusion Ondansetron HCl 16 mg in 50 mls @ 200 mls/hr 07/17/21 00:00 07/17/21 09:06 Zofran IV 07/17/21 23:59 Infused ONCE CARLOS Infusion Fosaprepitant 150 mg/ Sodium 150 mls @ 300 mls/hr 07/17/21 00:00 07/17/21 10:18 Chloride IV 07/17/21 23:59 Infused ONCE CARLOS Infusion Cyclophosphamide 1,000 mg/ 257.25 mls @ 257.25 mls/hr 07/17/21 00:00 Cyclophosphamide 450 mg/ IV 07/17/21 23:59 Sodium Chloride ONCE CARLOS Obinutuzumab 1,000 mg/ Sodium 290 mls @ 0 mls/hr 07/17/21 00:00 07/17/21 12:11 Chloride IV 07/17/21 23:59 116 mls/hr ONCE CARLOS Infusion Protocol As Directed Vincristine Sulfate 2 mg/ 52 mls @ 312 mls/hr 07/17/21 00:00 Sodium Chloride IV 07/17/21 23:59 ONCE [facility] Home Medications Medication Instructions Recorded Confirmed Type aspirin 81 mg tablet 81 mg PO DAILY 11/14/20 05/28/21 History atorvastatin 80 mg tablet 80 mg PO DAILY 11/14/20 05/28/21 History epinephrine 0.1 mg/0.1 mL 0.1 mg IM DIRECTED 11/14/20 05/28/21 History injection, auto-injector hydrochlorothiazide 25 mg tablet 25 mg PO DAILY 11/14/20 05/28/21 History losartan 50 mg tablet 50 mg PO DAILY 11/14/20 05/28/21 History metformin 500 mg tablet 500 mg PO BID 11/14/20 05/28/21 History metoprolol succinate 100 mg 100 mg PO DAILY 11/14/20 05/28/21 History tablet,extended release 24 hr oxycodone 5 mg tablet 5 mg PO Q8H PRN 11/14/20 05/28/21 History pantoprazole 40 mg tablet,delayed 40 mg PO DAILY 11/14/20 05/28/21 History release blood sugar diagnostic (FreeStyle 06/25/21 06/25/21 History Lite Strips) blood-glucose meter (FreeStyle 06/25/21 06/25/21 History [place] Lite) dextrose 40 % oral gel (Glutose-15) PO DIRECTED PRN 06/25/21 06/25/21 History insulin aspart U-100 100 unit/mL 4 unit SUBCUT DIRECTED 06/25/21 06/25/21 History (3 mL) subcutaneous pen (Novolog Flexpen U-100 Insulin aspart) insulin glargine 100 unit/mL (3 8 unit SUBCUT QPM 06/25/21 06/25/21 History mL) subcutaneous pen (Lantus Solostar U-100 Insulin) Allergies Allergy/AdvReac Type Severity Reaction Status Date / Time amlodipine [AMLODIPINE] Allergy Unknown EDEMA-PER Verified 11/14/20 13:09 H&P Exam Vital signs: Vital Signs Temp 97.1 F 07/17/21 08:20 Pulse 84 07/17/21 08:20 Resp 18 07/17/21 08:20 BP 136/84 07/17/21 08:20 Pulse Ox 99 07/16/21 08:13 Intake & Output 07/16/21 07/17/21 07/17/21 18:59 06:59 18:59 Intake Total 843.35 / 843.35 Balance 843.35 / 843.35 Intake: Intake, IV Amount 843.35 / 843.35 Fosaprepitant Dimeglumine 150 150 / 150 mg In 0.9 % Sodium Chloride 145 ml @ 300 mls/hr IV ONCE CAROLS Rx #:[id number] Obinutuzumab 1,000 mg In 0.9 % 91.35 / 91.35 Sodium Chloride 250 ml @ As Directed IV ONCE CARLOS Rx#: [id number] Ondansetron HCL/NS 16 mg In 50 50 / 50 ml @ 200 mls/hr IV ONCE CARLOS Rx# :[id number] dexAMETHasone sod phosphate 20 52 / 52 mg In 0.9 % Sodium Chloride 50 ml @ 208 mls/hr IV ONCE ONE Rx# :[id number] 0.9 % Sodium Chloride 500 ml @ 500 / 500 250 mls/hr IVCONT .Q2H CARLOS Rx#: [id number] Other: Weight 79.8 kg 80.1 kg Weight in Grams [id number] Weight 80.1 kg Body Mass Index 28.5 - Constitutional Present: no acute distress - Routine HEENT Exam Head: Present: normal inspection - Routine Neck Exam Present: full ROM. Absent: lymphadenopathy - Routine Chest/Breast/Axilla Exam Chest wall: Absent: tenderness, mass - Routine Respiratory Exam Present: CTAB - Routine Cardiovascular Exam Cardiovascular: Present: RRR, S1, S2 - Routine Abdominal Exam Present: soft. Absent: mass - Routine Extremities Exam Absent: calf tenderness, joint swelling - Routine Skin Exam Present: intact. Absent: cyanosis, erythema Data - Labs CBC & Chem 7: 07/16/21 08:22 07/16/21 08:22 Labs: 11/14/20 12:56 Complete Blood Count Auto Diff Routine Comprehensive Met. Panel Routine LDH [Lactate Dehydrogenase] Routine Laboratory Last Values WBC 7.0 X10*3/uL (4.8-10.8) 11/14/20 12:56 RBC 4.87 X10*6/uL (4.60-5.80) 11/14/20 12:56 Hgb 15.0 g/dl (14.0-18.0) 11/14/20 12:56 Hct 42.9 % (42-52) 11/14/20 12:56 MCV 88.1 fL (80-98) 11/14/20 12:56 MCH 30.8 pg (27.0-33.0) 11/14/20 12:56 MCHC 35.0 g/dl (31.0-36.0) 11/14/20 12:56 RDW 12.8 % (11.0-16.0) 11/14/20 12:56 Plt Count 184 X10*3/uL (160-400) 11/14/20 12:56 MPV 9.0 fL (9.4-12.4) L 11/14/20 12:56 Immature Gran % (Auto) 0.3 % (0.0-0.4) 11/14/20 12:56 Neut % (Auto) 68.8 % (45-73) 11/14/20 12:56 Lymph % (Auto) 21.7 % (20-40) 11/14/20 12:56 Jessamine % (Auto) 6.6 % (2-11) 11/14/20 12:56 Eos % (Auto) 2.0 % (0-4) 11/14/20 12:56 Baso % (Auto) 0.6 % (0-2) 11/14/20 12:56 Lymph # (Auto) 1.5 X10*3/uL (1.2-4.9) 11/14/20 12:56 Jessamine # (Auto) 0.5 X10*3/uL (0.1-1.2) 11/14/20 12:56 Eos # (Auto) 0.1 X10*3/uL (0.0-0.4) 11/14/20 12:56 Baso # (Auto) 0.0 X10*3/uL (0.0-0.2) 11/14/20 12:56 Abs Immat Gran (auto) 0.02 X10*3/uL (0.00-0.03) 11/14/20 12:56 Absolute Neuts (auto) 4.8 X10*3/uL (2.0-8.3) 11/14/20 12:56 Absolute Nucleated RBC 0.000 X10*3/uL (0.0-0.012) 11/14/20 12:56 Nucleated RBC % (auto) 0.0 /100WBC (0.0-0.2) 11/14/20 12:56 Sodium 139 mmol/L (135-145) 11/14/20 12:56 Potassium 4.9 mmol/l (3.3-5.1) 11/14/20 12:56 Chloride 103 mmol/L (96-108) 11/14/20 12:56 Carbon Dioxide 28 mmol/L (22-29) 11/14/20 12:56 Anion Gap 13 (12-20) 11/14/20 12:56 BUN 16 mg/dL (9-16) 11/14/20 12:56 Creatinine 1.25 mg/dL (0.5-1.4) 11/14/20 12:56 Estim Creat Clear Calc 65.7 11/14/20 12:56 Estimated GFR 59 11/14/20 12:56 Random Glucose 257 mg/dL (60-115) H 11/14/20 12:56 Calcium 8.8 mg/dL (8.4-10.2) 11/14/20 12:56 Total Bilirubin 1.3 mg/dL (0.0-1.0) H 11/14/20 12:56 AST 23 U/L (5-37) 11/14/20 12:56 ALT 42 U/L (0-40) H 11/14/20 12:56 Alkaline Phosphatase 78 U/L (39-117) 11/14/20 12:56 Lactate Dehydrogenase 182 U/L (118-273) 11/14/20 12:56 Total Protein 7.1 g/dL (6.5-8.0) 11/14/20 12:56 Albumin 4.4 g/dL (3.5-5.0) 11/14/20 12:56 Progress Note: A/P (1) Follicular lymphoma Status: Chronic Assessment and plan: 1. This is a 61-year-old male with recurrent follicular lymphoma diagnosed in July 2019. Initial diagnosis of follicular lymphoma, low grade, but with extensive disease with multiple areas of lymph node involvement diagnosed initially in 2015. Received chemotherapy with Rituxan/ bendamustine from 05/07/16 to 07/31/16. PET scan 08/21/16, complete metabolic response. Recurrent follicular lymphoma diagnosed in August 2019. He underwent radiation therapy 400 cGy in 2 fractions administered on 09/27/2019 and 09/28/19 at [facility]. He did not have a response to this. His last imaging was at [facility] in March 2021 shows further progression of disease, he has mediastinal adenopathy as well as abdominal adenopathy, increasing size and FDG avidity of right adrenal lesion. He started treatment for recurrent disease with CVP plus obinutuzumab. Adriamycin has been omitted because of his history of heart disease. Today is cycle 4, day 1. 2. Diabetes mellitus/hyperglycemia. He is now on insulin and his blood sugars are much better controlled. 3. Left arm thrombophlebitis. He is already on baby aspirin. He will be started on Xarelto 20 mg daily to prevent progression. I will continue this till he completes chemotherapy for his lymphoma. Follow-up in 3 weeks. - Time Spent With Patient Time Spent with Patient (in minutes): 20
[2021-07-17] MEDS: SODIUM CHLORIDE 0.9% IV (14:45)
[2021-07-17] MEDS: CYCLOPHOSPHAMIDE IV (14:45)
[2021-07-17 15:28] LABS: Glucose, Whole Blood 407 mg/dL (60-115)
[2021-07-17] MEDS: Insulin Glargine,Hum.rec.anlog 100 UNIT/ML 10 ML VIAL 12 UNIT SUBCUT (16:01)
--- NOTE | 2021-07-17 16:15 | MHC.HEMONC ---
Pt here for C4 D1 of treatment. Labs done 07/16 reviewed. IV start right wrist with good blood return. Premeds given as ordered. Treatment done and tolerated well. POC BS done at 1522 at pt request. Result [address] Dumont. Pt given 12 units Lantus insulin as ordered. Pt discharged home, scheduled to return in 3 weeks for next cycle.
[2021-08-07 07:56] LABS: MANUAL DIFF FLAG NO
[2021-08-07 07:57] LABS: Basophils Percent Auto 1.2 % (0-2); Eosinophils Absolute Auto 0.2 X10*3/uL (0.0-0.4); Eosinophils Percent Auto 5.6 % (0-4); Hematocrit 36.4 % (42-52); Hemoglobin 12.6 g/dl (14.0-18.0); Imm Gran Abs Auto 0.08 X10*3/uL (0.00-0.03); Imm Gran Pct Auto 2.3 % (0.0-0.4); Lymphocytes Absolute Auto 0.9 X10*3/uL (1.2-4.9); Lymphocytes Percent Auto 25.5 % (20-40); Mean Corpuscular HGB Conc 34.6 g/dl (31.0-36.0); Mean Corpuscular Hemoglobin 30.6 pg (27.0-33.0); Mean Corpuscular Volume 88.3 fL (80-98); Mean Platelet Volume 8.6 fL (9.4-12.4); Monocytes Absolute Auto 0.7 X10*3/uL (0.1-1.2); Monocytes Percent Auto 19.9 % (2-11); Neutrophils Absolute Auto 1.6 X10*3/uL (2.0-8.3); Neutrophils Percent Auto 45.5 % (45-73); Platelet Count 149 X10*3/uL (160-400); Red Blood Count 4.12 X10*6/uL (4.60-5.80); White Blood Count 3.4 X10*3/uL (4.8-10.8)
[2021-08-07 08:02] VITALS: BP 139/87; PULSE 93; RESP 18; TEMP 36.3; O2SAT 96; BMI 28.7
[2021-08-07] MEDS: 0.9 % Sodium Chloride 500 ML 250 ML IVCONT (08:24)
[2021-08-07] MEDS: Famotidine/PF 20 MG/2 ML VIAL IVPUSH (08:26)
[2021-08-07 08:29] LABS: Alanine Aminotransferase 25 U/L (0-40); Alkaline Phosphatase 79 U/L (39-117); Anion Gap 11 (12-20); Aspartate Amino Transferase 21 U/L (5-37); Blood Urea Nitrogen 13 mg/dL (9-16); Calcium 8.9 mg/dL (8.4-10.2); Carbon Dioxide 29 mmol/L (22-29); Chloride 107 mmol/L (96-108); Estimated Glomerular Filt Rate > 60; Glucose Random 253 mg/dL (60-115); Sodium 143 mmol/L (135-145); Total Protein 6.2 g/dL (6.5-8.0)
[2021-08-07] MEDS: Acetaminophen 325 MG TABLET 650 MG PO (08:31)
[2021-08-07] MEDS: diphenhydrAMINE HCL 50 MG/ML VIAL 25 MG IVPUSH (09:00)
[2021-08-07] MEDS: dexAMETHasone sod phosphate/NS 12 MG/50 ML PIGGYBACK 200 MG IV (09:21)
[2021-08-07] MEDS: Fosaprepitant Dimeglumine 150 MG in 0.9 % Sodium Chloride 145 ML 300 MG IV (09:42)
[2021-08-07] MEDS: SODIUM CHLORIDE 0.9% IV (14:26)
[2021-08-07] MEDS: CYCLOPHOSPHAMIDE IV (14:26)
[2021-08-07 15:40] LABS: Glucose, Whole Blood 378 mg/dL (60-115)
[2021-08-07] MEDS: Insulin Glargine,Hum.rec.anlog 100 UNIT/ML 10 ML VIAL 10 UNIT SUBCUT (16:15)
--- NOTE | 2021-08-07 16:22 | MHC.HEMONC ---
Pt here for C5 D1 of treatment. Labs done. Iv started right wrist, good blood return noted. Pt states he feels good since last treatment. Premeds given as ordered. Treatment done and tolerated well. Dr Dumont in to give pt results of PET scan. Follow up scheduled with next treatment. POC BS done per pt request. BS 378, reported to Dr Dumont. Pt given insulin as ordered 10units sc.
[2021-08-27 09:43] LABS: MANUAL DIFF FLAG NO
[2021-08-27 09:56] LABS: Basophils Percent Auto 1.1 % (0-2); Eosinophils Absolute Auto 0.3 X10*3/uL (0.0-0.4); Hemoglobin 12.5 g/dl (14.0-18.0); Imm Gran Abs Auto 0.07 X10*3/uL (0.00-0.03); Imm Gran Pct Auto 1.9 % (0.0-0.4); Mean Corpuscular HGB Conc 33.8 g/dl (31.0-36.0); Mean Corpuscular Volume 88.9 fL (80-98); Mean Platelet Volume 8.8 fL (9.4-12.4); Monocytes Absolute Auto 0.5 X10*3/uL (0.1-1.2); Neutrophils Absolute Auto 1.7 X10*3/uL (2.0-8.3); Platelet Count 187 X10*3/uL (160-400); Red Blood Count 4.16 X10*6/uL (4.60-5.80); Red Cell Distribution Width 13.8 % (11.0-16.0); White Blood Count 3.6 X10*3/uL (4.8-10.8)
[2021-08-27 10:04] LABS: Alanine Aminotransferase 27 U/L (0-40); Alkaline Phosphatase 80 U/L (39-117); Anion Gap 13 (12-20); Aspartate Amino Transferase 25 U/L (5-37); Bilirubin Total 0.7 mg/dL (0.0-1.0); Blood Urea Nitrogen 10 mg/dL (9-16); Calcium 8.9 mg/dL (8.4-10.2); Carbon Dioxide 28 mmol/L (22-29); Chloride 105 mmol/L (96-108); Creatinine Clr Calc Pharmacy 70.8; Estimated Glomerular Filt Rate > 60; Glucose Random 233 mg/dL (60-115); Potassium 4.2 mmol/L (3.3-5.1); Sodium 142 mmol/L (135-145); Total Protein 6.4 g/dL (6.5-8.0)
[2021-08-28 08:08] VITALS: BP 103/61; PULSE 73; RESP 18; TEMP 35.6; O2SAT 98; BMI 28.5
[2021-08-28] MEDS: 0.9 % Sodium Chloride 500 ML 250 ML IVCONT (08:33)
[2021-08-28] MEDS: Famotidine/PF 20 MG/2 ML VIAL IVPUSH (08:35)
[2021-08-28] MEDS: Acetaminophen 325 MG TABLET 650 MG PO (08:38)
[2021-08-28] MEDS: diphenhydrAMINE HCL 50 MG/ML VIAL 25 MG IVPUSH (09:02)
[2021-08-28] MEDS: Fosaprepitant Dimeglumine 150 MG in 0.9 % Sodium Chloride 145 ML 300 MG IV (09:37)
[2021-08-28] MEDS: CYCLOPHOSPHAMIDE IV (14:27)
[2021-08-28] MEDS: SODIUM CHLORIDE 0.9% IV (14:27)
--- NOTE | 2021-08-28 16:38 | MHC.HEMONC ---
Pt here for C6 D1 of treatment. States he is feeling good after last treatment. IV started right AC with good blood return. Premeds given as ordered. Treatment done and tolerated well. Scheduled for follow up with Dr Dumont in 1 month.
--- NOTE | 2021-09-24 10:57 | PM.HEMONCPN ---
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 B symptoms of drenching night sweats and weight loss, imaging with the CT chest, abdomen, and pelvis on April 16, 2016, which demonstrated diffuse mediastinal and hilar adenopathy. Patient underwent core biopsy of right axillary node, which demonstrated grade 1 follicular lymphoma. Flow cytometry demonstrated involvement by CD10 positive B-cells lymphoma. Bone marrow biopsy April 26, 2016 confirmed involvement of the bone marrow by follicular lymphoma. PET scan demonstrated increased uptake in all the LN areas. Started first cycle chemotherapy with Rituxan bendamustine on 05/07/16. Received chemotherapy with Rituxan/ bendamustine from 05/07/16 to 07/31/16. PET scan 08/21/16, complete metabolic response. MRI abdomen performed 07/15/2019 showed right adrenal mass measuring 7.1 cm, inseparable from adjacent liver parenchyma raising concern for invasion. Right retrocrural lymphadenopathy and prominent gastrohepatic lymph nodes suspicious for metastatic involvement. FNA of right adrenal mass performed 08/06/2019 demonstrated follicular lymphoma, positive CD10, kappa light chain restricted B-cell lymphoma. KI 67 proliferation index is low. PET-CT performed 08/12/2019 showed abnormal FDG activity in right adrenal mass SUV 5.8 focus in the right retrocrural region SUV 5.1 corresponding to enlarged right retrocrural lymph node measuring 2 x 1 cm. No other uptake. He underwent radiation therapy 400 cGy in 2 fractions administered on 09/27/2019 and 09/28/19 at [facility]. Repeat PET scan performed at [facility] on 04/27/2020 shows new abnormal FDG activity in anterior mediastinal lymphadenopathy within prevascular space, SUV 6.1. Persistent activity within right suprarenal region with SUV 4.8, similar to prior study. New focal intense activity within left side of mesentry SUV 8.3 corresponding to mesenteric lymph node Family history of cancer. Prostate and breast cancer in his paternal side raising suspicion for inherited cancer syndrome. Genetic counseling was discussed with patient. Patient declined counseling/testing. Last imaging was at [facility] in March 2021 shows further progression of disease, he has mediastinal adenopathy as well as abdominal adenopathy, increasing size and FDG avidity of right adrenal lesion. For recurrent disease patient started obinutuzumab plus CVP on 05/14/21. Interval History Interval history: Patient is here in follow-up. He has completed chemotherapy. He underwent PET-CT after last cycle of chemotherapy. He is doing well and apart from occasional pain in both his ribcage is that occurs on and off he has no new complaints. He denies pleuritic chest pain, shortness of breath or cough. He has received boost to dose of COVID-19 vaccination. He is awaiting to get flu vaccination. He denies any fever, chills, night sweats or unexplained weight loss. He continues to walk every day and does weight-bearing exercises. Left arm cord like sensation has completely resolved. He denies any redness or swelling. He has been taking Xarelto 20 mg once daily. Review of Systems - Constitutional Reports as per HPI, Reports no additional constitutional complaints - Cardiovascular Reports no additional cardiovascular complaints - Respiratory Reports no additional respiratory complaints - Gastrointestinal Reports no additional gastrointestinal complaints - Genitourinary Genitourinary: Reports no additional male genitourinary complaints [facility] Medical History: Medical History (Last Reviewed 09/24/21 @ 11:16 by Brianna Morgan) Abnormal urine cytology CAD (coronary artery disease) Diabetes GERD (gastroesophageal reflux disease) HTN (hypertension) Hyperlipemia Lymphoma Family History: Family History (Last Reviewed 09/24/21 @ 11:16 by Brianna Morgan) Father Pancreas cancer Hypertension Sister Breast cancer Surgical History: Surgical History (Last Reviewed 09/24/21 @ 11:16 by Brianna Morgan) History of heart artery stent Hx of cataract surgery Social History: Social History (Last Reviewed 09/24/21 @ 11:16 by Brianna Morgan) Alcohol History: Alcohol intake: former Alcohol History Details: Alcohol intake frequency: holiday/special occasion Tobacco History: Patient Tobacco Use Status: Never used Tobacco Substance Use History: Use of substances other than those prescribed or required for medical reasons: No Oncology Screenings - ECOG Performance Status ECOG Performance Status: 0 Home Medications and Allergies Home Medications Medication Instructions Recorded Confirmed Type aspirin 81 mg tablet 81 mg PO DAILY 11/14/20 09/24/21 History atorvastatin 80 mg tablet 80 mg PO DAILY 11/14/20 09/24/21 History epinephrine 0.1 mg/0.1 mL 0.1 mg IM DIRECTED 11/14/20 09/24/21 History injection, auto-injector hydrochlorothiazide 25 mg tablet 25 mg PO DAILY 11/14/20 09/24/21 History losartan 50 mg tablet 50 mg PO DAILY 11/14/20 09/24/21 History metformin 500 mg tablet 500 mg PO BID 11/14/20 09/24/21 History metoprolol succinate 100 mg 100 mg PO DAILY 11/14/20 09/24/21 History tablet,extended release 24 hr oxycodone 5 mg tablet 5 mg PO Q8H PRN 11/14/20 09/24/21 History pantoprazole 40 mg tablet,delayed 40 mg PO DAILY 11/14/20 09/24/21 History release blood sugar diagnostic (FreeStyle 06/25/21 09/24/21 History Lite Strips) blood-glucose meter (FreeStyle 06/25/21 09/24/21 History [place] Lite) dextrose 40 % oral gel (Glutose-15) 40 ea PO DIRECTED PRN 06/25/21 09/24/21 History insulin aspart U-100 100 unit/mL 4 unit SUBCUT DIRECTED 06/25/21 09/24/21 History (3 mL) subcutaneous pen (Novolog Flexpen U-100 Insulin aspart) insulin glargine 100 unit/mL (3 8 unit SUBCUT QPM 06/25/21 09/24/21 History mL) subcutaneous pen (Lantus Solostar U-100 Insulin) Allergies Allergy/AdvReac Type Severity Reaction Status Date / Time amlodipine [AMLODIPINE] Allergy Unknown EDEMA-PER Verified 09/24/21 11:16 H&P Exam Vital signs: Vital Signs Temp 96.1 F L 08/28/21 08:08 Pulse 73 08/28/21 08:08 Resp 18 08/28/21 08:08 BP 103/61 08/28/21 08:08 Pulse Ox 98 08/28/21 08:08 Weight 80.2 kg Body Mass Index 28.5 - Constitutional Present: no acute distress - Routine HEENT Exam Head: Present: normal inspection - Routine Neck Exam Present: full ROM. Absent: lymphadenopathy - Routine Chest/Breast/Axilla Exam Chest wall: Absent: tenderness, mass - Routine Respiratory Exam Present: CTAB - Routine Cardiovascular Exam Cardiovascular: Present: RRR, S1, S2 - Routine Abdominal Exam Present: soft. Absent: mass - Routine Extremities Exam Absent: calf tenderness, joint swelling - Routine Skin Exam Present: intact. Absent: cyanosis, erythema Data - Labs CBC & Chem 7: 08/27/21 09:38 08/27/21 09:38 Labs: 11/14/20 12:56 Complete Blood Count Auto Diff Routine Comprehensive Met. Panel Routine LDH [Lactate Dehydrogenase] Routine Laboratory Last Values WBC 7.0 X10*3/uL (4.8-10.8) 11/14/20 12:56 RBC 4.87 X10*6/uL (4.60-5.80) 11/14/20 12:56 Hgb 15.0 g/dl (14.0-18.0) 11/14/20 12:56 Hct 42.9 % (42-52) 11/14/20 12:56 MCV 88.1 fL (80-98) 11/14/20 12:56 MCH 30.8 pg (27.0-33.0) 11/14/20 12:56 MCHC 35.0 g/dl (31.0-36.0) 11/14/20 12:56 RDW 12.8 % (11.0-16.0) 11/14/20 12:56 Plt Count 184 X10*3/uL (160-400) 11/14/20 12:56 MPV 9.0 fL (9.4-12.4) L 11/14/20 12:56 Immature Gran % (Auto) 0.3 % (0.0-0.4) 11/14/20 12:56 Neut % (Auto) 68.8 % (45-73) 11/14/20 12:56 Lymph % (Auto) 21.7 % (20-40) 11/14/20 12:56 [place] % (Auto) 6.6 % (2-11) 11/14/20 12:56 Eos % (Auto) 2.0 % (0-4) 11/14/20 12:56 Baso % (Auto) 0.6 % (0-2) 11/14/20 12:56 Lymph # (Auto) 1.5 X10*3/uL (1.2-4.9) 11/14/20 12:56 [place] # (Auto) 0.5 X10*3/uL (0.1-1.2) 11/14/20 12:56 Eos # (Auto) 0.1 X10*3/uL (0.0-0.4) 11/14/20 12:56 Baso # (Auto) 0.0 X10*3/uL (0.0-0.2) 11/14/20 12:56 Abs Immat Gran (auto) 0.02 X10*3/uL (0.00-0.03) 11/14/20 12:56 Absolute Neuts (auto) 4.8 X10*3/uL (2.0-8.3) 11/14/20 12:56 Absolute Nucleated RBC 0.000 X10*3/uL (0.0-0.012) 11/14/20 12:56 Nucleated RBC % (auto) 0.0 /100WBC (0.0-0.2) 11/14/20 12:56 Sodium 139 mmol/L (135-145) 11/14/20 12:56 Potassium 4.9 mmol/l (3.3-5.1) 11/14/20 12:56 Chloride 103 mmol/L (96-108) 11/14/20 12:56 Carbon Dioxide 28 mmol/L (22-29) 11/14/20 12:56 Anion Gap 13 (-20) 11/14/20 12:56 BUN 16 mg/dL (9-16) 11/14/20 12:56 Creatinine 1.25 mg/dL (0.5-1.4) 11/14/20 12:56 Estim Creat Clear Calc 65.7 11/14/20 12:56 Estimated GFR 59 11/14/20 12:56 Random Glucose 257 mg/dL (60-115) H 11/14/20 12:56 Calcium 8.8 mg/dL (8.4-10.2) 11/14/20 12:56 Total Bilirubin 1.3 mg/dL (0.0-1.0) H 11/14/20 12:56 AST 23 U/L (5-37) 11/14/20 12:56 ALT 42 U/L (0-40) H 11/14/20 12:56 Alkaline Phosphatase 78 U/L (39-117) 11/14/20 12:56 Lactate Dehydrogenase 182 U/L (118-273) 11/14/20 12:56 Total Protein 7.1 g/dL (6.5-8.0) 11/14/20 12:56 Albumin 4.4 g/dL (3.5-5.0) 11/14/20 12:56 Assessment and Plan Patient Active problem list reviewed?: Yes (1) Follicular lymphoma Status: Chronic Assessment and plan: 1. This is a 61-year-old male with recurrent follicular lymphoma diagnosed in July 2019. Initial diagnosis of follicular lymphoma, low grade, but with extensive disease with multiple areas of lymph node involvement diagnosed initially in 2016. Received chemotherapy with Rituxan/ bendamustine from 05/07/16 to 07/31/16. PET scan 08/21/16, complete metabolic response. Recurrent follicular lymphoma diagnosed in August 2019. He underwent radiation therapy 400 cGy in 2 fractions administered on 09/27/2019 and 09/28/19 at [facility]. He did not have a response to this. He received 4 cycles of CVP plus obinutuzumab which he completed in July 2021. Adriamycin has been omitted because of his history of heart disease. PET-CT performed on 07/27/2021 rib showed complete resolution of FDG activity and para-aortic lymph nodes. No evidence of disease. Patient was explained results of tests. He will now be monitored with physical examination and blood work. 2. Left arm thrombophlebitis. He is already on baby aspirin. He will be started on Xarelto 20 mg daily to prevent progression. Was asked to discontinue Xarelto today. He no longer has evidence of thrombophlebitis on exam. Follow-up in 3 months. - Time Spent With Patient Time Spent with Patient (in minutes): 15
[2021-09-24 11:12] VITALS: BP 131/80; PULSE 78; RESP 16; TEMP 36.2; O2SAT 100; BMI 28.3
--- NOTE | 2021-12-13 17:13 | MHC.HEMONC ---
Call received from [facility] stating that Jorje has restarted Metformin 500mg BID
--- NOTE | 2021-12-25 09:04 | P.PNHO_ITS ---
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 B symptoms of drenching night sweats and weight loss, imaging with the CT chest, abdomen, and pelvis on April 16, 2016, which demonstrated diffuse mediastinal and hilar adenopathy. Patient underwent core biopsy of right axillary node, which demonstrated grade 1 follicular lymphoma. Flow cytometry demonstrated involvement by CD10 positive B-cells lymphoma. Bone marrow biopsy April 26, 2016 confirmed involvement of the bone marrow by follicular lymphoma. PET scan demonstrated increased uptake in all the LN areas. Started first cycle chemotherapy with Rituxan bendamustine on 05/07/16. Received chemotherapy with Rituxan/ bendamustine from 05/07/16 to 07/31/16. PET scan 08/21/16, complete metabolic response. MRI abdomen performed 07/15/2019 showed right adrenal mass measuring 7.1 cm, inseparable from adjacent liver parenchyma raising concern for invasion. Right retrocrural lymphadenopathy and prominent gastrohepatic lymph nodes suspicious for metastatic involvement. FNA of right adrenal mass performed 08/06/2019 demonstrated follicular lymphoma, positive CD10, kappa light chain restricted B-cell lymphoma. KI 67 proliferation index is low. PET-CT performed 08/12/2019 showed abnormal FDG activity in right adrenal mass SUV 5.8 focus in the right retrocrural region SUV 5.1 corresponding to enlarged right retrocrural lymph node measuring 2 x 1 cm. No other uptake. He underwent radiation therapy 400 cGy in 2 fractions administered on 09/27/2019 and 09/28/19 at [facility]. Repeat PET scan performed at [facility] on 04/27/2020 shows new abnormal FDG activity in anterior mediastinal lymphadenopathy within prevascular space, SUV 6.1. Persistent activity within right suprarenal region with SUV 4.8, similar to prior study. New focal intense activity within left side of mesentry SUV 8.3 corresponding to mesenteric lymph node Family history of cancer. Prostate and breast cancer in his paternal side raising suspicion for inherited cancer syndrome. Genetic counseling was discussed with patient. Patient declined counseling/testing. Last imaging was at [facility] in March 2021 shows further progression of disease, he has mediastinal adenopathy as well as abdominal adenopathy, increasing size and FDG avidity of right adrenal lesion. For recurrent disease patient started obinutuzumab plus CVP on 05/14/21. Interval History Interval history: Patient is here in follow-up. He is doing well and apart from occasional pain in both his ribcage is that occurs on and off he has no new complaints. He denies pleuritic chest pain, shortness of breath or cough. He denies any fever, chills, night sweats or unexplained weight loss. He continues to walk every day and does weight-bearing exercises. He does not feel any palpable lumps in his neck, axillae or groin areas. Review of Systems - Constitutional Reports as per HPI, Denies fatigue, Denies night sweats, Denies poor appetite, Denies weakness, Denies weight loss [facility] Medical History: Medical History (Last Reviewed 12/25/21 @ 09:14 by Brianna Morgan) Abnormal urine cytology CAD (coronary artery disease) Diabetes GERD (gastroesophageal reflux disease) HTN (hypertension) Hyperlipemia Lymphoma Family History: Family History (Last Reviewed 12/25/21 @ 09:14 by Brianna Morgan) Father Pancreas cancer Hypertension Sister Breast cancer Surgical History: Surgical History (Last Reviewed 12/25/21 @ 09:14 by Brianna Morgan) History of heart artery stent Hx of cataract surgery Social History: Social History (Last Updated 12/25/21 @ 09:15 by Brianna Morgan) Living Situation History: Household Members: Children Housing: House Are you a primary home care consultant to a significant other at home: No Do you presently have visiting nurse or other home services: No Alcohol History Details: 1. How often do you have a drink containing alcohol?: a. Never Tobacco History: Patient Tobacco Use Status: Never used Tobacco Substance Use History: Use of substances other than those prescribed or required for medical reasons : No Occupation Assessmet: service: No Current occupational status: unemployed Home Medications and Allergies Home Medications Medication Instructions Recorded Confirmed Type aspirin 81 mg tablet 81 mg PO DAILY 11/14/20 12/25/21 History atorvastatin 80 mg tablet 80 mg PO DAILY 11/14/20 12/25/21 History epinephrine 0.1 mg/0.1 mL 0.1 mg IM DIRECTED 11/14/20 12/25/21 History injection, auto-injector hydrochlorothiazide 25 mg tablet 25 mg PO DAILY 11/14/20 12/25/21 History losartan 50 mg tablet 50 mg PO DAILY 11/14/20 12/25/21 History metformin 500 mg tablet 500 mg PO BID 11/14/20 12/25/21 History metoprolol succinate 100 mg 100 mg PO DAILY 11/14/20 12/25/21 History tablet,extended release 24 hr oxycodone 5 mg tablet 5 mg PO Q8H PRN 11/14/20 12/25/21 History pantoprazole 40 mg tablet,delayed 40 mg PO DAILY 11/14/20 12/25/21 History release blood sugar diagnostic (FreeStyle 06/25/21 12/25/21 History Lite Strips) blood-glucose meter (FreeStyle 06/25/21 12/25/21 History [place] Lite) dextrose 40 % oral gel (Glutose-15) 40 ea PO DIRECTED PRN 06/25/21 12/25/21 History insulin aspart U-100 100 unit/mL 4 unit SUBCUT DIRECTED 06/25/21 12/25/21 History (3 mL) subcutaneous pen (Novolog Flexpen U-100 Insulin aspart) insulin glargine 100 unit/mL (3 8 unit SUBCUT QPM 06/25/21 12/25/21 History mL) subcutaneous pen (Lantus Solostar U-100 Insulin) Allergies Allergy/AdvReac Type Severity Reaction Status Date / Time amlodipine [AMLODIPINE] Allergy Unknown EDEMA-PER Verified 12/25/21 09:15 H&P Exam Vital signs: Vital Signs Temp 97.2 F 09/24/21 11:12 Pulse 78 09/24/21 11:12 Resp 16 09/24/21 11:12 BP 131/80 09/24/21 11:12 Pulse Ox 100 09/24/21 11:12 Weight 79.5 kg BMI result Body Mass Index 28.3 - Constitutional Present: no acute distress - Routine HEENT Exam Head: Present: normal inspection - Routine Neck Exam Present: full ROM. Absent: lymphadenopathy - Routine Chest/Breast/Axilla Exam Chest wall: Absent: tenderness, mass - Routine Respiratory Exam Present: CTAB - Routine Cardiovascular Exam Cardiovascular: Present: RRR, S1, S2 - Routine Abdominal Exam Present: soft. Absent: mass - Routine Extremities Exam Absent: calf tenderness, joint swelling - Routine Skin Exam Present: intact. Absent: cyanosis, erythema Data - Labs CBC & Chem 7: 12/25/21 09:30 12/25/21 09:30 Assessment and Plan Patient Active problem list reviewed?: Yes (1) Follicular lymphoma Status: Chronic Assessment and plan: 1. This is a 61-year-old male with recurrent follicular lymphoma diagnosed in July 2019. Initial diagnosis of follicular lymphoma, low grade, but with extensive disease with multiple areas of lymph node involvement diagnosed initially in 2016. Received chemotherapy with Rituxan/ bendamustine from 05/07/16 to 07/31/16. PET scan 08/21/16, complete metabolic response. Recurrent follicular lymphoma diagnosed in August 2019. He underwent radiation therapy 400 cGy in 2 fractions administered on 09/27/2019 and 09/28/19 at [facility]. He did not have a response to this. He received 4 cycles of CVP plus obinutuzumab which he completed in July 2021. Adriamycin has been omitted because of his history of heart disease. PET-CT performed on 07/27/2021 showed complete resolution of FDG activity and para-aortic lymph nodes. No evidence of disease. Blood work and physical examination are normal today. 2. Left arm thrombophlebitis. He is already on baby aspirin. He was on Xarelto for about 2 months this was discontinued in July 2021. Follow-up in 6 months. - Time Spent With Patient Time Spent with Patient (in minutes): 15
[2021-12-25 09:11] VITALS: BP 136/84; PULSE 78; RESP 16; TEMP 36.2; O2SAT 98; BMI 28.1
[2021-12-25 09:38] LABS: MANUAL DIFF FLAG NO
[2021-12-25 09:42] LABS: Basophils Percent Auto 0.4 % (0-2); Eosinophils Absolute Auto 0.2 X10*3/uL (0.0-0.4); Eosinophils Percent Auto 2.2 % (0-4); Hematocrit 43.7 % (42.0-52.0); Hemoglobin 15.2 g/dl (14.0-18.0); Imm Gran Abs Auto 0.02 X10*3/uL (0.00-0.03); Imm Gran Pct Auto 0.3 % (0.0-0.4); Lymphocytes Absolute Auto 1.2 X10*3/uL (1.2-4.9); Lymphocytes Percent Auto 18.2 % (20-40); Mean Corpuscular HGB Conc 34.8 g/dl (31.0-36.0); Mean Corpuscular Hemoglobin 29.5 pg (27.0-33.0); Mean Corpuscular Volume 84.7 fL (80.0-98.0); Mean Platelet Volume 8.9 fL (9.4-12.4); Monocytes Absolute Auto 0.7 X10*3/uL (0.1-1.2); Monocytes Percent Auto 9.7 % (2-11); Neutrophils Absolute Auto 4.7 x10*3/uL (2.0-8.3); Neutrophils Percent Auto 69.2 % (45-73); Platelet Count 192 X10*3/uL (160-400); Red Blood Count 5.16 X10*6/uL (4.60-5.80); Red Cell Distribution Width 13.3 % (11.0-16.0); White Blood Count 6.8 X10*3/uL (4.8-10.8)
[2021-12-25 10:15] LABS: Alanine Aminotransferase 22 U/L (0-40); Albumin Level 4.3 g/dL (3.5-5.0); Alkaline Phosphatase 76 U/L (39-117); Anion Gap 11 (12-20); Aspartate Amino Transferase 15 U/L (5-37); Bilirubin Total 1.1 mg/dL (0.0-1.0); Blood Urea Nitrogen 23 mg/dL (9-16); Calcium 9.9 mg/dL (8.4-10.2); Carbon Dioxide 31 mmol/L (22-29); Chloride 104 mmol/L (96-108); Creatinine Clr Calc Pharmacy 69.6; Estimated Glomerular Filt Rate > 60; Glucose Random 167 mg/dL (60-115); Potassium 4.3 mmol/L (3.3-5.1); Sodium 142 mmol/L (135-145)
[2021-12-25 10:39] LABS: Lactate Dehydrogenase 138 U/L (118-273)
--- NOTE | 2021-12-25 15:33 | MHC.HEMONCMA ---
Patient came in for a follow up, states that he is having a lot of pain. Clinical summary was reviewed and updated. Patient had labs and will return in 6 months for a follow up.
--- NOTE | 2022-06-11 11:02 | HE.ONCSEC ---
PATIENT'S DAUGHTER CALLED TODAY CRYING AND APOLOGIZING . SHE SAID SHE NEEDS HER FATHER TO SEE DR.DULALA CORTÉS . UPON LOOKING AT THE SCHEDULE FOR TOMORROW, I INFORMED PATIENT THAT WE HAD AN OPENING FOR TOMMOROW SO I BOOKED AND APPT FOR HER FATHER TOMORROW . I INFORMED DR. CURRY OF THIS WELL . PATIENT'S DAUGHTER WANTED TO SPEAK TO ON THE PHONE WELL BUT WAS WITH A PT , I LEFT PATIENT'S PHONE NUMBER IN A STICKY NOTE FOR .
[2022-06-12 09:47] VITALS: BP 104/67; PULSE 96; RESP 14; TEMP 36.7; O2SAT 96; BMI 27.1
--- NOTE | 2022-06-12 09:57 | P.PNHO-ONC_ITS ---
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 B symptoms of drenching night sweats and weight loss, imaging with the CT chest, abdomen, and pelvis on April 16, 2016, which demonstrated diffuse mediastinal and hilar adenopathy. Patient underwent core biopsy of right axillary node, which demonstrated grade 1 follicular lymphoma. Flow cytometry demonstrated involvement by CD10 positive B-cells lymphoma. Bone marrow biopsy April 26, 2016 confirmed involvement of the bone marrow by follicular lymphoma. PET scan demonstrated increased uptake in all the LN areas. Started first cycle chemotherapy with Rituxan bendamustine on 05/07/16. Received chemotherapy with Rituxan/ bendamustine from 05/07/16 to 07/31/16. PET scan 08/21/16, complete metabolic response. MRI abdomen performed 07/15/2019 showed right adrenal mass measuring 7.1 cm, inseparable from adjacent liver parenchyma raising concern for invasion. Right retrocrural lymphadenopathy and prominent gastrohepatic lymph nodes suspicious for metastatic involvement. FNA of right adrenal mass performed 08/06/2019 demonstrated follicular lymphoma, positive CD10, kappa light chain restricted B-cell lymphoma. KI 67 proliferation index is low. PET-CT performed 08/12/2019 showed abnormal FDG activity in right adrenal mass SUV 5.8 focus in the right retrocrural region SUV 5.1 corresponding to enlarged right retrocrural lymph node measuring 2 x 1 cm. No other uptake. He underwent radiation therapy 400 cGy in 2 fractions administered on 09/27/2019 and 09/28/19 at [facility]. Repeat PET scan performed at [facility] on 04/27/2020 shows new abnormal FDG activity in anterior mediastinal lymphadenopathy within prevascular space, SUV 6.1. Persistent activity within right suprarenal region with SUV 4.8, similar to prior study. New focal intense activity within left side of mesentry SUV 8.3 corresponding to mesenteric lymph node Family history of cancer. Prostate and breast cancer in his paternal side raising suspicion for inherited cancer syndrome. Genetic counseling was discussed with patient. Patient declined counseling/testing. Last imaging was at [facility] in March 2021 shows further progression of disease, he has mediastinal adenopathy as well as abdominal adenopathy, increasing size and FDG avidity of right adrenal lesion. For recurrent disease patient started obinutuzumab plus CVP on 05/14/21. Interval History Interval history: Patient seen urgently today because of complaints of progressive weakness after recent COVID-19 infection. He tested positive end of May but has been having persistent symptoms of cough and nausea. He has low-grade fevers and is not eating much. He has diffuse body aches. He does have some pain in his low back when he coughs or takes a deep breath. He went to emergency department at [facility] over the weekend, chest x-ray was negative. His oxygen levels were good and therefore he was sent home. Review of Systems - Constitutional Reports as per HPI, Reports fatigue, Reports lack of energy, Reports malaise, Reports poor appetite - Cardiovascular Reports no additional cardiovascular complaints - Respiratory Reports no additional respiratory complaints - Neurologic Denies weakness [facility], [facility] Medical History: Medical History (Last Reviewed 06/12/22 @ 09:50 by Dana Melchor) Abnormal urine cytology CAD (coronary artery disease) Diabetes GERD (gastroesophageal reflux disease) HTN (hypertension) Hyperlipemia Lymphoma Family History: Family History (Last Reviewed 06/12/22 @ 09:50 by Dana Melchor) Father Pancreas cancer Hypertension Sister Breast cancer Surgical History: Surgical History (Last Reviewed 06/12/22 @ 09:50 by Dana Melchor) History of heart artery stent Hx of cataract surgery Social History: Social History (Last Updated 06/12/22 @ 09:51 by Dana Melchor) Living Situation History: Household Members: Children Housing: House Are you a primary farm or ranch animal caretaker to a significant other at home: No Do you presently have visiting nurse or other home services: No Alcohol History Details: 1. How often do you have a drink containing alcohol?: a. Never Tobacco History: Patient Tobacco Use Status: Never used Tobacco Substance Use History: Use of substances other than those prescribed or required for medical reasons : No Domestic Abuse History: Have you been hit, kicked, punched, or otherwise hurt by someone within the past year? If so, by whom?: No Do you feel safe in your current relationship?: No Current Relationship Homicidal Assessment: Do you have thoughts of harming others: None Do you have a plan to hurt others: No Plan Do you have the means to hurt others: No Nutrition Assessment: Recently lost weight without trying: Yes How much weight loss: 14-23 pounds Eating poorly because of decreased appetite: Yes Nutrition screen score: 5 Occupation Assessmet: service: No Current occupational status: unemployed Oncology Screenings - ECOG Performance Status ECOG Performance Status: 1 Home Medications and Allergies Home Medications Medication Instructions Recorded Confirmed Type aspirin 81 mg tablet 81 mg PO DAILY 11/14/20 06/12/22 History atorvastatin 80 mg tablet 80 mg PO DAILY 11/14/20 06/12/22 History epinephrine 0.1 mg/0.1 mL 0.1 mg IM DIRECTED 11/14/20 06/12/22 History injection, auto-injector hydrochlorothiazide 25 mg tablet 25 mg PO DAILY 11/14/20 06/12/22 History losartan 50 mg tablet 50 mg PO DAILY 11/14/20 06/12/22 History metformin 500 mg tablet 500 mg PO BID 11/14/20 06/12/22 History metoprolol succinate 100 mg 100 mg PO DAILY 11/14/20 06/12/22 History tablet,extended release 24 hr blood sugar diagnostic (FreeStyle 06/25/21 06/12/22 History Lite Strips) blood-glucose meter (FreeStyle 06/25/21 06/12/22 History [place] Lite) dextrose 40 % oral gel (Glutose-15) 40 ea PO DIRECTED PRN 06/25/21 06/12/22 History Hypoglycemia Allergies Allergy/AdvReac Type Severity Reaction Status Date / Time amlodipine [AMLODIPINE] Allergy Unknown EDEMA-PER Verified 12/25/21 09:15 H&P Exam Vital signs: Vital Signs Temp 98.1 F 06/12/22 09:47 Pulse 96 06/12/22 09:47 Resp 14 06/12/22 09:47 BP 104/67 06/12/22 09:47 Pulse Ox 96 06/12/22 09:47 O2 Del Method 06/12/22 09:47 Intake & Output 06/11/22 06/12/22 06/12/22 18:59 06:59 18:59 Other: Weight 76.2 kg Weight in Grams 83014 Weight 76.2 kg BMI result Body Mass Index 27.1 - Constitutional Present: no acute distress - Routine HEENT Exam Head: Present: normal inspection - Routine Neck Exam Present: full ROM. Absent: lymphadenopathy - Routine Chest/Breast/Axilla Exam Chest wall: Absent: tenderness, mass - Routine Respiratory Exam Present: CTAB - Routine Cardiovascular Exam Cardiovascular: Present: RRR, S1, S2 - Routine Abdominal Exam Present: soft. Absent: mass - Routine Extremities Exam Absent: calf tenderness, joint swelling - Routine Skin Exam Present: intact. Absent: cyanosis, erythema Data - Labs CBC & Chem 7: 06/12/22 10:05 06/12/22 10:05 Assessment and Plan Patient Active problem list reviewed?: Yes (1) Follicular lymphoma Status: Chronic Assessment and plan: 1. This is a 62-year-old male with recurrent follicular lymphoma diagnosed in July 2019. Initial diagnosis of follicular lymphoma, low grade, but with extensive disease with multiple areas of lymph node involvement diagnosed i nitially in 2015. Received chemotherapy with Rituxan/ bendamustine from 05/07/16 to 07/31/16. PET scan 08/21/16, complete metabolic response. Recurrent follicular lymphoma diagnosed in August 2019. He underwent radiation therapy 400 cGy in 2 fractions administered on 09/27/2019 and 09/28/19 at [facility]. He did not have a response to this. He received 4 cycles of CVP plus obinu tuzumab which he completed in July 2021. Adriamycin has been omitted because of his history of heart disease. PET-CT performed on 07/27/2021 showed complete resolution of FDG activity and para-aortic lymph nodes. No evidence of disease. 2. Left arm thrombophlebitis. He is already on baby aspirin. He was on Xarelto for about 2 months this was discontinued in July 2021. 3. COVID-19 infection in May 2022. He had received vaccination and 1 booster dose. Unfortunately he did not receive Paxlovid or any specific COVID-19 therapy, he would have been a good candidate because of his history of lymphoma and treatment for the same. Since he has had symptoms for more than 2 weeks, no longer eligible to receive this treatment. Blood work today shows evidence of mild dehydration. IV fluids is being administered. His D-dimer is less than 200 therefore unlikely to have pulmonary embolism. Patient was advised to go to emergency department if he had any worsening symptoms in the next few days. - Time Spent With Patient Time Spent with Patient (in minutes): 25
[2022-06-12 10:08] LABS: MANUAL DIFF FLAG NO
[2022-06-12 10:09] VITALS: TEMP 37.6; O2SAT 94
[2022-06-12 10:23] LABS: Basophils Percent Auto 0.2 % (0-2); Eosinophils Absolute Auto 0.1 X10*3/uL (0.0-0.4); Eosinophils Percent Auto 2.2 % (0-4); Hematocrit 37.3 % (42.0-52.0); Hemoglobin 12.9 g/dl (14.0-18.0); Imm Gran Abs Auto 0.02 X10*3/uL (0.00-0.03); Imm Gran Pct Auto 0.3 % (0.0-0.4); Lymphocytes Absolute Auto 0.7 X10*3/uL (1.2-4.9); Lymphocytes Percent Auto 10.5 % (20-40); Mean Corpuscular HGB Conc 34.6 g/dl (31.0-36.0); Mean Corpuscular Hemoglobin 29.9 pg (27.0-33.0); Mean Corpuscular Volume 86.5 fL (80.0-98.0); Mean Platelet Volume 8.7 fL (9.4-12.4); Monocytes Absolute Auto 0.5 X10*3/uL (0.1-1.2); Neutrophils Percent Auto 78.8 % (45-73); Platelet Count 175 X10*3/uL (160-400); Red Blood Count 4.31 X10*6/uL (4.60-5.80); Red Cell Distribution Width 12.6 % (11.0-16.0); White Blood Count 6.4 X10*3/uL (4.8-10.8)
[2022-06-12 10:34] LABS: Alanine Aminotransferase 31 U/L (0-40); Albumin Level 3.6 g/dL (3.5-5.0); Alkaline Phosphatase 115 U/L (39-117); Anion Gap 13 (12-20); Aspartate Amino Transferase 30 U/L (5-37); Bilirubin Total 0.9 mg/dL (0.0-1.0); Blood Urea Nitrogen 24 mg/dL (9-16); Calcium 8.3 mg/dL (8.4-10.2); Carbon Dioxide 27 mmol/L (22-29); Chloride 99 mmol/L (96-108); Creatinine Clr Calc Pharmacy 55.3; Estimated Glomerular Filt Rate 57; Glucose Random 247 mg/dL (60-115); Potassium 4.1 mmol/L (3.3-5.1); Sodium 135 mmol/L (135-145); Total Protein 6.2 g/dL (6.5-8.0)
[2022-06-12] MEDS: 0.9 % Sodium Chloride 1,000 ML 500 ML IV (10:44)
[2022-06-12 11:04] LABS: D Dimer High Sensitivity 189 NG/ML
[2022-06-12 14:23] VITALS: BP 117/72; PULSE 110; RESP 18; TEMP 38.4; O2SAT 97
--- NOTE | 2022-06-12 14:42 | MHC.HEMONC ---
Exam with Dr. Dumont. Patient and daughter report that patient had Covid May 22. Daughter reports that patient has had minimal fluid intake over the last several days. Dr. Dumont ordered 1L NS over 2 hours. #22 placed to right hand. Patient reports feeling better after hydration. Post vitals: 101.2 oral 117/72, HR [address] O[address] sat 97% Dr. Dumont updated. Patient instructed to take Tylenol and go to ED if symptoms worsen. Follow up in 3 months.
--- NOTE | 2022-07-10 10:01 | P.PNHO-ONC_ITS ---
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 B symptoms of drenching night sweats and weight loss, imaging with the CT chest, abdomen, and pelvis on April 16, 2016, which demonstrated diffuse mediastinal and hilar adenopathy. Patient underwent core biopsy of right axillary node, which demonstrated grade 1 follicular lymphoma. Flow cytometry demonstrated involvement by CD10 positive B-cells lymphoma. Bone marrow biopsy April 26, 2016 confirmed involvement of the bone marrow by follicular lymphoma. PET scan demonstrated increased uptake in all the LN areas. Started first cycle chemotherapy with Rituxan bendamustine on 05/07/16. Received chemotherapy with Rituxan/ bendamustine from 05/07/16 to 07/31/16. PET scan 08/21/16, complete metabolic response. MRI abdomen performed 07/15/2019 showed right adrenal mass measuring 7.1 cm, inseparable from adjacent liver parenchyma raising concern for invasion. Right retrocrural lymphadenopathy and prominent gastrohepatic lymph nodes suspicious for metastatic involvement. FNA of right adrenal mass performed 08/06/2019 demonstrated follicular lymphoma, positive CD10, kappa light chain restricted B-cell lymphoma. KI 67 proliferation index is low. PET-CT performed 08/12/2019 showed abnormal FDG activity in right adrenal mass SUV 5.8 focus in the right retrocrural region SUV 5.1 corresponding to enlarged right retrocrural lymph node measuring 2 x 1 cm. No other uptake. He underwent radiation therapy 400 cGy in 2 fractions administered on 09/27/2019 and 09/28/19 at [facility]. Repeat PET scan performed at [facility] on 04/27/2020 shows new abnormal FDG activity in anterior mediastinal lymphadenopathy within prevascular space, SUV 6.1. Persistent activity within right suprarenal region with SUV 4.8, similar to prior study. New focal intense activity within left side of mesentry SUV 8.3 corresponding to mesenteric lymph node Family history of cancer. Prostate and breast cancer in his paternal side raising suspicion for inherited cancer syndrome. Genetic counseling was discussed with patient. Patient declined counseling/testing. Last imaging was at [facility] in March 2021 shows further progression of disease, he has mediastinal adenopathy as well as abdominal adenopathy, increasing size and FDG avidity of right adrenal lesion. For recurrent disease patient started obinutuzumab plus CVP on 05/14/21. Interval History Interval history: Patient is here in follow-up. He ended up getting admitted in May for pneumonia related to COVID-19 infection. He was in for 7 days. He has lost a lot of weight. He was on antibiotics and was very weak. He had CT chest which showed changes of pneumonia/infection. He is now feeling a lot better. His cough has resolved. His appetite is coming back. He denies any abdominal discomfort or change in bowel habits. No night sweats or chills. Review of Systems - Constitutional Reports as per HPI, Reports no additional constitutional complaints - Cardiovascular Reports no additional cardiovascular complaints - Respiratory Reports no additional respiratory complaints - Neurologic Denies weakness [facility] Medical History: Medical History (Last Reviewed 07/10/22 @ 10:06 by GWENDOLYN Coates) Abnormal urine cytology CAD (coronary artery disease) Diabetes Follicular lymphoma GERD (gastroesophageal reflux disease) HTN (hypertension) Hyperlipemia Lymphoma Lymphoma Family History: Family History (Last Reviewed 07/10/22 @ 10:06 by GWENDOLYN Coates) Father Pancreas cancer Hypertension Sister Breast cancer Surgical History: Surgical History (Last Reviewed 07/10/22 @ 10:06 by GWENDOLYN Coates) History of heart artery stent Hx of cataract surgery Social History: Social History (Last Updated 07/10/22 @ 10:07 by GWENDOLYN Coates) Living Situation History: Household Members: None Housing: Apartment Are you a primary overnight caregiver to a significant other at home: No Do you presently have visiting nurse or other home services: No Alcohol History Details: 1. How often do you have a drink containing alcohol?: a. Never Tobacco History: Patient Tobacco Use Status: Never used Tobacco Substance Use History: Use of substances other than those prescribed or required for medical reasons : No Domestic Abuse History: Have you been hit, kicked, punched, or otherwise hurt by someone within the past year? If so, by whom?: No Do you feel safe in your current relationship?: No Current Relationship Homicidal Assessment: Do you have thoughts of harming others: None Do you have a plan to hurt others: No Plan Do you have the means to hurt others: No Nutrition Assessment: Recently lost weight without trying: Yes How much weight loss: 14-23 pounds Eating poorly because of decreased appetite: Yes Nutrition screen score: 5 Occupation Assessmet: service: No Current occupational status: disabled Home Medications and Allergies Home Medications Medication Instructions Recorded Confirmed Type atorvastatin 80 mg tablet 80 mg PO DAILY 11/14/20 07/10/22 History hydrochlorothiazide 25 mg tablet 25 mg PO DAILY 11/14/20 07/10/22 History losartan 50 mg tablet 50 mg PO DAILY 11/14/20 07/10/22 History metformin 500 mg tablet 500 mg PO BIDWM 11/14/20 07/10/22 History metoprolol succinate 100 mg 100 mg PO DAILY 11/14/20 07/10/22 History tablet,extended release 24 hr blood sugar diagnostic (FreeStyle 06/25/21 07/10/22 History Lite Strips) blood-glucose meter (FreeStyle 06/25/21 07/10/22 History [place] Lite kit) albuterol sulfate 90 mcg/actuation 2 puff PO Q4-6H PRN dyspnea 06/14/22 07/10/22 History aerosol inhaler (Ventolin HFA) aspirin 81 mg tablet,delayed 2 tab PO QPM 06/14/22 07/10/22 History release benzonatate 200 mg capsule 1 cap PO TID PRN cough 06/14/22 07/10/22 History fluticasone propionate 50 1 - 2 spray intranasal DAILY PRN 06/14/22 07/10/22 History mcg/actuation nasal Allergy Symptoms spray,suspension loratadine 10 mg tablet 1 tab PO DAILY 06/14/22 07/10/22 History oxycodone 10 mg tablet 1 tab PO BID PRN Pain (Scale Score 06/14/22 07/10/22 History 7-10) pantoprazole 40 mg tablet,delayed 1 tab PO DAILY 06/14/22 07/10/22 History release Allergies Allergy/AdvReac Type Severity Reaction Status Date / Time amlodipine [AMLODIPINE] Allergy Unknown EDEMA-PER Verified 07/10/22 10:07 H&P Exam Vital signs: Vital Signs Temp 101.2 F H 06/12/22 14:23 Pulse 110 H 06/12/22 14:23 Resp 18 06/12/22 14:23 BP 117/72 06/12/22 14:23 Pulse Ox 97 06/12/22 14:23 O2 Del Method 06/12/22 14:23 Weight 76.2 kg BMI result Body Mass Index 27.1 - Constitutional Present: no acute distress - Routine HEENT Exam Head: Present: normal inspection - Routine Neck Exam Present: full ROM. Absent: lymphadenopathy - Routine Chest/Breast/Axilla Exam Chest wall: Absent: tenderness, mass - Routine Respiratory Exam Present: CTAB - Routine Cardiovascular Exam Cardiovascular: Present: RRR, S1, S2 - Routine Abdominal Exam Present: soft. Absent: mass - Routine Extremities Exam Absent: calf tenderness, joint swelling - Routine Skin Exam Present: intact. Absent: cyanosis, erythema Data - Labs CBC & Chem 7: 07/10/22 10:23 07/10/22 10:23 Assessment and Plan Patient Active problem list reviewed?: Yes (1) Follicular lymphoma Status: Inactive Assessment and plan: 1. This is a 62-year-old male with recurrent follicular lymphoma diagnosed in July 2019. Initial diagnosis of follicular lymphoma, low grade, but with extensive disease with multiple areas of lymph node involvement diagnosed initially in 2015. Received chemotherapy with Rituxan/ bendamustine from 05/07/16 to 07/31/16. PET scan 08/21/16, complete metabolic response. Recurrent follicular lymphoma diagnosed in August 2019. He underwent radiation therapy 400 cGy in 2 fractions administered on 09/27/2019 and 09/28/19 at [facility]. He did not have a response to this. He received 4 cycles of CVP plus obinutuzumab which he completed in July 2021. Adriamycin has been omitted because of his history of heart disease. PET-CT performed on 07/27/2021 showed complete resolution of FDG activity and para-aortic lymph nodes. No evidence of disease. 2. Left arm thrombophlebitis. He is already on baby aspirin. He was on Xarelto for about 2 months this was discontinued in July 2021. 3. COVID-19 infection in May 2022. He was admitted in May with pneumonia, COVID-19 infection was positive again. He was treated with IV and subsequently oral antibiotics. He has now recovered. 4. Normocytic anemia probably related to recent infection. Rest of his labs have improved. CT chest in May shows no evidence of disease recurrence of lymphoma. Follow-up in 4 months. - Time Spent With Patient Time Spent with Patient (in minutes): 15
[2022-07-10 10:04] VITALS: BP 115/70; PULSE 93; RESP 16; TEMP 36.3; O2SAT 98; BMI 25.2
[2022-07-10 10:29] LABS: Hemoglobin 10.8 g/dl (14.0-18.0); Mean Corpuscular HGB Conc 32.7 g/dl (31.0-36.0); Mean Corpuscular Volume 88.5 fL (80.0-98.0); Mean Platelet Volume 8.5 fL (9.4-12.4); Platelet Count 275 X10*3/uL (160-400); Red Blood Count 3.73 X10*6/uL (4.60-5.80); White Blood Count 6.7 X10*3/uL (4.8-10.8)
--- NOTE | 2022-07-10 10:33 | MHC.HEMONCMA ---
pt seen today for 1 month f/u , labs,vss done at todays visit with a 4 month f/u booked.
[2022-07-10 10:54] LABS: Alanine Aminotransferase 62 U/L (0-40); Albumin Level 3.7 g/dL (3.5-5.0); Alkaline Phosphatase 144 U/L (39-117); Anion Gap 15 (12-20); Aspartate Amino Transferase 34 U/L (5-37); Bilirubin Total 0.6 mg/dL (0.0-1.0); Blood Urea Nitrogen 12 mg/dL (9-16); Calcium 9.3 mg/dL (8.4-10.2); Carbon Dioxide 28 mmol/L (22-29); Chloride 104 mmol/L (96-108); Creatinine Clr Calc Pharmacy 84.3; Estimated Glomerular Filt Rate > 60; Glucose Random 129 mg/dL (60-115); Lactate Dehydrogenase 239 U/L (118-273); Potassium 4.8 mmol/L (3.3-5.1); Sodium 142 mmol/L (135-145); Total Protein 6.4 g/dL (6.5-8.0)
--- NOTE | 2022-11-05 14:20 | P.PNHO-ONC_ITS ---
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 B symptoms of drenching night sweats and weight loss, imaging with the CT chest, abdomen, and pelvis on April 16, 2016, which demonstrated diffuse mediastinal and hilar adenopathy. Patient underwent core biopsy of right axillary node, which demonstrated grade 1 follicular lymphoma. Flow cytometry demonstrated involvement by CD10 positive B-cells lymphoma. Bone marrow biopsy April 26, 2016 confirmed involvement of the bone marrow by follicular lymphoma. PET scan demonstrated increased uptake in all the LN areas. Started first cycle chemotherapy with Rituxan bendamustine on 05/07/16. Received chemotherapy with Rituxan/ bendamustine from 05/07/16 to 07/31/16. PET scan 08/21/16, complete metabolic response. MRI abdomen performed 07/15/2019 showed right adrenal mass measuring 7.1 cm, inseparable from adjacent liver parenchyma raising concern for invasion. Right retrocrural lymphadenopathy and prominent gastrohepatic lymph nodes suspicious for metastatic involvement. FNA of right adrenal mass performed 08/06/2019 demonstrated follicular lymphoma, positive CD10, kappa light chain restricted B-cell lymphoma. KI 67 proliferation index is low. PET-CT performed 08/12/2019 showed abnormal FDG activity in right adrenal mass SUV 5.8 focus in the right retrocrural region SUV 5.1 corresponding to enlarged right retrocrural lymph node measuring 2 x 1 cm. No other uptake. He underwent radiation therapy 400 cGy in 2 fractions administered on 09/27/2019 and 09/28/19 at [facility]. Repeat PET scan performed at [facility] on 04/27/2020 shows new abnormal FDG activity in anterior mediastinal lymphadenopathy within prevascular space, SUV 6.1. Persistent activity within right suprarenal region with SUV 4.8, similar to prior study. New focal intense activity within left side of mesentry SUV 8.3 corresponding to mesenteric lymph node Family history of cancer. Prostate and breast cancer in his paternal side raising suspicion for inherited cancer syndrome. Genetic counseling was discussed with patient. Patient declined counseling/testing. Last imaging was at [facility] in March 2021 shows further progression of disease, he has mediastinal adenopathy as well as abdominal adenopathy, increasing size and FDG avidity of right adrenal lesion. For recurrent disease patient started obinutuzumab plus CVP on 05/14/21. He received 4 cycles of CVP plus obinutuzumab which he completed in July 2021. Adriamycin has been omitted because of his history of heart disease. PET-CT performed on 07/27/2021 showed complete resolution of FDG activity and para-aortic lymph nodes. No evidence of disease. Admitted in May 2022 for pneumonia related to COVID-19 infection. Interval History Interval history: Patient is here in follow-up. He is doing much better overall but reports pain in his right hip area which occurs only at nighttime. His fine during the day and has no difficulty walking, sitting or standing. It is only when he lays down at nighttime that he feels the pain. He had recent x-ray. He was told that it could be inflammation. He does take occasional Tylenol or Motrin and it helps. Review of Systems - Constitutional Reports as per HPI, Denies fatigue, Denies lack of energy, Denies malaise, Denies night sweats, Denies weight loss - Cardiovascular Reports system reviewed and no additional complaints, except as documented - Respiratory Reports no additional respiratory complaints - Gastrointestinal Reports system reviewed and no additional complaints, except as documented - Neurologic Denies weakness PMFSH Medical History: Medical History (Last Updated 11/05/22 @ 14:32 by Dana Melchor) Abnormal urine cytology CAD (coronary artery disease) COVID Onset Date: ~06/09/22 Diabetes Follicular lymphoma GERD (gastroesophageal reflux disease) HTN (hypertension) Hyperlipemia Lymphoma Lymphoma Family History: Family History (Last Reviewed 11/05/22 @ 14:31 by Dana Melchor) Father Pancreas cancer Hypertension Sister Breast cancer Surgical History: Surgical History (Last Reviewed 11/05/22 @ 14:31 by Dana Melchor) History of heart artery stent Hx of cataract surgery Social History: Social History (Last Updated 07/10/22 @ 10:07 by GWENDOLYN Coates) Living Situation History: Household Members: None Housing: Apartment Are you a primary pharmacist critical care to a significant other at home: No Do you presently have visiting nurse or other home services: No Alcohol History Details: 1. How often do you have a drink containing alcohol?: a. Never Tobacco History: Patient Tobacco Use Status: Never used Tobacco Substance Use History: Use of substances other than those prescribed or required for medical reasons : No Domestic Abuse History: Have you been hit, kicked, punched, or otherwise hurt by someone within the past year? If so, by whom?: No Do you feel safe in your current relationship?: No Current Relationship Homicidal Assessment: Do you have thoughts of harming others: None Do you have a plan to hurt others: No Plan Do you have the means to hurt others: No Nutrition Assessment: Recently lost weight without trying: Yes How much weight loss: 14-23 pounds Eating poorly because of decreased appetite: Yes Nutrition screen score: 5 Occupation Assessmet: service: No Current occupational status: disabled Oncology Screenings - ECOG Performance Status ECOG Performance Status: 0 Home Medications and Allergies Home Medications Medication Instructions Recorded Confirmed Type atorvastatin 80 mg tablet 80 mg PO DAILY 11/14/20 11/05/22 History hydrochlorothiazide 25 mg tablet 25 mg PO DAILY 11/14/20 11/05/22 History losartan 50 mg tablet 50 mg PO DAILY 11/14/20 11/05/22 History metformin 500 mg tablet 500 mg PO BIDWM 11/14/20 11/05/22 History metoprolol succinate 100 mg 100 mg PO DAILY 11/14/20 11/05/22 History tablet,extended release 24 hr blood sugar diagnostic (FreeStyle 06/25/21 11/05/22 History Lite Strips) blood-glucose meter (FreeStyle 06/25/21 11/05/22 History Gates Lite kit) albuterol sulfate 90 mcg/actuation 2 puff PO Q4-6H PRN dyspnea 06/14/22 11/05/22 History aerosol inhaler (Ventolin HFA) aspirin 81 mg tablet,delayed 2 tab PO QPM 06/14/22 11/05/22 History release benzonatate 200 mg capsule 1 cap PO TID PRN cough 06/14/22 11/05/22 History fluticasone propionate 50 1 - 2 spray intranasal DAILY PRN 06/14/22 11/05/22 History mcg/actuation nasal Allergy Symptoms spray,suspension loratadine 10 mg tablet 1 tab PO DAILY 06/14/22 11/05/22 History oxycodone 10 mg tablet 1 tab PO BID PRN Pain (Scale Score 06/14/22 11/05/22 History 7-10) pantoprazole 40 mg tablet,delayed 1 tab PO DAILY 06/14/22 11/05/22 History release Allergies Allergy/AdvReac Type Severity Reaction Status Date / Time amlodipine [AMLODIPINE] Allergy Unknown EDEMA-PER Verified 07/10/22 10:07 H&P Exam Vital signs: Vital Signs Temp 97.4 F 07/10/22 10:04 Pulse 93 07/10/22 10:04 Resp 16 07/10/22 10:04 BP 115/70 07/10/22 10:04 Pulse Ox 98 07/10/22 10:04 O2 Del Method 07/10/22 10:04 Weight 70.8 kg BMI result Body Mass Index 25.2 - Constitutional Present: no acute distress - Routine HEENT Exam Head: Present: normal inspection - Routine Neck Exam Present: full ROM. Absent: lymphadenopathy - Routine Chest/Breast/Axilla Exam Chest wall: Absent: tenderness, mass - Routine Respiratory Exam Present: CTAB - Routine Cardiovascular Exam Cardiovascular: Present: RRR, S1, S2 - Routine Abdominal Exam Present: soft. Absent: mass - Routine Extremities Exam Absent: calf tenderness, joint swelling - Routine Skin Exam Present: intact. Absent: cyanosis, erythema Data - Labs CBC & Chem 7: 11/05/22 14:24 11/05/22 14:24 Assessment and Plan Patient Active problem list reviewed?: Yes (1) Follicular lymphoma Status: Inactive Assessment and plan: 1. This is a 62-year-old male with recurrent follicular lymphoma diagnosed in July 2019. Initial diagnosis of follicular lymphoma, low grade, but with extensive disease with multiple areas of lymph node involvement diagnosed initially in 2016. Received chemotherapy with Rituxan/ bendamustine from 05/07/16 to 07/31/16. PET scan 08/21/16, complete metabolic response. Recurrent follicular lymphoma diagnosed in August 2019. He underwent radiation therapy 400 cGy in 2 fractions administered on 09/27/2019 and 09/28/19 at [facility]. He did not have a response to this. He received 4 cycles of CVP plus obinutuzumab which he completed in July 2021. Adriamycin has been omitted because of his history of heart disease. PET-CT performed on 07/27/2021 showed complete resolution of FDG activity and para-aortic lymph nodes. No evidence of disease. 2. Left arm thrombophlebitis. He is already on baby aspirin. He was on Xarelto for about 2 months this was discontinued in July 2021. 3. Right hip pain. X-ray of the hip was negative. On exam range of motion at hip joint is normal and not associated with any pain. Probably inflammatory in origin. I have advised him to take Tylenol. His PCP is considering PT/OT. 4. Blood work today shows increase in BUN/creatinine. I will advise him to stop any NSAIDs if he is on. Check ultrasound kidneys/abdomen at this time. Follow-up in 4 months. - Time Spent With Patient Time Spent with Patient (in minutes): 20
[2022-11-05 14:29] VITALS: BP 133/73; PULSE 77; RESP 14; TEMP 36.5; O2SAT 97; BMI 25.9
[2022-11-05 14:29] LABS: MANUAL DIFF FLAG NO
[2022-11-05 14:33] LABS: Basophils Percent Auto 0.3 % (0-2); Eosinophils Absolute Auto 0.3 X10*3/uL (0.0-0.4); Eosinophils Percent Auto 2.9 % (0-4); Hematocrit 37.5 % (42.0-52.0); Hemoglobin 12.4 g/dl (14.0-18.0); Imm Gran Abs Auto 0.03 X10*3/uL (0.00-0.03); Imm Gran Pct Auto 0.3 % (0.0-0.4); Lymphocytes Percent Auto 22.9 % (20-40); Mean Corpuscular HGB Conc 33.1 g/dl (31.0-36.0); Mean Corpuscular Hemoglobin 28.6 pg (27.0-33.0); Mean Corpuscular Volume 86.6 fL (80.0-98.0); Mean Platelet Volume 8.6 fL (9.4-12.4); Monocytes Absolute Auto 0.8 X10*3/uL (0.1-1.2); Monocytes Percent Auto 8.8 % (2-11); Neutrophils Absolute Auto 5.8 x10*3/uL (2.0-8.3); Neutrophils Percent Auto 64.8 % (45-73); Platelet Count 228 X10*3/uL (160-400); Red Blood Count 4.33 X10*6/uL (4.60-5.80); Red Cell Distribution Width 13.5 % (11.0-16.0); White Blood Count 8.9 X10*3/uL (4.8-10.8)
[2022-11-05 14:49] LABS: Alanine Aminotransferase 26 U/L (0-40); Albumin Level 4.1 g/dL (3.5-5.0); Alkaline Phosphatase 108 U/L (39-117); Anion Gap 11 (12-20); Aspartate Amino Transferase 18 U/L (5-37); Bilirubin Total 0.4 mg/dL (0.0-1.0); Blood Urea Nitrogen 22 mg/dL (9-16); Carbon Dioxide 30 mmol/L (22-29); Chloride 105 mmol/L (96-108); Creatinine Clr Calc Pharmacy 50.2; Estimated Glomerular Filt Rate 51; Glucose Random 139 mg/dL (60-115); Lactate Dehydrogenase 276 U/L (118-273); Potassium 4.8 mmol/L (3.3-5.1); Sodium 141 mmol/L (135-145); Total Protein 6.6 g/dL (6.5-8.0)
--- NOTE | 2022-11-05 16:07 | MHC.HEMONCMA ---
patient seen today for followup lymphoma, VSS, U/S abd ordered, patient instructed to stop taking ibuprofen/aleve/motrin for now, labs, 4 month followup.
--- NOTE | 2022-11-29 09:43 | HE.ONCSEC ---
Addendum entered by Fartun Lewis MA 11/29/22 09:51: I WAS JUST NOTIFIED THAT THE ER THE PT WENT TO WAS [facility] . PT WILL BE GOING TO [facility] RIGHT NOW TO BE ADMITTED AND WILL DETERMINE HOW SHE PROCEEDS . Original Note: PATIENT'S FAMILY MEMBER CALLED STATING THAT PT WENT TO THE ER WITH EXTREME PAIN ( SHE STATED THAT THEY HAD TO WAIT 4HOURS ) SO THEY ENDED UP LEAVING BUT SHE DID SAY THAT THEY DID URINE AND BLOOD SAMPLES THERE BEFORE THEY LEFT AND THEY WANT TO MAKE SURE SEES THOSE AND TO MAKE A MOO APPT . I INFORMED PATIENT I WILL NOTIFY GORAN AND DR Kayleigh CURRY OF THIS AND SEE HOW THEY WILL LIKE TO PROCEED . PT'S FAMILY MEMBER DID SPECIFY AND MAKE CLEAR IN HOW MUCH EXTREME PAIN THE PT IS IN . I INFORMED GORAN OF THIS AND GAVE HER THE PATIENT'S NUMBER .(
--- NOTE | 2022-11-29 10:43 | MHC.HEMONCMA ---
Called patient back and spoke with Griselda (partner) to patient, who stated they went to [facility] ED yesterday afternoon and left after 4 1/2 hrs of waiting, patient states he is having abd/kidney area pain and oxycodone X2 tabs is not working. She also states he is not sleeping or eating at all. Spoke with Dr. Dumont who advises patient to go to [facility] ER and she will call ahead, wants CT scan done sooner and if in this much pain to get admitted possibly. Informed Griselda to call office once in ED so DR. Dumont will call or go over. She understands and in agreement.
--- NOTE | 2022-11-29 13:30 | HE.ONCSEC ---
BING CALLED BACK AND ASKED TO SPEAK TO GORAN , I INFORMED GORAN AND TRANSFERRED THE CALL .
--- NOTE | 2022-12-03 15:14 | MHC.HEMONCMA ---
stat ct biopsy abdomen percutaneous entered in OF
--- NOTE | 2022-12-04 16:38 | HO.HEMONCPA ---
Addendum entered by Kayla Talamantes 12/16/22 13:54: NO PA FOR CT GUIDED BIOPSY of the ABDOMEN CPT CODES 68713 PER SENIOR IT SECURITY ANALYST. NO PA REQUIRED FOR CT GUIDIENCE CPT CODE -88522. DOCUMENT SCANNED IN THE CHART Addendum entered by Kayla Talamantes 12/16/22 12:07: NO PA FOR CT GUIDED BIOPSY of the ABDOMEN CPT CODES 12116 PER SENIOR IT SECURITY ANALYST. PA FOR CT GUIDIENCE CPT CODE -37438 REQUESTED. AWAITING DECISION Original Note: PA FOR CT GUIDED BIOPSY of the ABDOMEN CPT CODES 47418 & 08980 REQUESTED. AWAITING DECISION
--- NOTE | 2022-12-05 10:08 | HE.ONCSEC ---
NURSE CALLED REGARDING PATIENT STATING HE NEEDS AN URGENT APPT WITH , WHICH HE WAS TOLD BY HIS PCP TO MAKE MOO ( DUE TO HIS CANCER SPREADING ALL OVER BODY ) THEY ALSO STATED HE NEEDS TO HAVE A BIOPSY DONE .I SCHEDULED HIM FOR FRIDAY AT 9:00AM .
--- NOTE | 2022-12-05 10:53 | MHC.HEMONCMA ---
spoke with Griselda patient's significant other [phone], gave her date and time of 12/11/22 at 1:30 arrive 15 min early to reg, no aspirin after 12/07/22 till after test. She is in agreement and understands. Will discuss with Dr. Dumont tomorrow when back in office about appt on this friday, or wait till after BX is done.
--- NOTE | 2022-12-09 08:54 | P.PNHO-ONC_ITS ---
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 B symptoms of drenching night sweats and weight loss, imaging with the CT chest, abdomen, and pelvis on April 16, 2016, which demonstrated diffuse mediastinal and hilar adenopathy. Patient underwent core biopsy of right axillary node, which demonstrated grade 1 follicular lymphoma. Flow cytometry demonstrated involvement by CD10 positive B-cells lymphoma. Bone marrow biopsy April 26, 2016 confirmed involvement of the bone marrow by follicular lymphoma. PET scan demonstrated increased uptake in all the LN areas. Started first cycle chemotherapy with Rituxan bendamustine on 05/07/16. Received chemotherapy with Rituxan/ bendamustine from 05/07/16 to 07/31/16. PET scan 08/21/16, complete metabolic response. MRI abdomen performed 07/15/2019 showed right adrenal mass measuring 7.1 cm, inseparable from adjacent liver parenchyma raising concern for invasion. Right retrocrural lymphadenopathy and prominent gastrohepatic lymph nodes suspicious for metastatic involvement. FNA of right adrenal mass performed 08/06/2019 demonstrated follicular lymphoma, positive CD10, kappa light chain restricted B-cell lymphoma. KI 67 proliferation index is low. PET-CT performed 08/12/2019 showed abnormal FDG activity in right adrenal mass SUV 5.8 focus in the right retrocrural region SUV 5.1 corresponding to enlarged right retrocrural lymph node measuring 2 x 1 cm. No other uptake. He underwent radiation therapy 400 cGy in 2 fractions administered on 09/27/2019 and 09/28/19 at [facility]. Repeat PET scan performed at [facility] on 04/27/2020 shows new abnormal FDG activity in anterior mediastinal lymphadenopathy within prevascular space, SUV 6.1. Persistent activity within right suprarenal region with SUV 4.8, similar to prior study. New focal intense activity within left side of mesentry SUV 8.3 corresponding to mesenteric lymph node Family history of cancer. Prostate and breast cancer in his paternal side raising suspicion for inherited cancer syndrome. Genetic counseling was discussed with patient. Patient declined counseling/testing. Last imaging was at [facility] in March 2021 shows further progression of disease, he has mediastinal adenopathy as well as abdominal adenopathy, increasing size and FDG avidity of right adrenal lesion. For recurrent disease patient started obinutuzumab plus CVP on 05/14/21. He received 4 cycles of CVP plus obinutuzumab which he completed in July 2021. Adriamycin has been omitted because of his history of heart disease. PET-CT performed on 07/27/2021 showed complete resolution of FDG activity and para-aortic lymph nodes. No evidence of disease. Admitted in May 2022 for pneumonia related to COVID-19 infection. Interval History Interval history: Patient is here in follow-up. He reports that the pain in the right flank is well controlled but now he has become constipated. He has not had a bowel movement in 4-5 days. He is taking morphine for pain control. He has MiraLax at home which is taking once a day. He is able to urinate okay. He is eating well but he has lost over 10 lb in the last 1 month. He denies fever or chills. No headache or dizziness. No chest pain, cough or shortness of breath. He feels weak. Review of Systems - Constitutional Reports as per HPI, Reports fatigue, Reports lack of energy, Denies night sweats, Reports weight loss - Cardiovascular Reports no additional cardiovascular complaints - Respiratory Reports no additional respiratory complaints - Gastrointestinal Reports change in stools, Reports constipation - Neurologic Denies weakness PMFSH Medical History: Medical History (Last Reviewed 12/09/22 @ 09:13 by Dana Melchor) Abnormal urine cytology CAD (coronary artery disease) COVID Onset Date: ~06/09/22 Diabetes Follicular lymphoma GERD (gastroesophageal reflux disease) HTN (hypertension) Hyperlipemia Lymphoma Lymphoma Family History: Family History (Last Reviewed 12/09/22 @ 09:13 by Dana Melchor) Father Pancreas cancer Hypertension Sister Breast cancer Surgical History: Surgical History (Last Reviewed 12/09/22 @ 09:13 by Dana Melchor) History of heart artery stent Hx of cataract surgery Social History: Social History (Last Reviewed 12/09/22 @ 09:13 by Dana Melchor) Living Situation History: Household Members: None Housing: Apartment Are you a primary patient care assistant to a significant other at home: No Do you presently have visiting nurse or other home services: No Tobacco History: Patient Tobacco Use Status: Never used Tobacco Advance Directives: Advance Directives Date on File: 06/19/22 Occupation Assessmet: service: No Current occupational status: disabled Oncology Screenings - ECOG Performance Status ECOG Performance Status: 1 Home Medications and Allergies Home Medications Medication Instructions Recorded Confirmed Type atorvastatin 80 mg tablet 80 mg PO DAILY 11/14/20 12/09/22 History hydrochlorothiazide 25 mg tablet 25 mg PO DAILY 11/14/20 12/09/22 History losartan 50 mg tablet 50 mg PO DAILY 11/14/20 12/09/22 History metformin 500 mg tablet 500 mg PO BIDWM 11/14/20 12/09/22 History metoprolol succinate 100 mg 100 mg PO DAILY 11/14/20 12/09/22 History tablet,extended release 24 hr blood sugar diagnostic [facility]/25/21 12/09/22 History Lite Strips) blood-glucose meter ([facility] 06/25/21 12/09/22 History [place] Lite kit) albuterol sulfate 90 mcg/actuation 2 puff PO Q4-6H PRN dyspnea 06/14/22 12/09/22 History aerosol inhaler (Ventolin HFA) aspirin 81 mg tablet,delayed 2 tab PO QPM 06/14/22 12/09/22 History release benzonatate 200 mg capsule 1 cap PO TID PRN cough 06/14/22 12/09/22 History fluticasone propionate 50 1 - 2 spray intranasal DAILY PRN 06/14/22 12/09/22 History mcg/actuation nasal Allergy Symptoms spray,suspension loratadine 10 mg tablet 1 tab PO DAILY 06/14/22 12/09/22 History pantoprazole 40 mg tablet,delayed 1 tab PO DAILY 06/14/22 12/09/22 History release morphine 15 mg tablet,extended 1 tab PO BID 12/09/22 12/09/22 History release Allergies Allergy/AdvReac Type Severity Reaction Status Date / Time amlodipine [AMLODIPINE] Allergy Unknown EDEMA-PER Verified 07/10/22 10:07 H&P Exam Vital signs: Vital Signs Temp 97.7 F 11/05/22 14:29 Pulse 77 11/05/22 14:29 Resp 14 11/05/22 14:29 BP 133/73 11/05/22 14:29 Pulse Ox 97 11/05/22 14:29 O2 Del Method 07/10/22 10:04 Weight 73.1 kg BMI result Body Mass Index 25.9 - Constitutional Present: no acute distress - Routine HEENT Exam Head: Present: normal inspection Eye: Present: PERRL - Routine Neck Exam Present: full ROM. Absent: lymphadenopathy - Routine Chest/Breast/Axilla Exam Chest wall: Absent: tenderness, mass - Routine Respiratory Exam Present: CTAB - Routine Cardiovascular Exam Cardiovascular: Present: RRR, S1, S2 - Routine Abdominal Exam Present: soft. Absent: mass - Routine Extremities Exam Absent: calf tenderness, joint swelling - Routine Skin Exam Present: intact. Absent: cyanosis, erythema Data - Labs CBC & Chem 7: 11/05/22 14:24 12/09/22 09:04 Assessment and Plan Patient Active problem list reviewed?: Yes (1) Follicular lymphoma Status: Inactive Assessment and plan: 1. This is a 62-year-old male with recurrent follicular lymphoma diagnosed in July 2019. Initial diagnosis of follicular lymphoma, low grade, but with extensive disease with multiple areas of lymph node involvement diagnosed initially in 2015. Received chemotherapy with Rituxan/ bendamustine from 05/07/16 to 07/31/16. PET scan 08/21/16, complete metabolic response. Recurrent follicular lymphoma diagnosed in August 2019. He underwent radiation therapy 400 cGy in 2 fractions administered on 09/27/2019 and 09/28/19 at [facility]. He did not have a response to this. He received 4 cycles of CVP plus obinutuzumab which he completed in July 2021. Adriamycin has been omitted because of his history of heart disease. PET-CT performed on 07/27/2021 showed complete resolution of FDG activity and para-aortic lymph nodes. No evidence of disease. Unfortunately, he presented with worsening kidney function in October 2022. CT abdomen/pelvis revealed infiltrative soft tissue mass in the right retroperitoneum extending into the right kidney in the mid and upper pole as wel l as para renal and perirenal space. Mass surrounding and attenuates upper abdominal IVC, right renal vein and renal artery. There is a 3.8 x 4.7 x 2.8 cm mass extending inferior to 3rd portion of the duodenum. No appreciable hydronephrosis. Extensive confluent upper abdominal retroperitoneal ly mphadenopathy in the right pericaval in right periaortic region. Borderline splenomegaly. LDH and uric acid are elevated. He is being started on allopurinol 100 mg once a day. He has CT-guided biopsy scheduled [place] 12/11/[place] [facility]. He may have transformed to high-grade lymphoma such as diffuse large B-cell lymphoma. 2. Pain control. He is on extended release as well as short-acting morphine sulfate for pain control. 3. Constipation probably secondary to not cortex. He has been prescribed Seno lloyd with Colace as well as MiraLax. Abdominal exam was benign and imaging/x-ray has been ordered to rule out bowel obstruction. I am sending him to [facility] for a 2nd opinion, he may need inpatient chemotherapy because of worsening kidney functions. Depending on pathology, further recommendations will be made. Follow-up in 1 week. - Time Spent With Patient Time Spent with Patient (in minutes): 20
[2022-12-09 09:11] VITALS: BP 116/67; PULSE 83; RESP 14; TEMP 36.2; O2SAT 98; BMI 24.9
[2022-12-09 09:22] LABS: INTERNATIONAL NORM RATIO 1.1 (0.9-1.1); Prothrombin Time 12.2 SEC (10.0-13.1)
[2022-12-09 09:38] LABS: Alanine Aminotransferase 22 U/L (0-40); Alkaline Phosphatase 154 U/L (39-117); Anion Gap 16 (12-20); Aspartate Amino Transferase 16 U/L (5-37); Blood Urea Nitrogen 27 mg/dL (9-16); Calcium 9.6 mg/dL (8.4-10.2); Carbon Dioxide 28 mmol/L (22-29); Chloride 101 mmol/L (96-108); Creatinine Clr Calc Pharmacy 44.5; Estimated Glomerular Filt Rate 45; Glucose Random 105 mg/dL (60-115); Lactate Dehydrogenase 442 U/L (118-273); Potassium 4.8 mmol/L (3.3-5.1); Sodium 140 mmol/L (135-145); Total Protein 6.7 g/dL (6.5-8.0); Uric Acid 7.3 mg/dL (3.4-7.0)
--- NOTE | 2022-12-09 10:25 | MHC.HEMONCMA ---
patient seen today for follow up lymphoma, VSS, labs, xray ordered, petscan ordered given to to derrell, referral to [place] being done, followup for bx on 12/11/22 at 1:30.
--- NOTE | 2022-12-09 10:41 | HO.HEMONCPA ---
Addendum entered by Kayla Talamantes 12/10/22 17:22: PA FOR EXPEDITED REVIEW OF PET/CT SCAN APPROVED. AUTH#[id number]. DOS-12/09/22 to 01/28/2023. DOCUMENT SCANNED IN THE CHART Original Note: PA FOR EXPEDITED REVIEW OF PET/CT SCAN REQUESTED VIA FAX. AWAITING DECISION
--- NOTE | 2022-12-09 16:22 | MHC.HEMONCMA ---
faxed all office notes and reports to [facility] fax [phone], Dr. Leger to see him on 12/11/22 at 10:00, patient notified of appt also.
--- NOTE | 2022-12-11 10:35 | HO.HEMONCPA ---
SENT IN CLINICAL INFORMATION TO [facility] , AWAITING APPT DATE & TIME.
--- NOTE | 2022-12-16 08:21 | HE.ONCSEC ---
WAS TOLD BY TO CANCEL AND RESCHEDULE PT'S APPT TODAY , BECAUSE HASN'T RECEIVED A REPORT THAT SHE WAS WAITING TO REVIEW W/ PATIENT ABOUT TODAY . LEEANN CALLED AND INFORMED THEM TO NOT COME IN BUT I WILL CALL BACK TO RESCHEDULE THE APPT .
--- NOTE | 2022-12-16 11:30 | MHC.HEMONC ---
Iris and I spoke to pt. He id to go to [facility] tomorrow at 10:30 for biopsy kidney at 12 pm under MAC. Pt is aware NPO, no blood thinners. He was told [facility] for tomorrow was postponed until next Friday due to scheduling conflict with bx. Dr Dumont wants bx to be priority.
--- NOTE | 2022-12-16 14:38 | MHC.HEMONC ---
BX changed to at 1:30 due to pt having ASA yesterday. aware, no more ASA until after . Aware of arrival time and NPO status.
--- NOTE | 2022-12-24 11:42 | HO.HEMONCPA ---
I CALLED [facility] CONCERNING PT BECAUSE I HAVENT RECIEVED CORRESPONDENCE . ADONIS STATED CLAUDE HAD HIS PET CT TODAY 12/24/22 AT 1:15PM
--- NOTE | 2022-12-30 14:19 | MHC.HEMONCMA ---
faxed pathology report to Dr. Freeman's office at [facility].
--- NOTE | 2022-12-31 14:55 | MHC.HEMONCMA ---
faxed over petvtan report to Dr. Freeman's office at [facility].
--- NOTE | 2023-01-16 10:10 | MHC.HEMONCMA ---
Patient's girlfriend Griselda called patient had first radiation treatment on and went to [facility] ED that night for increase pain with vomitting. Was seen and not better this morning, not sure when he had last bowel movement. [place] gave instructions for relief of constipation, with enema and suppository with miralax. Sent message to Dr. Dumont who also would like patient to go to [facility] ED now and will call Dr. Freeman's office, [facility] , to be aware and order possible scans. Called and spoke with personal secretary and gave information, she will pass to Dr. Freeman about him. Called and instructed patient what and where to go now. They will take him.
[2023-03-19 09:03] VITALS: BP 121/73; PULSE 89; RESP 14; TEMP 36.6; O2SAT 100; BMI 24.3
--- NOTE | 2023-03-19 09:45 | MHC.HEMONCMA ---
Patient seen today for followup lumphoma,VSS, record release signed for [facility], faxed over to HIM at [facility], will call to followup,
--- NOTE | 2023-03-20 11:17 | P.PNHO-ONC_ITS ---
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 B symptoms of drenching night sweats and weight loss, imaging with the CT chest, abdomen, and pelvis on April 16, 2016, which demonstrated diffuse mediastinal and hilar adenopathy. Patient underwent core biopsy of right axillary node, which demonstrated grade 1 follicular lymphoma. Flow cytometry demonstrated involvement by CD10 positive B-cells lymphoma. Bone marrow biopsy April 26, 2016 confirmed involvement of the bone marrow by follicular lymphoma. PET scan demonstrated increased uptake in all the LN areas. Started first cycle chemotherapy with Rituxan bendamustine on 05/07/16. Received chemotherapy with Rituxan/ bendamustine from 05/07/16 to 07/31/16. PET scan 08/21/16, complete metabol ic response. MRI abdomen performed 07/15/2019 showed right adrenal mass measuring 7.1 cm, inseparable from adjacent liver parenchyma raising concern for invasion. Right retrocrural lymphadenopathy and prominent gastrohepatic lymph nodes suspicious for metastatic involvement. FNA of right adrenal mass performed 08/06/2019 demonstrated follicular lymphoma, positive CD10, kappa light chain restricted B-cell lymphoma. KI 67 proliferation index is low. PET-CT performed 08/12/2019 showed abnormal FDG activity in right adrenal mass SUV 5.8 focus in the right retrocrural region SUV 5.1 corresponding to enlarged right retrocrural lymph node measuring 2 x 1 cm. No other uptake. He underwent radiation therapy 400 cGy in 2 fractions administered on 09/27/2019 and 09/28/[address] [facility]. Repeat PET scan performed at [facility] on 04/27/2020 shows new abnormal FDG activity in anterior mediastinal lymphadenopathy within prevascular space, SUV 6.1. Persistent activity within right suprarenal region with SUV 4.8, similar to prior study. New focal intense activity within left side of mesentry SUV 8.3 corresponding to mesenteric lymph node Family history of cancer. Prostate and breast cancer in his paternal side raising suspicion for inherited cancer syndrome. Genetic counseling was discussed with patient. Patient declined counseling/testing. Last imaging was at [facility] in March 2021 shows further progression of disease, he has mediastinal adenopathy as well as abdominal adenopathy, increasing size and FDG avidity of right adrenal lesion. For recurrent disease patient started obinutuzumab plus CVP on 05/14/21. He received 4 cycles of CVP plus obinutuzumab which he completed in July 2021. Adriamycin has been omitted because of his history of heart disease. PET-CT performed on 07/27/2021 showed complete resolution of FDG activity and para-aortic lymph nodes. No evidence of disease. Admitted in May 2022 for pneumonia related to COVID-19 infection. Unfortunately, he presented with worsening kidney function in October 2022. CT abdomen/pelvis revealed infiltrative soft tissue mass in the right retroperitoneum extending into the right kidney in the mid and upper pole as well as para renal and perirenal space. Mass surrounding and attenuates upper abdominal IVC, right renal vein and renal artery. There is a 3.8 x 4.7 x 2.8 cm mass extending inferior to 3rd portion of the duodenum. No appreciable hydronephrosis. Extensive confluent upper abdominal retroperitoneal lymphadenopathy in the right pericaval in right periaortic region. Borderline splenomegaly. Interval History Interval history: Patient is here in follow-up. He is doing much better overall. He has been receiving chemotherapy at [facility]. He is scheduled to get admitted to [facility] this week for chemotherapy followed by CAR-T cell therapy. He denies abdominal pain, nausea or emesis. He has lost some weight but he denies any fever or chills. No ongoing diarrhea new issues. Review of Systems - Constitutional Reports as per HPI, Denies anorexia, Denies excessive sweating, Denies lack of energy, Reports malaise, Denies night sweats - Cardiovascular Denies chest pain with activity, Denies fast heart rate, Denies foot swelling - Respiratory Denies chest congestion, Denies cough - Gastrointestinal Denies abdominal pain, Denies black, tarry stools, Denies cramping - Neurologic Denies weakness [facility] Medical History: Medical History (Last Reviewed 03/19/23 @ 09:05 by Dana Melchor) Abnormal urine cytology CAD (coronary artery disease) COVID Onset Date: ~06/09/22 Diabetes Follicular lymphoma GERD (gastroesophageal reflux disease) HTN (hypertension) Hyperlipemia Lymphoma Lymphoma Family History: Family History (Last Reviewed 03/19/23 @ 09:05 by Dana Melchor) Father Pancreas cancer Hypertension Sister Breast cancer Surgical History: Surgical History (Last Reviewed 03/19/23 @ 09:05 by Dana Melchor) History of heart artery stent Hx of cataract surgery Social History: Social History (Last Reviewed 03/19/23 @ 09:05 by Dana Melchor) Living Situation History: Household Members: None Housing: Apartment Are you a primary day care assistant to a significant other at home: No Do you presently have visiting nurse or other home services: No Alcohol History Details: 1. How often do you have a drink containing alcohol?: a. Never Tobacco History: Patient Tobacco Use Status: Never used Tobacco Substance Use History: Use of substances other than those prescribed or required for medical reasons : No Domestic Abuse History: Have you been hit, kicked, punched, or otherwise hurt by someone within the past year? If so, by whom?: No Do you feel safe in your current relationship?: No Current Relationship Advance Directives: Advance Directives Date on File: 06/19/22 Homicidal Assessment: Do you have thoughts of harming others: None Do you have a plan to hurt others: No Plan Do you have the means to hurt others: No Nutrition Assessment: Recently lost weight without trying: Yes How much weight loss: 14-23 pounds Eating poorly because of decreased appetite: Yes Nutrition screen score: 5 Occupation Assessmet: service: No Current occupational status: disabled Home Medications and Allergies Home Medications Medication Instructions Recorded Confirmed Type metoprolol succinate 100 mg 100 mg PO DAILY 11/14/20 03/19/23 History tablet,extended release 24 hr blood sugar diagnostic (FreeStyle 06/25/21 03/19/23 History Lite Strips) blood-glucose meter (FreeStyle 06/25/21 03/19/23 History [place] Lite kit) aspirin 81 mg tablet,delayed 2 tab PO QPM 06/14/22 03/19/23 History release fluticasone propionate 50 1 - 2 spray intranasal DAILY PRN 06/14/22 03/19/23 History mcg/actuation nasal Allergy Symptoms spray,suspension loratadine 10 mg tablet 1 tab PO DIRECTED 06/14/22 03/19/23 History morphine 15 mg tablet,extended 1 tab PO BID 12/09/22 03/19/23 History release Allergies Allergy/AdvReac Type Severity Reaction Status Date / Time amlodipine [AMLODIPINE] Allergy Unknown EDEMA-PER Verified 01/14/23 15:49 H&P Exam Vital signs: Vital Signs Temp 97.8 F 03/19/23 09:03 Pulse 89 03/19/23 09:03 Resp 14 03/19/23 09:03 BP 121/73 03/19/23 09:03 Pulse Ox 100 03/19/23 09:03 O2 Del Method Room Air 03/19/23 09:03 Intake & Output 03/19/23 03/20/23 03/20/23 18:59 06:59 18:59 Other: Weight 68.3 kg Weight in Grams 45552 Weight 68.3 kg BMI result Body Mass Index 24.3 - Constitutional Present: no acute distress - Routine HEENT Exam Head: Present: normal inspection - Routine Neck Exam Present: full ROM. Absent: lymphadenopathy - Routine Chest/Breast/Axilla Exam Chest wall: Absent: tenderness, mass - Routine Respiratory Exam Present: CTAB - Routine Cardiovascular Exam Cardiovascular: Present: RRR, S1, S2 - Routine Abdominal Exam Present: soft. Absent: mass - Routine Extremities Exam Absent: calf tenderness, joint swelling - Routine Skin Exam Present: intact. Absent: cyanosis, erythema Data - Labs CBC & Chem 7: 11/05/22 14:24 12/09/22 09:04 Assessment and Plan Patient Active problem list reviewed?: Yes (1) Follicular lymphoma Status: Inactive Assessment and plan: 1. This is a 63-year-old male with recurrent follicular lymphoma diagnosed in July 2019. Initial diagnosis of follicular lymphoma, low grade, but with extensive disease with multiple areas of lymph node involvement diagnosed initially in 2016. Received chemotherapy with Rituxan/ bendamustine from 05/07/16 to 07/31/16. PET scan 08/21/16, complete metabolic response. Recurrent follicular lymphoma diagnosed in August 2019. He underwent radiation therapy 400 cGy in 2 fractions administered on 09/27/2019 and 09/28/[address] [facility]. He did not have a response to this. He received 4 cycles of CVP plus obinutuzumab which he completed in July 2021. Adriamycin has been omitted because of his history of heart disease. He developed recurrent disease in October 2022. Biopsy done 12/2022 showed high-grade follicular lymphoma, PET scan showed extensive FDG avid disease in the chest/abdomen and renal areas. He was seen at [facility] as well as Dr. Wild in [facility] for possible CAR T therapy. He received RICE chemotherapy at [facility] starting January 2023. He was also treated palliatively with radiation therapy to right renal mass for pain control. PET-CT was performed at [facility] on 03/17/2023. He is being admitted to [facility] this for CART cell therapy (Axicel). Patient would like to follow-up after his treatment at [facility]. I have asked him to continue to follow-up at [facility] as well. Physical examination was benign today. He recently had blood work at [facility], records will be obtained. He will call to make an appointment. - Time Spent With Patient Time Spent with Patient (in minutes): 20
--- NOTE | 2024-07-19 15:21 | HE.ONCSEC ---
Patient at home last week July 2024
== END | disposition home or self-care (01) ==
LOC: HO.ONC 11-14 12:50
PROVIDERS: PCP Family Medicine; Visit Provider Internal Medicine
DX: C82.08 Follicular lymphoma grade I, lymph nodes of multiple sites (principal); E11.9 Type 2 diabetes mellitus without complications; Z86.72 Personal history of thrombophlebitis; Z79.4 Long term (current) use of insulin; Z79.82 Long term (current) use of aspirin; Z79.891 Long term (current) use of opiate analgesic; Z92.21 Personal history of antineoplastic chemotherapy; Z92.3 Personal history of irradiation
CPT/HCPCS: 36415; 80053; 82947; 83615; 84550; 85025; 85027; 85379; 85610; 86704; 86706; 86803; 87340; 96360; 96361; 96366; 96367; 96372; 96375; 96411; 96413; 96415; 96417; 99211; 99213; 99214; 99215; J1100; J1200; J1453; J2405; J9070; J9301; J9370; Q0163